=== PATIENT | female | born 1960 | race Caucasian/White ===

== ENCOUNTER 2016-07-30 11:42 | Inpatient (IN) | payer OTHER ==
[~2016-07-30] VITALS: Ht 157.5 cm; Wt 79.9 kg
[~2016-07-30 11:42] MED LIST: AMLO5TAB2 PO; ASPI-482 PO; ASPI325T8 PO; ATEN50TA PO; CLON0.1T PO; CLON1TAB3 PO; ESTR1PAT27 TD; ESTR1TAB15 PO; FLUO20CA8 PO; FLUO20TA11 PO; GABA600T2 PO; HYDR-2758 PO; HYDR25TA9 PO; INSU100C4 SQ; INSU100V13 SQ; INSU100V8 SQ; LEVE500T56 PO; PRENAVITE PO
[2016-07-30] MEDS ORDERED: KETOROLAC TROMETHAMINE 30 MG/ML INJ. IV ONE (12:15)
[2016-07-30] MEDS ORDERED: IV NORMAL SALINE 1000ML BAG 1,000 ML IV ONE (12:15)
--- NOTE | 2016-07-30 12:24 | ED.ADGEN ---
Past Medical History Past Medical History: A-Fib, Hypertension, ME, Seizure, TIA Past Surgical History: Appendectomy, Hysterectomy, Other Additional Past Surgical Histo: ABD SURG,LAPAROSCOPY Alcohol Use: None Drug Use: None Adult General Chief Complaint Chief Complaint: INSECT BITE HPI HPI Patient is a 55 year old insulin-dependent diabetic presents with pain and swelling tenderness and redness around right suprapubic region. Symptoms began 4 days ago while visiting at a stay. Patient believes she was bit by an insect, but it not witness her feel the alleged insect bite one occurred. The area of redness swelling and bruising is gradually increased over the past 3 days. Patient reports right leg pain with movement, arthralgia and increased swelling of right leg. Patient denies fever chills, nausea vomiting and sweats. Patient has not been checking her sugars on a regular basis while on occasion and has had questionable medication compliance. Note, patient reports feeling palpitations and being anxious. Patient has not palpitations today. History of A. fib Review of Systems Review of Systems ROS as per HPI. Current Medications Current Medications Current Medications Medications (Trade) Dose Ordered Sig/Monica Start Time Stop Time Status Last Admin Dose Admin Fentanyl Citrate (Fentanyl 2ml Vial) 75 mcg 1X ONCE 07/30/16 12:30 07/30/16 12:31 DC 07/30/16 12:43 75 MCG Insulin Human Regular (NovoLIN R VIAL) 10 unit 1X ONCE 07/30/16 13:15 07/30/16 13:16 DC 07/30/16 14:11 10 UNIT Ketorolac Tromethamine (Toradol) 30 mg 1X ONCE 07/30/16 12:15 07/30/16 12:16 DC 07/30/16 12:29 30 MG Morphine Sulfate 4 mg 1X ONCE 07/30/16 14:45 07/30/16 14:46 Ondansetron HCl (Zofran) 4 mg 1X ONCE 07/30/16 12:30 07/30/16 12:31 DC 07/30/16 12:42 4 MG Piperacillin Sod/ Tazobactam Sod 3.375 gm/Sodium Chloride 50 ml @ 100 mls/hr 1X ONCE 07/30/16 14:45 07/30/16 15:14 Sodium Chloride 1,000 ml @ 1,000 mls/hr 1X ONCE 07/30/16 12:15 07/30/16 13:14 DC 07/30/16 12:29 1,000 MLS/HR Allergies Allergies Allergies Coded Allergies Type Severity Reaction Last Updated Verified levofloxacin Allergy Severe SEIZURES 12/17/14 Yes lidocaine Allergy Severe Swelling 12/17/14 Yes Physical Exam Physical Exam Constitutional: Well developed, well nourished, moderate discomfort secondary to pain. HENT: Normocephalic, atraumatic, bilateral external ears normal, oropharynx moist, no oral exudates, nose normal. Eyes: PERRLA, EOMI, conjunctiva normal, no discharge. Neck: Normal range of motion, no tenderness, supple, no stridor. Cardiovascular:Heart rate regular rhythm, no murmur. Lungs & Thorax: Bilateral breath sounds clear to auscultation. Abdomen: Bowel sounds normal, abdomen soft nontender, . Right suprapubic region , 6 x 8 cm, area of tenderness light bruising, swelling, erythema with induration, and one area of pointing, no fluctuance or drainage appreciated. No genitourinary involvement Skin: Warm, dry, no erythema, no rash. Back: No tenderness. Extremities: No tenderness. Neurologic: Alert and oriented X 3, normal motor function, normal sensory function, no focal deficits noted. Psychologic: Affect normal, judgement normal, mood normal. Current Patient Data Vital Signs Vital Signs Date Time Temp Pulse Resp B/P (MAP) Pulse Ox O2 Delivery O2 Flow Rate FiO2 07/30/16 11:50 99.3 78 18 151/70 (97) 97 Room Air 99.3 Lab Values Laboratory Tests Test 07/30/16 12:15 White Blood Count 10.8 x10^3/uL (4.0-11.0) Red Blood Count 4.82 x10^6/uL (3.50-5.40) Hemoglobin 13.6 g/dL (12.0-15.5) Hematocrit 40.9 % (36.0-47.0) Mean Corpuscular Volume 85 fL (79-100) Mean Corpuscular Hemoglobin 28 pg (25-35) Mean Corpuscular Hemoglobin Concent 33 g/dL (31-37) Red Cell Distribution Width 12.6 % (11.5-14.5) Platelet Count 211 x10^3/uL (140-400) Neutrophils (%) (Auto) 81 % (31-73) H Lymphocytes (%) (Auto) 12 % (24-48) L Monocytes (%) (Auto) 6 % (0-9) Eosinophils (%) (Auto) 0 % (0-3) Basophils (%) (Auto) 1 % (0-3) Neutrophils # (Auto) 8.7 x10^3uL (1.8-7.7) H Lymphocytes # (Auto) 1.3 x10^3/uL (1.0-4.8) Monocytes # (Auto) 0.6 x10^3/uL (0.0-1.1) Eosinophils # (Auto) 0.0 x10^3/uL (0.0-0.7) Basophils # (Auto) 0.1 x10^3/uL (0.0-0.2) Prothrombin Time 12.6 SEC (11.7-14.0) Prothrombin Time INR 1.0 (0.8-1.1) Sodium Level 130 mmol/L (136-145) L Potassium Level 4.1 mmol/L (3.5-5.1) Chloride Level 92 mmol/L (98-107) L Carbon Dioxide Level 26 mmol/L (21-32) Anion Gap 12 (6-14) Blood Urea Nitrogen 22 mg/dL (7-20) H Creatinine 1.2 mg/dL (0.6-1.0) H Estimated GFR (Cockcroft-Gault) 46.3 BUN/Creatinine Ratio 18 (6-20) Glucose Level 532 mg/dL (70-99) *H Calcium Level 9.6 mg/dL (8.5-10.1) Total Bilirubin 0.9 mg/dL (0.2-1.0) Aspartate Amino Transferase (AST) 22 U/L (15-37) Alanine Aminotransferase (ALT) 24 U/L (14-59) Alkaline Phosphatase 64 U/L (46-116) C-Reactive Protein, Quantitative 94.9 mg/L (0-3.3) H Total Protein 7.7 g/dL (6.4-8.2) Albumin 3.4 g/dL (3.4-5.0) Albumin/Globulin Ratio 0.8 (1.0-1.7) L Laboratory Tests 07/30/16 12:15 Laboratory Tests 07/30/16 12:15 EKG EKG [] Radiology/Procedures Radiology/Procedures [] Course & Med Decision Making Course & Med Decision Making Pertinent Labs and Imaging studies reviewed. (See chart for details) [Patient with soft tissue infection of suprapubic region without clear abscess formation. A stab incision was made and no purulent drainage was aspirated. IV fluids and insulin and antibiotics will be given for presumed MRSA coverage. Dr. Gar to admit. Moises Disclaimer Moises Disclaimer This electronic medical record was generated, in whole or in part, using a voice recognition dictation system. JACQUELIN WHITNEY DO Jul 30, 2016 12:24
[2016-07-30 12:26] LABS: BASO # 0.1 x10^3/uL (0.0-0.2); BASO % 1 % (0-3); EOS % 0 % (0-3); HEMATOCRIT 40.9 % (36.0-47.0); HEMOGLOBIN 13.6 g/dL (12.0-15.5); LYMPH # 1.3 x10^3/uL (1.0-4.8); LYMPH % 12 % (24-48); MEAN CORPUSCULAR HEMOGLOBIN 28 pg (25-35); MEAN CORPUSCULAR HGB CONC 33 g/dL (31-37); MEAN CORPUSCULAR VOLUME 85 fL (79-100); MONO % 6 % (0-9); NEUT % 81 % (31-73); PLATELET COUNT 211 x10^3/uL (140-400); RED BLOOD COUNT 4.82 x10^6/uL (3.50-5.40); RED CELL DISTRIBUTION WIDTH 12.6 % (11.5-14.5); WHITE BLOOD COUNT 10.8 x10^3/uL (4.0-11.0)
[2016-07-30] MEDS ORDERED: ONDANSETRON PF 4 MG/2 ML VIAL. IV ONE (12:30)
[2016-07-30] MEDS ORDERED: fentaNYL PF VIAL 100 MCG/2 ML VIAL IV ONE (12:30)
[2016-07-30 12:37] LABS: PROTHROMBIN TIME PATIENT 12.6 SEC (11.7-14.0)
[2016-07-30 12:49] LABS: ALBUMIN 3.4 g/dL (3.4-5.0); ALBUMIN/GLOBULIN RATIO 0.8 (1.0-1.7); CALCIUM 9.6 mg/dL (8.5-10.1); CREATININE 1.2 mg/dL (0.6-1.0); GFR 46.3; POTASSIUM 4.1 mmol/L (3.5-5.1); TOTAL BILIRUBIN 0.9 mg/dL (0.2-1.0); TOTAL PROTEIN 7.7 g/dL (6.4-8.2)
[2016-07-30] MEDS ORDERED: INSULIN REGULAR 100 UNIT/ML 10ML VIAL. IM ONE (13:15)
[2016-07-30] MEDS ORDERED: ONDANSETRON PF 4 MG/2 ML VIAL. IV PRN (14:45)
[2016-07-30] MEDS ORDERED: MORPHINE SULFATE 2 MG/ML DISP.SYRIN. IV PRN (14:45)
[2016-07-30] MEDS ORDERED: PIPERACILLIN/TAZOBACTAM 3.375 GM in IV NORMAL SALINE 50ML 50 ML IV ONE (14:45)
[2016-07-30] MEDS ORDERED: MORPHINE SULFATE 4 MG/ML DISP.SYRIN. IV ONE (14:45)
--- NOTE | 2016-07-30 16:27 | ACF ---
Admission Forms Criteria SYSTEMIC OR INFECTIOUS CONDITION Clinical Indications for Admission to Inpatient Care (Place 'X' for any and all applicable criteria): Hospital admission is needed for appropriate care of the patient because of ANY ONE of the following: []I. Hemodynamic instability indicated by ANY ONE of the following(1)(2)(3)(4 )(5): []a. Vital sign abnormality not readily corrected by appropriate treatment within 12 to 24 hours indicated by ANY ONE of the following: []i) Tachycardia that persists despite appropriate treatment []ii) Hypotension that persists despite appropriate treatment []iii) Orthostatic vital sign changes that persist despite appropriate treatment []b. Vital sign abnormality that is severe indicated by ANY ONE of the following: []i. Inadequate perfusion indicated by ANY ONE of the following: []1) Lactic acidosis (greater than 2 mmol/L) []2) New abnormal capillary refill (greater than 3 seconds) []3) Reduced urine output []4) New altered mental status []5) Myocardial Ischemia []ii. Mean arterial pressure [A] less than 60 mm Hg []iii. Mean arterial pressure[A] less than 70 mm Hg after 30 minutes of appropriate treatment (eg, fluid resuscitation) []iv. Sustained heart rate greater than 120 beats per minute in adult []v. IV inotropic or vasopressor medication required to maintain adequate blood pressure or perfusion []II. Systemic or infectious condition causing severe symptoms or findings not responsive to emergency or observation care treatment (as appropriate) indicated by ANY ONE of the following: []a. Cardiac arrhythmias of immediate concern(1)(2)(3) []b. Severe endocrine disorder (eg, thyrotoxicosis, adrenal insufficiency)(4)(5) []c. Seizures (eg, new or recurrent)(6) []d. New-onset end organ failure or dysfunction as indicated by ANY ONE of the following: []i. Acute unexplained hypoxemia (eg, not from lung infection or chronic disease)(7)(8)(9) []ii. Acute renal failure as indicated by new onset of ANY ONE of the following(10)(11)(12)(13)(14): []1) 3-fold rise in serum creatinine from baseline []2) Serum creatinine greater than 4 mg/dL (354 micromoles/L) with acute rise greater than 0.5 mg/dL (44.2 micromoles/L) []3) Reduction of more than 75% in estimated glomerular filtration rate from baseline. []4) Estimated glomerular filtration rate less than 35 mL/min/1.73m2 ( 0.59 mL/sec/1.73m2) in child younger than 18 years. []5) Cessation of urine output indicated by ALL of the following: []A. Adequate volume status []B. Inadequate urine output as indicated by ANY ONE of the following: []a. Urine output less than 0.3 mL/kg/hr for 24 hours []b. Anuria (urine output less than 0.1 mL/kg/hr) for 12 hours []iii. Acute mental status changes(15) []iv. Acute hepatic failure (eg, plasma bilirubin greater than 4 mg/ dL (68 micromoles/L), new INR greater than 2.0)(16)(17) []e. Unmanageable nausea and vomiting(18) []f. New-onset or uncontrolled central diabetes insipidus(19)(20) []g. Clinically significant dehydration(18)(21) []h. Hypoglycemia(22) []i. Acidosis (pH less than 7.35) or alkalosis (pH greater than 7.45)( 22)(23) []j. Toxic drug level that indicates need for specific monitoring or treatment(24)(25) []k. Severe electrolyte abnormalities indicated by ALL of the following( 1)(2)(3): []i. Electrolytes and associated findings are not as expected for patient baseline or acceptable treatment effects. []ii. Severe abnormalities indicated by ANY ONE of the following: []1) Sodium less than 130 mEq/L (mmol/L) (new) []2) Sodium less than 135 mEq/L (mmol/L) with ANY ONE of the following: []A. Uncorrectable (to near normal or chronic baseline) after trial of outpatient and emergency treatment []B. Altered mental status []C. Seizures []D. Severe medical etiology requiring inpatient management (eg , heart failure, hypovolemia) []3) Sodium greater than 155 mEq/L (mmol/L) []4) Sodium greater than 150 mEq/L (mmol/L) with ANY ONE of the following: []A. Uncorrectable (to near normal or chronic baseline) with outpatient and emergency treatment []B. Altered mental status []C. Seizures []D. Severe medical etiology (eg, hypovolemia, diabetes insipidus) []5) Potassium less than 2.5 mEq/L (mmol/L) despite outpatient and emergency treatment []6) Potassium less than 3 mEq/L (mmol/L) with ANY ONE of the following : []A. Weakness []B. Cardiac abnormality (eg, arrhythmia, conduction disturbance ) []C. Cardiac ischemia []D. Ileus []E. Ongoing medical cause requiring inpatient management (eg, acute renal wasting or SIADH) []F. Other severe symptoms []7) Potassium greater than 6.5 mEq/L (mmol/L) []8) Potassium greater than 5 mEq/L (mmol/L) with ANY ONE of the following: []A. Uncorrectable (to near normal or chronic baseline) with outpatient and emergency treatment []B. Severe ECG findings[A] []C. Acute worsening of renal failure (creatinine greater than 2.5 mg/dL (221 micromoles/L) or significant elevation for age and size) []D. Severe weakness []E. Severe medical etiology (eg, hemolysis, infection, drug overdose) []9) Calcium less than 7 mg/dL (1.75 mmol/L) despite outpatient and emergency treatment(5) []10) Calcium less than 8 mg/dL (2 mmol/L) with significant symptoms or findings (eg, altered mental status, muscle spasms, seizures, breathing difficulty, cardiac abnormality (eg, arrhythmia or conduction disturbance))(5) []11) Calcium greater than 14 mg/dL (3.5 mmol/L)(5) []12) Calcium greater than 12 mg/dL (3 mmol/L) with ANY ONE of the following(5): []A. Uncorrectable (to near normal or chronic baseline) with outpatient and emergency treatment []B. Significant dehydration or hypovolemia as indicated by ALL of the following(3)(6)(7): []a. Not resolved with initial treatments []b. Clinically significant dehydration as indicated by ANY ONE of the following: [](1) Vomiting refractory to outpatient treatment (ie, precluding oral rehydration) [](2) Inability to drink [](3) Hypernatremia or other electrolyte abnormality unable to be corrected with outpatient and emergency treatment [](4) Failure to remain hydrated with outpatient therapy [](5) Reduced urine output [](6) Hypotension [](7) Serious cause for dehydration requiring acute hospitalization ( eg, bowel obstruction, increased intracranial pressure, infectious cause) [](8) Child with ANY ONE of the following(8): [](i) Severe abdominal tenderness [](ii) Adequate care not available at home [](iii) Severe dehydration (greater than 9% loss of body weight) []C. Significant symptoms or findings (eg, altered mental status , cardiac abnormality (eg, arrhythmia, conduction disturbance), malignant etiology requiring inpatient treatment) []13) Phosphorus less than 1 mg/dL (0.32 mmol/L) []14) Phosphorus less than 1.5 mg/dL (0.48 mmol/L) with ANY ONE of the following: []A. Patient unresponsive to outpatient and emergency treatment []B. Significant symptoms or findings (eg, weakness, altered mental status, breathing difficulty, seizures, rhabdomyolysis) []15) Phosphorus greater than 10 mg/dL (3.2 mmol/L) []16) Phosphorus greater than 4.5 mg/dL (1.45 mmol/L) (new) with ANY ONE of the following: []A. Severe medical etiology (eg, crush injury, acute renal failure) []B. Associated hypocalcemia with significant findings (eg, neurologic symptoms, altered mental status, muscle spasms, seizures, breathing difficulty, cardiac abnormality (eg, arrhythmia, conduction disturbance)) []16) Magnesium less than 1 mg/dL (0.41 mmol/L) []17) Magnesium less than 1.5 mg/dL (0.62 mmol/L) with ANY ONE of the following: []A. Patient unresponsive to outpatient and emergency treatment []B. Associated hypocalcemia with significant findings (eg, altered mental status, muscle spasms, seizures, breathing difficulty, cardiac abnormality (eg, arrhythmia, conduction disturbance)) []C. Associated hypokalemia (potassium less than 3 mEq/L (mmol/L )) with risk of arrhythmia []18) Magnesium greater than 4 mEq/L (2 mmol/L) []19) Magnesium greater than 2.5 mEq/L (1.25 mmol/L) with significant symptoms or findings (eg, weakness, altered mental status, cardiac abnormality (eg, arrhythmia, conduction disturbance), breathing difficulty, severe medical etiology (eg, renal failure, hypovolemia)) []20) Uric acid greater than 20 mg/dL (1190 micromoles/L)(9) []21) Uric acid greater than 8 mg/dL (476 micromoles/L) with significant symptoms or findings of tumor lysis syndrome (eg, creatinine greater than 1.5 times upper limit of normal, cardiac abnormality (eg , arrhythmia, conduction disturbance), seizure)(9) []III. High fever or other high-risk infection situation as indicated by ANY ONE of the following(26)(27)(28): []a. Outpatient and observation care antimicrobial treatment unavailable, not effective, or not appropriate []b. Documented bacteremia []c. Temperature greater than 104.9 degrees F (40.5 degrees C) (oral) []d. Temperature greater than 103.1 degrees F (39.5 degrees C) (oral) or less than 96.8 degrees F (36 degrees C) (rectal) that does not respond to emergency treatment and observation care []IV. High-risk febrile neutropenia[A] as indicated by ANY ONE of the following(29)(30)(31)(32): []a. Profound neutropenia[B] anticipated to extend for more than 7 days []b. Hemodynamic instability []c. Hypoxemia []d. Tachypnea []e. Altered mental status []f. New-onset abdominal pain []g. New-onset vomiting or diarrhea []h. Oral or gastrointestinal mucositis that interferes with swallowing or causes severe diarrhea []i. Focal infection (eg, cellulitis, pneumonia, central line or catheter infection, perirectal abscess) []j. Renal insufficiency (eg, GFR of less than 30 mL/min/1.73m2 (0.5 mL/sec /1.73m2)). []k. Severe liver dysfunction (transaminase levels greater than 5 times normal) []l. Platelet count less than 50,000/mm3 (50 x109/L)(33) []m. Leukemia or lymphoma induction therapy []n. Leukemia not in complete remission or with evidence of disease progression []o. Bone marrow transplant patient []p. Alemtuzumab being used for therapy []q. [employer] Association for Supportive Care in Cancer (MASCC) Risk Index score of less than 21[C](33)(35). []V. Isolation required (eg, tuberculosis that requires isolation, Ebola infection)[D](36)(37)(38)(39)(40) []. Gangrene that requires treatment beyond emergency or observation level care(41)(42) []VII. Antitoxin administration and ongoing observation required (eg, tetanus, botulism)(43)(44) [X]. Suspected infection with rapid progression or severe symptoms as indicated by ANY ONE of the following(45): []a. Streptococcal or staphylococcal toxic shock(46) []b. Diphtheria(47) []c. Hantavirus(48) []d. Severe acute respiratory syndrome(8)(49) []e. Anthrax(50) []f. Ebola[D](36)(37)(38) []g. Necrotizing soft tissue infection(41)(42) []h. Plague(50) [X]i. Other suspected infection that requires care beyond emergency or observation level care []VII. Severe adverse drug or systemic toxin reaction as indicated by ANY ONE of the following(24): []a. Serotonin syndrome(51)(52) []b. Neuroleptic malignant syndrome(51)(52) []c. Cholinergic syndrome with severe symptoms (eg, bronchorrhea, weakness , mental status changes, seizures)(53) []d. Anticholinergic syndrome []e. Sympathetic syndrome with severe symptoms (eg, seizures, mental status changes, cardiac dysrhythmias) []f. Other severe adverse drug or systemic toxin reaction that remains after emergency or observation level care (as appropriate) []VIII. Allergic reaction with severe symptoms (not responsive to emergency or observation care treatment as appropriate), including ANY ONE of the following(54): []a. Airway edema (pharyngeal, epiglottic, or laryngeal edema) []b. Stridor []c. Respiratory failure []d. Bronchospasm []e. Hypotension []IX. Environmental emergency (not responsive to emergency or observation care treatment as appropriate) as indicated by ANY ONE of the following(55)(56): []a. Hyperthermia []b. Heat stroke []c. Heat exhaustion []d. Hypothermia (temperature less than 95 degrees F (35 degrees C) rectal) (57) []e. Electrocution(58) []X. Complications of transplanted organ (ie, not covered elsewhere)[E] indicated by ANY ONE of the following(59): []a. Acute graft rejection (or graft vs. host disease)[F] requiring inpatient management (eg, intravenous immunosuppression)(60)(61)(62)( 63) []b. Acute failure of transplanted organ necessitating inpatient care (eg, cannot be managed in other setting) []c. Infection requiring inpatient management (eg, Hemodynamic instability, need for intravenous antimicrobial treatment)(64)(65) []d. Other complication of transplanted organ requiring inpatient management []XI. Systemic or Infectious Condition condition, symptom, or finding for which emergency and observation care have failed or are not considered appropriate. See General Criteria: Observation Care, General Admission Criteria or Pediatric General Admission Criteria guideline as appropriate. The original [facility] content created by [facility] has been revised. The portions of the content which have been revised are identified through the use of italic text or in bold and [facility] has neither reviewed nor approved the modified material. All other unmodified content is copyright [facility]. Please see references footnoted in the original [facility] edition 2016 Admission Criteria Met?: Yes RUFINO CANALES Jul 30, 2016 16:27
[2016-07-30 18:09] VITALS: BP 110/55
[2016-07-30] MEDS ORDERED: INSULIN ASPART 300 UNITS/3 ML INSULN.PEN SQ ONE (18:15)
[2016-07-30] MEDS ORDERED: DEXTROSE 50% 25 GM / 50ML DISP.SYRIN. IV PRN (18:15)
[2016-07-30] MEDS: HYDROcodone/APAP 5/325MG 1 TAB TABLET PO PRN (18:27)
[2016-07-30 19:30] VITALS: BP 94/48
[2016-07-30] MEDS: cloNIDine HCL 0.1 MG TABLET PO SCH (21:00)
[2016-07-30] MEDS: ATENOLOL 50 MG TABLET. PO SCH (21:00)
[2016-07-30] MEDS: INSULIN DETEMIR 300 UNITS/3 ML INSULN.PEN. SQ SCH (21:00)
[2016-07-30] MEDS: levETIRAcetam 500 MG TABLET PO SCH (21:26)
[2016-07-30] MEDS: clonazePAM 1 MG TABLET PO SCH (21:26)
[2016-07-30] MEDS: GABAPENTIN 300 MG CAPSULE. PO SCH (21:26)
--- NOTE | 2016-07-30 22:06 | HP ---
ADMIT DATE: 07/30/2016 CHIEF COMPLAINT: Suprapubic abdominal pain with rash. HISTORY OF PRESENT ILLNESS: A 55-year-old female patient with prior history of seizures, coronary artery disease, and type 2 diabetes mellitus, presented to the ER with complaints of pain and swelling and tenderness around the right suprapubic region. The patient went to [place] one month ago and she was staying at daughter's place and she was not clear whether she had an insect bite or tick bite; however, she used to spend some time with her dogs. She did have suspected bite from the insect from the dog. Her symptoms started 4 days ago and started with black eschar surrounded by redness and she said she noted 2 spots and they were slowly progressively worsening with worsening redness, but today her symptoms got worse and she has arthralgia and increased weakness and stiffness and intractable pain. She denies any fever, chills, nausea or vomiting. PAST MEDICAL HISTORY: Paroxysmal atrial fibrillation, seizure-like activity, hypertension, TIA, [place]. PAST SURGICAL HISTORY: Appendectomy, hysterectomy, abdominal surgical laparoscopy. PERSONAL HISTORY: No smoking, no alcohol, no drug abuse. FAMILY HISTORY: Unknown to patient. ALLERGIES: LIDOCAINE. REVIEW OF SYSTEMS: and HP pl see my electronic HP. LABORATORY FINDINGS: CBC: WBC 10.8, hemoglobin is 13.6, MCV is 85 and platelets 211. Chemistry: Sodium is 130, potassium is 4.1, chloride is 92, carbon dioxide 26, BUN is 22, creatinine 1.2, glucose 532 and CRP is 108. Coagulation panel, PT/INR normal range. ASSESSMENT AND PLAN: 1. Abdominal wall cellulitis suspected due to insect bite, unclear etiology. 2. Low grade temperature. 3. Type 2 diabetes mellitus with hyperglycemia. 4. Hypernatremia. 5. History of seizure-like activity. 6. History paroxysmal atrial fibrillation. PLAN: 1. The patient has been started on broad-spectrum antibiotics, Zosyn for now and we will consult Infectious Disease. 2. Sliding scale insulin with home dose of Levemir. 3. Pain control with hydrocodone and morphine 2 mg q. 2 hours. 4. Continue Keppra. 5. For blood pressure, the patient has been on clonidine and atenolol. We will continue that now. 6. Physical therapy and occupational therapy. 7. Symptomatic treatment for muscle pain. LORI BURCIAGA MD DR: Usman JOB#: [id number] / [id number] EMILY
[2016-07-30 23:50] VITALS: BP 98/47
[2016-07-30] MEDS: PIPERACILLIN/TAZOBACTAM 3.375 GM in IV NORMAL SALINE 50ML 50 ML IV SCH (23:54)
[2016-07-31 03:20] VITALS: BP 115/59
[2016-07-31 05:40] LABS: BASO % 0 % (0-3); EOS % 1 % (0-3); HEMATOCRIT 36.5 % (36.0-47.0); HEMOGLOBIN 12.6 g/dL (12.0-15.5); LYMPH # 2.2 x10^3/uL (1.0-4.8); LYMPH % 19 % (24-48); MEAN CORPUSCULAR HEMOGLOBIN 29 pg (25-35); MEAN CORPUSCULAR HGB CONC 35 g/dL (31-37); MEAN CORPUSCULAR VOLUME 83 fL (79-100); MONO % 8 % (0-9); NEUT % 73 % (31-73); PLATELET COUNT 198 x10^3/uL (140-400); RED BLOOD COUNT 4.41 x10^6/uL (3.50-5.40); RED CELL DISTRIBUTION WIDTH 12.8 % (11.5-14.5); WHITE BLOOD COUNT 11.9 x10^3/uL (4.0-11.0)
[2016-07-31 06:05] LABS: CALCIUM 8.7 mg/dL (8.5-10.1); CREATININE 1.2 mg/dL (0.6-1.0); GFR 46.3; POTASSIUM 3.7 mmol/L (3.5-5.1)
[2016-07-31] MEDS: PIPERACILLIN/TAZOBACTAM 3.375 GM in IV NORMAL SALINE 50ML 50 ML IV SCH ×3 (06:17→18:10)
[2016-07-31 07:00] VITALS: BP 104/46
[2016-07-31] MEDS: ESTRADIOL 1 MG TABLET. PO SCH (08:53)
[2016-07-31] MEDS: ASPIRIN 325 MG TABLET PO SCH (08:53)
[2016-07-31] MEDS: cloNIDine HCL 0.1 MG TABLET PO SCH ×2 (08:53→21:00)
[2016-07-31] MEDS: GABAPENTIN 300 MG CAPSULE. PO SCH ×3 (08:54→21:05)
[2016-07-31] MEDS: levETIRAcetam 500 MG TABLET PO SCH ×2 (08:54→21:05)
[2016-07-31] MEDS: ATENOLOL 50 MG TABLET. PO SCH ×3 (08:54→21:00)
[2016-07-31] MEDS: INSULIN DETEMIR 300 UNITS/3 ML INSULN.PEN. SQ SCH ×2 (09:11→21:00)
[2016-07-31] MEDS: INSULIN ASPART 300 UNITS/3 ML INSULN.PEN SQ SCH ×4 (09:12→17:32)
[2016-07-31] MEDS: FLUoxetine HCL 20 MG CAPSULE PO SCH (09:18)
[2016-07-31] MEDS: HYDROcodone/APAP 5/325MG 1 TAB TABLET PO PRN ×3 (09:19→18:14)
[2016-07-31 11:00] VITALS: BP 84/43
--- NOTE | 2016-07-31 14:38 | RAD ---
EXAM: Abdominal ultrasound, limited. HISTORY: Swelling of the abdominal pannus. Assess for abscess. COMPARISON: None. FINDINGS: Sonographic evaluation of the region of concern along the pannus was performed. Only subcutaneous fat is visualized. There is no clear fluid collection or phlegmon. IMPRESSION: 1. No fluid collection is identified.
--- NOTE | 2016-07-31 14:40 | PDOC ---
PROGRESS NOTES Chief Complaint Chief Complaint 1. Abdominal wall cellulitis suspected due to insect bite, w/ abcess 2. Low grade temperature. 3. Type 2 diabetes mellitus with hyperglycemia. and CKD 3, long-term insulin use 4. Hypernatremia. 5. Seizure d/o 6. History paroxysmal atrial fibrillation. History of Present Illness History of Present Illness ID consult zosyn, start vanc consult Surg, I+D done in ER, still swollen and may still have abcess, very tender with drainage Sliding scale insulin with home dose of Levemir. increase morphine dose, pain severe Vitals Vitals Vital Signs Date Time Temp Pulse Resp B/P (MAP) Pulse Ox O2 Delivery O2 Flow Rate FiO2 07/31/16 13:44 20 91 Room Air 07/31/16 11:00 98.2 76 84/43 (57) 98.2 Physical Exam General: Alert, Cooperative, moderate distress (pain) Heart: Regular rate, Normal S1, Normal S2 Lungs: Clear Abdomen: Normal bowel sounds, Other (swollen and tender suprapubic, she is holding cold pack on it, and is in distress) Skin: Other Labs LABS Laboratory Tests Test 07/30/16 15:50 07/30/16 18:04 07/30/16 21:34 07/31/16 04:30 Glucose (Fingerstick) 446 mg/dL (70-99) 385 mg/dL (70-99) 239 mg/dL (70-99) White Blood Count 11.9 x10^3/uL (4.0-11.0) Red Blood Count 4.41 x10^6/uL (3.50-5.40) Hemoglobin 12.6 g/dL (12.0-15.5) Hematocrit 36.5 % (36.0-47.0) Mean Corpuscular Volume 83 fL (79-100) Mean Corpuscular Hemoglobin 29 pg (25-35) Mean Corpuscular Hemoglobin Concent 35 g/dL (31-37) Red Cell Distribution Width 12.8 % (11.5-14.5) Platelet Count 198 x10^3/uL (140-400) Neutrophils (%) (Auto) 73 % (31-73) Lymphocytes (%) (Auto) 19 % (24-48) Monocytes (%) (Auto) 8 % (0-9) Eosinophils (%) (Auto) 1 % (0-3) Basophils (%) (Auto) 0 % (0-3) Neutrophils # (Auto) 8.6 x10^3uL (1.8-7.7) Lymphocytes # (Auto) 2.2 x10^3/uL (1.0-4.8) Monocytes # (Auto) 0.9 x10^3/uL (0.0-1.1) Eosinophils # (Auto) 0.1 x10^3/uL (0.0-0.7) Basophils # (Auto) 0.0 x10^3/uL (0.0-0.2) Sodium Level 133 mmol/L (136-145) Potassium Level 3.7 mmol/L (3.5-5.1) Chloride Level 97 mmol/L (98-107) Carbon Dioxide Level 28 mmol/L (21-32) Anion Gap 8 (6-14) Blood Urea Nitrogen 28 mg/dL (7-20) Creatinine 1.2 mg/dL (0.6-1.0) Estimated GFR (Cockcroft-Gault) 46.3 Glucose Level 310 mg/dL (70-99) Calcium Level 8.7 mg/dL (8.5-10.1) Test 07/31/16 07:26 07/31/16 10:58 Glucose (Fingerstick) 326 mg/dL (70-99) 291 mg/dL (70-99) Review of Systems Review of Systems pain and nausea pain 09/23 insomnia due to pain Assessment and Plan Assessmemt and Plan Problems Medical Problems: (1) Cellulitis Status: Acute Problems: Comment Review of Relevant I have reviewed the following items cheko (where applicable) has been applied. Labs Laboratory Tests Test 07/30/16 12:15 07/30/16 15:50 07/30/16 18:04 07/30/16 21:34 White Blood Count 10.8 x10^3/uL (4.0-11.0) Red Blood Count 4.82 x10^6/uL (3.50-5.40) Hemoglobin 13.6 g/dL (12.0-15.5) Hematocrit 40.9 % (36.0-47.0) Mean Corpuscular Volume 85 fL (79-100) Mean Corpuscular Hemoglobin 28 pg (25-35) Mean Corpuscular Hemoglobin Concent 33 g/dL (31-37) Red Cell Distribution Width 12.6 % (11.5-14.5) Platelet Count 211 x10^3/uL (140-400) Neutrophils (%) (Auto) 81 % (31-73) Lymphocytes (%) (Auto) 12 % (24-48) Monocytes (%) (Auto) 6 % (0-9) Eosinophils (%) (Auto) 0 % (0-3) Basophils (%) (Auto) 1 % (0-3) Neutrophils # (Auto) 8.7 x10^3uL (1.8-7.7) Lymphocytes # (Auto) 1.3 x10^3/uL (1.0-4.8) Monocytes # (Auto) 0.6 x10^3/uL (0.0-1.1) Eosinophils # (Auto) 0.0 x10^3/uL (0.0-0.7) Basophils # (Auto) 0.1 x10^3/uL (0.0-0.2) Prothrombin Time 12.6 SEC (11.7-14.0) Prothromb Time International Ratio 1.0 (0.8-1.1) Sodium Level 130 mmol/L (136-145) Potassium Level 4.1 mmol/L (3.5-5.1) Chloride Level 92 mmol/L (98-107) Carbon Dioxide Level 26 mmol/L (21-32) Anion Gap 12 (6-14) Blood Urea Nitrogen 22 mg/dL (7-20) Creatinine 1.2 mg/dL (0.6-1.0) Estimated GFR (Cockcroft-Gault) 46.3 BUN/Creatinine Ratio 18 (6-20) Glucose Level 532 mg/dL (70-99) Calcium Level 9.6 mg/dL (8.5-10.1) Total Bilirubin 0.9 mg/dL (0.2-1.0) Aspartate Amino Transf (AST/SGOT) 22 U/L (15-37) Alanine Aminotransferase (ALT/SGPT) 24 U/L (14-59) Alkaline Phosphatase 64 U/L (46-116) C-Reactive Protein, Quantitative 94.9 mg/L (0-3.3) C-Reactive Protein High Sensitivity 108.60 mg/L (0.00-3.00) Total Protein 7.7 g/dL (6.4-8.2) Albumin 3.4 g/dL (3.4-5.0) Albumin/Globulin Ratio 0.8 (1.0-1.7) Glucose (Fingerstick) 446 mg/dL (70-99) 385 mg/dL (70-99) 239 mg/dL (70-99) Test 07/31/16 04:30 07/31/16 07:26 07/31/16 10:58 White Blood Count 11.9 x10^3/uL (4.0-11.0) Red Blood Count 4.41 x10^6/uL (3.50-5.40) Hemoglobin 12.6 g/dL (12.0-15.5) Hematocrit 36.5 % (36.0-47.0) Mean Corpuscular Volume 83 fL (79-100) Mean Corpuscular Hemoglobin 29 pg (25-35) Mean Corpuscular Hemoglobin Concent 35 g/dL (31-37) Red Cell Distribution Width 12.8 % (11.5-14.5) Platelet Count 198 x10^3/uL (140-400) Neutrophils (%) (Auto) 73 % (31-73) Lymphocytes (%) (Auto) 19 % (24-48) Monocytes (%) (Auto) 8 % (0-9) Eosinophils (%) (Auto) 1 % (0-3) Basophils (%) (Auto) 0 % (0-3) Neutrophils # (Auto) 8.6 x10^3uL (1.8-7.7) Lymphocytes # (Auto) 2.2 x10^3/uL (1.0-4.8) Monocytes # (Auto) 0.9 x10^3/uL (0.0-1.1) Eosinophils # (Auto) 0.1 x10^3/uL (0.0-0.7) Basophils # (Auto) 0.0 x10^3/uL (0.0-0.2) Sodium Level 133 mmol/L (136-145) Potassium Level 3.7 mmol/L (3.5-5.1) Chloride Level 97 mmol/L (98-107) Carbon Dioxide Level 28 mmol/L (21-32) Anion Gap 8 (6-14) Blood Urea Nitrogen 28 mg/dL (7-20) Creatinine 1.2 mg/dL (0.6-1.0) Estimated GFR (Cockcroft-Gault) 46.3 Glucose Level 310 mg/dL (70-99) Calcium Level 8.7 mg/dL (8.5-10.1) Glucose (Fingerstick) 326 mg/dL (70-99) 291 mg/dL (70-99) Laboratory Tests Test 07/30/16 15:50 07/30/16 18:04 07/30/16 21:34 07/31/16 04:30 Glucose (Fingerstick) 446 mg/dL (70-99) 385 mg/dL (70-99) 239 mg/dL (70-99) White Blood Count 11.9 x10^3/uL (4.0-11.0) Red Blood Count 4.41 x10^6/uL (3.50-5.40) Hemoglobin 12.6 g/dL (12.0-15.5) Hematocrit 36.5 % (36.0-47.0) Mean Corpuscular Volume 83 fL (79-100) Mean Corpuscular Hemoglobin 29 pg (25-35) Mean Corpuscular Hemoglobin Concent 35 g/dL (31-37) Red Cell Distribution Width 12.8 % (11.5-14.5) Platelet Count 198 x10^3/uL (140-400) Neutrophils (%) (Auto) 73 % (31-73) Lymphocytes (%) (Auto) 19 % (24-48) Monocytes (%) (Auto) 8 % (0-9) Eosinophils (%) (Auto) 1 % (0-3) Basophils (%) (Auto) 0 % (0-3) Neutrophils # (Auto) 8.6 x10^3uL (1.8-7.7) Lymphocytes # (Auto) 2.2 x10^3/uL (1.0-4.8) Monocytes # (Auto) 0.9 x10^3/uL (0.0-1.1) Eosinophils # (Auto) 0.1 x10^3/uL (0.0-0.7) Basophils # (Auto) 0.0 x10^3/uL (0.0-0.2) Sodium Level 133 mmol/L (136-145) Potassium Level 3.7 mmol/L (3.5-5.1) Chloride Level 97 mmol/L (98-107) Carbon Dioxide Level 28 mmol/L (21-32) Anion Gap 8 (6-14) Blood Urea Nitrogen 28 mg/dL (7-20) Creatinine 1.2 mg/dL (0.6-1.0) Estimated GFR (Cockcroft-Gault) 46.3 Glucose Level 310 mg/dL (70-99) Calcium Level 8.7 mg/dL (8.5-10.1) Test 07/31/16 07:26 07/31/16 10:58 Glucose (Fingerstick) 326 mg/dL (70-99) 291 mg/dL (70-99) Microbiology 07/30/16 Blood Culture - Preliminary, Resulted NO GROWTH AFTER 1 DAY Medications Current Medications Sodium Chloride 1,000 ml @ 1,000 mls/hr 1X ONCE IV Last administered on 12:29; Start 07/30/16 at 12:15; Stop 07/30/16 at 13:14; Status DC Ketorolac Tromethamine (Toradol) 30 mg 1X ONCE IV Last administered on 12:29; Start 07/30/16 at 12:15; Stop 07/30/16 at 12:16; Status DC Fentanyl Citrate (Fentanyl 2ml Vial) 75 mcg 1X ONCE IV Last administered on 12:43; Start 07/30/16 at 12:30; Stop 07/30/16 at 12:31; Status DC Ondansetron HCl (Zofran) 4 mg 1X ONCE IV Last administered on 07/30/16 12:42 ; Start 07/30/16 at 12:30; Stop 07/30/16 at 12:31; Status DC Insulin Human Regular (NovoLIN R VIAL) 10 unit 1X ONCE IM Last administered on 07/30/16 14:11; Start 07/30/16 at 13:15; Stop 07/30/16 at 13:16; Status DC Morphine Sulfate 4 mg 1X ONCE IV Last administered on 07/30/16 15:11; Start 07/30/16 at 14:45; Stop 07/30/16 at 14:46; Status DC Piperacillin Sod/ Tazobactam Sod 3.375 gm/Sodium Chloride 50 ml @ 100 mls/hr 1X ONCE IV Last administered on 07/30/16 15:12; Start 07/30/16 at 14:45; Stop 07/30/16 at 15:14; Status DC Ondansetron HCl (Zofran) 4 mg PRN Q8HRS PRN IV NAUSEA/VOMITING; Start 07/30/16 at 14:45; Stop 07/31/16 at 14:44 Morphine Sulfate 2 mg PRN Q2HR PRN IV PAIN; Start 07/30/16 at 14:45; Stop 07/31 at 14:44 Piperacillin Sod/ Tazobactam Sod 3.375 gm/Sodium Chloride 50 ml @ 100 mls/hr Q6HRS IV Last administered on 07/31/16 12:16; Start 07/31/16 at 00:00 Acetaminophen/ Hydrocodone Bitart (Lortab 5/325) 1 tab PRN Q4HRS PRN PO PAIN Last administered on 07/31/16 13:44; Start 07/30/16 at 18:15 Insulin Aspart (NovoLOG) 10 units 1X ONCE SQ Last administered on 07/30/16 18 :31; Start 07/30/16 at 18:15; Stop 07/30/16 at 18:17; Status DC Insulin Aspart (NovoLOG) 0-9 UNITS TIDWMEALS SQ Last administered on 07/31/16 12:26; Start 07/31/16 at 08:00 Dextrose (Dextrose 50%-Water Syringe) 12.5 gm PRN Q15MIN PRN IV SEE COMMENTS; Start 07/30/16 at 18:15 Aspirin (Mingo Aspirin) 325 mg DAILY08 PO Last administered on 07/31/16 08:53 ; Start 07/31/16 at 08:00 Atenolol (Tenormin) 50 mg BID PO Last administered on 07/31/16 09:19; Start at 21:00 Clonazepam (KlonoPIN) 1 mg QHS PO Last administered on 07/30/16 21:26; Start 07/30/16 at 21:00 Clonidine HCl (Catapres) 0.1 mg BID PO ; Start 07/30/16 at 21:00 Estradiol (Estrace) 1 mg DAILY PO Last administered on 07/31/16 08:53; Start 07/31/16 at 09:00 Fluoxetine HCl (PROzac) 20 mg DAILY PO Last administered on 07/31/16 09:18; Start 07/31/16 at 09:00 Levetiracetam (Keppra) 1,500 mg BID PO Last administered on 07/31/16 08:54; Start 07/30/16 at 21:00 Gabapentin (Neurontin) 600 mg TID PO Last administered on 07/31/16 13:43; Start 07/30/16 at 21:00 Insulin Detemir (Levemir) 60 units BID SQ Last administered on 07/31/16 09:11 ; Start 07/30/16 at 21:00 Insulin Aspart (NovoLOG) 20 units TIDAC SQ ; Start 07/31/16 at 16:30 Active Scripts Active Keppra (Levetiracetam) 500 Mg Tablet 1,500 Mg PO BID Reported Hydrochlorothiazide Tablet (Hydrochlorothiazide) 25 Mg Tablet 1 Tab PO PRN PRN Aspirin 325 Mg Tablet 325 Tab PO PRN Q6HRS PRN Estradiol 1 Mg Tablet 1 Tab PO DAILY Clonazepam 1 Mg Tablet 1 Tab PO QHS Levemir (Insulin Detemir) 100 Unit/1 Ml Vial 60 Unit SQ BID Novolog (Insulin Aspart) 100 Unit/1 Ml Cartridge 100 Unit SQ SLIDING SCALE Fluoxetine Hcl 20 Mg Capsule 1 Cap PO DAILY Clonidine Hcl 0.1 Mg Tablet 0.1 Mg PO BID Gabapentin 600 Mg Tablet 1 Tab PO TID Atenolol 50 Mg Tablet 50 Mg PO BID Vitals/I & O Vital Sign - Last 24 Hours 07/30/16 07/30/16 07/30/16 07/30/16 15:00 18:06 18:06 18:09 Temp 98.1 98.1 Pulse 81 74 Resp 16 18 B/P (MAP) 156/68 (97) 110/55 (73) Pulse Ox 98 93 O2 Delivery Room Air Room Air Room Air Room Air 07/30/16 07/30/16 07/30/16 07/30/16 18:27 18:38 19:30 20:00 Temp 99.5 99.5 Pulse 77 Resp 20 B/P (MAP) 94/48 (63) Pulse Ox 95 O2 Delivery Room Air Room Air Room Air Room Air 607/31/16 07/31/16 07/31/16 23:50 03:20 07:00 08:00 Temp 100.2 100.7 99.5 100.2 100.7 99.5 Pulse 80 85 80 Resp 18 20 16 B/P (MAP) 98/47 (64) 115/59 (77) 104/46 (65) Pulse Ox 92 94 90 O2 Delivery Room Air Room Air Room Air Room Air 07/31/16 07/31/16 07/31/16 07/31/16 08:53 09:19 09:19 10:19 Pulse 80 80 Resp 20 20 B/P (MAP) 104/46 104/46 Pulse Ox 90 91 O2 Delivery Room Air Room Air 07/31/16 07/31/16 11:00 13:44 Temp 98.2 98.2 Pulse 76 Resp 16 20 B/P (MAP) 84/43 (57) Pulse Ox 91 91 O2 Delivery Room Air Room Air Intake and Output 07/30/16 07/30/16 07/31/16 15:00 23:00 07:00 Intake Total 1000 ml 800 ml 0 ml Balance 1000 ml 800 ml 0 ml LUCY VELAZQUEZ MD Jul 31, 2016 14:40
[2016-07-31] MEDS ORDERED: MORPHINE SULFATE 2 MG/ML DISP.SYRIN. IV PRN (14:45)
[2016-07-31 15:00] VITALS: BP 99/49
[2016-07-31] MEDS ORDERED: VANCOMYCIN 1.75 GM in IV NORMAL SALINE 500ML BAG 500 ML IV ONE (15:00)
--- NOTE | 2016-07-31 15:37 | PDOC ---
Infectious Disease Note Vital Sign Vital Signs Vital Signs Date Time Temp Pulse Resp B/P (MAP) Pulse Ox O2 Delivery O2 Flow Rate FiO2 07/31/16 13:44 20 91 Room Air 07/31/16 11:00 98.2 76 84/43 (57) 98.2 Labs Lab Laboratory Tests Test 07/30/16 15:50 07/30/16 18:04 07/30/16 21:34 07/31/16 04:30 Glucose (Fingerstick) 446 mg/dL (70-99) 385 mg/dL (70-99) 239 mg/dL (70-99) White Blood Count 11.9 x10^3/uL (4.0-11.0) Red Blood Count 4.41 x10^6/uL (3.50-5.40) Hemoglobin 12.6 g/dL (12.0-15.5) Hematocrit 36.5 % (36.0-47.0) Mean Corpuscular Volume 83 fL (79-100) Mean Corpuscular Hemoglobin 29 pg (25-35) Mean Corpuscular Hemoglobin Concent 35 g/dL (31-37) Red Cell Distribution Width 12.8 % (11.5-14.5) Platelet Count 198 x10^3/uL (140-400) Neutrophils (%) (Auto) 73 % (31-73) Lymphocytes (%) (Auto) 19 % (24-48) Monocytes (%) (Auto) 8 % (0-9) Eosinophils (%) (Auto) 1 % (0-3) Basophils (%) (Auto) 0 % (0-3) Neutrophils # (Auto) 8.6 x10^3uL (1.8-7.7) Lymphocytes # (Auto) 2.2 x10^3/uL (1.0-4.8) Monocytes # (Auto) 0.9 x10^3/uL (0.0-1.1) Eosinophils # (Auto) 0.1 x10^3/uL (0.0-0.7) Basophils # (Auto) 0.0 x10^3/uL (0.0-0.2) Sodium Level 133 mmol/L (136-145) Potassium Level 3.7 mmol/L (3.5-5.1) Chloride Level 97 mmol/L (98-107) Carbon Dioxide Level 28 mmol/L (21-32) Anion Gap 8 (6-14) Blood Urea Nitrogen 28 mg/dL (7-20) Creatinine 1.2 mg/dL (0.6-1.0) Estimated GFR (Cockcroft-Gault) 46.3 Glucose Level 310 mg/dL (70-99) Calcium Level 8.7 mg/dL (8.5-10.1) Test 07/31/16 07:26 07/31/16 10:58 Glucose (Fingerstick) 326 mg/dL (70-99) 291 mg/dL (70-99) Micro BLOOD CULTURE Preliminary NO GROWTH AFTER 1 DAY Objective Assessment Cellulitis with possible early abscess formation of suprapubic area. s/p stab incision with no drainage Fever Leukocytosis Allergy Levaquin-Seizures. Has tolerated cipro w/o problem DM Plan Plan of Care Vanc and Zosyn Await surgery evaluation Monitor WBC count, cr and temp f/u cultures Thank you [id number] Attending Co-Sign The patient was seen and interviewed as well as examined at the bedside. The chart was reviewed. The case was discussed. Agree with the plan of care. RADHA CAMPOS APRN Jul 31, 2016 15:37 JUSTUS AUSTIN MD Jul 31, 2016 15:51
[2016-07-31] MEDS: VANCOMYCIN PER PHARMACY MC PRN (15:55)
--- NOTE | 2016-07-31 17:45 | PDOC2 ---
CONSULT Date of Consult Date of Consult DATE: 07/31/16 TIME: 17:43 Past Medical History CENTRAL NERVOUS SYSTEM: Seizure Past Surgical History Past Surgical History: Appendectomy, Hysterectomy Family History Family History: No Significant Social History ALCOHOL: none Drugs: None Current Problem List Problem List Problems Medical Problems: (1) Cellulitis Status: Acute Current Medications Current Medications Current Medications Sodium Chloride 1,000 ml @ 1,000 mls/hr 1X ONCE IV Last administered on 12:29; Start 07/30/16 at 12:15; Stop 07/30/16 at 13:14; Status DC Ketorolac Tromethamine (Toradol) 30 mg 1X ONCE IV Last administered on 12:29; Start 07/30/16 at 12:15; Stop 07/30/16 at 12:16; Status DC Fentanyl Citrate (Fentanyl 2ml Vial) 75 mcg 1X ONCE IV Last administered on 12:43; Start 07/30/16 at 12:30; Stop 07/30/16 at 12:31; Status DC Ondansetron HCl (Zofran) 4 mg 1X ONCE IV Last administered on 07/30/16 12:42 ; Start 07/30/16 at 12:30; Stop 07/30/16 at 12:31; Status DC Insulin Human Regular (NovoLIN R VIAL) 10 unit 1X ONCE IM Last administered on 07/30/16 14:11; Start 07/30/16 at 13:15; Stop 07/30/16 at 13:16; Status DC Morphine Sulfate 4 mg 1X ONCE IV Last administered on 07/30/16 15:11; Start 07/30/16 at 14:45; Stop 07/30/16 at 14:46; Status DC Piperacillin Sod/ Tazobactam Sod 3.375 gm/Sodium Chloride 50 ml @ 100 mls/hr 1X ONCE IV Last administered on 07/30/16 15:12; Start 07/30/16 at 14:45; Stop 07/30/16 at 15:14; Status DC Ondansetron HCl (Zofran) 4 mg PRN Q8HRS PRN IV NAUSEA/VOMITING; Start 07/30/16 at 14:45; Stop 07/31/16 at 14:44; Status DC Morphine Sulfate 2 mg PRN Q2HR PRN IV PAIN; Start 07/30/16 at 14:45; Stop 07/31 at 14:37; Status DC Piperacillin Sod/ Tazobactam Sod 3.375 gm/Sodium Chloride 50 ml @ 100 mls/hr Q6HRS IV Last administered on 07/31/16 12:16; Start 07/31/16 at 00:00 Acetaminophen/ Hydrocodone Bitart (Lortab 5/325) 1 tab PRN Q4HRS PRN PO PAIN Last administered on 07/31/16 13:44; Start 07/30/16 at 18:15 Insulin Aspart (NovoLOG) 10 units 1X ONCE SQ Last administered on 07/30/16 18 :31; Start 07/30/16 at 18:15; Stop 07/30/16 at 18:17; Status DC Insulin Aspart (NovoLOG) 0-9 UNITS TIDWMEALS SQ Last administered on 07/31/16 17:31; Start 07/31/16 at 08:00 Dextrose (Dextrose 50%-Water Syringe) 12.5 gm PRN Q15MIN PRN IV SEE COMMENTS; Start 07/30/16 at 18:15 Aspirin (Mingo Aspirin) 325 mg DAILY08 PO Last administered on 07/31/16 08:53 ; Start 07/31/16 at 08:00 Atenolol (Tenormin) 50 mg BID PO Last administered on 07/31/16 09:19; Start at 21:00 Clonazepam (KlonoPIN) 1 mg QHS PO Last administered on 07/30/16 21:26; Start 07/30/16 at 21:00 Clonidine HCl (Catapres) 0.1 mg BID PO ; Start 07/30/16 at 21:00 Estradiol (Estrace) 1 mg DAILY PO Last administered on 07/31/16 08:53; Start 07/31/16 at 09:00 Fluoxetine HCl (PROzac) 20 mg DAILY PO Last administered on 07/31/16 09:18; Start 07/31/16 at 09:00 Levetiracetam (Keppra) 1,500 mg BID PO Last administered on 07/31/16 08:54; Start 07/30/16 at 21:00 Gabapentin (Neurontin) 600 mg TID PO Last administered on 07/31/16 13:43; Start 07/30/16 at 21:00 Insulin Detemir (Levemir) 60 units BID SQ Last administered on 07/31/16 09:11 ; Start 07/30/16 at 21:00 Insulin Aspart (NovoLOG) 20 units TIDAC SQ Last administered on 07/31/16 17:32 ; Start 07/31/16 at 16:30 Morphine Sulfate 4 mg PRN Q2HR PRN IV PAIN; Start 07/31/16 at 14:45 Vancomycin HCl (Vanco Per Pharmacy) 1 each PRN DAILY PRN MC SEE COMMENTS Last administered on 07/31/16 15:55; Start 07/31/16 at 14:45 Vancomycin HCl 1.75 gm/Sodium Chloride 500 ml @ 250 mls/hr 1X ONCE IV Last administered on 07/31/16 15:44; Start 07/31/16 at 15:00; Stop 07/31/16 at 16:59 ; Status DC Vancomycin HCl 1.25 gm/Sodium Chloride 250 ml @ 167 mls/hr Q24H IV ; Start at 16:00 Vancomycin HCl 1 each 1X ONCE MC ; Start 08/02/16 at 15:30; Stop 08/02/16 at 15 :31 Active Scripts Active Keppra (Levetiracetam) 500 Mg Tablet 1,500 Mg PO BID Reported Hydrochlorothiazide Tablet (Hydrochlorothiazide) 25 Mg Tablet 1 Tab PO PRN PRN Aspirin 325 Mg Tablet 325 Tab PO PRN Q6HRS PRN Estradiol 1 Mg Tablet 1 Tab PO DAILY Clonazepam 1 Mg Tablet 1 Tab PO QHS Levemir (Insulin Detemir) 100 Unit/1 Ml Vial 60 Unit SQ BID Novolog (Insulin Aspart) 100 Unit/1 Ml Cartridge 100 Unit SQ SLIDING SCALE Fluoxetine Hcl 20 Mg Capsule 1 Cap PO DAILY Clonidine Hcl 0.1 Mg Tablet 0.1 Mg PO BID Gabapentin 600 Mg Tablet 1 Tab PO TID Atenolol 50 Mg Tablet 50 Mg PO BID Allergies Allergies: Coded Allergies: levofloxacin (Verified Allergy, Severe, SEIZURES, 12/17/14) lidocaine (Verified Allergy, Severe, Swelling, 12/17/14) Vitals VITALS Vital Signs Date Time Temp Pulse Resp B/P (MAP) Pulse Ox O2 Delivery O2 Flow Rate FiO2 07/31/16 15:00 97.7 67 16 99/49 (66) 95 Room Air 97.7 Labs Labs Laboratory Tests Test 07/30/16 12:15 07/30/16 15:50 07/30/16 18:04 07/30/16 21:34 White Blood Count 10.8 x10^3/uL (4.0-11.0) Red Blood Count 4.82 x10^6/uL (3.50-5.40) Hemoglobin 13.6 g/dL (12.0-15.5) Hematocrit 40.9 % (36.0-47.0) Mean Corpuscular Volume 85 fL (79-100) Mean Corpuscular Hemoglobin 28 pg (25-35) Mean Corpuscular Hemoglobin Concent 33 g/dL (31-37) Red Cell Distribution Width 12.6 % (11.5-14.5) Platelet Count 211 x10^3/uL (140-400) Neutrophils (%) (Auto) 81 % (31-73) Lymphocytes (%) (Auto) 12 % (24-48) Monocytes (%) (Auto) 6 % (0-9) Eosinophils (%) (Auto) 0 % (0-3) Basophils (%) (Auto) 1 % (0-3) Neutrophils # (Auto) 8.7 x10^3uL (1.8-7.7) Lymphocytes # (Auto) 1.3 x10^3/uL (1.0-4.8) Monocytes # (Auto) 0.6 x10^3/uL (0.0-1.1) Eosinophils # (Auto) 0.0 x10^3/uL (0.0-0.7) Basophils # (Auto) 0.1 x10^3/uL (0.0-0.2) Prothrombin Time 12.6 SEC (11.7-14.0) Prothromb Time International Ratio 1.0 (0.8-1.1) Sodium Level 130 mmol/L (136-145) Potassium Level 4.1 mmol/L (3.5-5.1) Chloride Level 92 mmol/L (98-107) Carbon Dioxide Level 26 mmol/L (21-32) Anion Gap 12 (6-14) Blood Urea Nitrogen 22 mg/dL (7-20) Creatinine 1.2 mg/dL (0.6-1.0) Estimated GFR (Cockcroft-Gault) 46.3 BUN/Creatinine Ratio 18 (6-20) Glucose Level 532 mg/dL (70-99) Calcium Level 9.6 mg/dL (8.5-10.1) Total Bilirubin 0.9 mg/dL (0.2-1.0) Aspartate Amino Transf (AST/SGOT) 22 U/L (15-37) Alanine Aminotransferase (ALT/SGPT) 24 U/L (14-59) Alkaline Phosphatase 64 U/L (46-116) C-Reactive Protein, Quantitative 94.9 mg/L (0-3.3) C-Reactive Protein High Sensitivity 108.60 mg/L (0.00-3.00) Total Protein 7.7 g/dL (6.4-8.2) Albumin 3.4 g/dL (3.4-5.0) Albumin/Globulin Ratio 0.8 (1.0-1.7) Glucose (Fingerstick) 446 mg/dL (70-99) 385 mg/dL (70-99) 239 mg/dL (70-99) Test 07/31/16 04:30 07/31/16 07:26 07/31/16 10:58 07/31/16 16:18 White Blood Count 11.9 x10^3/uL (4.0-11.0) Red Blood Count 4.41 x10^6/uL (3.50-5.40) Hemoglobin 12.6 g/dL (12.0-15.5) Hematocrit 36.5 % (36.0-47.0) Mean Corpuscular Volume 83 fL (79-100) Mean Corpuscular Hemoglobin 29 pg (25-35) Mean Corpuscular Hemoglobin Concent 35 g/dL (31-37) Red Cell Distribution Width 12.8 % (11.5-14.5) Platelet Count 198 x10^3/uL (140-400) Neutrophils (%) (Auto) 73 % (31-73) Lymphocytes (%) (Auto) 19 % (24-48) Monocytes (%) (Auto) 8 % (0-9) Eosinophils (%) (Auto) 1 % (0-3) Basophils (%) (Auto) 0 % (0-3) Neutrophils # (Auto) 8.6 x10^3uL (1.8-7.7) Lymphocytes # (Auto) 2.2 x10^3/uL (1.0-4.8) Monocytes # (Auto) 0.9 x10^3/uL (0.0-1.1) Eosinophils # (Auto) 0.1 x10^3/uL (0.0-0.7) Basophils # (Auto) 0.0 x10^3/uL (0.0-0.2) Sodium Level 133 mmol/L (136-145) Potassium Level 3.7 mmol/L (3.5-5.1) Chloride Level 97 mmol/L (98-107) Carbon Dioxide Level 28 mmol/L (21-32) Anion Gap 8 (6-14) Blood Urea Nitrogen 28 mg/dL (7-20) Creatinine 1.2 mg/dL (0.6-1.0) Estimated GFR (Cockcroft-Gault) 46.3 Glucose Level 310 mg/dL (70-99) Calcium Level 8.7 mg/dL (8.5-10.1) Glucose (Fingerstick) 326 mg/dL (70-99) 291 mg/dL (70-99) 305 mg/dL (70-99) Laboratory Tests Test 07/30/16 18:04 07/30/16 21:34 07/31/16 04:30 07/31/16 07:26 Glucose (Fingerstick) 385 mg/dL (70-99) 239 mg/dL (70-99) 326 mg/dL (70-99) White Blood Count 11.9 x10^3/uL (4.0-11.0) Red Blood Count 4.41 x10^6/uL (3.50-5.40) Hemoglobin 12.6 g/dL (12.0-15.5) Hematocrit 36.5 % (36.0-47.0) Mean Corpuscular Volume 83 fL (79-100) Mean Corpuscular Hemoglobin 29 pg (25-35) Mean Corpuscular Hemoglobin Concent 35 g/dL (31-37) Red Cell Distribution Width 12.8 % (11.5-14.5) Platelet Count 198 x10^3/uL (140-400) Neutrophils (%) (Auto) 73 % (31-73) Lymphocytes (%) (Auto) 19 % (24-48) Monocytes (%) (Auto) 8 % (0-9) Eosinophils (%) (Auto) 1 % (0-3) Basophils (%) (Auto) 0 % (0-3) Neutrophils # (Auto) 8.6 x10^3uL (1.8-7.7) Lymphocytes # (Auto) 2.2 x10^3/uL (1.0-4.8) Monocytes # (Auto) 0.9 x10^3/uL (0.0-1.1) Eosinophils # (Auto) 0.1 x10^3/uL (0.0-0.7) Basophils # (Auto) 0.0 x10^3/uL (0.0-0.2) Sodium Level 133 mmol/L (136-145) Potassium Level 3.7 mmol/L (3.5-5.1) Chloride Level 97 mmol/L (98-107) Carbon Dioxide Level 28 mmol/L (21-32) Anion Gap 8 (6-14) Blood Urea Nitrogen 28 mg/dL (7-20) Creatinine 1.2 mg/dL (0.6-1.0) Estimated GFR (Cockcroft-Gault) 46.3 Glucose Level 310 mg/dL (70-99) Calcium Level 8.7 mg/dL (8.5-10.1) Test 07/31/16 10:58 07/31/16 16:18 Glucose (Fingerstick) 291 mg/dL (70-99) 305 mg/dL (70-99) Assessment/Plan Assessment/Plan FNTBD 55 yo female with pain,warmth and redness over the mons. Had attempted I&D in the ED without results. Soft tissue US negative for drainable collection. Continue IV antibiotics. No acute surgical recommendations. CATHERINE MANCILLA MD Jul 31, 2016 17:45
[2016-07-31 19:00] VITALS: BP 113/47
[2016-07-31] MEDS: clonazePAM 1 MG TABLET PO SCH (21:04)
[2016-07-31] MEDS: ONDANSETRON PF 4 MG/2 ML VIAL. IV PRN ×2 (22:02→22:27)
[2016-07-31 23:00] VITALS: BP 122/59
[2016-08-01] MEDS: PIPERACILLIN/TAZOBACTAM 3.375 GM in IV NORMAL SALINE 50ML 50 ML IV SCH ×5 (00:12→23:53)
[2016-08-01 03:00] VITALS: BP 123/61
--- NOTE | 2016-08-01 05:58 | CONS ---
DATE OF CONSULTATION: 07/30/2016 This is Wil Graves, nurse practitioner, dictating for Dr. Pardeep Mckeon, Infectious Disease. REQUESTING PHYSICIAN: Dr. Gar. REASON FOR CONSULTATION: Cellulitis of pubis, possible bug bite. HISTORY OF PRESENT ILLNESS: This patient is a pleasant 55-year-old female with a history of insulin-dependent diabetes who recently spent a month in [place] with her family. The day before she left, she noticed a red bump located on the lower abdomen/pubis area, nonpruritic or painful. The following day, she arrived in [place] and noticed an increased number of red lesions with an area of bruising. She is not sure whether or not she was bitten by any insect or spider. Nevertheless, the area progressively became swollen, red and painful. In addition, she experienced multiple joint pain, subjective fevers and chills along with right leg swelling. She denies contacts with persons with similar symptoms. Her daughter did have a dog, who slept in the bed with the patient. On arrival to the ER, she had a low-grade temperature of 100.2 with a white blood cell count of 10,800, CRP 108.6, and glucose of 532. An ultrasound of the area showed no fluid collection or phlegmon. An attempt to aspirate the area, revealed no drainage. She was started on vancomycin and piperacillin/tazobactam. ID has been asked to consult for further evaluation and antibiotic management. The patient is feeling a little bit better. She is experiencing less pain with medication. The swelling in her right leg has since resolved. PAST MEDICAL HISTORY: Insulin-dependent diabetes, paroxysmal atrial fibrillation, history of seizure-like activity, hypertension, TIA and myocardial infarction. Hysterectomy and oophorectomy, section, arthritis, depression, Modi's palsy, shingles, glaucoma, cataract and retinopathy. PAST SURGICAL HISTORY: Appendectomy, hysterectomy, abdominal surgical laparoscopy. SOCIAL HISTORY: The patient lives at home and has a supportive family. Nonsmoker. No history of alcohol or illicit drug use. FAMILY HISTORY: Noncontributory. ALLERGIES: LEVOFLOXACIN, WHICH CAUSED SEIZURES. She says she has taken ciprofloxacin without problem. ALSO LISTED LIDOCAINE. REVIEW OF SYSTEMS: She denies headaches, nasal/sinus congestion or sore throat. Denies nausea, vomiting or diarrhea. Denies dysuria, frequency or urgency. Denies rash. Denies cough, shortness of air or wheezing. Denies chest pain or palpitations. PHYSICAL EXAMINATION: GENERAL: female lying down in no apparent distress. VITAL SIGNS: Temperature is 98.2, T max 100.7, blood pressure 84/43, heart rate 76, respiratory rate 20, pulse oximetry 91% on room air. Weight is 163 pounds. HEENT: Pupils equally round. Normal conjunctivae. Oral mucosa is pink and moist. NECK: Supple, no adenopathy present. LUNGS: Clear to auscultation. HEART: Normal S1, S2. ABDOMEN: Not distended. Bowel sounds are present, soft, nontender. Mild erythema under the pannus along with redness, induration and small bloody drainage in the suprapubic area. EXTREMITIES: No gross edema or cyanosis. SKIN: Without rash. Warm to touch. NEUROLOGIC: Alert and oriented x 3. LABORATORY DATA: On Today's WBC 11.9, hemoglobin 12.6, platelet count 198,000. Sodium 133, potassium 3.7, creatinine 1.2, BUN 28, glucose 310, total bilirubin 0.9, AST 22, ALT 24. CRP 94.9, albumin 3.4. Cultures pending. Ultrasound per HPI. IMPRESSION: 1. Cellulitis with possible early abscess formation in the suprapubic area. 2. Fever. 3. Leukocytosis. 4. Allergies to Levofloxacin having caused seizures. She has tolerated ciprofloxacin without problem. 5. Diabetes mellitus. PLAN: Continue the vancomycin and Zosyn. Await surgery evaluation. Monitor WBC count, creatinine and temperature. We will follow up on cultures. Thank you, Dr. Gar, for asking us to participate in this patient's care, Should you have further questions or concerns, please call. PARDEEP MCKEON MD DR: LU/bandar JOB#: [id number] / [id number] EMILY
[2016-08-01 07:00] VITALS: BP 146/73
[2016-08-01] MEDS: HYDROcodone/APAP 5/325MG 1 TAB TABLET PO PRN ×2 (07:41→12:00)
[2016-08-01] MEDS: INSULIN ASPART 300 UNITS/3 ML INSULN.PEN SQ SCH ×6 (08:00→17:00)
[2016-08-01] MEDS: cloNIDine HCL 0.1 MG TABLET PO SCH ×2 (08:55→22:54)
[2016-08-01] MEDS: ESTRADIOL 1 MG TABLET. PO SCH (08:55)
[2016-08-01] MEDS: levETIRAcetam 500 MG TABLET PO SCH ×2 (08:55→22:54)
[2016-08-01] MEDS: GABAPENTIN 300 MG CAPSULE. PO SCH ×3 (08:55→22:54)
[2016-08-01] MEDS: ASPIRIN 325 MG TABLET PO SCH (08:55)
[2016-08-01] MEDS: ATENOLOL 50 MG TABLET. PO SCH ×2 (08:56→22:53)
[2016-08-01] MEDS: FLUoxetine HCL 20 MG CAPSULE PO SCH (08:56)
[2016-08-01] MEDS: INSULIN DETEMIR 300 UNITS/3 ML INSULN.PEN. SQ SCH ×2 (09:01→21:00)
--- NOTE | 2016-08-01 10:08 | PDOC ---
SURGICAL PROGRESS NOTE Subjective still having lots of pain Vital Signs Vital Signs Date Time Temp Pulse Resp B/P (MAP) Pulse Ox O2 Delivery O2 Flow Rate FiO2 08/01/16 08:56 73 146/73 08/01/16 07:41 20 95 Room Air 08/01/16 07:00 97.5 97.5 I&O Intake and Output 08/01/16 07:00 Intake Total 2040 ml Output Total 225 ml Balance 1815 ml Intake Oral 2040 ml Output Urine Total 225 ml # Voids 4 PATIENT HAS A CROWLEY: No General: Alert, mild distress, moderate distress Skin: Other (minimal erythema over mons, no fluctuance, lots of TTP) Labs Laboratory Tests Test 07/30/16 12:15 07/30/16 15:50 07/30/16 18:04 07/30/16 21:34 White Blood Count 10.8 x10^3/uL (4.0-11.0) Red Blood Count 4.82 x10^6/uL (3.50-5.40) Hemoglobin 13.6 g/dL (12.0-15.5) Hematocrit 40.9 % (36.0-47.0) Mean Corpuscular Volume 85 fL (79-100) Mean Corpuscular Hemoglobin 28 pg (25-35) Mean Corpuscular Hemoglobin Concent 33 g/dL (31-37) Red Cell Distribution Width 12.6 % (11.5-14.5) Platelet Count 211 x10^3/uL (140-400) Neutrophils (%) (Auto) 81 % (31-73) Lymphocytes (%) (Auto) 12 % (24-48) Monocytes (%) (Auto) 6 % (0-9) Eosinophils (%) (Auto) 0 % (0-3) Basophils (%) (Auto) 1 % (0-3) Neutrophils # (Auto) 8.7 x10^3uL (1.8-7.7) Lymphocytes # (Auto) 1.3 x10^3/uL (1.0-4.8) Monocytes # (Auto) 0.6 x10^3/uL (0.0-1.1) Eosinophils # (Auto) 0.0 x10^3/uL (0.0-0.7) Basophils # (Auto) 0.1 x10^3/uL (0.0-0.2) Prothrombin Time 12.6 SEC (11.7-14.0) Prothromb Time International Ratio 1.0 (0.8-1.1) Sodium Level 130 mmol/L (136-145) Potassium Level 4.1 mmol/L (3.5-5.1) Chloride Level 92 mmol/L (98-107) Carbon Dioxide Level 26 mmol/L (21-32) Anion Gap 12 (6-14) Blood Urea Nitrogen 22 mg/dL (7-20) Creatinine 1.2 mg/dL (0.6-1.0) Estimated GFR (Cockcroft-Gault) 46.3 BUN/Creatinine Ratio 18 (6-20) Glucose Level 532 mg/dL (70-99) Calcium Level 9.6 mg/dL (8.5-10.1) Total Bilirubin 0.9 mg/dL (0.2-1.0) Aspartate Amino Transf (AST/SGOT) 22 U/L (15-37) Alanine Aminotransferase (ALT/SGPT) 24 U/L (14-59) Alkaline Phosphatase 64 U/L (46-116) C-Reactive Protein, Quantitative 94.9 mg/L (0-3.3) C-Reactive Protein High Sensitivity 108.60 mg/L (0.00-3.00) Total Protein 7.7 g/dL (6.4-8.2) Albumin 3.4 g/dL (3.4-5.0) Albumin/Globulin Ratio 0.8 (1.0-1.7) Glucose (Fingerstick) 446 mg/dL (70-99) 385 mg/dL (70-99) 239 mg/dL (70-99) Test 07/31/16 04:30 07/31/16 07:26 07/31/16 10:58 07/31/16 16:18 White Blood Count 11.9 x10^3/uL (4.0-11.0) Red Blood Count 4.41 x10^6/uL (3.50-5.40) Hemoglobin 12.6 g/dL (12.0-15.5) Hematocrit 36.5 % (36.0-47.0) Mean Corpuscular Volume 83 fL (79-100) Mean Corpuscular Hemoglobin 29 pg (25-35) Mean Corpuscular Hemoglobin Concent 35 g/dL (31-37) Red Cell Distribution Width 12.8 % (11.5-14.5) Platelet Count 198 x10^3/uL (140-400) Neutrophils (%) (Auto) 73 % (31-73) Lymphocytes (%) (Auto) 19 % (24-48) Monocytes (%) (Auto) 8 % (0-9) Eosinophils (%) (Auto) 1 % (0-3) Basophils (%) (Auto) 0 % (0-3) Neutrophils # (Auto) 8.6 x10^3uL (1.8-7.7) Lymphocytes # (Auto) 2.2 x10^3/uL (1.0-4.8) Monocytes # (Auto) 0.9 x10^3/uL (0.0-1.1) Eosinophils # (Auto) 0.1 x10^3/uL (0.0-0.7) Basophils # (Auto) 0.0 x10^3/uL (0.0-0.2) Sodium Level 133 mmol/L (136-145) Potassium Level 3.7 mmol/L (3.5-5.1) Chloride Level 97 mmol/L (98-107) Carbon Dioxide Level 28 mmol/L (21-32) Anion Gap 8 (6-14) Blood Urea Nitrogen 28 mg/dL (7-20) Creatinine 1.2 mg/dL (0.6-1.0) Estimated GFR (Cockcroft-Gault) 46.3 Glucose Level 310 mg/dL (70-99) Calcium Level 8.7 mg/dL (8.5-10.1) Glucose (Fingerstick) 326 mg/dL (70-99) 291 mg/dL (70-99) 305 mg/dL (70-99) Test 07/31/16 20:57 08/01/16 07:35 Glucose (Fingerstick) 127 mg/dL (70-99) 274 mg/dL (70-99) Laboratory Tests Test 07/31/16 10:58 07/31/16 16:18 07/31/16 20:57 08/01/16 07:35 Glucose (Fingerstick) 291 mg/dL (70-99) 305 mg/dL (70-99) 127 mg/dL (70-99) 274 mg/dL (70-99) Problem List Problems Medical Problems: (1) Cellulitis Status: Acute Assessment/Plan pain out of proportion to exam will check labs, CT pelvis Problems: CATHERINE MANCILLA MD Aug 01, 2016 10:08
--- NOTE | 2016-08-01 10:25 | PDOC ---
PROGRESS NOTES Chief Complaint Chief Complaint 1. Abdominal wall cellulitis suspected due to insect bite, w/ abcess 2. Low grade temperature. 3. Type 2 diabetes mellitus with hyperglycemia. and CKD 3, long-term insulin use 4. Hypernatremia. 5. Seizure d/o 6. History paroxysmal atrial fibrillation. History of Present Illness History of Present Illness still having a large amount of pain seen by Dr. Gan this AM, CT pelvis ordered, cont pain management and IV abc zosyn, start vanc consult Surg, I+D done in ER, still swollen and may still have abcess, very tender with drainage Sliding scale insulin with home dose of Levemir. pain severe Vitals Vitals Vital Signs Date Time Temp Pulse Resp B/P (MAP) Pulse Ox O2 Delivery O2 Flow Rate FiO2 08/01/16 08:56 73 146/73 08/01/16 07:41 20 95 Room Air 08/01/16 07:00 97.5 97.5 Physical Exam General: Alert, mild distress, moderate distress Heart: Regular rate, Normal S1, Normal S2 Lungs: Clear Abdomen: Normal bowel sounds, Other (swollen and tender suprapubic, she is holding cold pack on it, and is in distress) Extremities: No clubbing Skin: No rashes, Other (minimal erythema over mons, no fluctuance, lots of TTP) Labs LABS Laboratory Tests Test 07/31/16 10:58 07/31/16 16:18 07/31/16 20:57 08/01/16 07:35 Glucose (Fingerstick) 291 mg/dL (70-99) 305 mg/dL (70-99) 127 mg/dL (70-99) 274 mg/dL (70-99) Review of Systems Review of Systems pain much better on second visit this afternoon, almost no pain cont current IV abx may taper if continued to improve CT abd done Assessment and Plan Assessmemt and Plan Problems Medical Problems: (1) Cellulitis Status: Acute Problems: Comment Review of Relevant I have reviewed the following items cheko (where applicable) has been applied. Labs Laboratory Tests Test 07/30/16 12:15 07/30/16 15:50 07/30/16 18:04 07/30/16 21:34 White Blood Count 10.8 x10^3/uL (4.0-11.0) Red Blood Count 4.82 x10^6/uL (3.50-5.40) Hemoglobin 13.6 g/dL (12.0-15.5) Hematocrit 40.9 % (36.0-47.0) Mean Corpuscular Volume 85 fL (79-100) Mean Corpuscular Hemoglobin 28 pg (25-35) Mean Corpuscular Hemoglobin Concent 33 g/dL (31-37) Red Cell Distribution Width 12.6 % (11.5-14.5) Platelet Count 211 x10^3/uL (140-400) Neutrophils (%) (Auto) 81 % (31-73) Lymphocytes (%) (Auto) 12 % (24-48) Monocytes (%) (Auto) 6 % (0-9) Eosinophils (%) (Auto) 0 % (0-3) Basophils (%) (Auto) 1 % (0-3) Neutrophils # (Auto) 8.7 x10^3uL (1.8-7.7) Lymphocytes # (Auto) 1.3 x10^3/uL (1.0-4.8) Monocytes # (Auto) 0.6 x10^3/uL (0.0-1.1) Eosinophils # (Auto) 0.0 x10^3/uL (0.0-0.7) Basophils # (Auto) 0.1 x10^3/uL (0.0-0.2) Prothrombin Time 12.6 SEC (11.7-14.0) Prothromb Time International Ratio 1.0 (0.8-1.1) Sodium Level 130 mmol/L (136-145) Potassium Level 4.1 mmol/L (3.5-5.1) Chloride Level 92 mmol/L (98-107) Carbon Dioxide Level 26 mmol/L (21-32) Anion Gap 12 (6-14) Blood Urea Nitrogen 22 mg/dL (7-20) Creatinine 1.2 mg/dL (0.6-1.0) Estimated GFR (Cockcroft-Gault) 46.3 BUN/Creatinine Ratio 18 (6-20) Glucose Level 532 mg/dL (70-99) Calcium Level 9.6 mg/dL (8.5-10.1) Total Bilirubin 0.9 mg/dL (0.2-1.0) Aspartate Amino Transf (AST/SGOT) 22 U/L (15-37) Alanine Aminotransferase (ALT/SGPT) 24 U/L (14-59) Alkaline Phosphatase 64 U/L (46-116) C-Reactive Protein, Quantitative 94.9 mg/L (0-3.3) C-Reactive Protein High Sensitivity 108.60 mg/L (0.00-3.00) Total Protein 7.7 g/dL (6.4-8.2) Albumin 3.4 g/dL (3.4-5.0) Albumin/Globulin Ratio 0.8 (1.0-1.7) Glucose (Fingerstick) 446 mg/dL (70-99) 385 mg/dL (70-99) 239 mg/dL (70-99) Test 07/31/16 04:30 07/31/16 07:26 07/31/16 10:58 07/31/16 16:18 White Blood Count 11.9 x10^3/uL (4.0-11.0) Red Blood Count 4.41 x10^6/uL (3.50-5.40) Hemoglobin 12.6 g/dL (12.0-15.5) Hematocrit 36.5 % (36.0-47.0) Mean Corpuscular Volume 83 fL (79-100) Mean Corpuscular Hemoglobin 29 pg (25-35) Mean Corpuscular Hemoglobin Concent 35 g/dL (31-37) Red Cell Distribution Width 12.8 % (11.5-14.5) Platelet Count 198 x10^3/uL (140-400) Neutrophils (%) (Auto) 73 % (31-73) Lymphocytes (%) (Auto) 19 % (24-48) Monocytes (%) (Auto) 8 % (0-9) Eosinophils (%) (Auto) 1 % (0-3) Basophils (%) (Auto) 0 % (0-3) Neutrophils # (Auto) 8.6 x10^3uL (1.8-7.7) Lymphocytes # (Auto) 2.2 x10^3/uL (1.0-4.8) Monocytes # (Auto) 0.9 x10^3/uL (0.0-1.1) Eosinophils # (Auto) 0.1 x10^3/uL (0.0-0.7) Basophils # (Auto) 0.0 x10^3/uL (0.0-0.2) Sodium Level 133 mmol/L (136-145) Potassium Level 3.7 mmol/L (3.5-5.1) Chloride Level 97 mmol/L (98-107) Carbon Dioxide Level 28 mmol/L (21-32) Anion Gap 8 (6-14) Blood Urea Nitrogen 28 mg/dL (7-20) Creatinine 1.2 mg/dL (0.6-1.0) Estimated GFR (Cockcroft-Gault) 46.3 Glucose Level 310 mg/dL (70-99) Calcium Level 8.7 mg/dL (8.5-10.1) Glucose (Fingerstick) 326 mg/dL (70-99) 291 mg/dL (70-99) 305 mg/dL (70-99) Test 07/31/16 20:57 08/01/16 07:35 Glucose (Fingerstick) 127 mg/dL (70-99) 274 mg/dL (70-99) Laboratory Tests Test 07/31/16 10:58 07/31/16 16:18 07/31/16 20:57 08/01/16 07:35 Glucose (Fingerstick) 291 mg/dL (70-99) 305 mg/dL (70-99) 127 mg/dL (70-99) 274 mg/dL (70-99) Microbiology 07/30/16 Blood Culture - Preliminary, Resulted NO GROWTH AFTER 1 DAY Medications Current Medications Sodium Chloride 1,000 ml @ 1,000 mls/hr 1X ONCE IV Last administered on 12:29; Start 07/30/16 at 12:15; Stop 07/30/16 at 13:14; Status DC Ketorolac Tromethamine (Toradol) 30 mg 1X ONCE IV Last administered on 12:29; Start 07/30/16 at 12:15; Stop 07/30/16 at 12:16; Status DC Fentanyl Citrate (Fentanyl 2ml Vial) 75 mcg 1X ONCE IV Last administered on 12:43; Start 07/30/16 at 12:30; Stop 07/30/16 at 12:31; Status DC Ondansetron HCl (Zofran) 4 mg 1X ONCE IV Last administered on 07/30/16 12:42 ; Start 07/30/16 at 12:30; Stop 07/30/16 at 12:31; Status DC Insulin Human Regular (NovoLIN R VIAL) 10 unit 1X ONCE IM Last administered on 07/30/16 14:11; Start 07/30/16 at 13:15; Stop 07/30/16 at 13:16; Status DC Morphine Sulfate 4 mg 1X ONCE IV Last administered on 07/30/16 15:11; Start 07/30/16 at 14:45; Stop 07/30/16 at 14:46; Status DC Piperacillin Sod/ Tazobactam Sod 3.375 gm/Sodium Chloride 50 ml @ 100 mls/hr 1X ONCE IV Last administered on 07/30/16 15:12; Start 07/30/16 at 14:45; Stop 07/30/16 at 15:14; Status DC Ondansetron HCl (Zofran) 4 mg PRN Q8HRS PRN IV NAUSEA/VOMITING; Start 07/30/16 at 14:45; Stop 07/31/16 at 14:44; Status DC Morphine Sulfate 2 mg PRN Q2HR PRN IV PAIN; Start 07/30/16 at 14:45; Stop 07/31 at 14:37; Status DC Piperacillin Sod/ Tazobactam Sod 3.375 gm/Sodium Chloride 50 ml @ 100 mls/hr Q6HRS IV Last administered on 08/01/16 06:11; Start 07/31/16 at 00:00 Acetaminophen/ Hydrocodone Bitart (Lortab 5/325) 1 tab PRN Q4HRS PRN PO PAIN Last administered on 08/01/16 07:41; Start 07/30/16 at 18:15 Insulin Aspart (NovoLOG) 10 units 1X ONCE SQ Last administered on 07/30/16 18 :31; Start 07/30/16 at 18:15; Stop 07/30/16 at 18:17; Status DC Insulin Aspart (NovoLOG) 0-9 UNITS TIDWMEALS SQ Last administered on 07/31/16 17:31; Start 07/31/16 at 08:00 Dextrose (Dextrose 50%-Water Syringe) 12.5 gm PRN Q15MIN PRN IV SEE COMMENTS; Start 07/30/16 at 18:15 Aspirin ([place]ingo Aspirin) 325 mg DAILY08 PO Last administered on 08/01/16 08:55 ; Start 07/31/16 at 08:00 Atenolol (Tenormin) 50 mg BID PO Last administered on 08/01/16 08:56; Start at 21:00 Clonazepam (KlonoPIN) 1 mg QHS PO Last administered on 07/31/16 21:04; Start 07/30/16 at 21:00 Clonidine HCl (Catapres) 0.1 mg BID PO Last administered on 08/01/16 08:55; Start 07/30/16 at 21:00 Estradiol (Estrace) 1 mg DAILY PO Last administered on 08/01/16 08:55; Start 07/31/16 at 09:00 Fluoxetine HCl (PROzac) 20 mg DAILY PO Last administered on 08/01/16 08:56; Start 07/31/16 at 09:00 Levetiracetam (Keppra) 1,500 mg BID PO Last administered on 08/01/16 08:55; Start 07/30/16 at 21:00 Gabapentin (Neurontin) 600 mg TID PO Last administered on 08/01/16 08:55; Start 07/30/16 at 21:00 Insulin Detemir (Levemir) 60 units BID SQ Last administered on 08/01/16 09:01 ; Start 07/30/16 at 21:00 Insulin Aspart (NovoLOG) 20 units TIDAC SQ Last administered on 08/01/16 09:01 ; Start 07/31/16 at 16:30 Morphine Sulfate 4 mg PRN Q2HR PRN IV PAIN; Start 07/31/16 at 14:45 Vancomycin HCl (Vanco Per Pharmacy) 1 each PRN DAILY PRN MC SEE COMMENTS Last administered on 07/31/16 15:55; Start 07/31/16 at 14:45 Vancomycin HCl 1.75 gm/Sodium Chloride 500 ml @ 250 mls/hr 1X ONCE IV Last administered on 07/31/16 15:44; Start 07/31/16 at 15:00; Stop 07/31/16 at 16:59 ; Status DC Vancomycin HCl 1.25 gm/Sodium Chloride 250 ml @ 167 mls/hr Q24H IV ; Start at 16:00 Vancomycin HCl 1 each 1X ONCE MC ; Start 08/02/16 at 15:30; Stop 08/02/16 at 15 :31 Ondansetron HCl (Zofran) 4 mg PRN Q8HRS PRN IV NAUSEA/VOMITING Last administered on 07/31/16t 22:27; Start 07/31/16 at 21:45 Active Scripts Active Keppra (Levetiracetam) 500 Mg Tablet 1,500 Mg PO BID Reported Hydrochlorothiazide Tablet (Hydrochlorothiazide) 25 Mg Tablet 1 Tab PO PRN PRN Aspirin 325 Mg Tablet 325 Tab PO PRN Q6HRS PRN Estradiol 1 Mg Tablet 1 Tab PO DAILY Clonazepam 1 Mg Tablet 1 Tab PO QHS Levemir (Insulin Detemir) 100 Unit/1 Ml Vial 60 Unit SQ BID Novolog (Insulin Aspart) 100 Unit/1 Ml Cartridge 100 Unit SQ SLIDING SCALE Fluoxetine Hcl 20 Mg Capsule 1 Cap PO DAILY Clonidine Hcl 0.1 Mg Tablet 0.1 Mg PO BID Gabapentin 600 Mg Tablet 1 Tab PO TID Atenolol 50 Mg Tablet 50 Mg PO BID Vitals/I & O Vital Sign - Last 24 Hours 07/31/16 07/31/16 07/31/16 07/31/16 11:00 13:44 15:00 18:14 Temp 98.2 97.7 98.2 97.7 Pulse 76 67 Resp 16 20 16 20 B/P (MAP) 84/43 (57) 99/49 (66) Pulse Ox 91 91 95 95 O2 Delivery Room Air Room Air Room Air Room Air 07/31/16 07/31/16 07/31/16 07/31/16 19:00 19:14 20:00 23:00 Temp 97.7 98.1 97.7 98.1 Pulse 67 72 Resp 18 20 18 B/P (MAP) 113/47 (69) 122/59 (80) Pulse Ox 97 97 94 O2 Delivery Room Air Room Air Nasal Cannula Room Air 08/01/16 08/01/16 08/01/16 08/01/16 03:00 07:00 07:41 08:55 Temp 98.6 97.5 98.6 97.5 Pulse 77 73 73 Resp 18 20 20 B/P (MAP) 123/61 (81) 146/73 (97) 146/73 Pulse Ox 95 92 95 O2 Delivery Room Air Room Air Room Air 08/01/16 08:56 Pulse 73 B/P (MAP) 146/73 Intake and Output 07/31/16 07/31/16 08/01/16 15:00 23:00 07:00 Intake Total 500 ml 1300 ml 240 ml Output Total 225 ml Balance 500 ml 1300 ml 15 ml LUCY VELAZQUEZ MD Aug 01, 2016 10:25
--- NOTE | 2016-08-01 10:53 | PDOC ---
Infectious Disease Note Subjective Subjective Not feeling well c/o pain, Little nauseous earlier, no vomiting No fever last 24 hours ROS ROS GEN: Denies chills, sweats CV: Denies chest pain RESP: Denies shortness of air, cough GI: Denies diarrhea Vital Sign Vital Signs Vital Signs Date Time Temp Pulse Resp B/P (MAP) Pulse Ox O2 Delivery O2 Flow Rate FiO2 08/01/16 08:56 73 146/73 08/01/16 08:41 18 Nasal Cannula 2.0 08/01/16 07:41 95 08/01/16 07:00 97.5 97.5 Physical Exam PHYSICAL EXAM GENERAL: grimacing HEENT: Oral cavity clear NECK: Supple, no adenopathy present. LUNGS: Clear to auscultation. HEART: Normal S1, S2. ABDOMEN: Not distended. Bowel sounds are present, soft, nontender. Suprapubic area less red and indurated, but appears more swollen and is still very tender EXTREMITIES: No gross edema or cyanosis. SKIN: Without rash. Warm to touch. NEUROLOGIC: Alert and oriented x 3. Labs Lab Laboratory Tests Test 07/31/16 10:58 07/31/16 16:18 07/31/16 20:57 08/01/16 07:35 Glucose (Fingerstick) 291 mg/dL (70-99) 305 mg/dL (70-99) 127 mg/dL (70-99) 274 mg/dL (70-99) Micro BLOOD CULTURE Preliminary NO GROWTH AFTER 1 DAY Objective Assessment Cellulitis with possible early abscess formation of suprapubic area. s/p stab incision with no drainage Fever, better Leukocytosis Allergy Levaquin-Seizures. Has tolerated cipro w/o problem DM Plan Plan of Care Vanc and Zosyn f/u am labs and cultures Await Ct pelvis Attending Co-Sign The patient was seen and interviewed as well as examined at the bedside. The chart was reviewed. The case was discussed. Agree with the plan of care. RADHA CAMPOS APRN Aug 01, 2016 10:53 JUSTUS AUSTIN MD Aug 01, 2016 14:04
[2016-08-01 11:00] VITALS: BP 103/56
[2016-08-01 11:36] LABS: BASO % 1 % (0-3); CALCIUM 8.3 mg/dL (8.5-10.1); CREATININE 1.3 mg/dL (0.6-1.0); EOS % 2 % (0-3); GFR 42.2; HEMOGLOBIN 11.4 g/dL (12.0-15.5); LYMPH # 2.3 x10^3/uL (1.0-4.8); LYMPH % 23 % (24-48); MEAN CORPUSCULAR HEMOGLOBIN 29 pg (25-35); MEAN CORPUSCULAR HGB CONC 34 g/dL (31-37); MEAN CORPUSCULAR VOLUME 85 fL (79-100); MONO % 6 % (0-9); NEUT % 69 % (31-73); PLATELET COUNT 191 x10^3/uL (140-400); POTASSIUM 3.1 mmol/L (3.5-5.1); RED CELL DISTRIBUTION WIDTH 12.9 % (11.5-14.5)
[2016-08-01] MEDS ORDERED: IV NORMAL SALINE 1000ML BAG 1,000 ML IV ONE (14:15)
[2016-08-01] MEDS ORDERED: POTASSIUM CL 20MEQ D5-0.45NACL 1,000 ML IV SCH (14:15)
[2016-08-01] MEDS ORDERED: POTASSIUM CHLORIDE 20 MEQ TABLET.ER. PO ONE ×2 (14:15→19:00)
[2016-08-01] MEDS: VANCOMYCIN PER PHARMACY MC PRN (14:16)
--- NOTE | 2016-08-01 14:42 | RAD ---
EXAM: CT pelvis without contrast. HISTORY: Severe pubic pain. TECHNIQUE: CT of the pelvis was performed without intravenous contrast. COMPARISON: None. FINDINGS: There is subcutaneous stranding along the lower abdominal pannus and mons pubis on the right greater than left. There is no drainable collection. The bladder is distended. No intra-abdominal/pelvic inflammation is seen. The uterus is surgically absent. The appendix has also been resected. There are no pathologically enlarged lymph nodes. There are moderate degenerative changes at the pubic symphysis. No fractures are identified. The joint spaces and alignment of both hips are maintained for patient age. IMPRESSION: 1. Correlate for cellulitis along the right lower quadrant and mons pubis. No drainable collection. One or more of the following individualized dose reduction techniques were utilized for this examination: 1. Automated exposure control. 2. Adjustment of the mA and/or kV according to patient size. 3. Use of iterative reconstruction technique.
[2016-08-01 15:00] VITALS: BP 104/57
[2016-08-01] MEDS ORDERED: VANCOMYCIN 1.25 GM in IV NORMAL SALINE 250ML 250 ML IV SCH (16:00)
[2016-08-01 19:00] VITALS: BP 109/56
[2016-08-01] MEDS: ONDANSETRON PF 4 MG/2 ML VIAL. IV PRN (22:49)
[2016-08-01] MEDS: clonazePAM 1 MG TABLET PO SCH (22:55)
[2016-08-01 23:00] VITALS: BP 147/70
[2016-08-02 03:00] VITALS: BP 148/41
[2016-08-02] MEDS: HYDROcodone/APAP 5/325MG 1 TAB TABLET PO PRN ×2 (03:29→17:32)
[2016-08-02] MEDS: PIPERACILLIN/TAZOBACTAM 3.375 GM in IV NORMAL SALINE 50ML 50 ML IV SCH (05:47)
[2016-08-02 06:35] LABS: BASO # 0.1 x10^3/uL (0.0-0.2); BASO % 1 % (0-3); EOS % 3 % (0-3); HEMATOCRIT 33.7 % (36.0-47.0); HEMOGLOBIN 11.7 g/dL (12.0-15.5); LYMPH # 2.2 x10^3/uL (1.0-4.8); LYMPH % 27 % (24-48); MEAN CORPUSCULAR HEMOGLOBIN 29 pg (25-35); MEAN CORPUSCULAR HGB CONC 35 g/dL (31-37); MEAN CORPUSCULAR VOLUME 84 fL (79-100); MONO % 7 % (0-9); NEUT % 63 % (31-73); PLATELET COUNT 201 x10^3/uL (140-400); RED BLOOD COUNT 4.02 x10^6/uL (3.50-5.40); RED CELL DISTRIBUTION WIDTH 12.9 % (11.5-14.5); WHITE BLOOD COUNT 8.1 x10^3/uL (4.0-11.0)
[2016-08-02 07:13] LABS: ALBUMIN 2.3 g/dL (3.4-5.0); ALBUMIN/GLOBULIN RATIO 0.7 (1.0-1.7); CREATININE 1.2 mg/dL (0.6-1.0); GFR 46.3; MAGNESIUM 2.3 mg/dL (1.8-2.4); POTASSIUM 4.3 mmol/L (3.5-5.1); TOTAL BILIRUBIN 0.3 mg/dL (0.2-1.0); TOTAL PROTEIN 5.6 g/dL (6.4-8.2)
[2016-08-02 07:51] VITALS: BP 146/68
[2016-08-02] MEDS: INSULIN ASPART 300 UNITS/3 ML INSULN.PEN SQ SCH ×5 (08:00→17:39)
[2016-08-02] MEDS: GABAPENTIN 300 MG CAPSULE. PO SCH ×3 (08:09→20:59)
[2016-08-02] MEDS: ASPIRIN 325 MG TABLET PO SCH (08:10)
[2016-08-02] MEDS: levETIRAcetam 500 MG TABLET PO SCH ×2 (08:10→21:00)
[2016-08-02] MEDS: ESTRADIOL 1 MG TABLET. PO SCH (08:10)
[2016-08-02] MEDS: FLUoxetine HCL 20 MG CAPSULE PO SCH (08:11)
[2016-08-02] MEDS: POTASSIUM CHLORIDE 20 MEQ TABLET.ER. PO SCH (08:11)
[2016-08-02] MEDS: ATENOLOL 50 MG TABLET. PO SCH ×2 (08:12→21:00)
--- NOTE | 2016-08-02 08:54 | PDOC ---
[facility] SUPPORT CONSULTANT 08/02/16 0854: SURGICAL PROGRESS NOTE Subjective continued significant pain to pubic area, about the same + nausea Vital Signs Vital Signs Date Time Temp Pulse Resp B/P (MAP) Pulse Ox O2 Delivery O2 Flow Rate FiO2 08/02/16 08:12 71 146/68 08/02/16 04:29 18 95 Nasal Cannula 2.0 08/02/16 03:00 97.9 97.9 I&O Intake and Output 08/02/16 07:00 Intake Total 1190 ml Output Total 800 ml Balance 390 ml Intake Oral 840 ml IV Total 350 ml Output Urine Total 800 ml # Voids 2 General: Alert, Oriented X3, Cooperative, No acute distress Skin: Other (swelling to mons, greater on right, small open wound, no drainage , erythema and induration present. significant tenderness on exam with very light palpation ) Labs Laboratory Tests Test 07/31/16 10:58 07/31/16 16:18 07/31/16 20:57 08/01/16 07:35 Glucose (Fingerstick) 291 mg/dL (70-99) 305 mg/dL (70-99) 127 mg/dL (70-99) 274 mg/dL (70-99) Test 08/01/16 10:56 08/01/16 11:20 08/01/16 16:44 08/01/16 20:47 Glucose (Fingerstick) 244 mg/dL (70-99) 111 mg/dL (70-99) 169 mg/dL (70-99) White Blood Count 10.0 x10^3/uL (4.0-11.0) Red Blood Count 4.00 x10^6/uL (3.50-5.40) Hemoglobin 11.4 g/dL (12.0-15.5) Hematocrit 34.0 % (36.0-47.0) Mean Corpuscular Volume 85 fL (79-100) Mean Corpuscular Hemoglobin 29 pg (25-35) Mean Corpuscular Hemoglobin Concent 34 g/dL (31-37) Red Cell Distribution Width 12.9 % (11.5-14.5) Platelet Count 191 x10^3/uL (140-400) Neutrophils (%) (Auto) 69 % (31-73) Lymphocytes (%) (Auto) 23 % (24-48) Monocytes (%) (Auto) 6 % (0-9) Eosinophils (%) (Auto) 2 % (0-3) Basophils (%) (Auto) 1 % (0-3) Neutrophils # (Auto) 6.9 x10^3uL (1.8-7.7) Lymphocytes # (Auto) 2.3 x10^3/uL (1.0-4.8) Monocytes # (Auto) 0.6 x10^3/uL (0.0-1.1) Eosinophils # (Auto) 0.2 x10^3/uL (0.0-0.7) Basophils # (Auto) 0.0 x10^3/uL (0.0-0.2) Sodium Level 137 mmol/L (136-145) Potassium Level 3.1 mmol/L (3.5-5.1) Chloride Level 101 mmol/L (98-107) Carbon Dioxide Level 31 mmol/L (21-32) Anion Gap 5 (6-14) Blood Urea Nitrogen 23 mg/dL (7-20) Creatinine 1.3 mg/dL (0.6-1.0) Estimated GFR (Cockcroft-Gault) 42.2 Glucose Level 246 mg/dL (70-99) Calcium Level 8.3 mg/dL (8.5-10.1) Test 08/02/16 06:20 08/02/16 07:52 White Blood Count 8.1 x10^3/uL (4.0-11.0) Red Blood Count 4.02 x10^6/uL (3.50-5.40) Hemoglobin 11.7 g/dL (12.0-15.5) Hematocrit 33.7 % (36.0-47.0) Mean Corpuscular Volume 84 fL (79-100) Mean Corpuscular Hemoglobin 29 pg (25-35) Mean Corpuscular Hemoglobin Concent 35 g/dL (31-37) Red Cell Distribution Width 12.9 % (11.5-14.5) Platelet Count 201 x10^3/uL (140-400) Neutrophils (%) (Auto) 63 % (31-73) Lymphocytes (%) (Auto) 27 % (24-48) Monocytes (%) (Auto) 7 % (0-9) Eosinophils (%) (Auto) 3 % (0-3) Basophils (%) (Auto) 1 % (0-3) Neutrophils # (Auto) 5.1 x10^3uL (1.8-7.7) Lymphocytes # (Auto) 2.2 x10^3/uL (1.0-4.8) Monocytes # (Auto) 0.5 x10^3/uL (0.0-1.1) Eosinophils # (Auto) 0.2 x10^3/uL (0.0-0.7) Basophils # (Auto) 0.1 x10^3/uL (0.0-0.2) Sodium Level 140 mmol/L (136-145) Potassium Level 4.3 mmol/L (3.5-5.1) Chloride Level 107 mmol/L (98-107) Carbon Dioxide Level 28 mmol/L (21-32) Anion Gap 5 (6-14) Blood Urea Nitrogen 20 mg/dL (7-20) Creatinine 1.2 mg/dL (0.6-1.0) Estimated GFR (Cockcroft-Gault) 46.3 BUN/Creatinine Ratio 17 (6-20) Glucose Level 157 mg/dL (70-99) Calcium Level 8.0 mg/dL (8.5-10.1) Magnesium Level 2.3 mg/dL (1.8-2.4) Total Bilirubin 0.3 mg/dL (0.2-1.0) Aspartate Amino Transf (AST/SGOT) 25 U/L (15-37) Alanine Aminotransferase (ALT/SGPT) 20 U/L (14-59) Alkaline Phosphatase 89 U/L (46-116) Total Protein 5.6 g/dL (6.4-8.2) Albumin 2.3 g/dL (3.4-5.0) Albumin/Globulin Ratio 0.7 (1.0-1.7) Glucose (Fingerstick) 148 mg/dL (70-99) Laboratory Tests Test 08/01/16 10:56 08/01/16 11:20 08/01/16 16:44 08/01/16 20:47 Glucose (Fingerstick) 244 mg/dL (70-99) 111 mg/dL (70-99) 169 mg/dL (70-99) White Blood Count 10.0 x10^3/uL (4.0-11.0) Red Blood Count 4.00 x10^6/uL (3.50-5.40) Hemoglobin 11.4 g/dL (12.0-15.5) Hematocrit 34.0 % (36.0-47.0) Mean Corpuscular Volume 85 fL (79-100) Mean Corpuscular Hemoglobin 29 pg (25-35) Mean Corpuscular Hemoglobin Concent 34 g/dL (31-37) Red Cell Distribution Width 12.9 % (11.5-14.5) Platelet Count 191 x10^3/uL (140-400) Neutrophils (%) (Auto) 69 % (31-73) Lymphocytes (%) (Auto) 23 % (24-48) Monocytes (%) (Auto) 6 % (0-9) Eosinophils (%) (Auto) 2 % (0-3) Basophils (%) (Auto) 1 % (0-3) Neutrophils # (Auto) 6.9 x10^3uL (1.8-7.7) Lymphocytes # (Auto) 2.3 x10^3/uL (1.0-4.8) Monocytes # (Auto) 0.6 x10^3/uL (0.0-1.1) Eosinophils # (Auto) 0.2 x10^3/uL (0.0-0.7) Basophils # (Auto) 0.0 x10^3/uL (0.0-0.2) Sodium Level 137 mmol/L (136-145) Potassium Level 3.1 mmol/L (3.5-5.1) Chloride Level 101 mmol/L (98-107) Carbon Dioxide Level 31 mmol/L (21-32) Anion Gap 5 (6-14) Blood Urea Nitrogen 23 mg/dL (7-20) Creatinine 1.3 mg/dL (0.6-1.0) Estimated GFR (Cockcroft-Gault) 42.2 Glucose Level 246 mg/dL (70-99) Calcium Level 8.3 mg/dL (8.5-10.1) Test 08/02/16 06:20 08/02/16 07:52 White Blood Count 8.1 x10^3/uL (4.0-11.0) Red Blood Count 4.02 x10^6/uL (3.50-5.40) Hemoglobin 11.7 g/dL (12.0-15.5) Hematocrit 33.7 % (36.0-47.0) Mean Corpuscular Volume 84 fL (79-100) Mean Corpuscular Hemoglobin 29 pg (25-35) Mean Corpuscular Hemoglobin Concent 35 g/dL (31-37) Red Cell Distribution Width 12.9 % (11.5-14.5) Platelet Count 201 x10^3/uL (140-400) Neutrophils (%) (Auto) 63 % (31-73) Lymphocytes (%) (Auto) 27 % (24-48) Monocytes (%) (Auto) 7 % (0-9) Eosinophils (%) (Auto) 3 % (0-3) Basophils (%) (Auto) 1 % (0-3) Neutrophils # (Auto) 5.1 x10^3uL (1.8-7.7) Lymphocytes # (Auto) 2.2 x10^3/uL (1.0-4.8) Monocytes # (Auto) 0.5 x10^3/uL (0.0-1.1) Eosinophils # (Auto) 0.2 x10^3/uL (0.0-0.7) Basophils # (Auto) 0.1 x10^3/uL (0.0-0.2) Sodium Level 140 mmol/L (136-145) Potassium Level 4.3 mmol/L (3.5-5.1) Chloride Level 107 mmol/L (98-107) Carbon Dioxide Level 28 mmol/L (21-32) Anion Gap 5 (6-14) Blood Urea Nitrogen 20 mg/dL (7-20) Creatinine 1.2 mg/dL (0.6-1.0) Estimated GFR (Cockcroft-Gault) 46.3 BUN/Creatinine Ratio 17 (6-20) Glucose Level 157 mg/dL (70-99) Calcium Level 8.0 mg/dL (8.5-10.1) Magnesium Level 2.3 mg/dL (1.8-2.4) Total Bilirubin 0.3 mg/dL (0.2-1.0) Aspartate Amino Transf (AST/SGOT) 25 U/L (15-37) Alanine Aminotransferase (ALT/SGPT) 20 U/L (14-59) Alkaline Phosphatase 89 U/L (46-116) Total Protein 5.6 g/dL (6.4-8.2) Albumin 2.3 g/dL (3.4-5.0) Albumin/Globulin Ratio 0.7 (1.0-1.7) Glucose (Fingerstick) 148 mg/dL (70-99) Problem List Problems Medical Problems: (1) Cellulitis Status: Acute Assessment/Plan continue abx afebrile, normal wbc, no drainable abscess will review with Dr Mancilla, however no surgical plans Problems: CATHERINE MANCILLA MD 08/02/16 1257: SURGICAL PROGRESS NOTE Assessment/Plan pt seen and examined agree wiht above no surgical indication will sign off please call again if we can be of help Thank you. Problems: HENOK CHAVEZ APRN Aug 02, 2016 08:54 CATHERINE MANCILLA MD Aug 02, 2016 12:57
[2016-08-02] MEDS: cloNIDine HCL 0.1 MG TABLET PO SCH ×2 (09:00→21:08)
[2016-08-02] MEDS: INSULIN DETEMIR 300 UNITS/3 ML INSULN.PEN. SQ SCH ×2 (09:00→21:20)
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
[2016-08-02 10:30] VITALS: BP 106/64
[2016-08-02] MEDS ORDERED: IV NORMAL SALINE 1000ML BAG 1,000 ML IV ONE (11:15)
[2016-08-02] MEDS: DOXYCYCLINE HYCLATE 100 MG TABLET PO SCH ×2 (11:44→21:00)
[2016-08-02] MEDS: CIPROFLOXACIN HCL 250 MG TABLET. PO SCH ×2 (11:44→21:00)
--- NOTE | 2016-08-02 14:23 | PDOC ---
PROGRESS NOTES Chief Complaint Chief Complaint 1. Abdominal wall cellulitis suspected due to insect bite, no abscess 2. Low grade temperature. 3. Type 2 diabetes mellitus with hyperglycemia. and CKD 3, long-term insulin use 4. Hypernatremia. 5. Seizure d/o 6. History paroxysmal atrial fibrillation. plan: no sx intervention wound drainage sent for cx fu with ID, iv abx dced, on cipro and doxy now pain control pt still has severe pain, low po intake, will give ivf, decrease insulin a lot to levemir 15u qhs only, aspart 5u tid, SSI hope dc tmr History of Present Illness History of Present Illness still having a large amount of pain seen by Dr. Gan this AM, CT pelvis ordered, no abscess cont pain management consult Surg, I+D done in ER, but no sample was gotten, still swollen , very tender with drainage low po intake Vitals Vitals Vital Signs Date Time Temp Pulse Resp B/P (MAP) Pulse Ox O2 Delivery O2 Flow Rate FiO2 08/02/16 10:30 97.7 63 18 106/64 (78) 94 Room Air 97.7 08/02/16 08:00 2.0 Physical Exam General: Alert, Oriented X3, Cooperative, No acute distress Heart: Regular rate, Normal S1, Normal S2 Lungs: Clear Abdomen: Normal bowel sounds, Other (swollen and tender suprapubic, she is holding cold pack on it, and is in distress) Extremities: No clubbing Skin: Other (swelling to mons, greater on right, small open wound, no drainage , erythema and induration present. significant tenderness on exam with very light palpation ) Labs LABS Laboratory Tests Test 08/01/16 16:44 08/01/16 20:47 08/02/16 06:20 08/02/16 07:52 Glucose (Fingerstick) 111 mg/dL (70-99) 169 mg/dL (70-99) 148 mg/dL (70-99) White Blood Count 8.1 x10^3/uL (4.0-11.0) Red Blood Count 4.02 x10^6/uL (3.50-5.40) Hemoglobin 11.7 g/dL (12.0-15.5) Hematocrit 33.7 % (36.0-47.0) Mean Corpuscular Volume 84 fL (79-100) Mean Corpuscular Hemoglobin 29 pg (25-35) Mean Corpuscular Hemoglobin Concent 35 g/dL (31-37) Red Cell Distribution Width 12.9 % (11.5-14.5) Platelet Count 201 x10^3/uL (140-400) Neutrophils (%) (Auto) 63 % (31-73) Lymphocytes (%) (Auto) 27 % (24-48) Monocytes (%) (Auto) 7 % (0-9) Eosinophils (%) (Auto) 3 % (0-3) Basophils (%) (Auto) 1 % (0-3) Neutrophils # (Auto) 5.1 x10^3uL (1.8-7.7) Lymphocytes # (Auto) 2.2 x10^3/uL (1.0-4.8) Monocytes # (Auto) 0.5 x10^3/uL (0.0-1.1) Eosinophils # (Auto) 0.2 x10^3/uL (0.0-0.7) Basophils # (Auto) 0.1 x10^3/uL (0.0-0.2) Sodium Level 140 mmol/L (136-145) Potassium Level 4.3 mmol/L (3.5-5.1) Chloride Level 107 mmol/L (98-107) Carbon Dioxide Level 28 mmol/L (21-32) Anion Gap 5 (6-14) Blood Urea Nitrogen 20 mg/dL (7-20) Creatinine 1.2 mg/dL (0.6-1.0) Estimated GFR (Cockcroft-Gault) 46.3 BUN/Creatinine Ratio 17 (6-20) Glucose Level 157 mg/dL (70-99) Calcium Level 8.0 mg/dL (8.5-10.1) Magnesium Level 2.3 mg/dL (1.8-2.4) Total Bilirubin 0.3 mg/dL (0.2-1.0) Aspartate Amino Transf (AST/SGOT) 25 U/L (15-37) Alanine Aminotransferase (ALT/SGPT) 20 U/L (14-59) Alkaline Phosphatase 89 U/L (46-116) Total Protein 5.6 g/dL (6.4-8.2) Albumin 2.3 g/dL (3.4-5.0) Albumin/Globulin Ratio 0.7 (1.0-1.7) Test 08/02/16 11:36 Glucose (Fingerstick) 195 mg/dL (70-99) Review of Systems Review of Systems no fever, chills, sob or chest pain Assessment and Plan Assessmemt and Plan Problems Medical Problems: (1) Cellulitis Status: Acute Problems: Comment Review of Relevant I have reviewed the following items cheko (where applicable) has been applied. Labs Laboratory Tests Test 07/31/16 16:18 07/31/16 20:57 08/01/16 07:35 08/01/16 10:56 Glucose (Fingerstick) 305 mg/dL (70-99) 127 mg/dL (70-99) 274 mg/dL (70-99) 244 mg/dL (70-99) Test 08/01/16 11:20 08/01/16 16:44 08/01/16 20:47 08/02/16 06:20 White Blood Count 10.0 x10^3/uL (4.0-11.0) 8.1 x10^3/uL (4.0-11.0) Red Blood Count 4.00 x10^6/uL (3.50-5.40) 4.02 x10^6/uL (3.50-5.40) Hemoglobin 11.4 g/dL (12.0-15.5) 11.7 g/dL (12.0-15.5) Hematocrit 34.0 % (36.0-47.0) 33.7 % (36.0-47.0) Mean Corpuscular Volume 85 fL (79-100) 84 fL (79-100) Mean Corpuscular Hemoglobin 29 pg (25-35) 29 pg (25-35) Mean Corpuscular Hemoglobin Concent 34 g/dL (31-37) 35 g/dL (31-37) Red Cell Distribution Width 12.9 % (11.5-14.5) 12.9 % (11.5-14.5) Platelet Count 191 x10^3/uL (140-400) 201 x10^3/uL (140-400) Neutrophils (%) (Auto) 69 % (31-73) 63 % (31-73) Lymphocytes (%) (Auto) 23 % (24-48) 27 % (24-48) Monocytes (%) (Auto) 6 % (0-9) 7 % (0-9) Eosinophils (%) (Auto) 2 % (0-3) 3 % (0-3) Basophils (%) (Auto) 1 % (0-3) 1 % (0-3) Neutrophils # (Auto) 6.9 x10^3uL (1.8-7.7) 5.1 x10^3uL (1.8-7.7) Lymphocytes # (Auto) 2.3 x10^3/uL (1.0-4.8) 2.2 x10^3/uL (1.0-4.8) Monocytes # (Auto) 0.6 x10^3/uL (0.0-1.1) 0.5 x10^3/uL (0.0-1.1) Eosinophils # (Auto) 0.2 x10^3/uL (0.0-0.7) 0.2 x10^3/uL (0.0-0.7) Basophils # (Auto) 0.0 x10^3/uL (0.0-0.2) 0.1 x10^3/uL (0.0-0.2) Sodium Level 137 mmol/L (136-145) 140 mmol/L (136-145) Potassium Level 3.1 mmol/L (3.5-5.1) 4.3 mmol/L (3.5-5.1) Chloride Level 101 mmol/L (98-107) 107 mmol/L (98-107) Carbon Dioxide Level 31 mmol/L (21-32) 28 mmol/L (21-32) Anion Gap 5 (6-14) 5 (6-14) Blood Urea Nitrogen 23 mg/dL (7-20) 20 mg/dL (7-20) Creatinine 1.3 mg/dL (0.6-1.0) 1.2 mg/dL (0.6-1.0) Estimated GFR (Cockcroft-Gault) 42.2 46.3 Glucose Level 246 mg/dL (70-99) 157 mg/dL (70-99) Calcium Level 8.3 mg/dL (8.5-10.1) 8.0 mg/dL (8.5-10.1) Glucose (Fingerstick) 111 mg/dL (70-99) 169 mg/dL (70-99) BUN/Creatinine Ratio 17 (6-20) Magnesium Level 2.3 mg/dL (1.8-2.4) Total Bilirubin 0.3 mg/dL (0.2-1.0) Aspartate Amino Transf (AST/SGOT) 25 U/L (15-37) Alanine Aminotransferase (ALT/SGPT) 20 U/L (14-59) Alkaline Phosphatase 89 U/L (46-116) Total Protein 5.6 g/dL (6.4-8.2) Albumin 2.3 g/dL (3.4-5.0) Albumin/Globulin Ratio 0.7 (1.0-1.7) Test 08/02/16 07:52 08/02/16 11:36 Glucose (Fingerstick) 148 mg/dL (70-99) 195 mg/dL (70-99) Laboratory Tests Test 08/01/16 16:44 08/01/16 20:47 08/02/16 06:20 08/02/16 07:52 Glucose (Fingerstick) 111 mg/dL (70-99) 169 mg/dL (70-99) 148 mg/dL (70-99) White Blood Count 8.1 x10^3/uL (4.0-11.0) Red Blood Count 4.02 x10^6/uL (3.50-5.40) Hemoglobin 11.7 g/dL (12.0-15.5) Hematocrit 33.7 % (36.0-47.0) Mean Corpuscular Volume 84 fL (79-100) Mean Corpuscular Hemoglobin 29 pg (25-35) Mean Corpuscular Hemoglobin Concent 35 g/dL (31-37) Red Cell Distribution Width 12.9 % (11.5-14.5) Platelet Count 201 x10^3/uL (140-400) Neutrophils (%) (Auto) 63 % (31-73) Lymphocytes (%) (Auto) 27 % (24-48) Monocytes (%) (Auto) 7 % (0-9) Eosinophils (%) (Auto) 3 % (0-3) Basophils (%) (Auto) 1 % (0-3) Neutrophils # (Auto) 5.1 x10^3uL (1.8-7.7) Lymphocytes # (Auto) 2.2 x10^3/uL (1.0-4.8) Monocytes # (Auto) 0.5 x10^3/uL (0.0-1.1) Eosinophils # (Auto) 0.2 x10^3/uL (0.0-0.7) Basophils # (Auto) 0.1 x10^3/uL (0.0-0.2) Sodium Level 140 mmol/L (136-145) Potassium Level 4.3 mmol/L (3.5-5.1) Chloride Level 107 mmol/L (98-107) Carbon Dioxide Level 28 mmol/L (21-32) Anion Gap 5 (6-14) Blood Urea Nitrogen 20 mg/dL (7-20) Creatinine 1.2 mg/dL (0.6-1.0) Estimated GFR (Cockcroft-Gault) 46.3 BUN/Creatinine Ratio 17 (6-20) Glucose Level 157 mg/dL (70-99) Calcium Level 8.0 mg/dL (8.5-10.1) Magnesium Level 2.3 mg/dL (1.8-2.4) Total Bilirubin 0.3 mg/dL (0.2-1.0) Aspartate Amino Transf (AST/SGOT) 25 U/L (15-37) Alanine Aminotransferase (ALT/SGPT) 20 U/L (14-59) Alkaline Phosphatase 89 U/L (46-116) Total Protein 5.6 g/dL (6.4-8.2) Albumin 2.3 g/dL (3.4-5.0) Albumin/Globulin Ratio 0.7 (1.0-1.7) Test 08/02/16 11:36 Glucose (Fingerstick) 195 mg/dL (70-99) Microbiology 07/30/16 Blood Culture - Preliminary, Resulted NO GROWTH AFTER 3 DAYS 08/02/16 Gram Stain - Final, Complete Medications Current Medications Sodium Chloride 1,000 ml @ 1,000 mls/hr 1X ONCE IV Last administered on 12:29; Start 07/30/16 at 12:15; Stop 07/30/16 at 13:14; Status DC Ketorolac Tromethamine (Toradol) 30 mg 1X ONCE IV Last administered on 12:29; Start 07/30/16 at 12:15; Stop 07/30/16 at 12:16; Status DC Fentanyl Citrate (Fentanyl 2ml Vial) 75 mcg 1X ONCE IV Last administered on 12:43; Start 07/30/16 at 12:30; Stop 07/30/16 at 12:31; Status DC Ondansetron HCl (Zofran) 4 mg 1X ONCE IV Last administered on 07/30/16 12:42 ; Start 07/30/16 at 12:30; Stop 07/30/16 at 12:31; Status DC Insulin Human Regular (NovoLIN R VIAL) 10 unit 1X ONCE IM Last administered on 07/30/16 14:11; Start 07/30/16 at 13:15; Stop 07/30/16 at 13:16; Status DC Morphine Sulfate 4 mg 1X ONCE IV Last administered on 07/30/16 15:11; Start 07/30/16 at 14:45; Stop 07/30/16 at 14:46; Status DC Piperacillin Sod/ Tazobactam Sod 3.375 gm/Sodium Chloride 50 ml @ 100 mls/hr 1X ONCE IV Last administered on 07/30/16 15:12; Start 07/30/16 at 14:45; Stop 07/30/16 at 15:14; Status DC Ondansetron HCl (Zofran) 4 mg PRN Q8HRS PRN IV NAUSEA/VOMITING; Start 07/30/16 at 14:45; Stop 07/31/16 at 14:44; Status DC Morphine Sulfate 2 mg PRN Q2HR PRN IV PAIN; Start 07/30/16 at 14:45; Stop 07/31 at 14:37; Status DC Piperacillin Sod/ Tazobactam Sod 3.375 gm/Sodium Chloride 50 ml @ 100 mls/hr Q6HRS IV Last administered on 08/02/16 05:47; Start 07/31/16 at 00:00; Stop at 10:25; Status DC Acetaminophen/ Hydrocodone Bitart (Lortab 5/325) 1 tab PRN Q4HRS PRN PO PAIN Last administered on 08/02/16 03:29; Start 07/30/16 at 18:15 Insulin Aspart (NovoLOG) 10 units 1X ONCE SQ Last administered on 07/30/16 18 :31; Start 07/30/16 at 18:15; Stop 07/30/16 at 18:17; Status DC Insulin Aspart (NovoLOG) 0-9 UNITS TIDWMEALS SQ Last administered on 08/02/16 12:35; Start 07/31/16 at 08:00 Dextrose (Dextrose 50%-Water Syringe) 12.5 gm PRN Q15MIN PRN IV SEE COMMENTS; Start 07/30/16 at 18:15 Aspirin ([place] Aspirin) 325 mg DAILY08 PO Last administered on 08/02/16 08:10 ; Start 07/31/16 at 08:00 Atenolol (Tenormin) 50 mg BID PO Last administered on 08/02/16 08:12; Start at 21:00 Clonazepam (KlonoPIN) 1 mg QHS PO Last administered on 08/01/16 22:55; Start 07/30/16 at 21:00 Clonidine HCl (Catapres) 0.1 mg BID PO Last administered on 08/01/16 22:54; Start 07/30/16 at 21:00 Estradiol (Estrace) 1 mg DAILY PO Last administered on 08/02/16 08:10; Start 07/31/16 at 09:00 Fluoxetine HCl (PROzac) 20 mg DAILY PO Last administered on 08/02/16 08:11; Start 07/31/16 at 09:00 Levetiracetam (Keppra) 1,500 mg BID PO Last administered on 08/02/16 08:10; Start 07/30/16 at 21:00 Gabapentin (Neurontin) 600 mg TID PO Last administered on 08/02/16 08:09; Start 07/30/16 at 21:00 Insulin Detemir (Levemir) 60 units BID SQ Last administered on 08/01/16 09:01 ; Start 07/30/16 at 21:00; Stop 08/02/16 at 11:03; Status DC Insulin Aspart (NovoLOG) 20 units TIDAC SQ Last administered on 08/01/16 12:30 ; Start 07/31/16 at 16:30; Stop 08/01/16 at 14:07; Status DC Morphine Sulfate 4 mg PRN Q2HR PRN IV PAIN; Start 07/31/16 at 14:45 Vancomycin HCl (Vanco Per Pharmacy) 1 each PRN DAILY PRN MC SEE COMMENTS Last administered on 08/01/16 14:16; Start 07/31/16 at 14:45; Stop 08/02/16 at 10:26 ; Status DC Vancomycin HCl 1.75 gm/Sodium Chloride 500 ml @ 250 mls/hr 1X ONCE IV Last administered on 07/31/16 15:44; Start 07/31/16 at 15:00; Stop 07/31/16 at 16:59 ; Status DC Vancomycin HCl 1.25 gm/Sodium Chloride 250 ml @ 167 mls/hr Q24H IV Last administered on 08/01/16 15:47; Start 08/01/16 at 16:00; Stop 08/02/16 at 10:25 ; Status DC Vancomycin HCl 1 each 1X ONCE MC ; Start 08/02/16 at 15:30; Stop 08/02/16 at 15 :30; Status DC Ondansetron HCl (Zofran) 4 mg PRN Q8HRS PRN IV NAUSEA/VOMITING Last administered on 08/01/16 22:49; Start 07/31/16 at 21:45 Potassium Chloride (Klor-Con) 40 meq 1X ONCE PO Last administered on 14:32; Start 08/01/16 at 14:15; Stop 08/01/16 at 14:16; Status DC Potassium Chloride (Klor-Con) 20 meq [id number] PO Last administered on 08:11; Start 08/02/16 at 08:00 Potassium Chloride/Dextrose/ Sod Cl 1,000 ml @ 80 mls/hr [id number] IV ; Start at 14:15; Status UNV Sodium Chloride 1,000 ml @ 125 mls/hr 1X ONCE IV Last administered on 14:32; Start 08/01/16 at 14:15; Stop 08/01/16 at 22:14; Status DC Insulin Aspart (NovoLOG) 24 units TIDAC SQ Last administered on 08/02/16 08:17 ; Start 08/01/16 at 16:30; Stop 08/02/16 at 11:03; Status DC Potassium Chloride (Klor-Con) 20 meq 1X ONCE PO Last administered on 18:04; Start 08/01/16 at 19:00; Stop 08/01/16 at 19:01; Status DC Doxycycline Hyclate (Vibra-Tab) 100 mg BID PO Last administered on 08/02/16 11 :44; Start 08/02/16 at 11:00 Ciprofloxacin (Cipro) 500 mg BID PO Last administered on 08/02/16 11:44; Start 08/02/16 at 11:00 Sodium Chloride 1,000 ml @ 100 mls/hr 1X ONCE IV Last administered on 11:27; Start 08/02/16 at 11:15; Stop 08/02/16 at 21:14 Active Scripts Active Keppra (Levetiracetam) 500 Mg Tablet 1,500 Mg PO BID Reported Hydrochlorothiazide Tablet (Hydrochlorothiazide) 25 Mg Tablet 1 Tab PO PRN PRN Aspirin 325 Mg Tablet 325 Tab PO PRN Q6HRS PRN Estradiol 1 Mg Tablet 1 Tab PO DAILY Clonazepam 1 Mg Tablet 1 Tab PO QHS Levemir (Insulin Detemir) 100 Unit/1 Ml Vial 60 Unit SQ BID Novolog (Insulin Aspart) 100 Unit/1 Ml Cartridge 100 Unit SQ SLIDING SCALE Fluoxetine Hcl 20 Mg Capsule 1 Cap PO DAILY Clonidine Hcl 0.1 Mg Tablet 0.1 Mg PO BID Gabapentin 600 Mg Tablet 1 Tab PO TID Atenolol 50 Mg Tablet 50 Mg PO BID Vitals/I & O Vital Sign - Last 24 Hours 08/01/16 08/01/16 08/01/16 08/01/16 15:00 19:00 20:00 22:53 Temp 98.0 97.5 98.0 97.5 Pulse 64 68 71 Resp 18 18 B/P (MAP) 104/57 (73) 109/56 (73) 147/70 Pulse Ox 95 91 O2 Delivery Room Air Room Air Nasal Cannula O2 Flow Rate 2.0 08/01/16 08/01/16 08/02/16 08/02/16 22:54 23:00 03:00 03:29 Temp 97.7 97.9 97.7 97.9 Pulse 71 71 71 Resp 18 18 18 B/P (MAP) 147/70 147/70 (95) 148/41 (76) Pulse Ox 95 100 95 O2 Delivery Room Air Room Air Room Air O2 Flow Rate 2.0 08/02/16 08/02/16 08/02/16 08/02/16 04:29 07:51 08:00 08:12 Temp 97.5 97.5 Pulse 71 71 Resp 18 18 B/P (MAP) 146/68 (94) 146/68 Pulse Ox 95 94 O2 Delivery Nasal Cannula Room Air Nasal Cannula O2 Flow Rate 2.0 2.0 08/02/16 10:30 Temp 97.7 97.7 Pulse 63 Resp 18 B/P (MAP) 106/64 (78) Pulse Ox 94 O2 Delivery Room Air Intake and Output 08/01/16 08/01/16 08/02/16 15:00 23:00 07:00 Intake Total 410 ml 780 ml Output Total 200 ml 200 ml 400 ml Balance 210 ml 580 ml -400 ml ANNIKA WEEMS MD Aug 02, 2016 14:23
[2016-08-02 14:30] VITALS: BP 146/70
[2016-08-02] MEDS: ONDANSETRON PF 4 MG/2 ML VIAL. IV PRN (18:49)
[2016-08-02 19:00] VITALS: BP 148/75
[2016-08-02] MEDS ORDERED: MORPHINE SULFATE 2 MG/ML DISP.SYRIN. IV PRN (20:15)
[2016-08-02] MEDS: clonazePAM 1 MG TABLET PO SCH (21:00)
[2016-08-03] MEDS: HYDROcodone/APAP 5/325MG 1 TAB TABLET PO PRN ×4 (01:08→21:54)
[2016-08-03 03:00] VITALS: BP 159/77
[2016-08-03 07:00] VITALS: BP 150/78
[2016-08-03 07:06] LABS: BASO % 1 % (0-3); EOS % 3 % (0-3); HEMATOCRIT 33.7 % (36.0-47.0); HEMOGLOBIN 11.3 g/dL (12.0-15.5); LYMPH # 1.9 x10^3/uL (1.0-4.8); LYMPH % 34 % (24-48); MEAN CORPUSCULAR HEMOGLOBIN 29 pg (25-35); MEAN CORPUSCULAR HGB CONC 33 g/dL (31-37); MEAN CORPUSCULAR VOLUME 86 fL (79-100); MONO % 8 % (0-9); NEUT % 55 % (31-73); PLATELET COUNT 198 x10^3/uL (140-400); RED BLOOD COUNT 3.91 x10^6/uL (3.50-5.40); RED CELL DISTRIBUTION WIDTH 12.7 % (11.5-14.5); WHITE BLOOD COUNT 5.8 x10^3/uL (4.0-11.0)
[2016-08-03 07:15] LABS: CALCIUM 8.1 mg/dL (8.5-10.1); CREATININE 0.7 mg/dL (0.6-1.0); GFR 86.2; POTASSIUM 4.6 mmol/L (3.5-5.1)
[2016-08-03] MEDS: ESTRADIOL 1 MG TABLET. PO SCH (08:18)
[2016-08-03] MEDS: GABAPENTIN 300 MG CAPSULE. PO SCH ×3 (08:18→20:45)
[2016-08-03] MEDS: DOXYCYCLINE HYCLATE 100 MG TABLET PO SCH (08:18)
[2016-08-03] MEDS: POTASSIUM CHLORIDE 20 MEQ TABLET.ER. PO SCH (08:19)
[2016-08-03] MEDS: ASPIRIN 325 MG TABLET PO SCH (08:19)
[2016-08-03] MEDS: levETIRAcetam 500 MG TABLET PO SCH ×2 (08:19→20:45)
[2016-08-03] MEDS: CIPROFLOXACIN HCL 250 MG TABLET. PO SCH (08:19)
[2016-08-03] MEDS: INSULIN ASPART 300 UNITS/3 ML INSULN.PEN SQ SCH ×6 (08:25→17:20)
[2016-08-03] MEDS: ATENOLOL 50 MG TABLET. PO SCH ×2 (08:31→20:46)
[2016-08-03] MEDS: cloNIDine HCL 0.1 MG TABLET PO SCH ×2 (08:32→20:45)
[2016-08-03] MEDS: FLUoxetine HCL 20 MG CAPSULE PO SCH (09:00)
[2016-08-03 11:00] VITALS: BP 141/80
--- NOTE | 2016-08-03 11:18 | PDOC ---
Infectious Disease Note Subjective Subjective Not feeling well c/o pain, ROS ROS GEN: Denies fevers, chills, sweats HEENT: Denies blurred vision, sore throat CV: Denies chest pain RESP: Denies shortness of air, cough GI: Denies n/v/d NEURO: Denies confusion, dizziness MSK: Denies weakness, joint pain/swelling Vital Sign Vital Signs Vital Signs Date Time Temp Pulse Resp B/P (MAP) Pulse Ox O2 Delivery O2 Flow Rate FiO2 08/03/16 08:32 68 150/78 08/03/16 08:00 Nasal Cannula 3.0 08/03/16 07:00 97.7 18 98 97.7 Physical Exam PHYSICAL EXAM GENERAL: NAD, Alert HEENT: PERRL, OC/OP NECK: Supple, no JVD, no LN LUNGS: Clear HEART: S1S2, no gallop, no murmur ABD: Soft, NT, no organomegaly, no rebound,, rt inguinal area still indurated EXT: No edema, no cyanosis HAND FORMER: Alert, oriented x 3, no focal neurologic deficit SKIN: No rash IV: ok Labs Lab Laboratory Tests Test 08/02/16 11:36 08/02/16 16:29 08/02/16 21:14 08/03/16 05:05 Glucose (Fingerstick) 195 mg/dL (70-99) 195 mg/dL (70-99) 223 mg/dL (70-99) White Blood Count 5.8 x10^3/uL (4.0-11.0) Red Blood Count 3.91 x10^6/uL (3.50-5.40) Hemoglobin 11.3 g/dL (12.0-15.5) Hematocrit 33.7 % (36.0-47.0) Mean Corpuscular Volume 86 fL (79-100) Mean Corpuscular Hemoglobin 29 pg (25-35) Mean Corpuscular Hemoglobin Concent 33 g/dL (31-37) Red Cell Distribution Width 12.7 % (11.5-14.5) Platelet Count 198 x10^3/uL (140-400) Neutrophils (%) (Auto) 55 % (31-73) Lymphocytes (%) (Auto) 34 % (24-48) Monocytes (%) (Auto) 8 % (0-9) Eosinophils (%) (Auto) 3 % (0-3) Basophils (%) (Auto) 1 % (0-3) Neutrophils # (Auto) 3.2 x10^3uL (1.8-7.7) Lymphocytes # (Auto) 1.9 x10^3/uL (1.0-4.8) Monocytes # (Auto) 0.5 x10^3/uL (0.0-1.1) Eosinophils # (Auto) 0.2 x10^3/uL (0.0-0.7) Basophils # (Auto) 0.0 x10^3/uL (0.0-0.2) Sodium Level 142 mmol/L (136-145) Potassium Level 4.6 mmol/L (3.5-5.1) Chloride Level 107 mmol/L (98-107) Carbon Dioxide Level 27 mmol/L (21-32) Anion Gap 8 (6-14) Blood Urea Nitrogen 12 mg/dL (7-20) Creatinine 0.7 mg/dL (0.6-1.0) Estimated GFR (Cockcroft-Gault) 86.2 Glucose Level 245 mg/dL (70-99) Calcium Level 8.1 mg/dL (8.5-10.1) Test 08/03/16 07:56 Glucose (Fingerstick) 239 mg/dL (70-99) Micro AEROBIC CULTURE Preliminary Preliminary report AEROBIC RES 1 Preliminary Staphylococcus aureus Heavy growth Performed at: [address] [id number] Manufacturing Engineering Technologist: Paradise Stone MD, Phone: [phone] Objective Assessment Cellulitis with possible early abscess formation of suprapubic area. s/p stab incision with no drainage Fever, better Leukocytosis Allergy Levaquin-Seizures. Has tolerated cipro w/o problem DM Plan Plan of Care change to zyvox for now, since staph finally growing JUSTUS AUSTIN MD Aug 03, 2016 11:18
[2016-08-03] MEDS: LINEZOLID 600 MG TABLET PO SCH ×2 (12:05→20:44)
[2016-08-03 15:00] VITALS: BP 146/78
[2016-08-03] MEDS: ONDANSETRON PF 4 MG/2 ML VIAL. IV PRN (17:50)
--- NOTE | 2016-08-03 17:58 | PDOC ---
PROGRESS NOTES Chief Complaint Chief Complaint Cellulitis ASSESSMENT AND PLAN: 1. Abdominal wall cellulitis: suspected due to insect bite, no abscess. prelim culture pos for Staph aureus. Abx changed to zyvox as per Dr Mckeon 2. Pain control: adequate on [place]. increase activity 2. DM2: not optimally controlled on home regimen, but prob 2/2 infection. ISS added 3. TORI: mild, prob 2/2 meds, dehydration. resolved today. monitor 4. Hypernatremia: resolved 5. Seizure d/o: no acute issues. on keppra 6. History paroxysmal atrial fibrillation. pt still has severe pain, low po intake, will give ivf, decrease insulin a lot to levemir 15u qhs only, aspart 5u tid, SSI hope dc tmr History of Present Illness History of Present Illness c/o pain, but no pain meds this early AM. PO intake adequate Vitals Vitals Vital Signs Date Time Temp Pulse Resp B/P (MAP) Pulse Ox O2 Delivery O2 Flow Rate FiO2 08/03/16 15:00 97.1 69 17 146/78 (100) 100 Nasal Cannula 3.0 97.1 Physical Exam General: Alert, Oriented X3, Cooperative, No acute distress Heart: Regular rate, Normal S1, Normal S2 Lungs: Clear Abdomen: Normal bowel sounds, Other (swollen and tender suprapubic, she is holding cold pack on it, and is in distress) Extremities: No clubbing Skin: Other (swelling to mons, greater on right, small open wound, no drainage , erythema and induration present. significant tenderness on exam with very light palpation ) Labs LABS Laboratory Tests Test 08/02/16 21:14 08/03/16 05:05 08/03/16 07:56 08/03/16 11:28 Glucose (Fingerstick) 223 mg/dL (70-99) 239 mg/dL (70-99) 196 mg/dL (70-99) White Blood Count 5.8 x10^3/uL (4.0-11.0) Red Blood Count 3.91 x10^6/uL (3.50-5.40) Hemoglobin 11.3 g/dL (12.0-15.5) Hematocrit 33.7 % (36.0-47.0) Mean Corpuscular Volume 86 fL (79-100) Mean Corpuscular Hemoglobin 29 pg (25-35) Mean Corpuscular Hemoglobin Concent 33 g/dL (31-37) Red Cell Distribution Width 12.7 % (11.5-14.5) Platelet Count 198 x10^3/uL (140-400) Neutrophils (%) (Auto) 55 % (31-73) Lymphocytes (%) (Auto) 34 % (24-48) Monocytes (%) (Auto) 8 % (0-9) Eosinophils (%) (Auto) 3 % (0-3) Basophils (%) (Auto) 1 % (0-3) Neutrophils # (Auto) 3.2 x10^3uL (1.8-7.7) Lymphocytes # (Auto) 1.9 x10^3/uL (1.0-4.8) Monocytes # (Auto) 0.5 x10^3/uL (0.0-1.1) Eosinophils # (Auto) 0.2 x10^3/uL (0.0-0.7) Basophils # (Auto) 0.0 x10^3/uL (0.0-0.2) Sodium Level 142 mmol/L (136-145) Potassium Level 4.6 mmol/L (3.5-5.1) Chloride Level 107 mmol/L (98-107) Carbon Dioxide Level 27 mmol/L (21-32) Anion Gap 8 (6-14) Blood Urea Nitrogen 12 mg/dL (7-20) Creatinine 0.7 mg/dL (0.6-1.0) Estimated GFR (Cockcroft-Gault) 86.2 Glucose Level 245 mg/dL (70-99) Calcium Level 8.1 mg/dL (8.5-10.1) Test 08/03/16 16:55 Glucose (Fingerstick) 203 mg/dL (70-99) Comment Labs KAYLA MONROY MD Aug 03, 2016 17:58
[2016-08-03 19:00] VITALS: BP 146/56
[2016-08-03] MEDS: clonazePAM 1 MG TABLET PO SCH (20:45)
[2016-08-03] MEDS: INSULIN DETEMIR 300 UNITS/3 ML INSULN.PEN. SQ SCH (20:51)
[2016-08-03] MEDS ORDERED: INSULIN ASPART 300 UNITS/3 ML INSULN.PEN SQ ONE (21:30)
[2016-08-03 23:00] VITALS: BP 176/80
[2016-08-04 03:00] VITALS: BP 133/69
[2016-08-04] MEDS: ONDANSETRON PF 4 MG/2 ML VIAL. IV PRN (04:27)
[2016-08-04] MEDS: HYDROcodone/APAP 5/325MG 1 TAB TABLET PO PRN ×4 (04:28→18:36)
[2016-08-04 04:52] LABS: BASO % 1 % (0-3); EOS % 3 % (0-3); HEMATOCRIT 35.7 % (36.0-47.0); HEMOGLOBIN 11.9 g/dL (12.0-15.5); LYMPH # 2.1 x10^3/uL (1.0-4.8); LYMPH % 36 % (24-48); MEAN CORPUSCULAR HEMOGLOBIN 29 pg (25-35); MEAN CORPUSCULAR HGB CONC 33 g/dL (31-37); MEAN CORPUSCULAR VOLUME 86 fL (79-100); MONO % 8 % (0-9); NEUT % 52 % (31-73); PLATELET COUNT 216 x10^3/uL (140-400); RED BLOOD COUNT 4.14 x10^6/uL (3.50-5.40); RED CELL DISTRIBUTION WIDTH 12.9 % (11.5-14.5); WHITE BLOOD COUNT 5.9 x10^3/uL (4.0-11.0)
[2016-08-04 05:30] LABS: CALCIUM 8.4 mg/dL (8.5-10.1); CREATININE 0.8 mg/dL (0.6-1.0); GFR 73.9
[2016-08-04 07:00] VITALS: BP_SYST 139; BP_SYST 169; BP_DIAS 50; BP_DIAS 99
[2016-08-04] MEDS: INSULIN ASPART 300 UNITS/3 ML INSULN.PEN SQ SCH ×8 (08:02→18:33)
[2016-08-04] MEDS: GABAPENTIN 300 MG CAPSULE. PO SCH ×2 (08:31→13:47)
[2016-08-04] MEDS: ASPIRIN 325 MG TABLET PO SCH (08:31)
[2016-08-04] MEDS: FLUoxetine HCL 20 MG CAPSULE PO SCH (08:32)
[2016-08-04] MEDS: levETIRAcetam 500 MG TABLET PO SCH (08:32)
[2016-08-04] MEDS: ESTRADIOL 1 MG TABLET. PO SCH (08:32)
[2016-08-04] MEDS: LINEZOLID 600 MG TABLET PO SCH (08:32)
[2016-08-04] MEDS: POTASSIUM CHLORIDE 20 MEQ TABLET.ER. PO SCH (08:33)
[2016-08-04] MEDS: cloNIDine HCL 0.1 MG TABLET PO SCH (08:44)
[2016-08-04] MEDS: ATENOLOL 50 MG TABLET. PO SCH (08:59)
--- NOTE | 2016-08-04 10:42 | PDOC ---
Infectious Disease Note Subjective Subjective Not feeling well c/o pain, ROS ROS GEN: Denies fevers, chills, sweats HEENT: Denies blurred vision, sore throat CV: Denies chest pain RESP: Denies shortness of air, cough GI: Denies n/v/d NEURO: Denies confusion, dizziness MSK: Denies weakness, joint pain/swelling Vital Sign Vital Signs Vital Signs Date Time Temp Pulse Resp B/P (MAP) Pulse Ox O2 Delivery O2 Flow Rate FiO2 08/04/16 09:44 18 99 Nasal Cannula 3.0 08/04/16 08:59 77 154/67 08/04/16 07:00 97.6 97.6 Physical Exam PHYSICAL EXAM GENERAL: NAD, Alert HEENT: PERRL, OC/OP NECK: Supple, no JVD, no LN LUNGS: Clear HEART: S1S2, no gallop, no murmur ABD: Soft, NT, no organomegaly, no rebound EXT: No edema, no cyanosis HADOOP ADMINISTRATOR: Alert, oriented x 3, no focal neurologic deficit SKIN: No rash IV: ok Labs Lab Laboratory Tests Test 08/03/16 11:28 08/03/16 16:55 08/03/16 20:49 08/04/16 04:05 Glucose (Fingerstick) 196 mg/dL (70-99) 203 mg/dL (70-99) 276 mg/dL (70-99) White Blood Count 5.9 x10^3/uL (4.0-11.0) Red Blood Count 4.14 x10^6/uL (3.50-5.40) Hemoglobin 11.9 g/dL (12.0-15.5) Hematocrit 35.7 % (36.0-47.0) Mean Corpuscular Volume 86 fL (79-100) Mean Corpuscular Hemoglobin 29 pg (25-35) Mean Corpuscular Hemoglobin Concent 33 g/dL (31-37) Red Cell Distribution Width 12.9 % (11.5-14.5) Platelet Count 216 x10^3/uL (140-400) Neutrophils (%) (Auto) 52 % (31-73) Lymphocytes (%) (Auto) 36 % (24-48) Monocytes (%) (Auto) 8 % (0-9) Eosinophils (%) (Auto) 3 % (0-3) Basophils (%) (Auto) 1 % (0-3) Neutrophils # (Auto) 3.1 x10^3uL (1.8-7.7) Lymphocytes # (Auto) 2.1 x10^3/uL (1.0-4.8) Monocytes # (Auto) 0.5 x10^3/uL (0.0-1.1) Eosinophils # (Auto) 0.2 x10^3/uL (0.0-0.7) Basophils # (Auto) 0.0 x10^3/uL (0.0-0.2) Sodium Level 139 mmol/L (136-145) Potassium Level 4.0 mmol/L (3.5-5.1) Chloride Level 105 mmol/L (98-107) Carbon Dioxide Level 29 mmol/L (21-32) Anion Gap 5 (6-14) Blood Urea Nitrogen 10 mg/dL (7-20) Creatinine 0.8 mg/dL (0.6-1.0) Estimated GFR (Cockcroft-Gault) 73.9 Glucose Level 204 mg/dL (70-99) Calcium Level 8.4 mg/dL (8.5-10.1) Test 08/04/16 07:43 Glucose (Fingerstick) 173 mg/dL (70-99) Micro AEROBIC CULTURE Preliminary Preliminary report AEROBIC RES 1 Preliminary Staphylococcus aureus Heavy growth Performed at: [address] [id number] [employer]: Paradise Stone MD, Phone: [phone] Objective Assessment Cellulitis with possible early abscess formation of suprapubic area. s/p stab incision with no drainage Fever, better Leukocytosis Allergy Levaquin-Seizures. Has tolerated cipro w/o problem DM Plan Plan of Care change to zyvox for now, since staph finally growing JUSTUS AUSTIN MD Aug 04, 2016 10:42
[2016-08-04 11:00] VITALS: BP 132/68
--- NOTE | 2016-08-04 13:09 | PDOC ---
PROGRESS NOTES Chief Complaint Chief Complaint Cellulitis ASSESSMENT AND PLAN: 1. Abdominal wall cellulitis: suspected due to insect bite, no abscess. prelim culture pos for Staph aureus. Abx changed to zyvox as per Dr Mckeon 2. Pain control: adequate on [place]. increase activity 2. DM2: not optimally controlled on home regimen, but prob 2/2 infection. ISS added 3. TORI: mild, prob 2/2 meds, dehydration. resolved today. monitor 4. Hypernatremia: resolved 5. Seizure d/o: no acute issues. on keppra 6. History paroxysmal atrial fibrillation. History of Present Illness History of Present Illness improving, pain not resolved yet. able to ambulate w/o difficulties Vitals Vitals Vital Signs Date Time Temp Pulse Resp B/P (MAP) Pulse Ox O2 Delivery O2 Flow Rate FiO2 08/04/16 11:00 97.6 78 19 132/68 (89) 99 Nasal Cannula 3.0 97.6 Physical Exam General: Alert, Oriented X3, Cooperative, No acute distress Heart: Regular rate, Normal S1, Normal S2 Lungs: Clear Abdomen: Normal bowel sounds, Other (swollen and tender suprapubic, she is holding cold pack on it, and is in distress) Extremities: No clubbing Skin: Other (swelling to mons, greater on right, small open wound, no drainage , erythema and induration present. significant tenderness on exam with very light palpation ) Labs LABS Laboratory Tests Test 08/03/16 16:55 08/03/16 20:49 08/04/16 04:05 08/04/16 07:43 Glucose (Fingerstick) 203 mg/dL (70-99) 276 mg/dL (70-99) 173 mg/dL (70-99) White Blood Count 5.9 x10^3/uL (4.0-11.0) Red Blood Count 4.14 x10^6/uL (3.50-5.40) Hemoglobin 11.9 g/dL (12.0-15.5) Hematocrit 35.7 % (36.0-47.0) Mean Corpuscular Volume 86 fL (79-100) Mean Corpuscular Hemoglobin 29 pg (25-35) Mean Corpuscular Hemoglobin Concent 33 g/dL (31-37) Red Cell Distribution Width 12.9 % (11.5-14.5) Platelet Count 216 x10^3/uL (140-400) Neutrophils (%) (Auto) 52 % (31-73) Lymphocytes (%) (Auto) 36 % (24-48) Monocytes (%) (Auto) 8 % (0-9) Eosinophils (%) (Auto) 3 % (0-3) Basophils (%) (Auto) 1 % (0-3) Neutrophils # (Auto) 3.1 x10^3uL (1.8-7.7) Lymphocytes # (Auto) 2.1 x10^3/uL (1.0-4.8) Monocytes # (Auto) 0.5 x10^3/uL (0.0-1.1) Eosinophils # (Auto) 0.2 x10^3/uL (0.0-0.7) Basophils # (Auto) 0.0 x10^3/uL (0.0-0.2) Sodium Level 139 mmol/L (136-145) Potassium Level 4.0 mmol/L (3.5-5.1) Chloride Level 105 mmol/L (98-107) Carbon Dioxide Level 29 mmol/L (21-32) Anion Gap 5 (6-14) Blood Urea Nitrogen 10 mg/dL (7-20) Creatinine 0.8 mg/dL (0.6-1.0) Estimated GFR (Cockcroft-Gault) 73.9 Glucose Level 204 mg/dL (70-99) Calcium Level 8.4 mg/dL (8.5-10.1) KAYLA MONROY MD Aug 04, 2016 13:09
[2016-08-04 15:00] VITALS: BP 138/58
[2016-08-04] MEDS ORDERED: LINE600T PO (16:00)
[2016-08-04] MEDS ORDERED: HYDR-2758 PO (16:02)
--- NOTE | 2016-08-04 23:08 | DS ---
DATE OF DISCHARGE: 08/04/2016 CHIEF COMPLAINT: Cellulitis. HOSPITAL COURSE: The patient is a 55-year-old woman who presented with severe pain in her mons pubis area with erythema and redness. She had developed a drainage site draining pus. CT did not reveal any abscess and no incision and drainage was felt necessary. She was started on antibiotics with ID services following. As cultures became positive for MRSA, she was switched to Zyvox and discharged on same medication. For pain control, [place] worked well. All other medical issues remained stable. A mild case of acute kidney injury was attributed to dehydration and resolved completely prior to discharge. PHYSICAL EXAMINATION: Please refer to note from same day. DISCHARGE DATE: 08/04/2016 DISCHARGE DIAGNOSIS: Cellulitis on mons pubis. DISCHARGE DISPOSITION: To home. DISCHARGE CONDITION: Improved. DISCHARGE MEDICATIONS: Please refer to MAR. DISCHARGE INSTRUCTIONS: The patient will follow up with her PCP in 1-2 weeks. KAYLA MONROY MD DR: CHAYITO/nts JOB#: [id number] / [id number] DAVID Wooten MD MTDD
== END 2016-08-04 19:06 | disposition home or self-care (01) | DRG 603 ==
LOC: ER 11:42 → 5 NORTH 14:40
PROVIDERS: ADMIT Internal Medicine; ATTEND Internal Medicine
DX: L03.311 Cellulitis of abdominal wall (principal); E87.0 Hyperosmolality and hypernatremia; N17.9 Acute kidney failure, unspecified; E11.65 Type 2 diabetes mellitus with hyperglycemia; E11.319 Type 2 diabetes mellitus with unspecified diabetic retinopathy without macular edema; E86.0 Dehydration; G40.909 Epilepsy, unspecified, not intractable, without status epilepticus; H40.9 Unspecified glaucoma; I48.0 Paroxysmal atrial fibrillation; N18.3 Chronic kidney disease, stage 3 (moderate); E11.22 Type 2 diabetes mellitus with diabetic chronic kidney disease; I12.9 Hypertensive chronic kidney disease with stage 1 through stage 4 chronic kidney disease, or unspecified chronic kidney disease; F32.9 Major depressive disorder, single episode, unspecified; G51.0 Bell's palsy; M19.90 Unspecified osteoarthritis, unspecified site; I25.10 Atherosclerotic heart disease of native coronary artery without angina pectoris; I25.2 Old myocardial infarction; Z79.4 Long term (current) use of insulin; Z86.73 Personal history of transient ischemic attack (TIA), and cerebral infarction without residual deficits; Z90.49 Acquired absence of other specified parts of digestive tract; Z90.710 Acquired absence of both cervix and uterus; Z88.1 Allergy status to other antibiotic agents; Z91.041 Radiographic dye allergy status
CPT/HCPCS: 36415; 72192; 76705; 80048; 80053; 82962; 83735; 85027; 85610; 86140; 86141; 87040; 87070; 87186; 87205; 96361; 96365; 96372; 96375; J1815; J1885; J2270; J2405; J2543; J3010; J3370; J7030; J7040; J7050; 99285-25

== ENCOUNTER 2017-02-03 10:54 | Emergency (ER) | payer OTHER ==
[~2017-02-03] VITALS: Ht 157.5 cm; Wt 70.3 kg
[~2017-02-03 10:54] MED LIST changes: +LINE600T PO
[2017-02-03 11:30] VITALS: BP 138/58
--- NOTE | 2017-02-03 12:29 | PHYS DOC ---
Past Medical History Past Medical History: A-Fib, Hypertension, MT, Seizure, TIA Past Surgical History: Appendectomy, Hysterectomy, Other Additional Past Surgical Histo: ABD SURG,LAPAROSCOPY Alcohol Use: Rarely Drug Use: None Adult General Chief Complaint Chief Complaint: LOWER EXTREMITY SWELLING HPI HPI This is a pleasant 56-year-old female who presents the emergency department after having 3 falls that occurred 2 days ago having pain in her leg reporting that her leg keeps giving out on her. When asked her what she means by "it keeps giving out on me", the patient states that she has pain since her fall in the foot and has been not able to full weight on it. She describes mild swelling in the ankle. She describes pain in the foot ankle. She denies history of blood clots. She denies recent travel or immobilization. Review of systems is negative for chest pain shortness of breath fevers chills or rash or any other recent injury or fall. She denies hitting her head or losing consciousness. She denies neck pain back pain abdominal pain. All other review of systems is negative unless otherwise noted in history of present illness. ED course: 48-year-old female presenting with right lower extremity pain and swelling of the foot and ankle. Upon arrival the patient is afebrile and is able to walk into her bed. Otherwise, mild hypertension present. Pulse within normal limits. Patient appears comfortable. Normal neurologic exam. Good strength in the leg with neurovascularly intact extremities bilaterally. Patient has mild ecchymosis along the mid foot without any abrasions lacerations. Nontender ankle with mild pain with passive range of motion. Nontender calf muscle. Good range of motion of the knee with mild pain with passive range of motion. Stable knee joint. The remainder the exam is unremarkable. X-rays obtained which were unremarkable. Ultrasound negative for DVT. No evidence of cellulitis. The leg is normal temperature to touch when compared to contralateral leg. The patient was able ambulate in the emergency department without difficulty. The patient was then discharged home in stable condition to follow up with their primary care physician over the next 2-3 days. They were to return if their symptoms worsened or if they were concerned for any reason. [id number] discharge instructions and return precautions were given. Patient's questions were answered to their satisfaction. Patient is comfortable plan. Review of Systems Review of Systems SEE ABOVE. Current Medications Current Medications Current Medications Medications (Trade) Dose Ordered Sig/Monica Start Time Stop Time Status Last Admin Dose Admin Ibuprofen (Motrin) 400 mg 1X ONCE 02/03/17 13:00 02/03/17 13:01 DC 02/03/17 13:15 400 MG Allergies Allergies Allergies Coded Allergies Type Severity Reaction Last Updated Verified levofloxacin Allergy Severe SEIZURES 02/03/17 Yes lidocaine Allergy Severe Swelling 02/03/17 Yes I S O L A T I O N *CONTACT* Allergy Unknown 02/03/17 Yes Physical Exam Physical Exam SEE ABOVE Constitutional: Well developed, well nourished, no acute distress, non-toxic appearance. HENT: Normocephalic, atraumatic, bilateral external ears normal, oropharynx moist, no oral exudates, nose normal. [] Eyes: PERRLA, EOMI, conjunctiva normal, no discharge. [] Neck: Normal range of motion, no tenderness, supple, no stridor. Cardiovascular:Heart rate regular rhythm, no murmur [] Lungs & Thorax: Bilateral breath sounds clear to auscultation [] Abdomen: Bowel sounds normal, soft, no tenderness, no masses, no pulsatile masses. Skin: Warm, dry, no erythema, no rash. [] Back: No tenderness, no CVA tenderness. [] Extremities: No tenderness, no cyanosis, no clubbing, ROM intact, no edema. Neurologic: Alert and oriented X 3, normal motor function, normal sensory function, no focal deficits noted. [] Psychologic: Affect normal, judgement normal, mood normal. Current Patient Data Vital Signs Vital Signs Date Time Temp Pulse Resp B/P (MAP) Pulse Ox O2 Delivery O2 Flow Rate FiO2 02/03/17 11:30 98.2 76 18 138/58 (84) 98 Room Air 98.2 EKG EKG [] Radiology/Procedures Radiology/Procedures [] Course & Med Decision Making Course & Med Decision Making Pertinent Labs and Imaging studies reviewed. (See chart for details) [] Dragon Disclaimer Dragon Disclaimer This electronic medical record was generated, in whole or in part, using a voice recognition dictation system. Departure Departure Impression: Primary Impression: Right leg pain Disposition: HOME, SELF-CARE Condition: STABLE Referrals: DAVID CHRISTINE Jr, MD (PCP) Additional Instructions: Thank you for allowing us to participate in your care today. Followup with your primary care physician in 3 days if your symptoms do not improve. Call your Primary Doctor tomorrow and inform them of your visit today. If you do not have a primary care provider you can ask for a list of our primary care providers. Return to the emergency department you have any new or concerning findings. This should be evaluated by the primary care physician and any necessary consulting services for continued management within a few days after discharge. Return to emergency room if you have any new or concerning symptoms including but not limited to fever, chills, nausea, vomiting, intractable pain, any new rashes, chest pain, shortness of air, uncontrolled bleeding, difficulty breathing, and/or vision loss. Scripts Ibuprofen (IBUPROFEN) 400 Mg Tablet 400 MG PO PRN Q6HRS Y for PAIN for 7 Days, #20 TAB Prov: WESLEY CHIANG MD 02/03/17 WESLEY CHIANG MD Feb 03, 2017 12:29
--- NOTE | 2017-02-03 12:40 | RAD ---
Indication: Fall and right knee pain. Time of exam 12:31 PM 3 views of the right knee were obtained. The alignment is normal. The joint spaces are well-maintained. The articular surfaces are smooth. No fracture, dislocation or effusion is seen. Impression: No acute bony abnormality is detected.
--- NOTE | 2017-02-03 12:41 | RAD ---
Indication: Fall and right foot pain. Time of exam 12:27 PM The metatarsals are intact. The phalanges are intact. The midfoot and hindfoot are unremarkable apart from a small plantar calcaneal spur. No fractures are seen. Impression: No acute bony abnormality is detected.
--- NOTE | 2017-02-03 12:42 | RAD ---
Indication: Fall and right ankle pain. Time of exam 12:24 PM 3 views of the right ankle demonstrate normal alignment. Ankle mortise is well-maintained. The talar dome is smooth. No fracture is seen. Impression: No acute bony abnormality is detected.
--- NOTE | 2017-02-03 12:56 | RAD ---
Right lower extremity venous duplex study Clinical History: Right leg pain. Technique: Using a combination of real time ultrasound imaging and color-flow and pulse Doppler imaging techniques along with graded compression and augmentation, duplex evaluation of the deep venous system of the right lower extremity was performed. Multiple images were obtained. Findings: There is no sonographic evidence of deep venous thrombosis involving the visualized deep venous structures of right lower extremity. Impression: Negative study.
[2017-02-03] MEDS ORDERED: IBUPROFEN 400 MG TABLET. PO ONE (13:00)
[2017-02-03] MEDS ORDERED: IBUP-1027 PO (13:23)
== END 2017-02-03 13:38 | disposition home or self-care (01) ==
LOC: ER 10:54
DX: M79.604 Pain in right leg (principal); I10 Essential (primary) hypertension; I48.91 Unspecified atrial fibrillation; I25.2 Old myocardial infarction; Z86.73 Personal history of transient ischemic attack (TIA), and cerebral infarction without residual deficits; Z90.49 Acquired absence of other specified parts of digestive tract; Z90.710 Acquired absence of both cervix and uterus; Z88.1 Allergy status to other antibiotic agents; Z88.4 Allergy status to anesthetic agent; Z91.041 Radiographic dye allergy status
CPT/HCPCS: 73562; 73610; 73630; 93971; 99284-25

== ENCOUNTER 2017-08-18 17:42 | Inpatient (IN) | payer OTHER ==
[2017-08-18 19:18] LABS: ADD MAN DIFF? NO
[2017-08-18 19:20] LABS: BASO # 0.1 x10^3/uL (0.0-0.2); BASO % 1 % (0-3); EOS # 0.3 x10^3/uL (0.0-0.7); EOS % 4 % (0-3); HEMATOCRIT 37.9 % (36.0-47.0); HEMOGLOBIN 13.1 g/dL (12.0-15.5); LYMPH # 2.9 x10^3/uL (1.0-4.8); LYMPH % 49 % (24-48); MEAN CORPUSCULAR HEMOGLOBIN 29 pg (25-35); MEAN CORPUSCULAR HGB CONC 35 g/dL (31-37); MEAN CORPUSCULAR VOLUME 83 fL (79-100); MONO # 0.4 x10^3/uL (0.0-1.1); MONO % 7 % (0-9); NEUT # 2.3 x10^3uL (1.8-7.7); NEUT % 39 % (31-73); PLATELET COUNT 230 x10^3/uL (140-400); RED BLOOD COUNT 4.56 x10^6/uL (3.50-5.40); RED CELL DISTRIBUTION WIDTH 13.1 % (11.5-14.5); WHITE BLOOD COUNT 5.8 x10^3/uL (4.0-11.0)
[2017-08-18 19:32] LABS: ANION GAP 7 (6-14); BLOOD UREA NITROGEN 25 mg/dL (7-20); BUN/CREATININE RATIO 18 (6-20); CALCIUM 8.4 mg/dL (8.5-10.1); CARBON DIOXIDE 30 mmol/L (21-32); CHLORIDE 97 mmol/L (98-107); CREATININE 1.4 mg/dL (0.6-1.0); GFR 38.6; GLUCOSE 448 mg/dL (70-99); POTASSIUM 4.4 mmol/L (3.5-5.1); SODIUM 134 mmol/L (136-145)
[2017-08-18 19:37] LABS: ALBUMIN 3.2 g/dL (3.4-5.0); ALBUMIN/GLOBULIN RATIO 0.8 (1.0-1.7); ALK PHOS 64 U/L (46-116); ALT (SGPT) 18 U/L (14-59); AST (SGOT) 24 U/L (15-37); C-REACTIVE PROTEIN 29.1 mg/L (0-3.3); LIPASE 211 U/L (73-393); MAGNESIUM 1.8 mg/dL (1.8-2.4); TOTAL BILIRUBIN 0.3 mg/dL (0.2-1.0)
[2017-08-18 19:39] LABS: SALIC 7.3 mg/dL (2.8-20.0)
[2017-08-18 19:41] LABS: FREE T4 1.04 ng/dL (0.76-1.46)
[2017-08-18 19:42] LABS: TROPONINI < 0.017 ng/mL (0.000-0.055)
[2017-08-18 19:45] LABS: THYROID STIM HORMONE (TSH) 3.665 uIU/mL (0.358-3.74)
[2017-08-18 19:46] LABS: NT-PRO BNP 459 pg/mL (0-124)
[2017-08-18 19:46] LABS: CKMB MASS < 0.5 ng/mL (0.0-3.6); CREATINE KINASE 74 U/L (26-192)
[2017-08-18 19:52] LABS: LACTIC ACID 1.5 mmol/L (0.4-2.0)
[2017-08-18 20:11] LABS: BILIRUBIN,URINE NEGATIVE (NEG); CLARITY,URINE CLEAR; COLOR,URINE YELLOW; GLUCOSE,URINE >=1000 mg/dL (NEG); NITRITE,URINE NEGATIVE (NEG); PH,URINE 6.5; PROTEIN,URINE NEGATIVE (NEG-TRACE); UROBILINOGEN,URINE 0.2 mg/dL (0.2 mg/dL)
[2017-08-18 20:16] LABS: BACTERIA,URINE 0 /HPF (0-FEW); RBC,URINE 0 /HPF (0-2); SQUAMOUS EPITHELIAL CELL,UR FEW /LPF; WBC,URINE OCC /HPF (0-4)
[2017-08-18 20:18] LABS: AMPHETAMINE/METHAMPHETAMINE NEG (NEG); BARBITURATES NEG (NEG); BENZODIAZEPINES NEG (NEG); CANNABINOIDS NEG (NEG); COCAINE NEG (NEG); ETHANOL, URINE NEG (NEG); METHADONE NEG (NEG); OPIATES POS (NEG); PHENCYCLIDINE NEG (NEG)
[2017-08-18 20:24] LABS: SEDIMENTATION RATE 41 (0-25)
[2017-08-18] MEDS: IV NORMAL SALINE 1000ML BAG 1,000 ML IV (20:24)
[2017-08-18] MEDS: INSULIN REGULAR 100 UNIT/ML 3ML VIAL. IV (20:25)
[2017-08-18 21:23] LABS: POC GLUCOSE 206 mg/dL (70-99)
[2017-08-18] MEDS ORDERED: hydroCHLOROthiazide 25 MG TABLET PO (22:30)
[2017-08-18] MEDS ORDERED: NON FORMULARY ITEM (Insulin Aspart (Novolog) 100 UNIT) SQ (22:30)
[2017-08-18] MEDS: clonazePAM 1 MG TABLET PO (23:01)
[2017-08-18] MEDS: GABAPENTIN 300 MG CAPSULE. PO (23:01)
[2017-08-18] MEDS: HYDROcodone/APAP 5/325MG 1 TAB TABLET PO (23:01)
[2017-08-18] MEDS: cloNIDine HCL 0.1 MG TABLET PO (23:01)
[2017-08-18] MEDS: METOPROLOL TART IMMED RELEASE 25 MG TABLET. PO (23:02)
[2017-08-18] MEDS: cefTRIAXone IV Push 1 GM VIAL. IVP (23:02)
[2017-08-18] MEDS: INSULIN GLARGINE 300 UNITS/3 ML INSULN.PEN. SQ (23:05)
[2017-08-19 04:16] LABS: ADD MAN DIFF? NO
[2017-08-19 04:29] LABS: BASO % 1 % (0-3); EOS # 0.3 x10^3/uL (0.0-0.7); EOS % 5 % (0-3); HEMATOCRIT 38.4 % (36.0-47.0); HEMOGLOBIN 13.1 g/dL (12.0-15.5); LYMPH # 3.2 x10^3/uL (1.0-4.8); LYMPH % 56 % (24-48); MEAN CORPUSCULAR HEMOGLOBIN 29 pg (25-35); MEAN CORPUSCULAR HGB CONC 34 g/dL (31-37); MEAN CORPUSCULAR VOLUME 84 fL (79-100); MONO # 0.4 x10^3/uL (0.0-1.1); MONO % 7 % (0-9); NEUT # 1.8 x10^3uL (1.8-7.7); NEUT % 32 % (31-73); PLATELET COUNT 212 x10^3/uL (140-400); RED BLOOD COUNT 4.59 x10^6/uL (3.50-5.40); RED CELL DISTRIBUTION WIDTH 13.2 % (11.5-14.5); WHITE BLOOD COUNT 5.8 x10^3/uL (4.0-11.0)
[2017-08-19 05:00] LABS: ANION GAP 5 (6-14); BLOOD UREA NITROGEN 22 mg/dL (7-20); CALCIUM 8.3 mg/dL (8.5-10.1); CARBON DIOXIDE 31 mmol/L (21-32); CHLORIDE 104 mmol/L (98-107); CREATININE 1.1 mg/dL (0.6-1.0); GLUCOSE 204 mg/dL (70-99); POTASSIUM 3.6 mmol/L (3.5-5.1); SODIUM 140 mmol/L (136-145)
[2017-08-19 07:53] LABS: POC GLUCOSE 131 mg/dL (70-99)
[2017-08-19] MEDS: FLUoxetine HCL 20 MG CAPSULE PO (08:12)
[2017-08-19] MEDS: GABAPENTIN 300 MG CAPSULE. PO ×2 (08:12→22:56)
[2017-08-19] MEDS: INSULIN LISPRO 300 UNITS/3 ML INSULN.PEN. SQ ×3 (08:13→17:06)
[2017-08-19] MEDS: HYDROcodone/APAP 5/325MG 1 TAB TABLET PO ×2 (08:13→22:56)
[2017-08-19] MEDS: ESTRADIOL 1 MG TABLET. PO (08:13)
[2017-08-19] MEDS: METOPROLOL TART IMMED RELEASE 25 MG TABLET. PO ×2 (08:16→22:57)
[2017-08-19] MEDS: INSULIN GLARGINE 300 UNITS/3 ML INSULN.PEN. SQ ×2 (08:29→21:00)
[2017-08-19] MEDS: cloNIDine HCL 0.1 MG TABLET PO ×2 (08:30→22:58)
[2017-08-19 11:24] LABS: POC GLUCOSE 159 mg/dL (70-99)
[2017-08-19] MEDS: GADOBUTROL 7.5 MMOL/7.5 ML VIAL IV (12:45)
[2017-08-19] MEDS: DEXTROSE 50% 25 GM / 50ML DISP.SYRIN. IV ×3 (15:03→23:06)
[2017-08-19 15:13] LABS: POC GLUCOSE 92 mg/dL (70-99)
[2017-08-19 16:35] LABS: POC GLUCOSE 104 mg/dL (70-99)
[2017-08-19 17:32] LABS: POC GLUCOSE 87 mg/dL (70-99)
[2017-08-19 19:27] LABS: POC GLUCOSE 90 mg/dL (70-99)
[2017-08-19 20:53] LABS: ANION GAP 6 (6-14); BLOOD UREA NITROGEN 18 mg/dL (7-20); BUN/CREATININE RATIO 20 (6-20); CALCIUM 8.3 mg/dL (8.5-10.1); CARBON DIOXIDE 32 mmol/L (21-32); CHLORIDE 105 mmol/L (98-107); CREATININE 0.9 mg/dL (0.6-1.0); GFR 64.3; GLUCOSE 94 mg/dL (70-99); POTASSIUM 3.1 mmol/L (3.5-5.1); SODIUM 143 mmol/L (136-145)
[2017-08-19 20:58] LABS: ALBUMIN/GLOBULIN RATIO 0.8 (1.0-1.7); ALK PHOS 50 U/L (46-116); ALT (SGPT) 19 U/L (14-59); AST (SGOT) 22 U/L (15-37); MAGNESIUM 2.2 mg/dL (1.8-2.4); TOTAL BILIRUBIN 0.2 mg/dL (0.2-1.0); TOTAL PROTEIN 6.8 g/dL (6.4-8.2)
[2017-08-19 21:10] LABS: MRSA BY PCR Negative (Negative)
[2017-08-19] MEDS: clonazePAM 1 MG TABLET PO (22:56)
[2017-08-19 23:27] LABS: POC GLUCOSE 145 mg/dL (70-99)
[2017-08-19 23:27] LABS: POC GLUCOSE 61 mg/dL (70-99)
[2017-08-20] MEDS: cloNIDine HCL 0.1 MG TABLET PO ×2 (08:00→21:27)
[2017-08-20] MEDS: ESTRADIOL 1 MG TABLET. PO (08:00)
[2017-08-20] MEDS: INSULIN LISPRO 300 UNITS/3 ML INSULN.PEN. SQ ×3 (08:00→17:40)
[2017-08-20] MEDS: METOPROLOL TART IMMED RELEASE 25 MG TABLET. PO ×2 (08:17→21:28)
[2017-08-20] MEDS: INSULIN GLARGINE 300 UNITS/3 ML INSULN.PEN. SQ ×2 (08:18→21:32)
[2017-08-20] MEDS: GABAPENTIN 300 MG CAPSULE. PO ×2 (08:18→21:27)
[2017-08-20] MEDS: FLUoxetine HCL 20 MG CAPSULE PO (08:18)
[2017-08-20] MEDS ORDERED: ONDANSETRON PF 4 MG/2 ML VIAL. IV (09:15)
[2017-08-20] MEDS ORDERED: ACETAMINOPHEN 325 MG TABLET. PO (09:15)
[2017-08-20] MEDS ORDERED: traMADol 50 MG TABLET PO (09:15)
[2017-08-20] MEDS ORDERED: hydrALAZINE 20 MG/ML VIAL. IVP (09:15)
[2017-08-20] MEDS ORDERED: DOCUSATE SODIUM 100 MG CAPSULE. PO (09:15)
[2017-08-20] MEDS: VANCOMYCIN 1.75 GM in IV DEXTROSE 5% 500 ML IV (10:23)
[2017-08-20] MEDS: MORPHINE SULFATE 2 MG/ML DISP.SYRIN. IV ×3 (11:02→17:40)
[2017-08-20 12:39] LABS: ADD MAN DIFF? NO
[2017-08-20 12:41] LABS: BASO % 1 % (0-3); EOS # 0.2 x10^3/uL (0.0-0.7); EOS % 4 % (0-3); HEMOGLOBIN 13.6 g/dL (12.0-15.5); LYMPH # 1.8 x10^3/uL (1.0-4.8); LYMPH % 31 % (24-48); MEAN CORPUSCULAR HEMOGLOBIN 29 pg (25-35); MEAN CORPUSCULAR HGB CONC 35 g/dL (31-37); MEAN CORPUSCULAR VOLUME 83 fL (79-100); MONO # 0.3 x10^3/uL (0.0-1.1); MONO % 6 % (0-9); NEUT # 3.4 x10^3uL (1.8-7.7); NEUT % 60 % (31-73); PLATELET COUNT 238 x10^3/uL (140-400); RED BLOOD COUNT 4.68 x10^6/uL (3.50-5.40); RED CELL DISTRIBUTION WIDTH 13.2 % (11.5-14.5); WHITE BLOOD COUNT 5.7 x10^3/uL (4.0-11.0)
[2017-08-20 12:59] LABS: ANION GAP 7 (6-14); BLOOD UREA NITROGEN 15 mg/dL (7-20); CARBON DIOXIDE 29 mmol/L (21-32); CHLORIDE 107 mmol/L (98-107); CREATININE 0.8 mg/dL (0.6-1.0); GFR 73.7; GLUCOSE 75 mg/dL (70-99); MAGNESIUM 2.2 mg/dL (1.8-2.4); POTASSIUM 3.4 mmol/L (3.5-5.1); SODIUM 143 mmol/L (136-145)
[2017-08-20 13:17] LABS: CKMB MASS < 0.5 ng/mL (0.0-3.6); CREATINE KINASE 44 U/L (26-192)
[2017-08-20] MEDS: CEFEPIME HCL 1 GM in IV DEXTROSE 5% 50 ML IV ×2 (14:18→21:33)
[2017-08-20] MEDS: VANCOMYCIN PER PHARMACY MC (15:06)
[2017-08-20] MEDS: HYDROcodone/APAP 5/325MG 1 TAB TABLET PO (15:50)
[2017-08-20 17:11] LABS: HEMOGLOBIN A1C 13.1 % (4.8-5.6)
[2017-08-20 17:37] LABS: POC GLUCOSE 76 mg/dL (70-99)
[2017-08-20 17:37] LABS: POC GLUCOSE 252 mg/dL (70-99)
[2017-08-20 17:37] LABS: POC GLUCOSE 70 mg/dL (70-99)
[2017-08-20] MEDS: clonazePAM 1 MG TABLET PO (21:28)
[2017-08-20 21:37] LABS: POC GLUCOSE 243 mg/dL (70-99)
[2017-08-21] MEDS: VANCOMYCIN 1 GM in IV NORMAL SALINE 250ML 250 ML IV ×2 (03:52→23:01)
[2017-08-21 04:49] LABS: ADD MAN DIFF? NO
[2017-08-21 05:01] LABS: BASO % 1 % (0-3); EOS # 0.3 x10^3/uL (0.0-0.7); EOS % 6 % (0-3); HEMATOCRIT 38.2 % (36.0-47.0); HEMOGLOBIN 13.1 g/dL (12.0-15.5); LYMPH # 1.9 x10^3/uL (1.0-4.8); LYMPH % 46 % (24-48); MEAN CORPUSCULAR HEMOGLOBIN 29 pg (25-35); MEAN CORPUSCULAR HGB CONC 34 g/dL (31-37); MEAN CORPUSCULAR VOLUME 84 fL (79-100); MONO # 0.2 x10^3/uL (0.0-1.1); MONO % 6 % (0-9); NEUT # 1.8 x10^3uL (1.8-7.7); NEUT % 42 % (31-73); PLATELET COUNT 212 x10^3/uL (140-400); RED BLOOD COUNT 4.55 x10^6/uL (3.50-5.40); RED CELL DISTRIBUTION WIDTH 13.2 % (11.5-14.5); WHITE BLOOD COUNT 4.2 x10^3/uL (4.0-11.0)
[2017-08-21 05:26] LABS: ANION GAP 4 (6-14); BLOOD UREA NITROGEN 11 mg/dL (7-20); CALCIUM 7.9 mg/dL (8.5-10.1); CARBON DIOXIDE 28 mmol/L (21-32); CHLORIDE 108 mmol/L (98-107); CREATININE 0.9 mg/dL (0.6-1.0); GFR 64.3; GLUCOSE 160 mg/dL (70-99); POTASSIUM 3.5 mmol/L (3.5-5.1); SODIUM 140 mmol/L (136-145)
[2017-08-21] MEDS: CEFEPIME HCL 1 GM in IV DEXTROSE 5% 50 ML IV (05:51)
[2017-08-21] MEDS: VANCOMYCIN PER PHARMACY MC ×2 (07:42→23:42)
[2017-08-21] MEDS: FLUoxetine HCL 20 MG CAPSULE PO (07:51)
[2017-08-21] MEDS: ESTRADIOL 1 MG TABLET. PO (07:51)
[2017-08-21] MEDS: METOPROLOL TART IMMED RELEASE 25 MG TABLET. PO ×2 (07:51→20:56)
[2017-08-21] MEDS: GABAPENTIN 300 MG CAPSULE. PO ×2 (07:51→20:55)
[2017-08-21] MEDS: cloNIDine HCL 0.1 MG TABLET PO ×2 (07:51→20:56)
[2017-08-21] MEDS: INSULIN GLARGINE 300 UNITS/3 ML INSULN.PEN. SQ ×2 (07:53→21:01)
[2017-08-21] MEDS: INSULIN LISPRO 300 UNITS/3 ML INSULN.PEN. SQ ×3 (08:00→17:00)
[2017-08-21] MEDS: MORPHINE SULFATE 2 MG/ML DISP.SYRIN. IV ×2 (08:09→14:49)
[2017-08-21 08:13] LABS: POC GLUCOSE 129 mg/dL (70-99)
[2017-08-21 12:48] LABS: POC GLUCOSE 155 mg/dL (70-99)
[2017-08-21] MEDS: CEFEPIME HCL IV Push 1 GM VIAL. IVP ×2 (14:53→23:01)
[2017-08-21 16:53] LABS: POC GLUCOSE 177 mg/dL (70-99)
[2017-08-21 20:47] LABS: POC GLUCOSE 210 mg/dL (70-99)
[2017-08-21] MEDS: clonazePAM 1 MG TABLET PO (20:55)
[2017-08-21] MEDS: levETIRAcetam 500 MG TABLET PO (20:55)
[2017-08-21] MEDS: HYDROcodone/APAP 5/325MG 1 TAB TABLET PO (20:55)
[2017-08-21] MEDS: ASPIRIN 325 MG TABLET PO (20:55)
[2017-08-21] MEDS: LACTOBACILLUS RHAMNOSUS GG 1 CAPSULE. PO (20:55)
[2017-08-21 22:48] LABS: VANC TR 11.6 mcg/mL (10.0-20.0)
[2017-08-22] MEDS: CEFEPIME HCL IV Push 1 GM VIAL. IVP (06:06)
[2017-08-22] MEDS: HYDROcodone/APAP 5/325MG 1 TAB TABLET PO ×2 (07:25→20:29)
[2017-08-22 07:48] LABS: POC GLUCOSE 68 mg/dL (70-99)
[2017-08-22] MEDS: INSULIN LISPRO 300 UNITS/3 ML INSULN.PEN. SQ ×3 (08:00→17:00)
[2017-08-22 08:08] LABS: POC GLUCOSE 104 mg/dL (70-99)
[2017-08-22] MEDS: ESTRADIOL 1 MG TABLET. PO (08:32)
[2017-08-22] MEDS: levETIRAcetam 500 MG TABLET PO ×2 (08:32→20:21)
[2017-08-22] MEDS: cloNIDine HCL 0.1 MG TABLET PO ×2 (08:32→20:20)
[2017-08-22] MEDS: FLUoxetine HCL 20 MG CAPSULE PO (08:32)
[2017-08-22] MEDS: GABAPENTIN 300 MG CAPSULE. PO ×2 (08:33→20:20)
[2017-08-22] MEDS: LACTOBACILLUS RHAMNOSUS GG 1 CAPSULE. PO ×2 (08:33→20:20)
[2017-08-22] MEDS: METOPROLOL TART IMMED RELEASE 25 MG TABLET. PO ×2 (08:33→20:20)
[2017-08-22] MEDS: INSULIN GLARGINE 300 UNITS/3 ML INSULN.PEN. SQ ×2 (08:41→20:38)
[2017-08-22] MEDS: MORPHINE SULFATE 2 MG/ML DISP.SYRIN. IV ×2 (11:54→23:12)
[2017-08-22 12:18] LABS: POC GLUCOSE 198 mg/dL (70-99)
[2017-08-22 17:03] LABS: POC GLUCOSE 121 mg/dL (70-99)
[2017-08-22] MEDS: clonazePAM 1 MG TABLET PO (20:20)
[2017-08-22 20:39] LABS: POC GLUCOSE 198 mg/dL (70-99)
[2017-08-23 07:56] LABS: POC GLUCOSE 90 mg/dL (70-99)
[2017-08-23] MEDS: INSULIN LISPRO 300 UNITS/3 ML INSULN.PEN. SQ ×3 (08:00→18:00)
[2017-08-23] MEDS: ESTRADIOL 1 MG TABLET. PO (08:12)
[2017-08-23] MEDS: LACTOBACILLUS RHAMNOSUS GG 1 CAPSULE. PO ×2 (08:12→20:08)
[2017-08-23] MEDS: FLUoxetine HCL 20 MG CAPSULE PO (08:13)
[2017-08-23] MEDS: GABAPENTIN 300 MG CAPSULE. PO ×2 (08:13→20:08)
[2017-08-23] MEDS: METOPROLOL TART IMMED RELEASE 25 MG TABLET. PO ×2 (08:13→20:08)
[2017-08-23] MEDS: cloNIDine HCL 0.1 MG TABLET PO ×2 (08:13→20:07)
[2017-08-23] MEDS: levETIRAcetam 500 MG TABLET PO ×2 (08:14→20:08)
[2017-08-23] MEDS: ASPIRIN 325 MG TABLET PO (08:19)
[2017-08-23] MEDS: INSULIN GLARGINE 300 UNITS/3 ML INSULN.PEN. SQ ×2 (09:00→21:53)
[2017-08-23 12:13] LABS: POC GLUCOSE 260 mg/dL (70-99)
[2017-08-23 17:44] LABS: POC GLUCOSE 203 mg/dL (70-99)
[2017-08-23] MEDS: clonazePAM 1 MG TABLET PO (20:08)
[2017-08-23] MEDS: HYDROcodone/APAP 5/325MG 1 TAB TABLET PO ×2 (20:09→22:32)
[2017-08-23 20:31] LABS: POC GLUCOSE 234 mg/dL (70-99)
[2017-08-24] MEDS: INSULIN LISPRO 300 UNITS/3 ML INSULN.PEN. SQ ×3 (08:00→17:41)
[2017-08-24] MEDS ORDERED: DEXTROSE 50% 25 GM / 50ML DISP.SYRIN. IV (09:00)
[2017-08-24] MEDS: LACTOBACILLUS RHAMNOSUS GG 1 CAPSULE. PO ×2 (09:17→20:42)
[2017-08-24] MEDS: FLUoxetine HCL 20 MG CAPSULE PO (09:17)
[2017-08-24] MEDS: cloNIDine HCL 0.1 MG TABLET PO ×2 (09:17→20:44)
[2017-08-24] MEDS: levETIRAcetam 500 MG TABLET PO ×2 (09:17→20:44)
[2017-08-24] MEDS: GABAPENTIN 300 MG CAPSULE. PO ×2 (09:17→20:42)
[2017-08-24] MEDS: ESTRADIOL 1 MG TABLET. PO (09:17)
[2017-08-24] MEDS: METOPROLOL TART IMMED RELEASE 25 MG TABLET. PO ×2 (09:18→20:43)
[2017-08-24] MEDS: HYDROcodone/APAP 5/325MG 1 TAB TABLET PO ×2 (10:55→17:32)
[2017-08-24 11:13] LABS: POC GLUCOSE 220 mg/dL (70-99)
[2017-08-24 17:37] LABS: POC GLUCOSE 299 mg/dL (70-99)
[2017-08-24] MEDS: clonazePAM 1 MG TABLET PO (20:43)
[2017-08-24] MEDS: INSULIN GLARGINE 300 UNITS/3 ML INSULN.PEN. SQ (20:49)
[2017-08-25] MEDS: MORPHINE SULFATE 2 MG/ML DISP.SYRIN. IV ×2 (00:07→10:21)
[2017-08-25 07:35] LABS: POC GLUCOSE 167 mg/dL (70-99)
[2017-08-25] MEDS: levETIRAcetam 500 MG TABLET PO ×2 (08:30→21:00)
[2017-08-25] MEDS: ESTRADIOL 1 MG TABLET. PO (08:30)
[2017-08-25] MEDS: LACTOBACILLUS RHAMNOSUS GG 1 CAPSULE. PO ×2 (08:30→20:59)
[2017-08-25] MEDS: FLUoxetine HCL 20 MG CAPSULE PO (08:30)
[2017-08-25] MEDS: GABAPENTIN 300 MG CAPSULE. PO ×2 (08:30→21:00)
[2017-08-25] MEDS: cloNIDine HCL 0.1 MG TABLET PO ×2 (08:31→21:00)
[2017-08-25] MEDS: METOPROLOL TART IMMED RELEASE 25 MG TABLET. PO ×2 (08:31→20:59)
[2017-08-25] MEDS: HYDROcodone/APAP 5/325MG 1 TAB TABLET PO ×2 (08:31→21:41)
[2017-08-25] MEDS: INSULIN LISPRO 300 UNITS/3 ML INSULN.PEN. SQ ×3 (08:40→17:55)
[2017-08-25 12:09] LABS: POC GLUCOSE 266 mg/dL (70-99)
[2017-08-25 17:23] LABS: POC GLUCOSE 260 mg/dL (70-99)
[2017-08-25 20:41] LABS: POC GLUCOSE 292 mg/dL (70-99)
[2017-08-25] MEDS: clonazePAM 1 MG TABLET PO (20:59)
[2017-08-25] MEDS: INSULIN GLARGINE 300 UNITS/3 ML INSULN.PEN. SQ (21:08)
[2017-08-26 08:29] LABS: POC GLUCOSE 162 mg/dL (70-99)
[2017-08-26] MEDS: ESTRADIOL 1 MG TABLET. PO (09:10)
[2017-08-26] MEDS: FLUoxetine HCL 20 MG CAPSULE PO (09:11)
[2017-08-26] MEDS: METOPROLOL TART IMMED RELEASE 25 MG TABLET. PO ×2 (09:11→20:49)
[2017-08-26] MEDS: levETIRAcetam 500 MG TABLET PO ×2 (09:11→20:50)
[2017-08-26] MEDS: LACTOBACILLUS RHAMNOSUS GG 1 CAPSULE. PO ×2 (09:11→20:50)
[2017-08-26] MEDS: GABAPENTIN 300 MG CAPSULE. PO ×2 (09:11→20:49)
[2017-08-26] MEDS: cloNIDine HCL 0.1 MG TABLET PO ×2 (09:12→20:49)
[2017-08-26] MEDS: INSULIN LISPRO 300 UNITS/3 ML INSULN.PEN. SQ ×3 (09:27→17:30)
[2017-08-26] MEDS: INSULIN GLARGINE 300 UNITS/3 ML INSULN.PEN. SQ ×2 (09:28→20:52)
[2017-08-26 12:15] LABS: POC GLUCOSE 227 mg/dL (70-99)
[2017-08-26] MEDS: HYDROcodone/APAP 5/325MG 1 TAB TABLET PO ×2 (12:43→20:54)
[2017-08-26 17:16] LABS: POC GLUCOSE 203 mg/dL (70-99)
[2017-08-26 20:45] LABS: POC GLUCOSE 260 mg/dL (70-99)
[2017-08-26] MEDS: clonazePAM 1 MG TABLET PO (20:50)
[2017-08-27] MEDS: INSULIN LISPRO 300 UNITS/3 ML INSULN.PEN. SQ ×3 (08:00→17:44)
[2017-08-27 08:25] LABS: POC GLUCOSE 169 mg/dL (70-99)
[2017-08-27] MEDS: METOPROLOL TART IMMED RELEASE 25 MG TABLET. PO ×2 (08:35→20:37)
[2017-08-27] MEDS: ESTRADIOL 1 MG TABLET. PO (08:35)
[2017-08-27] MEDS: cloNIDine HCL 0.1 MG TABLET PO ×2 (08:35→20:36)
[2017-08-27] MEDS: FLUoxetine HCL 20 MG CAPSULE PO (08:35)
[2017-08-27] MEDS: levETIRAcetam 500 MG TABLET PO (08:35)
[2017-08-27] MEDS: LACTOBACILLUS RHAMNOSUS GG 1 CAPSULE. PO ×2 (08:36→20:35)
[2017-08-27] MEDS: GABAPENTIN 300 MG CAPSULE. PO ×2 (08:36→20:36)
[2017-08-27] MEDS: INSULIN GLARGINE 300 UNITS/3 ML INSULN.PEN. SQ ×2 (08:42→20:45)
[2017-08-27] MEDS: HYDROcodone/APAP 5/325MG 1 TAB TABLET PO (08:47)
[2017-08-27 12:01] LABS: POC GLUCOSE 228 mg/dL (70-99)
[2017-08-27 13:52] LABS: POC GLUCOSE 240 mg/dL (70-99)
[2017-08-27 15:58] LABS: POC GLUCOSE 231 mg/dL (70-99)
[2017-08-27 17:30] LABS: POC GLUCOSE 221 mg/dL (70-99)
[2017-08-27] MEDS: levETIRAcetam 250 MG TABLET PO (20:35)
[2017-08-27] MEDS: clonazePAM 1 MG TABLET PO (20:37)
[2017-08-28 07:31] LABS: POC GLUCOSE 182 mg/dL (70-99)
[2017-08-28] MEDS: levETIRAcetam 250 MG TABLET PO (08:47)
[2017-08-28] MEDS: GABAPENTIN 300 MG CAPSULE. PO ×2 (08:47→21:02)
[2017-08-28] MEDS: FLUoxetine HCL 20 MG CAPSULE PO (08:48)
[2017-08-28] MEDS: METOPROLOL TART IMMED RELEASE 25 MG TABLET. PO ×2 (08:48→21:02)
[2017-08-28] MEDS: LACTOBACILLUS RHAMNOSUS GG 1 CAPSULE. PO ×2 (08:48→21:02)
[2017-08-28] MEDS: ESTRADIOL 1 MG TABLET. PO (08:48)
[2017-08-28] MEDS: cloNIDine HCL 0.1 MG TABLET PO ×2 (08:49→21:03)
[2017-08-28] MEDS: INSULIN LISPRO 300 UNITS/3 ML INSULN.PEN. SQ ×3 (09:04→17:56)
[2017-08-28] MEDS: INSULIN GLARGINE 300 UNITS/3 ML INSULN.PEN. SQ ×2 (09:05→21:10)
[2017-08-28 11:57] LABS: POC GLUCOSE 234 mg/dL (70-99)
[2017-08-28 16:56] LABS: POC GLUCOSE 418 mg/dL (70-99)
[2017-08-28] MEDS: clonazePAM 1 MG TABLET PO (21:03)
[2017-08-28] MEDS: levETIRAcetam 500 MG TABLET PO (21:03)
[2017-08-28] MEDS: HYDROcodone/APAP 5/325MG 1 TAB TABLET PO (21:03)
[2017-08-29] MEDS: HYDROcodone/APAP 5/325MG 1 TAB TABLET PO ×2 (01:08→22:14)
[2017-08-29 02:31] LABS: POC GLUCOSE 272 mg/dL (70-99)
[2017-08-29] MEDS: MORPHINE SULFATE 2 MG/ML DISP.SYRIN. IV ×2 (06:27→15:39)
[2017-08-29 07:41] LABS: POC GLUCOSE 173 mg/dL (70-99)
[2017-08-29] MEDS: INSULIN LISPRO 300 UNITS/3 ML INSULN.PEN. SQ ×3 (08:23→18:27)
[2017-08-29] MEDS: LACTOBACILLUS RHAMNOSUS GG 1 CAPSULE. PO ×2 (09:06→22:15)
[2017-08-29] MEDS: GABAPENTIN 300 MG CAPSULE. PO ×2 (09:06→22:15)
[2017-08-29] MEDS: cloNIDine HCL 0.1 MG TABLET PO ×2 (09:06→22:14)
[2017-08-29] MEDS: METOPROLOL TART IMMED RELEASE 25 MG TABLET. PO ×2 (09:07→22:15)
[2017-08-29] MEDS: ESTRADIOL 1 MG TABLET. PO (09:07)
[2017-08-29] MEDS: FLUoxetine HCL 20 MG CAPSULE PO (09:07)
[2017-08-29] MEDS: INSULIN GLARGINE 300 UNITS/3 ML INSULN.PEN. SQ ×2 (09:13→22:17)
[2017-08-29 11:48] LABS: POC GLUCOSE 262 mg/dL (70-99)
[2017-08-29 15:11] LABS: POC GLUCOSE 209 mg/dL (70-99)
[2017-08-29] MEDS: levETIRAcetam 500 MG TABLET PO ×2 (15:39→22:15)
[2017-08-29 16:47] LABS: POC GLUCOSE 242 mg/dL (70-99)
[2017-08-29] MEDS: clonazePAM 1 MG TABLET PO (22:15)
[2017-08-30 06:58] LABS: ADD MAN DIFF? NO
[2017-08-30 07:08] LABS: BASO # 0.1 x10^3/uL (0.0-0.2); BASO % 1 % (0-3); EOS # 0.2 x10^3/uL (0.0-0.7); EOS % 4 % (0-3); HEMATOCRIT 39.4 % (36.0-47.0); HEMOGLOBIN 13.5 g/dL (12.0-15.5); LYMPH # 3.4 x10^3/uL (1.0-4.8); LYMPH % 58 % (24-48); MEAN CORPUSCULAR HEMOGLOBIN 29 pg (25-35); MEAN CORPUSCULAR HGB CONC 34 g/dL (31-37); MEAN CORPUSCULAR VOLUME 83 fL (79-100); MONO # 0.3 x10^3/uL (0.0-1.1); MONO % 6 % (0-9); NEUT # 1.7 x10^3uL (1.8-7.7); NEUT % 30 % (31-73); PLATELET COUNT 228 x10^3/uL (140-400); RED BLOOD COUNT 4.72 x10^6/uL (3.50-5.40); RED CELL DISTRIBUTION WIDTH 13.3 % (11.5-14.5); WHITE BLOOD COUNT 5.7 x10^3/uL (4.0-11.0)
[2017-08-30 07:24] LABS: ANION GAP 9 (6-14); BLOOD UREA NITROGEN 24 mg/dL (7-20); CALCIUM 8.8 mg/dL (8.5-10.1); CARBON DIOXIDE 30 mmol/L (21-32); CHLORIDE 101 mmol/L (98-107); CREATININE 0.9 mg/dL (0.6-1.0); GFR 64.1; GLUCOSE 201 mg/dL (70-99); POTASSIUM 3.6 mmol/L (3.5-5.1); SODIUM 140 mmol/L (136-145)
[2017-08-30 07:48] LABS: POC GLUCOSE 178 mg/dL (70-99)
[2017-08-30] MEDS: INSULIN LISPRO 300 UNITS/3 ML INSULN.PEN. SQ ×3 (09:30→17:25)
[2017-08-30] MEDS: levETIRAcetam 500 MG TABLET PO ×2 (10:53→21:50)
[2017-08-30] MEDS: LACTOBACILLUS RHAMNOSUS GG 1 CAPSULE. PO ×2 (10:53→21:50)
[2017-08-30] MEDS: HYDROcodone/APAP 5/325MG 1 TAB TABLET PO ×2 (10:53→17:28)
[2017-08-30] MEDS: cloNIDine HCL 0.1 MG TABLET PO ×2 (10:54→21:50)
[2017-08-30] MEDS: METOPROLOL TART IMMED RELEASE 25 MG TABLET. PO ×2 (10:54→21:51)
[2017-08-30] MEDS: ESTRADIOL 1 MG TABLET. PO (10:55)
[2017-08-30] MEDS: FLUoxetine HCL 20 MG CAPSULE PO (10:55)
[2017-08-30] MEDS: GABAPENTIN 300 MG CAPSULE. PO ×2 (10:55→21:51)
[2017-08-30] MEDS: INSULIN GLARGINE 300 UNITS/3 ML INSULN.PEN. SQ ×2 (11:01→21:57)
[2017-08-30 12:01] LABS: POC GLUCOSE 263 mg/dL (70-99)
[2017-08-30 13:34] LABS: POC GLUCOSE 302 mg/dL (70-99)
[2017-08-30 17:05] LABS: POC GLUCOSE 242 mg/dL (70-99)
[2017-08-30 21:09] LABS: POC GLUCOSE 162 mg/dL (70-99)
[2017-08-30] MEDS: clonazePAM 1 MG TABLET PO (21:50)
[2017-08-31 07:56] LABS: POC GLUCOSE 136 mg/dL (70-99)
[2017-08-31] MEDS: INSULIN LISPRO 300 UNITS/3 ML INSULN.PEN. SQ ×2 (08:00→12:00)
[2017-08-31] MEDS ORDERED: INSULIN GLARGINE 300 UNITS/3 ML INSULN.PEN. SQ (09:00)
[2017-08-31] MEDS: ESTRADIOL 1 MG TABLET. PO (10:12)
[2017-08-31] MEDS: GABAPENTIN 300 MG CAPSULE. PO (10:12)
[2017-08-31] MEDS: LACTOBACILLUS RHAMNOSUS GG 1 CAPSULE. PO (10:13)
[2017-08-31] MEDS: METOPROLOL TART IMMED RELEASE 25 MG TABLET. PO (10:13)
[2017-08-31] MEDS: cloNIDine HCL 0.1 MG TABLET PO (10:13)
[2017-08-31] MEDS: levETIRAcetam 500 MG TABLET PO (10:14)
[2017-08-31] MEDS: FLUoxetine HCL 20 MG CAPSULE PO (10:14)
[2017-08-31] MEDS: INSULIN GLARGINE 300 UNITS/3 ML INSULN.PEN. SQ (10:23)
[2017-08-31 11:39] LABS: POC GLUCOSE 192 mg/dL (70-99)
[2017-09-02 10:45] LABS: POC GLUCOSE 237 mg/dL (70-99)
[2017-09-02 10:45] LABS: POC GLUCOSE 204 mg/dL (70-99)
[2017-09-02 10:45] LABS: POC GLUCOSE 191 mg/dL (70-99)
[2017-09-02 10:45] LABS: POC GLUCOSE 276 mg/dL (70-99)
== END 2017-08-31 16:30 | DRG 871 ==
LOC: 6 SOUTH 08-21 15:08 → ER 17:42 → 1 WEST ICU 08-19 20:34 → 6 SOUTH 08-29 17:08 → 4 NORTH 20:20
DX: A41.9 Sepsis, unspecified organism (principal); N17.0 Acute kidney failure with tubular necrosis; E44.0 Moderate protein-calorie malnutrition; B38.0 Acute pulmonary coccidioidomycosis; F11.20 Opioid dependence, uncomplicated; G40.209 Localization-related (focal) (partial) symptomatic epilepsy and epileptic syndromes with complex partial seizures, not intractable, without status epilepticus; Z68.28 Body mass index [BMI] 28.0-28.9, adult; Z88.8 Allergy status to other drugs, medicaments and biological substances; E11.319 Type 2 diabetes mellitus with unspecified diabetic retinopathy without macular edema; E11.42 Type 2 diabetes mellitus with diabetic polyneuropathy; E11.621 Type 2 diabetes mellitus with foot ulcer; E11.649 Type 2 diabetes mellitus with hypoglycemia without coma; E11.65 Type 2 diabetes mellitus with hyperglycemia; E78.5 Hyperlipidemia, unspecified; G89.29 Other chronic pain; I10 Essential (primary) hypertension; I25.10 Atherosclerotic heart disease of native coronary artery without angina pectoris; I48.91 Unspecified atrial fibrillation; K57.90 Diverticulosis of intestine, part unspecified, without perforation or abscess without bleeding; J45.909 Unspecified asthma, uncomplicated; F32.9 Major depressive disorder, single episode, unspecified; G51.0 Bell's palsy; L97.509 Non-pressure chronic ulcer of other part of unspecified foot with unspecified severity; Z79.4 Long term (current) use of insulin; Z79.82 Long term (current) use of aspirin; Z79.899 Other long term (current) drug therapy; Z82.3 Family history of stroke; Z86.010 Personal history of colon polyps; Z86.73 Personal history of transient ischemic attack (TIA), and cerebral infarction without residual deficits; Z90.49 Acquired absence of other specified parts of digestive tract; Z90.710 Acquired absence of both cervix and uterus
CPT/HCPCS: 36415; 70450; 71045; 73630; 73723; 80048; 80053; 80177; 80202; 80307; 80329; 81001; 82553; 82962; 83036; 83605; 83690; 83735; 83880; 84439; 84443; 84484; 85025; 85651; 86140; 87071; 87075; 87641; 93005; 95816; 96361; 96374; 97110-GO; 97110-GP; 97116-GP; 97161-GP; 97166-GO; 97530-GO; 97530-GP; 97535-GO; 99285; 99285-25; A9585; G6039; J0692; J0696; J1815; J1953; J2060; J2270; J3370; J7030; J7042; J7050

== ENCOUNTER 2017-09-05 13:49 | Emergency (ER) | payer OTHER ==
[2017-09-05 14:32] LABS: ADD MAN DIFF? NO
[2017-09-05 14:34] LABS: BASO % 1 % (0-3); EOS # 0.2 x10^3/uL (0.0-0.7); EOS % 3 % (0-3); HEMATOCRIT 41.2 % (36.0-47.0); LYMPH # 3.1 x10^3/uL (1.0-4.8); LYMPH % 57 % (24-48); MEAN CORPUSCULAR HEMOGLOBIN 29 pg (25-35); MEAN CORPUSCULAR HGB CONC 34 g/dL (31-37); MEAN CORPUSCULAR VOLUME 84 fL (79-100); MONO # 0.4 x10^3/uL (0.0-1.1); MONO % 7 % (0-9); NEUT # 1.8 x10^3uL (1.8-7.7); NEUT % 33 % (31-73); PLATELET COUNT 232 x10^3/uL (140-400); RED BLOOD COUNT 4.91 x10^6/uL (3.50-5.40); RED CELL DISTRIBUTION WIDTH 13.2 % (11.5-14.5); WHITE BLOOD COUNT 5.4 x10^3/uL (4.0-11.0)
[2017-09-05 15:19] LABS: ANION GAP 6 (6-14); BLOOD UREA NITROGEN 17 mg/dL (7-20); BUN/CREATININE RATIO 17 (6-20); CARBON DIOXIDE 31 mmol/L (21-32); CHLORIDE 99 mmol/L (98-107); GFR 56.7; GLUCOSE 192 mg/dL (70-99); POTASSIUM 3.8 mmol/L (3.5-5.1); SODIUM 136 mmol/L (136-145)
[2017-09-05] MEDS: ACETAMINOPHEN 325 MG TABLET. PO (15:20)
[2017-09-05 15:25] LABS: ALBUMIN 3.1 g/dL (3.4-5.0); ALBUMIN/GLOBULIN RATIO 0.8 (1.0-1.7); ALK PHOS 46 U/L (46-116); ALT (SGPT) 16 U/L (14-59); AST (SGOT) 18 U/L (15-37); TOTAL BILIRUBIN 0.3 mg/dL (0.2-1.0); TOTAL PROTEIN 6.9 g/dL (6.4-8.2)
== END 2017-09-05 18:25 | disposition home or self-care (01) ==
LOC: ER 13:49
DX: S00.93XA Contusion of unspecified part of head, initial encounter (principal); R56.9 Unspecified convulsions; I10 Essential (primary) hypertension; I48.91 Unspecified atrial fibrillation; I25.2 Old myocardial infarction; Z86.73 Personal history of transient ischemic attack (TIA), and cerebral infarction without residual deficits; Z88.1 Allergy status to other antibiotic agents; Z88.4 Allergy status to anesthetic agent; Z91.041 Radiographic dye allergy status; W05.0XXA Fall from non-moving wheelchair, initial encounter; Y93.89 Activity, other specified; Y99.8 Other external cause status; Y92.89 Other specified places as the place of occurrence of the external cause
CPT/HCPCS: 36415; 70450; 80053; 85025; 99285-25

== ENCOUNTER 2017-09-23 00:36 | Emergency (ER) | payer OTHER ==
[~2017-09-23] VITALS: Ht 157.5 cm; Wt 73.5 kg
[~2017-09-23 00:36] MED LIST changes: -CLON1TAB3 PO; +CLON1TAB4 PO; +IBUP-1027 PO; +INSU100I13 SQ; +METO25TA4 PO
--- NOTE | 2017-09-23 01:13 | PHYS DOC ---
Past Medical History Past Medical History: A-Fib, Depression, Hypertension, [place], Seizure, TIA, Other Additional Past Medical Histor: BODY SPASMS,IRREG HEARTBEAT,NEUROPATHY, Measles Past Surgical History: Appendectomy, Cholecystectomy, , Hysterectomy, Other Additional Past Surgical Histo: ABD SURG,LAPAROSCOPY,BOWEL SURG Alcohol Use: None Drug Use: None Adult General Chief Complaint Chief Complaint: MECHANICAL FALL HPI HPI Patient is a 57 year old female who sustained a mechanical fall apparently her dog pulled her she fell down 3 steps she hit her left shoulder feels pain in the left upper back around her scapula as well as her left shoulder or left elbow her left wrist in addition she landed on both knees her left knee hurts more than right knee the good news is her head does not hurt she did not hit her head she did not lose consciousness and is moderate to severe no neck pain. Review of Systems Review of Systems Constitutional: Denies fever or chills [] Eyes: Denies change in visual acuity, redness, or eye pain [] HENT: Denies nasal congestion or sore throat [] Respiratory: Denies cough or shortness of breath [] Cardiovascular: No additional information not addressed in HPI [] GI: Denies abdominal pain, nausea, vomiting, bloody stools or diarrhea [] : Denies dysuria or hematuria [] Integument: Denies rash or skin lesions [] All other systems were reviewed and found to be within normal limits, except as documented in this note. Current Medications Current Medications Current Medications Medications (Trade) Dose Ordered Sig/Monica Start Time Stop Time Status Last Admin Dose Admin Amlodipine Besylate (Norvasc) 10 mg 1X ONCE 09/23/17 03:30 09/23/17 03:31 09/23/17 03:25 10 MG Ibuprofen (Motrin) 600 mg 1X ONCE 09/23/17 03:30 09/23/17 03:31 09/23/17 03:25 600 MG Ondansetron HCl (Zofran Odt) 4 mg 1X ONCE 09/23/17 01:15 09/23/17 01:16 DC 09/23/17 01:26 4 MG Oxycodone/ Acetaminophen (Percocet 10/325) 1 tab 1X ONCE 09/23/17 01:15 09/23/17 01:16 DC 09/23/17 01:26 1 TAB Allergies Allergies Allergies Coded Allergies Type Severity Reaction Last Updated Verified levofloxacin Allergy Severe SEIZURES 02/03/17 Yes lidocaine Allergy Severe Swelling 02/03/17 Yes I S O L A T I O N *CONTACT* Allergy Unknown 02/03/17 Yes Physical Exam Physical Exam Constitutional: Well developed, well nourished, no acute distress, non-toxic appearance. [] HENT: Normocephalic, atraumatic, bilateral external ears normal, oropharynx moist, no oral exudates, nose normal. [] Eyes: PERRLA, EOMI, conjunctiva normal, no discharge. Neck: Normal range of motion, there is mild lateral trapezius tenderness there is good range of motion. Cardiovascular:Heart rate regular rhythm, no murmur Lungs & Thorax: Bilateral breath sounds clear to auscultation Abdomen: Bowel sounds normal, soft, no tenderness, no masses, no pulsatile masses. Skin: Warm, dry, no erythema, no rash. Back: Midline tenderness noted at T3-T4. Extremities: Patient has significant tenderness with limited palpation of both the left wrist ankle and shoulder sensation is grossly intact pulses are intact range of motion of these areas is limited by pain. Abrasions present over bilateral knees no obvious deformity seen at any joint. Neurologic: Alert and oriented X 3, normal motor function, normal sensory function, no focal deficits noted. Psychologic: Affect normal, judgement normal, mood normal. Current Patient Data Vital Signs Vital Signs Date Time Temp Pulse Resp B/P (MAP) Pulse Ox O2 Delivery O2 Flow Rate FiO2 09/23/17 03:25 77 208/93 09/23/17 01:51 21 94 09/23/17 01:26 Room Air 09/23/17 00:50 98.4 98.4 EKG EKG [] Radiology/Procedures Radiology/Procedures [] Course & Med Decision Making Course & Med Decision Making Pertinent Labs and Imaging studies reviewed. (See chart for details) X-rays interpreted by me thoracic spine shoulder elbow wrist and knees I do not see any acute fracture final reads are pending. 57-year-old female mechanical fall presenting with left extremity pain as well as mid thoracic back pain. X-rays for the above Percocet for pain. Patient did have some discomfort while in the emergency room Motrin was also given recommended ice rest gradual return to activity and discharged with family. Patient was given amlodipine for blood pressure as well. [place] Disclaimer Dragon Disclaimer This electronic medical record was generated, in whole or in part, using a voice recognition dictation system. Departure Departure Impression: Primary Impression: Contusion Disposition: HOME, SELF-CARE Condition: STABLE Referrals: DAVID CHRISTINE Jr, MD (PCP) YAW MATSON MD Sep 23, 2017 01:13
[2017-09-23] MEDS ORDERED: ONDANSETRON ODT 4 MG TAB.RAPDIS. PO ONE (01:15)
[2017-09-23] MEDS ORDERED: oxyCODONE/APAP 10/325 1 TAB TABLET PO ONE (01:15)
[2017-09-23 03:25] VITALS: BP 208/93
[2017-09-23] MEDS ORDERED: IBUPROFEN 600 MG TABLET. PO ONE (03:30)
[2017-09-23] MEDS ORDERED: amLODIPine BESYLATE 5 MG TABLET PO ONE (03:30)
--- NOTE | 2017-09-23 05:06 | RAD ---
EXAM: THORACIC SPINE 3V. HISTORY: Fall with upper back pain. COMPARISON: None. FINDINGS: No fractures are identified. Alignment is maintained. Degenerative disc disease is mild in the upper thoracic spine and moderate in the mid/lower thoracic spine. IMPRESSION: 1. Mild to moderate degenerative disc disease. No fracture. Electronically signed by: Beto Powell MD (09/23/2017 5:02 AM) [facility]
--- NOTE | 2017-09-23 05:08 | RAD ---
EXAM: 1. Left shoulder 3 views. 2. Left elbow 2 views. 3. Left wrist 3 views. HISTORY: Fall. Left shoulder, elbow and wrist pain. COMPARISON: None. FINDINGS: There are projectional limitations at the left shoulder. No fractures are identified. Calcific density projecting along the greater tuberosity may reflect calcific tendinitis of the rotator cuff insertion. Glenohumeral and acromioclavicular joint spaces and alignment appear maintained for patient age. No fractures are appreciated at the left elbow. Joint spaces and alignment appear maintained. There is no joint effusion. There is soft tissue swelling dorsally at the wrist. No fractures are identified. Joint spaces and alignment are maintained. IMPRESSION: 1. No fractures are identified throughout. 2. Correlate for calcific tendinitis at the rotator cuff insertion. 3. Dorsal soft tissue swelling at the wrist. Electronically signed by: Beto Powell MD (09/23/2017 5:04 AM) [facility]
--- NOTE | 2017-09-23 05:11 | RAD ---
EXAM: KNEE BILAT 3V. HISTORY: Fall. Bilateral knee pain. COMPARISON: None. FINDINGS: No fractures are identified bilaterally. Joint spaces and alignment are maintained bilaterally. There is no joint effusion. IMPRESSION: 1. No fracture or joint effusion bilaterally. Electronically signed by: Beto Powell MD (09/23/2017 5:07 AM) [facility]
== END 2017-09-23 03:50 | disposition home or self-care (01) ==
LOC: ER 00:36
DX: S80.02XA Contusion of left knee, initial encounter (principal); S80.01XA Contusion of right knee, initial encounter; M25.532 Pain in left wrist; M25.512 Pain in left shoulder; M25.572 Pain in left ankle and joints of left foot; M54.6 Pain in thoracic spine; I48.91 Unspecified atrial fibrillation; I10 Essential (primary) hypertension; I25.2 Old myocardial infarction; Z86.73 Personal history of transient ischemic attack (TIA), and cerebral infarction without residual deficits; Z88.1 Allergy status to other antibiotic agents; Z88.4 Allergy status to anesthetic agent; Z91.041 Radiographic dye allergy status; W10.8XXA Fall (on) (from) other stairs and steps, initial encounter; W22.8XXA Striking against or struck by other objects, initial encounter; Y93.89 Activity, other specified; Y99.8 Other external cause status; Y92.89 Other specified places as the place of occurrence of the external cause
CPT/HCPCS: 72072; 73030; 73070; 73110; 73562; 99284; Q0162

== ENCOUNTER → 2018-03-01 | Outpatient (CLI) | payer OTHER ==
[2017-12-31 11:00] VITALS: BP 106/56
[~2018-03-01] MED LIST changes: -AMLO5TAB2 PO; +AMLO5TAB7 PO; +CLON1TAB11 PO; -CLON1TAB4 PO; +HYDR-2145 PO; -HYDR-2758 PO; +HYDR-2761 PO; -HYDR25TA9 PO; +INSU100I17 SQ; +LISI10TA2 PO; +SENN-22 PO
--- NOTE | 2018-03-01 13:30 | RAD ---
Gastric Emptying Study Indication: nausea, abdomen pain, bloating for 3 months, had food in stomach when patient had EGD. Diabetic. Egg, toast and water. 1.8mCi Tc99m Sulfur Colloid Procedure: Anterior and posterior projection static images are obtained over the stomach following oral administration of 2 mCi of 99 M technetium sulfur colloid in a solid meal (egg and toast). Time points include an immediate baseline, and 1, 2, 3, and 4 hours post ingestion. Findings: There is progressive emptying of the stomach on sequential images. Percentage retention at... One hour is 77% (normal 34.8-91%). Two hours 35% (normal 2.7-60%). Three hours 34 % (normal 0.5-28%). Four hours 22% (normal 0-10%). Impression: Moderately delayed gastric emptying Consensus Recommendations for Gastric Emptying Scintigraphy: A Joint Report of the [place] [employer]astro[employer] Society and the Society of Nuclear Medicine: J. Nucl. Med. Technol. April 2007 vol. 36 no. 1 44-54 Grading for severity of delayed GE based on the 4-h value: grade 1 (mild): 11?20% retention at 4 h grade 2 (moderate): 21?35% retention at 4 h grade 3 (severe): 36?50% retention at 4 h grade 4 (very severe): >50% retention at 4 h. Electronically signed by: Binh Ram MD (03/01/2018 1:26 PM) [facility]
== END | disposition home or self-care (01) ==
LOC: NM 08:14
PROVIDERS: ATTEND Internal Medicine Gastroenterology
DX: E11.43 Type 2 diabetes mellitus with diabetic autonomic (poly)neuropathy (principal); K31.84 Gastroparesis; K30 Functional dyspepsia
CPT/HCPCS: 78264; A9541

== ENCOUNTER 2018-05-03 19:48 | Inpatient (IN) | payer OTHER ==
[~2018-05-03] VITALS: Ht 160 cm; Wt 76.0 kg
[~2018-05-03 19:48] MED LIST changes: +AMLO5TAB10 PO; -AMLO5TAB7 PO; -GABA600T2 PO; +GABA600T7 PO
[2018-05-03] MEDS ORDERED: IV NORMAL SALINE 1000ML BAG 1,000 ML IV SCH (20:33)
[2018-05-03 20:41] LABS: BASO # 0.1 x10^3/uL (0.0-0.2); BASO % 1 % (0-3); EOS # 0.1 x10^3/uL (0.0-0.7); EOS % 1 % (0-3); HEMATOCRIT 40.8 % (36.0-47.0); HEMOGLOBIN 13.8 g/dL (12.0-15.5); LYMPH # 2.6 x10^3/uL (1.0-4.8); LYMPH % 23 % (24-48); MEAN CORPUSCULAR HEMOGLOBIN 28 pg (25-35); MEAN CORPUSCULAR HGB CONC 34 g/dL (31-37); MEAN CORPUSCULAR VOLUME 84 fL (79-100); MONO # 0.9 x10^3/uL (0.0-1.1); MONO % 8 % (0-9); NEUT # 7.4 x10^3uL (1.8-7.7); NEUT % 67 % (31-73); PLATELET COUNT 276 x10^3/uL (140-400); RED BLOOD COUNT 4.89 x10^6/uL (3.50-5.40); WHITE BLOOD COUNT 11.1 x10^3/uL (4.0-11.0)
--- NOTE | 2018-05-03 20:44 | PHYS DOC ---
Past Medical History Past Medical History: A-Fib, Depression, Diabetes-Type II, Hypertension, NE, Seizure, TIA, Other Additional Past Medical Histor: BODY SPASMS,IRREG HEARTBEAT,NEUROPATHY, Measles Past Surgical History: Appendectomy, Cholecystectomy, , Hysterectomy, Other Additional Past Surgical Histo: ABD SURG,LAPAROSCOPY,BOWEL SURG Alcohol Use: None Drug Use: None Adult General Chief Complaint Chief Complaint: CHEST PAIN [facility] HPI Patient is a 57-year-old female who presents with complaint of one-week history of left-sided chest pain that radiates into her left shoulder. She also states that the pain radiates into her back. She rates the pain had a 9 out of 10. At time she describes the pain as sharp and stabbing and at times is just a dull ache. She also complains of epigastric abdominal pain. Patient states that she has been taking 3 aspirin twice a day since the pain started and thinks that the abdominal pain is probably due to taking too much aspirin. She denies any vomiting but does admit to some nausea. She denies any diarrhea or melena. Patient states that nothing improves her symptoms. She states that it's chest pain is worsened with deep breathing and with exertion. Review of Systems Review of Systems Constitutional: Denies fever or chills [] Respiratory: Denies cough or shortness of breath [] Cardiovascular: No additional information not addressed in HPI [] GI: Complains of epigastric abdominal pain with nausea. Denies vomiting or diarrhea [] Musculoskeletal: Complains of back pain [] Integument: Denies rash or skin lesions [] Neurologic: Denies headache, focal weakness or sensory changes [] All other systems were reviewed and found to be within normal limits, except as documented in this note. Current Medications Current Medications Current Medications Medications (Trade) Dose Ordered Sig/Monica Start Time Stop Time Status Last Admin Dose Admin Morphine Sulfate (Morphine Sulfate) 2 mg PRN Q2HR PRN 05/04/18 00:30 05/05/18 00:29 UNV Nitroglycerin (Nitrostat) 0.4 mg PRN Q5MIN PRN 05/04/18 00:30 05/05/18 00:29 UNV Ondansetron HCl (Zofran) 4 mg PRN Q8HRS PRN 05/04/18 00:30 05/05/18 00:29 UNV Sodium Chloride 1,000 ml @ 125 mls/hr Q8H 05/04/18 00:25 05/05/18 00:24 UNV Allergies Allergies Allergies Coded Allergies Type Severity Reaction Last Updated Verified levofloxacin Allergy Severe SEIZURES 12/30/17 Yes lidocaine Allergy Severe Swelling 12/30/17 Yes Physical Exam Physical Exam Constitutional: Well developed, well nourished, no acute distress, non-toxic appearance. [] HENT: Normocephalic, atraumatic, bilateral external ears normal, oropharynx moist, no oral exudates, nose normal. [] Eyes: PERRLA, EOMI, conjunctiva normal, no discharge. [] Neck: Normal range of motion, no tenderness, supple, no stridor. [] Cardiovascular: Regular rate and rhythm[] Lungs & Thorax: Bilateral breath sounds clear to auscultation [] Abdomen: Bowel sounds normal, soft, with epigastric tenderness. [] Skin: Warm, dry, no erythema, no rash. [] Extremities: No tenderness, no cyanosis, no clubbing, ROM intact, no edema. [] Neurologic: Alert and oriented X 3, normal motor function, normal sensory function, no focal deficits noted. [] Current Patient Data Vital Signs Vital Signs Date Time Temp Pulse Resp B/P (MAP) Pulse Ox O2 Delivery O2 Flow Rate FiO2 05/03/18 23:00 88 11 141/66 (91) 92 Room Air 05/03/18 19:50 98.9 98.9 Lab Values Laboratory Tests Test 05/03/18 20:20 05/03/18 23:45 White Blood Count 11.1 x10^3/uL (4.0-11.0) H Red Blood Count 4.89 x10^6/uL (3.50-5.40) Hemoglobin 13.8 g/dL (12.0-15.5) Hematocrit 40.8 % (36.0-47.0) Mean Corpuscular Volume 84 fL (79-100) Mean Corpuscular Hemoglobin 28 pg (25-35) Mean Corpuscular Hemoglobin Concent 34 g/dL (31-37) Red Cell Distribution Width 13.0 % (11.5-14.5) Platelet Count 276 x10^3/uL (140-400) Neutrophils (%) (Auto) 67 % (31-73) Lymphocytes (%) (Auto) 23 % (24-48) L Monocytes (%) (Auto) 8 % (0-9) Eosinophils (%) (Auto) 1 % (0-3) Basophils (%) (Auto) 1 % (0-3) Neutrophils # (Auto) 7.4 x10^3uL (1.8-7.7) Lymphocytes # (Auto) 2.6 x10^3/uL (1.0-4.8) Monocytes # (Auto) 0.9 x10^3/uL (0.0-1.1) Eosinophils # (Auto) 0.1 x10^3/uL (0.0-0.7) Basophils # (Auto) 0.1 x10^3/uL (0.0-0.2) Sodium Level 133 mmol/L (136-145) L Potassium Level 3.9 mmol/L (3.5-5.1) Chloride Level 94 mmol/L (98-107) L Carbon Dioxide Level 24 mmol/L (21-32) Anion Gap 15 (6-14) H Blood Urea Nitrogen 16 mg/dL (7-20) Creatinine 1.0 mg/dL (0.6-1.0) Estimated GFR (Cockcroft-Gault) 56.7 BUN/Creatinine Ratio 16 (6-20) Glucose Level 381 mg/dL (70-99) H Calcium Level 10.2 mg/dL (8.5-10.1) H Magnesium Level 2.0 mg/dL (1.8-2.4) Total Bilirubin 0.7 mg/dL (0.2-1.0) Aspartate Amino Transferase (AST) 15 U/L (15-37) Alanine Aminotransferase (ALT) 16 U/L (14-59) Alkaline Phosphatase 80 U/L (46-116) Troponin I Quantitative < 0.017 ng/mL (0.000-0.055) CN-Aqr-C-Type Natriuretic Peptide 286 pg/mL (0-124) H Total Protein 8.5 g/dL (6.4-8.2) H Albumin 3.2 g/dL (3.4-5.0) L Albumin/Globulin Ratio 0.6 (1.0-1.7) L Lipase 132 U/L (73-393) Urine Collection Type Unknown Urine Color Yellow Urine Clarity Cloudy Urine pH 5.0 Urine Specific [place] 1.020 Urine Protein Negative mg/dL (NEG-TRACE) Urine Glucose (UA) >=1000 mg/dL (NEG) Urine Ketones (Stick) >=80 mg/dL (NEG) Urine Blood Trace (NEG) Urine Nitrite Negative (NEG) Urine Bilirubin Negative (NEG) Urine Urobilinogen Dipstick 0.2 mg/dL (0.2 mg/dL) Urine Leukocyte Esterase Negative (NEG) Urine RBC 1-2 /HPF (0-2) Urine WBC 1-4 /HPF (0-4) Urine Squamous Epithelial Cells Few /LPF Urine Bacteria Few /HPF (0-FEW) Urine Hyaline Casts Few /HPF Urine Mucus Slight /LPF Urine Yeast Present /HPF Laboratory Tests 05/03/18 20:20 Laboratory Tests 05/03/18 20:20 EKG EKG [] Interpretation Time: EKG demonstrates normal sinus rhythm with rate of 93. Radiology/Procedures Radiology/Procedures [] Impressions: Chest x-ray demonstrates no acute process. Course & Med Decision Making Course & Med Decision Making Pertinent Labs and Imaging studies reviewed. (See chart for details) [] Dragon Disclaimer Dragon Disclaimer This electronic medical record was generated, in whole or in part, using a voice recognition dictation system. Departure Departure Impression: Primary Impression: Chest pain Additional Impression: Uncontrolled type II diabetes mellitus Disposition: ADMITTED INPATIENT Admitting Physician: Rico Cárdenas Condition: IMPROVED Referrals: NO PCP (PCP) Problem Qualifiers Primary Impression: Chest pain Chest pain type: unspecified Qualified Codes: R07.9 - Chest pain, unspecified Additional Impression: Uncontrolled type II diabetes mellitus Glycemic state: with hyperglycemia Qualified Codes: E11.65 - Type 2 diabetes mellitus with hyperglycemia LUZ BADILLO Jr. DO May 03, 2018 20:43
[2018-05-03] MEDS ORDERED: ONDANSETRON PF 4 MG/2 ML VIAL. IV ONE (20:45)
[2018-05-03 20:51] LABS: CALCIUM 10.2 mg/dL (8.5-10.1); GFR 56.7; POTASSIUM 3.9 mmol/L (3.5-5.1)
[2018-05-03 20:56] LABS: ALBUMIN 3.2 g/dL (3.4-5.0); ALBUMIN/GLOBULIN RATIO 0.6 (1.0-1.7); TOTAL BILIRUBIN 0.7 mg/dL (0.2-1.0); TOTAL PROTEIN 8.5 g/dL (6.4-8.2)
[2018-05-03] MEDS: MORPHINE SULFATE 2 MG/ML VIAL. IV/SQ PRN (21:09)
[2018-05-03 23:51] LABS: BILIRUBIN,URINE NEGATIVE (NEG); CLARITY,URINE CLOUDY; COLOR,URINE YELLOW; NITRITE,URINE NEGATIVE (NEG); PROTEIN,URINE NEGATIVE (NEG-TRACE); UROBILINOGEN,URINE 0.2 mg/dL (0.2 mg/dL)
[2018-05-03 23:59] LABS: BACTERIA,URINE FEW /HPF (0-FEW); HYALINE CASTS, URINE FEW /HPF; SQUAMOUS EPITHELIAL CELL,UR FEW /LPF; YEAST,URINE PRESENT /HPF
[2018-05-04] VITALS (7 sets, daily range): BP systolic 114–180; BP diastolic 37–83
[2018-05-04] MEDS ORDERED: DEXTROSE 50% 25 GM / 50ML DISP.SYRIN. IV PRN (00:30)
[2018-05-04] MEDS ORDERED: IV NORMAL SALINE 1000ML BAG 1,000 ML IV SCH (00:30)
[2018-05-04] MEDS ORDERED: NITROGLYCERIN SUBLINGUAL 0.4 MG BOTTLE OF 25. SL PRN (00:30)
[2018-05-04] MEDS ORDERED: ONDANSETRON PF 4 MG/2 ML VIAL. IV PRN (00:30)
[2018-05-04] MEDS: MORPHINE SULFATE 2 MG/ML VIAL. IV/SQ PRN (01:16)
[2018-05-04] MEDS ORDERED: INSU100I11 SQ (03:11)
[2018-05-04] MEDS ORDERED: INSU100V13 SQ (03:11)
[2018-05-04] MEDS: MORPHINE SULFATE 4 MG/ML VIAL. IV PRN ×4 (04:08→21:07)
--- NOTE | 2018-05-04 04:45 | NUR ---
Patient arrived to unit at 0154 per cart accompanied by daughter. Patient assisted to bed with stand by assist. Assessment completed, vital signs obtained and stable- BP elevated, will monitor. POC explained to patient and daughter. Patient oriented to surroundings and call light. Patient reminded to call for assistance prior to getting OOB. Call light placed in reach and bed alarm set. Will continue to monitor patient.
--- NOTE | 2018-05-04 06:58 | EKG ---
[facility] [address] [place] [address] Test Date: 2018-05-03 Test Time: 19:59:03 Pat Name: ROSA MARIA INIGUEZ Department: Room: 263 1 Gender: F Angle Shearer: : 1960 Requested By: LUZ BADILLO Order Number: [id number] Reading MD: Daljit Griffin MD Measurements Intervals [place] Rate: 92 P: 52 IA: 170 QRS: -15 QRSD: 86 T: 30 QT: 328 QTc: 410 Interpretive Statements SINUS RHYTHM NON-SPECIFIC ST/T CHANGES BASELINE ARTIFACT Electronically Signed On 05-05-2018 16:37:08 CDT by Daljit Griffin MD
--- NOTE | 2018-05-04 08:12 | RAD ---
Single view of the chest. 05/03/2018 8:33 PM Indication: chest pain Comparison: None chest radiograph December 27, 2017 Findings: There is left basilar infiltrate concerning for pneumonia. No pneumothorax or definitive effusion is seen. Heart size is normal. Bony thorax is intact. IMPRESSION: Left basilar infiltrate concerning for pneumonia. Radiographic follow-up to resolution recommended Electronically signed by: Binh Ram MD (05/04/2018 8:08 AM) [id number]
[2018-05-04] MEDS: INSULIN LISPRO 300 UNITS/3 ML INSULN.PEN. SQ SCH ×3 (08:38→17:40)
--- NOTE | 2018-05-04 09:19 | PDOC2 ---
KARTIK CARDENAS LOCK EXPERT 05/04/18 0919: CARDIAC CONSULT DATE OF CONSULT Date of Consult DATE: 05/04/18 TIME: 09:18 REASON FOR CONSULT Reason for Consult: chest pain REFERRING PHYSICIAN Referring Physician: Dr. Linares SOURCE Source: Chart review, Patient HISTORY OF PRESENT ILLNESS HISTORY OF PRESENT ILLNESS This is a 57 yo female who presented secondary to chest pain. Patient reports one-week history of stabbing pain in her left chest, right side, abdomen, and left shoulder. Has progressively worsened. Is presently tearful due to pain. Feels as someone is stabbing her with an ice pick. Is associated with chills, nausea, and mild shortness of air. No specific worsening or relieving factors. Has had some pink-tinged sputum over the last couple of days. Patient was seen by out service last December for atypical chest pain. Was recommended for outpatient stress test and follow. Unfortunately, patient was unable to make follow up. Has followed with GI and had outpatient gastric emptying study. Is to also have colonoscopy. PAST MEDICAL HISTORY Past Medical History Cardiovascular: CHF, HTN, Hyperlipidemia, hypertriglyceridemia Pulmonary: Asthma CENTRAL NERVOUS SYSTEM: CVA, Peripheral neuropathy, Seizure (Epilepsy), TIA, Other ([place] Palsy) GI: Diverticulosis Heme/Onc: No pertinent hx Hepatobiliary: No pertinent hx Psych: Anxiety, Depression Musculoskeletal: Osteoarthritis Rheumatologic: No pertinent hx Infectious disease: No pertinent hx ENT: No pertinent hx Renal/: Chronic renal insuff Endocrine: Diabetes Dermatology: No pertinent h PAST SURGICAL HISTORY Past Surgical History Appendectomy, , Hysterectomy FAMILY HISTORY Family History: Heart Disease SOCIAL HISTORY Social History Smoke: No ALCOHOL: none Drugs: None Lives: with Family CURRENT MEDICATIONS CURRENT MEDICATIONS Current Medications Medications (Trade) Dose Ordered Sig/Monica Route PRN Reason Start Time Stop Time Status Last Admin Dose Admin Morphine Sulfate (Morphine Sulfate) 2 mg PRN Q15MIN PRN IV/SQ PAIN GREATER THAN 04/2305/03/18 20:45 05/04/18 07:30 DC 05/04/18 01:16 Sodium Chloride 1,000 ml @ 1,000 mls/hr Q1H IV 05/03/18 20:33 05/03/18 21:32 DC 05/03/18 21:09 Ondansetron HCl (Zofran) 4 mg 1X ONCE IV 05/03/18 20:45 05/03/18 20:46 DC 05/03/18 21:09 Morphine Sulfate (Morphine Sulfate) 2 mg PRN Q2HR PRN IV PAIN 05/04/18 00:30 05/05/18 00:29 05/04/18 06:43 Insulin Human Lispro (HumaLOG) 0-5 UNITS TIDWMEALS SQ 05/04/18 08:00 05/04/18 08:38 ALLERGIES ALLERGIES: Coded Allergies: levofloxacin (Verified Allergy, Severe, SEIZURES, 12/30/17) lidocaine (Verified Allergy, Severe, Swelling, 12/30/17) ROS Review of System 14 point ROS conducted with pertinent positives noted above in HPI. PHYSICAL EXAM PHYSICAL EXAM General: Alert, Oriented X3, Cooperative HEENT: Atraumatic, Mucous membr. moist/pink Lungs: Clear to auscultation, Normal air movement, central and left chest tenderness upon palpation Heart: Regular rate, Normal S1, Normal S2 Abdomen: Soft, diffuse tenderness upon palpation Extremities: No edema, Normal pulses Skin: No breakdown, No significant lesion Neuro: Normal speech, Sensation intact Psych/Mental Status: Mental status NL, Mood NL MUSCULOSKELETAL: Osteoarthritic changes both hands VITALS VITALS Vital Signs Date Time Temp Pulse Resp B/P (MAP) Pulse Ox O2 Delivery O2 Flow Rate FiO2 05/04/18 07:28 98.6 97 18 124/37 (66) 93 Room Air 98.6 LABS Lab: Laboratory Tests Test 05/03/18 20:20 05/03/18 23:45 05/04/18 03:00 05/04/18 06:40 White Blood Count 11.1 x10^3/uL (4.0-11.0) Red Blood Count 4.89 x10^6/uL (3.50-5.40) Hemoglobin 13.8 g/dL (12.0-15.5) Hematocrit 40.8 % (36.0-47.0) Mean Corpuscular Volume 84 fL (79-100) Mean Corpuscular Hemoglobin 28 pg (25-35) Mean Corpuscular Hemoglobin Concent 34 g/dL (31-37) Red Cell Distribution Width 13.0 % (11.5-14.5) Platelet Count 276 x10^3/uL (140-400) Neutrophils (%) (Auto) 67 % (31-73) Lymphocytes (%) (Auto) 23 % (24-48) Monocytes (%) (Auto) 8 % (0-9) Eosinophils (%) (Auto) 1 % (0-3) Basophils (%) (Auto) 1 % (0-3) Neutrophils # (Auto) 7.4 x10^3uL (1.8-7.7) Lymphocytes # (Auto) 2.6 x10^3/uL (1.0-4.8) Monocytes # (Auto) 0.9 x10^3/uL (0.0-1.1) Eosinophils # (Auto) 0.1 x10^3/uL (0.0-0.7) Basophils # (Auto) 0.1 x10^3/uL (0.0-0.2) Sodium Level 133 mmol/L (136-145) Potassium Level 3.9 mmol/L (3.5-5.1) Chloride Level 94 mmol/L (98-107) Carbon Dioxide Level 24 mmol/L (21-32) Anion Gap 15 (6-14) Blood Urea Nitrogen 16 mg/dL (7-20) Creatinine 1.0 mg/dL (0.6-1.0) Estimated GFR (Cockcroft-Gault) 56.7 BUN/Creatinine Ratio 16 (6-20) Glucose Level 381 mg/dL (70-99) Calcium Level 10.2 mg/dL (8.5-10.1) Magnesium Level 2.0 mg/dL (1.8-2.4) Total Bilirubin 0.7 mg/dL (0.2-1.0) Aspartate Amino Transf (AST/SGOT) 15 U/L (15-37) Alanine Aminotransferase (ALT/SGPT) 16 U/L (14-59) Alkaline Phosphatase 80 U/L (46-116) Troponin I Quantitative < 0.017 ng/mL (0.000-0.055) < 0.017 ng/mL (0.000-0.055) < 0.017 ng/mL (0.000-0.055) EA-Kgl-H-Type Natriuretic Peptide 286 pg/mL (0-124) Total Protein 8.5 g/dL (6.4-8.2) Albumin 3.2 g/dL (3.4-5.0) Albumin/Globulin Ratio 0.6 (1.0-1.7) Lipase 132 U/L (73-393) Urine Collection Type Unknown Urine Color Yellow Urine Clarity Cloudy Urine pH 5.0 Urine Specific [place] 1.020 Urine Protein Negative mg/dL (NEG-TRACE) Urine Glucose (UA) >=1000 mg/dL (NEG) Urine Ketones (Stick) >=80 mg/dL (NEG) Urine Blood Trace (NEG) Urine Nitrite Negative (NEG) Urine Bilirubin Negative (NEG) Urine Urobilinogen Dipstick 0.2 mg/dL (0.2 mg/dL) Urine Leukocyte Esterase Negative (NEG) Urine RBC 1-2 /HPF (0-2) Urine WBC 1-4 /HPF (0-4) Urine Squamous Epithelial Cells Few /LPF Urine Bacteria Few /HPF (0-FEW) Urine Hyaline Casts Few /HPF Urine Mucus Slight /LPF Urine Yeast Present /HPF Test 05/04/18 06:54 Glucose (Fingerstick) 279 mg/dL (70-99) ECHOCARDIOGRAM ECHOCARDIOGRAM <Conclusion> The left ventricle is hyperdynamic. The Ejection Fraction is >70%. There is normal LV segmental wall motion. Transmitral Doppler flow pattern is Grade I-abnormal relaxation pattern. Doppler and Color-flow revealed trace mitral regurgitation. There is a trace pericardial effusion. DATE: 12/28/17 1207 ASSESSMENT/PLAN ASSESSMENT/PLAN 1. Chest pain, atypical. AMI ruled out. 2. Hypertension; controlled 3. Dyslipidemia 4. Diabetes, II; uncontrolled. 5. Seizures 7. H/o CVA 8. Abdominal pain; followed by GI on an outpatient basis 9. Neuropathy Recommendations Resume ASA, BB Add statin Given risk factors and recurrent chest pain, will proceed with MPI to r/o ischemia Supportive care Further workup of abdominal pain as per PCP VICTOR HUGO WHITE MD 05/04/18 1651: CARDIAC CONSULT ASSESSMENT/PLAN ASSESSMENT/PLAN Pt. seen and examined. Agree with above Field Marketing Specialist note. patient has many complaints. No specific cardiac issues besides chest pain Discussed options including continued medical mgt, stress or cath since this is her 2nd admission with chest pain She will think about it and decide. Thanks KARTIK CARDENAS APRN May 04, 2018 09:19 VICTOR HUGO WHITE MD May 04, 2018 16:51
[2018-05-04 11:53] LABS: CHOLESTEROL/HDL RATIO 4.5
--- NOTE | 2018-05-04 12:03 | PDOC1 ---
History and Physical Date of Admission Date of Admission DATE: 05/04/18 TIME: 12:02 Identification/Chief Complaint Chief Complaint SEEN [facility] presented with complaint of one-week history of left-sided chest pain that radiates into her left shoulder. ALSO pain radiates into her back. She rates the pain had a 9 out of 10. describes the pain as sharp and stabbing and at times is just a dull ache. She also complains of epigastric abdominal pain. Patient states that she has been taking 3 aspirin twice a day since the pain started and thinks that the abdominal pain is probably due to taking too much aspirin. She denies any vomiting but does admit to some nausea. She denies any diarrhea or melena. Patient states that nothing improves her symptoms. She states that chest pain is worsened with exertion. Past Medical History Past Medical History Past Medical History Past Medical History: A-Fib, Depression, Diabetes-Type II, Hypertension, [place], Seizure, TIA, Other Additional Past Medical Histor: BODY SPASMS,IRREG HEARTBEAT,NEUROPATHY, Measles Past Surgical History: Appendectomy, Cholecystectomy, , Hysterectomy, Other Additional Past Surgical Histo: ABD SURG,LAPAROSCOPY,BOWEL SURG Alcohol Use: None Drug Use: None Cardiovascular: CAD, CHF, HTN Pulmonary: Asthma, Pneumonia CENTRAL NERVOUS SYSTEM: CVA, Periperal neuropathy, Seizure, Other GI: Constipation, Diverticulosis, Other Heme/Onc: No pertinent hx Hepatobiliary: No pertinent hx Psych: Anxiety, Depression Musculoskeletal: low back pain, Osteoarthritis Rheumatologic: No pertinent hx Infectious disease: No pertinent hx Renal/: Chronic renal insuff Endocrine: Diabetes Past Surgical History Past Surgical History: Appendectomy, Cataract Removal, , Hysterectomy , Other Family History Family History: Coronary Artery Disease, Heart Disease Social History Smoke: No ALCOHOL: none Drugs: None Current Problem List Problem List Problems Medical Problems: (1) Chest pain Status: Acute (2) Uncontrolled type II diabetes mellitus Status: Acute Current Medications Current Medications Current Medications Morphine Sulfate (Morphine Sulfate) 2 mg PRN Q15MIN PRN IV/SQ PAIN GREATER THAN 3/10 Last administered on 05/04/18at 01:16; Start 05/03/18 at 20:45; Stop at 07:30; Status DC Sodium Chloride 1,000 ml @ 1,000 mls/hr Q1H IV Last administered on 05/03/18at 21:09; Start 05/03/18 at 20:33; Stop 05/03/18 at 21:32; Status DC Ondansetron HCl (Zofran) 4 mg 1X ONCE IV Last administered on 05/03/18at 21:09 ; Start 05/03/18 at 20:45; Stop 05/03/18 at 20:46; Status DC Ondansetron HCl (Zofran) 4 mg PRN Q8HRS PRN IV NAUSEA/VOMITING; Start 05/04/18 at 00:30; Stop 05/05/18 at 00:29 Morphine Sulfate (Morphine Sulfate) 2 mg PRN Q2HR PRN IV PAIN Last administered on 05/04/18at 06:43; Start 05/04/18 at 00:30; Stop 05/05/18 at 00:29 Sodium Chloride 1,000 ml @ 125 mls/hr Q8H IV ; Start 05/04/18 at 00:30; Stop at 00:29 Nitroglycerin (Nitrostat) 0.4 mg PRN Q5MIN PRN SL CHEST PAIN; Start 05/04/18 at 00:30; Stop 05/05/18 at 00:29 Insulin Human Lispro (HumaLOG) 0-5 UNITS TIDWMEALS SQ Last administered on 05/04at 08:38; Start 05/04/18 at 08:00 Dextrose (Dextrose 50%-Water Syringe) 12.5 gm PRN Q15MIN PRN IV SEE COMMENTS; Start 05/04/18 at 00:30 Active Scripts Active Reported Humalog (Insulin Lispro) 100 Unit/1 Ml Insuln.pen Unknown Dose SQ TIDAC Levemir (Insulin Detemir) 100 Unit/1 Ml Vial Unknown Dose SQ BID Metoprolol Tartrate 25 Mg Tablet 25 Mg PO BID Hydrochlorothiazide Tablet (Hydrochlorothiazide) 25 Mg Tablet 1 Tab PO DAILY Aspirin 325 Mg Tablet 325 Tab PO PRN Q6HRS PRN Gabapentin 600 Mg Tablet 1 Tab PO TID Allergies Allergies: Coded Allergies: levofloxacin (Verified Allergy, Severe, SEIZURES, 12/30/17) lidocaine (Verified Allergy, Severe, Swelling, 12/30/17) ROS Review of System Review of Systems Review of Systems Constitutional: Denies fever or chills [] Respiratory: Denies cough or shortness of breath [] Cardiovascular: No additional information not addressed in HPI [] GI: Complains of epigastric abdominal pain with nausea. Denies vomiting or diarrhea [] Musculoskeletal: Complains of back pain [] Integument: Denies rash or skin lesions [] Neurologic: Denies headache, focal weakness or sensory changes [] 14 systems were reviewed and found to be within normal limits, except as documented General: YES: Fatigue PSYCHOLOGICAL ROS: No: Anxiety, Behavioral Disorder, Concentration difficultie , Decreased libido, Depression, Disorientation, Hallucinations, Hostility, Irritablity, Memory difficulties, Mood Swings, Obsessive thoughts, Physical abuse, Sexual abuse, Sleep disturbances, Suicidal ideation, Other Eyes: No Blurry vision, No Decreased vision, No Double vision, No Dry eyes, No Excessive tearing, No Eye Pain, No Itchy Eyes, No Loss of vision, No Photophobia , No Scotomata, No Uses contacts, No Uses glasses, No Other Hematological and Lymphatic: No: Bleeding Problems, Blood Clots, Blood Transfusions, Brusing, Night Sweats, Pallor, Swollen Lymph Nodes, Other ENDOCRINE: No: Breast Changes, Galactorrhea, Hair Pattern Changes, Hot Flashes , Malaise/lethargy, Mood Swings, Palpitations, Polydipsia/polyuria, Skin Changes , Temperature Intolerance, Unexpected Weight Changes, Other Respiratory: YES: Pleuritic Pain Cardiovascular: yes Chest Pain Neurological: No Behavorial Changes, No Bowel/Bladder ControlChng, No Confusion , No Dizziness, No Gait Disturbance, No Headaches, No Impaired Coord/balance, No Memory Loss, No Numbness/Tingling, No Seizures, No Speech Problems, No Tremors, No Visual Changes, No Weakness, No Other Physical Exam Physical Exam Physical Exam Physical Exam Constitutional: Well developed, well nourished, no acute distress, non-toxic appearance. [] HENT: Normocephalic, atraumatic, bilateral external ears normal, oropharynx moist, no oral exudates, nose normal. [] Eyes: PERRLA, EOMI, conjunctiva normal, no discharge. [] Neck: Normal range of motion, no tenderness, supple, no stridor. [] Cardiovascular: Regular rate and rhythm[] Lungs & Thorax: Bilateral breath sounds clear to auscultation [] Abdomen: Bowel sounds normal, soft, with epigastric tenderness. [] Skin: Warm, dry, no erythema, no rash. [] Extremities: No tenderness, no cyanosis, no clubbing, ROM intact, no edema. [] Neurologic: Alert and oriented X 3, normal motor function, normal sensory function, no focal deficits noted. [] General: Oriented X3, Cooperative HEENT: Atraumatic, PERRLA Heart: RRR Breasts: Not examined Rectal Exam: not examined Extremities: No cyanosis Skin: No significant lesion Neuro: Normal speech, Cranial nerves 3-12 NL Psych/Mental Status: Mental status NL, Mood NL Vitals Vitals Vital Signs Date Time Temp Pulse Resp B/P (MAP) Pulse Ox O2 Delivery O2 Flow Rate FiO2 05/04/18 11:12 98.2 91 18 114/57 (76) 94 Room Air 98.2 Labs Labs Laboratory Tests Test 05/03/18 20:20 05/03/18 23:45 05/04/18 03:00 05/04/18 06:40 White Blood Count 11.1 x10^3/uL (4.0-11.0) Red Blood Count 4.89 x10^6/uL (3.50-5.40) Hemoglobin 13.8 g/dL (12.0-15.5) Hematocrit 40.8 % (36.0-47.0) Mean Corpuscular Volume 84 fL (79-100) Mean Corpuscular Hemoglobin 28 pg (25-35) Mean Corpuscular Hemoglobin Concent 34 g/dL (31-37) Red Cell Distribution Width 13.0 % (11.5-14.5) Platelet Count 276 x10^3/uL (140-400) Neutrophils (%) (Auto) 67 % (31-73) Lymphocytes (%) (Auto) 23 % (24-48) Monocytes (%) (Auto) 8 % (0-9) Eosinophils (%) (Auto) 1 % (0-3) Basophils (%) (Auto) 1 % (0-3) Neutrophils # (Auto) 7.4 x10^3uL (1.8-7.7) Lymphocytes # (Auto) 2.6 x10^3/uL (1.0-4.8) Monocytes # (Auto) 0.9 x10^3/uL (0.0-1.1) Eosinophils # (Auto) 0.1 x10^3/uL (0.0-0.7) Basophils # (Auto) 0.1 x10^3/uL (0.0-0.2) Sodium Level 133 mmol/L (136-145) Potassium Level 3.9 mmol/L (3.5-5.1) Chloride Level 94 mmol/L (98-107) Carbon Dioxide Level 24 mmol/L (21-32) Anion Gap 15 (6-14) Blood Urea Nitrogen 16 mg/dL (7-20) Creatinine 1.0 mg/dL (0.6-1.0) Estimated GFR (Cockcroft-Gault) 56.7 BUN/Creatinine Ratio 16 (6-20) Glucose Level 381 mg/dL (70-99) Calcium Level 10.2 mg/dL (8.5-10.1) Magnesium Level 2.0 mg/dL (1.8-2.4) Total Bilirubin 0.7 mg/dL (0.2-1.0) Aspartate Amino Transf (AST/SGOT) 15 U/L (15-37) Alanine Aminotransferase (ALT/SGPT) 16 U/L (14-59) Alkaline Phosphatase 80 U/L (46-116) Troponin I Quantitative < 0.017 ng/mL (0.000-0.055) < 0.017 ng/mL (0.000-0.055) < 0.017 ng/mL (0.000-0.055) NM-Nxb-C-Type Natriuretic Peptide 286 pg/mL (0-124) Total Protein 8.5 g/dL (6.4-8.2) Albumin 3.2 g/dL (3.4-5.0) Albumin/Globulin Ratio 0.6 (1.0-1.7) Lipase 132 U/L (73-393) Urine Collection Type Unknown Urine Color Yellow Urine Clarity Cloudy Urine pH 5.0 Urine Specific [place] 1.020 Urine Protein Negative mg/dL (NEG-TRACE) Urine Glucose (UA) >=1000 mg/dL (NEG) Urine Ketones (Stick) >=80 mg/dL (NEG) Urine Blood Trace (NEG) Urine Nitrite Negative (NEG) Urine Bilirubin Negative (NEG) Urine Urobilinogen Dipstick 0.2 mg/dL (0.2 mg/dL) Urine Leukocyte Esterase Negative (NEG) Urine RBC 1-2 /HPF (0-2) Urine WBC 1-4 /HPF (0-4) Urine Squamous Epithelial Cells Few /LPF Urine Bacteria Few /HPF (0-FEW) Urine Hyaline Casts Few /HPF Urine Mucus Slight /LPF Urine Yeast Present /HPF Triglycerides Level 174 mg/dL (0-150) Cholesterol Level 148 mg/dL (0-200) LDL Cholesterol, Calculated 80 mg/dL (0-100) VLDL Cholesterol, Calculated 35 mg/dL (0-40) Non-HDL Cholesterol Calculated 115 mg/dL (0-129) HDL Cholesterol 33 mg/dL (40-60) Cholesterol/HDL Ratio 4.5 Test 05/04/18 06:54 05/04/18 10:50 Glucose (Fingerstick) 279 mg/dL (70-99) 274 mg/dL (70-99) Laboratory Tests Test 05/03/18 20:20 05/03/18 23:45 05/04/18 03:00 05/04/18 06:40 White Blood Count 11.1 x10^3/uL (4.0-11.0) Red Blood Count 4.89 x10^6/uL (3.50-5.40) Hemoglobin 13.8 g/dL (12.0-15.5) Hematocrit 40.8 % (36.0-47.0) Mean Corpuscular Volume 84 fL (79-100) Mean Corpuscular Hemoglobin 28 pg (25-35) Mean Corpuscular Hemoglobin Concent 34 g/dL (31-37) Red Cell Distribution Width 13.0 % (11.5-14.5) Platelet Count 276 x10^3/uL (140-400) Neutrophils (%) (Auto) 67 % (31-73) Lymphocytes (%) (Auto) 23 % (24-48) Monocytes (%) (Auto) 8 % (0-9) Eosinophils (%) (Auto) 1 % (0-3) Basophils (%) (Auto) 1 % (0-3) Neutrophils # (Auto) 7.4 x10^3uL (1.8-7.7) Lymphocytes # (Auto) 2.6 x10^3/uL (1.0-4.8) Monocytes # (Auto) 0.9 x10^3/uL (0.0-1.1) Eosinophils # (Auto) 0.1 x10^3/uL (0.0-0.7) Basophils # (Auto) 0.1 x10^3/uL (0.0-0.2) Sodium Level 133 mmol/L (136-145) Potassium Level 3.9 mmol/L (3.5-5.1) Chloride Level 94 mmol/L (98-107) Carbon Dioxide Level 24 mmol/L (21-32) Anion Gap 15 (6-14) Blood Urea Nitrogen 16 mg/dL (7-20) Creatinine 1.0 mg/dL (0.6-1.0) Estimated GFR (Cockcroft-Gault) 56.7 BUN/Creatinine Ratio 16 (6-20) Glucose Level 381 mg/dL (70-99) Calcium Level 10.2 mg/dL (8.5-10.1) Magnesium Level 2.0 mg/dL (1.8-2.4) Total Bilirubin 0.7 mg/dL (0.2-1.0) Aspartate Amino Transf (AST/SGOT) 15 U/L (15-37) Alanine Aminotransferase (ALT/SGPT) 16 U/L (14-59) Alkaline Phosphatase 80 U/L (46-116) Troponin I Quantitative < 0.017 ng/mL (0.000-0.055) < 0.017 ng/mL (0.000-0.055) < 0.017 ng/mL (0.000-0.055) IT-Qtt-Q-Type Natriuretic Peptide 286 pg/mL (0-124) Total Protein 8.5 g/dL (6.4-8.2) Albumin 3.2 g/dL (3.4-5.0) Albumin/Globulin Ratio 0.6 (1.0-1.7) Lipase 132 U/L (73-393) Urine Collection Type Unknown Urine Color Yellow Urine Clarity Cloudy Urine pH 5.0 Urine Specific [place] 1.020 Urine Protein Negative mg/dL (NEG-TRACE) Urine Glucose (UA) >=1000 mg/dL (NEG) Urine Ketones (Stick) >=80 mg/dL (NEG) Urine Blood Trace (NEG) Urine Nitrite Negative (NEG) Urine Bilirubin Negative (NEG) Urine Urobilinogen Dipstick 0.2 mg/dL (0.2 mg/dL) Urine Leukocyte Esterase Negative (NEG) Urine RBC 1-2 /HPF (0-2) Urine WBC 1-4 /HPF (0-4) Urine Squamous Epithelial Cells Few /LPF Urine Bacteria Few /HPF (0-FEW) Urine Hyaline Casts Few /HPF Urine Mucus Slight /LPF Urine Yeast Present /HPF Triglycerides Level 174 mg/dL (0-150) Cholesterol Level 148 mg/dL (0-200) LDL Cholesterol, Calculated 80 mg/dL (0-100) VLDL Cholesterol, Calculated 35 mg/dL (0-40) Non-HDL Cholesterol Calculated 115 mg/dL (0-129) HDL Cholesterol 33 mg/dL (40-60) Cholesterol/HDL Ratio 4.5 Test 05/04/18 06:54 05/04/18 10:50 Glucose (Fingerstick) 279 mg/dL (70-99) 274 mg/dL (70-99) Images Images Gastric Emptying Study Indication: nausea, abdomen pain, bloating for 3 months, had food in stomach when patient had EGD. Diabetic. Egg, toast and water. 1.8mCi Tc99m Sulfur Colloid Procedure: Anterior and posterior projection static images are obtained over the stomach following oral administration of 2 mCi of 99 M technetium sulfur colloid in a solid meal (egg and toast). Time points include an immediate baseline, and 1, 2, 3, and 4 hours post ingestion. Findings: There is progressive emptying of the stomach on sequential images. Percentage retention at... One hour is 77% (normal 34.8-91%). Two hours 35% (normal 2.7-60%). Three hours 34 % (normal 0.5-28%). Four hours 22% (normal 0-10%). Impression: Moderately delayed gastric emptying Consensus Recommendations for Gastric Emptying Scintigraphy: A Joint Report of the [place] [employer] and the Society of Nuclear Medicine: J. Nucl. Med. Technol. April 2007 vol. 36 no. 1 44-54 Grading for severity of delayed GE based on the 4-h value: grade 1 (mild): 11?20% retention at 4 h grade 2 (moderate): 21?35% retention at 4 h grade 3 (severe): 36?50% retention at 4 h grade 4 (very severe): >50% retention at 4 h. LEFT VENTRICLE The left ventricle cavity is small. Proximal septal thickening is noted. The left ventricle is hyperdynamic. The Ejection Fraction is >70%. There is normal LV segmental wall motion. Transmitral Doppler flow pattern is Grade I-abnormal relaxation pattern. RIGHT VENTRICLE The right ventricle is normal size. There is normal right ventricular wall thickness. The right ventricular systolic function is normal. ATRIA The left atrium is borderline dilated. The right atrium size is normal. The interatrial septum is intact with no evidence for an atrial septal defect or patent foramen ovale as noted on 2-D or Doppler imaging. AORTIC VALVE The aortic valve is trileaflet. The aortic valve is normal in structure and function. Doppler and Color Flow revealed no significant aortic regurgitation. There is no significant aortic valvular stenosis. MITRAL VALVE The mitral valve is normal in structure and function. There is no evidence of mitral valve prolapse. There is no mitral valve stenosis. Doppler and Color- flow revealed trace mitral regurgitation. TRICUSPID VALVE The tricuspid valve is normal in structure and function. Doppler and Color Flow revealed no tricuspid valve regurgitation noted. There is no tricuspid valve prolapse or vegetation. There is no tricuspid valve stenosis. PULMONIC VALVE The pulmonary valve is normal in structure and function. Doppler and Color Flow revealed trace pulmonic valvular regurgitation. There is no pulmonic valvular stenosis. GREAT VESSELS The aortic root is normal in size. The ascending aorta is normal in size. PERICARDIAL EFFUSION There is a trace pericardial effusion. Critical Notification Critical Value: No <Conclusion> The left ventricle is hyperdynamic. The Ejection Fraction is >70%. There is normal LV segmental wall motion. Transmitral Doppler flow pattern is Grade I-abnormal relaxation pattern. Doppler and Color-flow revealed trace mitral regurgitation. There is a trace pericardial effusion. Signed by : Rudi Diamond, Electronically Approved : 12/28/2017 12:07:14 DICTATED and SIGNED BY: RUDI DIAMOND MD DATE: 12/28/17 1207 VTE Prophylaxis Ordered VTE Prophylaxis Devices: Yes VTE Pharmacological Prophylaxi: Yes Assessment/Plan Assessment/Plan impression 1. Chest pain, atypical. with risk factors including age 2. Hypertension; 3. hyperlipidemia 4. Diabetes, II; uncontrolled. 5. Seizure hx 7. H/o CVA 8. Abdominal pain; followed by GI on an outpatient basis 9. Neuropathy 10 Moderately delayed gastric emptying plan Resume ASA, BB start statin MPI to r/o ischemia HOME MEDS DVT PROPHYLAXIS FULBRIGHT,STEPH W MD May 04, 2018 12:03
--- NOTE | 2018-05-04 12:59 | NUR ---
SS following up with discharge planning. SS reviewed pt chart. Pt is from home and is currently on room air. No discharge needs noted at this time. SS will continue to follow for pending discharge needs.
[2018-05-04] MEDS ORDERED: ASPIRIN 325 MG TABLET PO PRN (16:30)
[2018-05-04] MEDS: METOPROLOL TART IMMED RELEASE 25 MG TABLET. PO SCH (20:22)
[2018-05-04] MEDS: ATORVASTATIN CALCIUM 20 MG TABLET PO SCH (20:22)
[2018-05-04] MEDS: ENOXAPARIN 40 MG/0.4 ML SYRINGE. SQ SCH (20:23)
[2018-05-04] MEDS ORDERED: ESTR0.5T PO (20:34)
--- NOTE | 2018-05-04 21:33 | NUR ---
Called placed to Dr. Goetz regarding medication orders.
--- NOTE | 2018-05-04 22:11 | NUR ---
Called consult to Dr. Goetz, regarding medication orders.
--- NOTE | 2018-05-04 22:30 | NUR ---
Dr. Linares returned call orders received.
[2018-05-04] MEDS ORDERED: INSULIN LISPRO 300 UNITS/3 ML INSULN.PEN. SQ ONE (22:45)
[2018-05-04] MEDS ORDERED: INSULIN GLARGINE 300 UNITS/3 ML INSULN.PEN. SQ SCH (23:30)
[2018-05-04] MEDS: GABAPENTIN 300 MG CAPSULE. PO SCH (23:40)
--- NOTE | 2018-05-05 02:32 | NUR ---
Call placed to Dr. Linares regarding pain medication.
[2018-05-05 03:26] VITALS: BP 143/65
[2018-05-05] MEDS: MORPHINE SULFATE 4 MG/ML VIAL. IV PRN ×3 (03:30→14:55)
[2018-05-05] MEDS: ONDANSETRON PF 4 MG/2 ML VIAL. IV PRN ×3 (03:51→20:32)
[2018-05-05 07:00] VITALS: BP 116/61
[2018-05-05] MEDS ORDERED: REGADENOSON 0.4 MG/5 ML DISP.SYRIN. IV ONE (07:45)
[2018-05-05] MEDS: hydroCHLOROthiazide 25 MG TABLET PO SCH (09:00)
[2018-05-05] MEDS: ESTRADIOL 1 MG TABLET. PO SCH (09:46)
[2018-05-05] MEDS: METOPROLOL TART IMMED RELEASE 25 MG TABLET. PO SCH ×2 (09:46→20:22)
[2018-05-05] MEDS: GABAPENTIN 300 MG CAPSULE. PO SCH ×3 (09:47→20:21)
[2018-05-05] MEDS: INSULIN LISPRO 300 UNITS/3 ML INSULN.PEN. SQ SCH ×4 (09:59→20:30)
--- NOTE | 2018-05-05 10:35 | PDOC ---
CARDIO Progress Notes Date and Time Date of Service 05/05/18 Time of Evaluation 1015 Subjective Subjective: No Chest Pain, No shortness of breath, No Palpitations Vitals Vitals Vital Signs Date Time Temp Pulse Resp B/P (MAP) Pulse Ox O2 Delivery O2 Flow Rate FiO2 05/05/18 09:47 2 98 Room Air 05/05/18 09:46 82 116/61 05/05/18 07:00 98.6 98.6 Weight Weight [ ] Input and Output Intake and Output Intake and Output 05/05/18 07:00 Intake Total 200 ml Output Total 1350 ml Balance -1150 ml Intake Oral 200 ml Output Urine Total 1350 ml Laboratory Labs Laboratory Tests Test 05/04/18 10:50 05/04/18 16:28 05/04/18 20:12 05/05/18 08:05 Glucose (Fingerstick) 274 mg/dL (70-99) 327 mg/dL (70-99) 290 mg/dL (70-99) 283 mg/dL (70-99) Physical Exam HEENT: Neck Supple W Full Motion Chest: Symmetric LUNGS: Clear to Auscultation Heart: RRR Abdomen: Soft N/T Extremities: No Edema Neurology: alert, follow commands Assessment Assessment 1. Chest pain, atypical. MPI today to r/o ischemia 2. Hypertension; controlled 3. Dyslipidemia 4. Diabetes, II; uncontrolled. 5. Neuropathy Recommendations Continue ASA, statin, BB MPI to r/o ischemia today. If no evidence of reversible ischemia, may discharge from a CV standpoint. Supportive care KARTIK CARDENAS APRN May 05, 2018 10:35
--- NOTE | 2018-05-05 10:48 | PDOC ---
PROGRESS NOTES History of Present Illness History of Present Illness Assessment/Plan Assessment/Plan impression 1. Chest pain, atypical. with risk factors including age 2. Hypertension; 3. hyperlipidemia 4. Diabetes, II; uncontrolled. 5. Seizure hx 7. H/o CVA 8. Abdominal pain; followed by GI on an outpatient basis 9. Neuropathy 10 Moderately delayed gastric emptying 11. Small calcification projecting over the insertion of the supraspinatus on the humerus. Mild or early calcific tendinitis not excluded plan Resume ASA, BB start statin MPI to r/o ischemia HOME MEDS DVT PROPHYLAXIS x-ray left shoulder, ct chest consult dr HIGGINBOTHAM Vitals Vitals Vital Signs Date Time Temp Pulse Resp B/P (MAP) Pulse Ox O2 Delivery O2 Flow Rate FiO2 05/05/18 10:17 18 98 Room Air 05/05/18 09:46 82 116/61 05/05/18 07:00 98.6 98.6 Physical Exam General: Alert, Oriented X3, Cooperative, mild distress Heart: Regular rate, Normal S1 Lungs: Clear Abdomen: Normal bowel sounds, Soft Extremities: No clubbing, No cyanosis, Other (tender left upper chest/ shoulder ) Skin: No significant lesion Labs LABS 3 views left shoulder 05/05/2018 12:25 PM Indication: LT SHOULDER PAIN, NO KNOWN INJURY Comparison: None Findings: There is no acute fracture or dislocation. Articular surfaces are uninterrupted. Small calcification projects over the insertion of the supraspinatus on the humerus. Mild calcific tendinitis is not excluded. No other focal soft tissue abnormalities are identified. IMPRESSION: 1. No evidence of acute osseous abnormality 2. Small calcification projecting over the insertion of the supraspinatus on the humerus. Mild or early calcific tendinitis not excluded Electronically signed by: Binh Klein MD (05/05/2018 3:07 PM) [facility] DICTATED and SIGNED BY: BINH KLEIN MD DATE: 05/05/18 1507 POST EXERCISE Reason for Termination: Infusion complete Target HR: No Max HR: 104 bpm Max Blood Pressure: 123/46mmHg Blood Pressure response to exercise: Normal blood pressure response during stress. Heart Rate response to exercise: WNL Chest Pain: Yes. see note above Arrhythmia: No. ST Change: No. . INTERPRETATION Stress EKG Conclusion: No evidence of stress induced EKG changes Imaging Protocol IMAGE PROTOCOL: Rest Tc-99m/stress Tc-99m 1 day Rest: Stress: Viability: Radiopharm. Tc99m Sestamibi Tc99m Sestamibi Dose 11.5mCi 33mCi Duration 16min. 13min. Img Date 05/05/2018 05/05/2018 Inj-Img Time 60min. 60min. Rest Admin Site: IV - Left Antecubital Women'S Garment Fitter: Luis Spangler, RT (R)( N) Stress Admin Site: IV - Left Antecubital Women'S Garment Fitter: KATE Carmona STRESS DATA End Diast. Vol. 57.0ml LVEDV index BSA 33.0ml End Syst. Vol. 6.0ml LVESV index BSA 4.0ml Myocardial Mass 101.0g Eject. Fraction 89.0% Stress Scores Regional WT 0.00 Summed WT 1.00 Regional WM 0.00 Summed WM 0.00 The rest and stress images show normal perfusion, normal contraction and thickening. LV Perf. Quant 17 Seg. SSS 0.00 17 Seg. SRS 2.00 17 Seg. SDS 0.00 Stress Defect Extent (% LAD) 0.00 Rest Defect Extent (% LAD) 0.00 Rev. Defect Extent (% LAD) 0.00 Stress Defect Extent (% LCX) 0.00 Rest Defect Extent (% LCX) 27.50 Rev. Defect Extent (% LCX) 0.00 Stress Defect Extent (% RCA) 0.00 Rest Defect Extent (% RCA) 0.00 Rev. Defect Extent (% RCA) 0.00 Stress Defect Extent (% JANY) 0.00 Rest Defect Extent (% JANY) 5.40 Rev. Defect Extent (% JANY) 0.00 Other Information Quality:Good Risk Assessment: Low Risk Conclusion 1. No evidence of EKG changes with stress testing. 2. Normal perfusion at stress/rest. 3. Low risk study. 4. EF > 60%. Signed by : Victor Hugo Griffin, Electronically Approved : 05/05/2018 12:41:12 DICTATED and SIGNED BY: VICTOR HUGO GRIFFIN MD DATE: 05/05/18 1241 Laboratory Tests Test 05/04/18 10:50 05/04/18 16:28 05/04/18 20:12 05/05/18 08:05 Glucose (Fingerstick) 274 mg/dL (70-99) 327 mg/dL (70-99) 290 mg/dL (70-99) 283 mg/dL (70-99) Assessment and Plan Assessmemt and Plan Problems Medical Problems: (1) Chest pain Status: Acute (2) Uncontrolled type II diabetes mellitus Status: Acute Comment Review of Relevant I have reviewed the following items cheko (where applicable) has been applied. Labs Laboratory Tests Test 05/03/18 20:20 05/03/18 23:45 05/04/18 03:00 05/04/18 06:40 White Blood Count 11.1 x10^3/uL (4.0-11.0) Red Blood Count 4.89 x10^6/uL (3.50-5.40) Hemoglobin 13.8 g/dL (12.0-15.5) Hematocrit 40.8 % (36.0-47.0) Mean Corpuscular Volume 84 fL (79-100) Mean Corpuscular Hemoglobin 28 pg (25-35) Mean Corpuscular Hemoglobin Concent 34 g/dL (31-37) Red Cell Distribution Width 13.0 % (11.5-14.5) Platelet Count 276 x10^3/uL (140-400) Neutrophils (%) (Auto) 67 % (31-73) Lymphocytes (%) (Auto) 23 % (24-48) Monocytes (%) (Auto) 8 % (0-9) Eosinophils (%) (Auto) 1 % (0-3) Basophils (%) (Auto) 1 % (0-3) Neutrophils # (Auto) 7.4 x10^3uL (1.8-7.7) Lymphocytes # (Auto) 2.6 x10^3/uL (1.0-4.8) Monocytes # (Auto) 0.9 x10^3/uL (0.0-1.1) Eosinophils # (Auto) 0.1 x10^3/uL (0.0-0.7) Basophils # (Auto) 0.1 x10^3/uL (0.0-0.2) Sodium Level 133 mmol/L (136-145) Potassium Level 3.9 mmol/L (3.5-5.1) Chloride Level 94 mmol/L (98-107) Carbon Dioxide Level 24 mmol/L (21-32) Anion Gap 15 (6-14) Blood Urea Nitrogen 16 mg/dL (7-20) Creatinine 1.0 mg/dL (0.6-1.0) Estimated GFR (Cockcroft-Gault) 56.7 BUN/Creatinine Ratio 16 (6-20) Glucose Level 381 mg/dL (70-99) Calcium Level 10.2 mg/dL (8.5-10.1) Magnesium Level 2.0 mg/dL (1.8-2.4) Total Bilirubin 0.7 mg/dL (0.2-1.0) Aspartate Amino Transf (AST/SGOT) 15 U/L (15-37) Alanine Aminotransferase (ALT/SGPT) 16 U/L (14-59) Alkaline Phosphatase 80 U/L (46-116) Troponin I Quantitative < 0.017 ng/mL (0.000-0.055) < 0.017 ng/mL (0.000-0.055) < 0.017 ng/mL (0.000-0.055) IU-Tsa-N-Type Natriuretic Peptide 286 pg/mL (0-124) Total Protein 8.5 g/dL (6.4-8.2) Albumin 3.2 g/dL (3.4-5.0) Albumin/Globulin Ratio 0.6 (1.0-1.7) Lipase 132 U/L (73-393) Urine Collection Type Unknown Urine Color Yellow Urine Clarity Cloudy Urine pH 5.0 Urine Specific [place] 1.020 Urine Protein Negative mg/dL (NEG-TRACE) Urine Glucose (UA) >=1000 mg/dL (NEG) Urine Ketones (Stick) >=80 mg/dL (NEG) Urine Blood Trace (NEG) Urine Nitrite Negative (NEG) Urine Bilirubin Negative (NEG) Urine Urobilinogen Dipstick 0.2 mg/dL (0.2 mg/dL) Urine Leukocyte Esterase Negative (NEG) Urine RBC 1-2 /HPF (0-2) Urine WBC 1-4 /HPF (0-4) Urine Squamous Epithelial Cells Few /LPF Urine Bacteria Few /HPF (0-FEW) Urine Hyaline Casts Few /HPF Urine Mucus Slight /LPF Urine Yeast Present /HPF Triglycerides Level 174 mg/dL (0-150) Cholesterol Level 148 mg/dL (0-200) LDL Cholesterol, Calculated 80 mg/dL (0-100) VLDL Cholesterol, Calculated 35 mg/dL (0-40) Non-HDL Cholesterol Calculated 115 mg/dL (0-129) HDL Cholesterol 33 mg/dL (40-60) Cholesterol/HDL Ratio 4.5 Test 05/04/18 06:54 05/04/18 10:50 05/04/18 16:28 05/04/18 20:12 Glucose (Fingerstick) 279 mg/dL (70-99) 274 mg/dL (70-99) 327 mg/dL (70-99) 290 mg/dL (70-99) Test 05/05/18 08:05 Glucose (Fingerstick) 283 mg/dL (70-99) Laboratory Tests Test 05/04/18 10:50 05/04/18 16:28 05/04/18 20:12 05/05/18 08:05 Glucose (Fingerstick) 274 mg/dL (70-99) 327 mg/dL (70-99) 290 mg/dL (70-99) 283 mg/dL (70-99) Medications Current Medications Morphine Sulfate (Morphine Sulfate) 2 mg PRN Q15MIN PRN IV/SQ PAIN GREATER THAN 3/10 Last administered on 05/04/18at 01:16; Start 05/03/18 at 20:45; Stop at 07:30; Status DC Sodium Chloride 1,000 ml @ 1,000 mls/hr Q1H IV Last administered on 05/03/18at 21:09; Start 05/03/18 at 20:33; Stop 05/03/18 at 21:32; Status DC Ondansetron HCl (Zofran) 4 mg 1X ONCE IV Last administered on 05/03/18at 21:09 ; Start 05/03/18 at 20:45; Stop 05/03/18 at 20:46; Status DC Ondansetron HCl (Zofran) 4 mg PRN Q8HRS PRN IV NAUSEA/VOMITING; Start 05/04/18 at 00:30; Stop 05/05/18 at 00:29; Status DC Morphine Sulfate (Morphine Sulfate) 2 mg PRN Q2HR PRN IV PAIN Last administered on 05/04/18at 21:07; Start 05/04/18 at 00:30; Stop 05/05/18 at 00:29 ; Status DC Sodium Chloride 1,000 ml @ 125 mls/hr Q8H IV ; Start 05/04/18 at 00:30; Stop at 00:29; Status DC Nitroglycerin (Nitrostat) 0.4 mg PRN Q5MIN PRN SL CHEST PAIN; Start 05/04/18 at 00:30; Stop 05/05/18 at 00:29; Status DC Insulin Human Lispro (HumaLOG) 0-5 UNITS TIDWMEALS SQ Last administered on 05/04at 17:40; Start 05/04/18 at 08:00; Stop 05/04/18 at 22:34; Status DC Dextrose (Dextrose 50%-Water Syringe) 12.5 gm PRN Q15MIN PRN IV SEE COMMENTS; Start 05/04/18 at 00:30 Atorvastatin Calcium (Lipitor) 20 mg QHS PO Last administered on 05/04/18at 20: 22; Start 05/04/18 at 21:00 Aspirin ([place] Aspirin) 325 mg PRN Q6HRS PRN PO PAIN; Start 05/04/18 at 16:30 Hydrochlorothiazide (Hydrodiuril) 25 mg DAILY PO ; Start 05/05/18 at 09:00 Metoprolol Tartrate (Lopressor) 25 mg BID PO Last administered on 05/05/18at 09: 46; Start 05/04/18 at 21:00 Enoxaparin Sodium (Lovenox 40mg Syringe) 40 mg Q24H SQ Last administered on at 20:23; Start 05/04/18 at 21:00 Insulin Human Lispro (HumaLOG) 0-5 UNITS TIDACHC SQ Last administered on at 09:59; Start 05/05/18 at 07:30 Insulin Human Lispro (HumaLOG) 2 units 1X ONCE SQ Last administered on at 23:47; Start 05/04/18 at 22:45; Stop 05/04/18 at 22:46; Status DC Estradiol (Estrace) 0.5 mg DAILY PO Last administered on 05/05/18at 09:46; Start 05/05/18 at 09:00 Gabapentin (Neurontin) 600 mg TID PO Last administered on 05/05/18at 09:47; Start 05/04/18 at 22:45 Insulin Glargine (Lantus) 10 units QHS SQ Last administered on 05/04/18at 23:48 ; Start 05/04/18 at 23:30 Morphine Sulfate (Morphine Sulfate) 2 mg PRN Q2HR PRN IV PAIN Last administered on 05/05/18at 09:47; Start 05/05/18 at 03:15 Ondansetron HCl (Zofran) 4 mg PRN Q6HRS PRN IV NAUSEA/VOMITING Last administered on 05/05/18at 09:49; Start 05/05/18 at 03:45 Regadenoson (Lexiscan) 0.4 mg 1X ONCE IV Last administered on 05/05/18at 07:45 ; Start 05/05/18 at 07:45; Stop 05/05/18 at 07:46; Status DC Active Scripts Active Reported Estradiol 0.5 Mg Tablet 1 Tab PO DAILY Humalog (Insulin Lispro) 100 Unit/1 Ml Insuln.pen Unknown Dose SQ TIDAC Levemir (Insulin Detemir) 100 Unit/1 Ml Vial 10 Units SQ HS Metoprolol Tartrate 25 Mg Tablet 25 Mg PO BID Hydrochlorothiazide Tablet (Hydrochlorothiazide) 25 Mg Tablet 1 Tab PO DAILY Aspirin 325 Mg Tablet 325 Tab PO PRN Q6HRS PRN Gabapentin 600 Mg Tablet 1 Tab PO TID Vitals/I & O Vital Sign - Last 24 Hours 05/04/18 05/04/18 05/04/18 05/04/18 11:12 15:19 16:12 16:42 Temp 98.2 98.2 98.2 98.2 Pulse 91 92 Resp 18 18 20 22 B/P (MAP) 114/57 (76) 119/57 (77) Pulse Ox 94 95 O2 Delivery Room Air Room Air Room Air 05/04/18 05/04/18 05/04/18 05/04/18 19:00 20:00 20:22 21:07 Temp 99.1 99.1 Pulse 103 97 Resp 18 16 B/P (MAP) 167/74 (105) 167/74 Pulse Ox 94 94 O2 Delivery Room Air Room Air Room Air 05/04/18 05/04/18 05/05/18 05/05/18 21:37 23:29 03:26 03:30 Temp 98.9 99.8 98.9 99.8 Pulse 84 84 Resp 16 18 16 B/P (MAP) 142/59 (86) 143/65 (91) Pulse Ox 94 96 93 O2 Delivery Room Air Room Air Room Air Room Air 05/05/18 05/05/18 05/05/18 05/05/18 07:00 08:09 09:46 09:47 Temp 98.6 98.6 Pulse 82 82 Resp 18 2 B/P (MAP) 116/61 (79) 116/61 Pulse Ox 92 98 O2 Delivery Room Air Room Air Room Air 05/05/18 10:17 Resp 18 Pulse Ox 98 O2 Delivery Room Air Intake and Output 05/04/18 05/04/18 05/05/18 15:00 23:00 07:00 Intake Total 0 ml 200 ml 0 ml Output Total 850 ml 500 ml Balance 0 ml -650 ml -500 ml STEPH STANTON MD May 05, 2018 10:48
[2018-05-05 11:00] VITALS: BP 102/57
--- NOTE | 2018-05-05 12:41 | RAD ---
MR#: [id number] Date of Study: 05/05/2018 Ordering Physician: KARTIK CARDENAS, Referring Physician: OLGA LINARES Tech: KATE Carmona APPROVED REPORT Test Type: Pharmacological Stress Nurse/Tech: Lupe Banegas RN Test Indications: Chest pain Cardiac History: Hypertension,asthma,[place], Diabetes Medications: See Electronic Medical Record Medical History: See Electronic Medical Record Resting ECG: SR with BBB Resting Heart Rate: 83 bpm Resting Blood Pressure: 132/51mmHg Pretest Chest Pain: Atypical angina Nurse/Tech Notes S1,S2 and lungs are diminished slightly in bases. Consent: The procedure was explained to the patient in lay terms. Informed consent was witnessed. Mark eout was entered into [employer]. History and Stress Test performed by RT Barby (R) (N) Pharm. Details Pharmacologic stress testing was performed using 0.4mg per 5ml of regadenoson given intravenously ove r 7-10 seconds. Stress Symptoms Dyspnea,Nausea, increased chest pain Chest pain typical of angina occurred (Severity 8 , 2 min duration). POST EXERCISE Reason for Termination: Infusion complete Target HR: No Max HR: 104 bpm Max Blood Pressure: 123/46mmHg Blood Pressure response to exercise: Normal blood pressure response during stress. Heart Rate response to exercise: WNL Chest Pain: Yes. see note above Arrhythmia: No. ST Change: No. . INTERPRETATION Stress EKG Conclusion: No evidence of stress induced EKG changes Imaging Protocol IMAGE PROTOCOL: Rest Tc-99m/stress Tc-99m 1 day Rest: Stress: Viability: Radiopharm.Tc99m [id number] Sestamibi Dose11.5mCi 33mCi Duration 16min. 13min. Img Date 05/05/2018 05/05/2018 Inj-Img [id number]. 60min. Rest Admin Site:IV - Left AntecubitalAdministrator:RT Barby (R)(N) Stress Admin Site: IV - Left AntecubitalAdministrator: KATE Carmona STRESS DATA End Diast. Vol.57.0mlLVEDV index BSA33.0ml End Syst. Vol.6.0mlLVESV index BSA4.0ml Myocardial Qalv535.0gEject. Wkyawzvq19.0% Stress Scores Regional WT0.00Summed WT1.00 Regional WM0.00Summed WM0.00 The rest and stress images show normal perfusion, normal contraction and thickening. LV Perf. Quant 17 Seg. SSS0.00 17 Seg. SRS2.00 17 Seg. SDS0.00 Stress Defect Extent (% LAD)0.00Rest Defect Extent (% LAD)0.00Rev. Defect Extent (% LAD)0.00 Stress Defect Extent (% LCX) 0.00Rest Defect Extent (% LCX)27.50Rev. Defect Extent (% LCX)0.00 Stress Defect Extent (% RCA)0.00Rest Defect Extent (% RCA)0.00Rev. Defect Extent (% RCA)0.00 Stress Defect Extent (% JANY)0.00Rest Defect Extent (% JANY)5.40Rev. Defect Extent (% JANY)0.00 Other Information Quality:Good Risk Assessment: Low Risk Conclusion 1. No evidence of EKG changes with stress testing. 2. Normal perfusion at stress/rest. 3. Low risk study. 4. EF > 60%. Signed by : Daljit Griffin, Electronically Approved : 05/05/2018 12:41:12
[2018-05-05] MEDS ORDERED: INSULIN LISPRO 300 UNITS/3 ML INSULN.PEN. SQ ONE ×2 (12:45→14:00)
[2018-05-05 15:00] VITALS: BP 132/59
--- NOTE | 2018-05-05 15:10 | RAD ---
3 views left shoulder 05/05/2018 12:25 PM Indication: LT SHOULDER PAIN, NO KNOWN INJURY Comparison: None Findings: There is no acute fracture or dislocation. Articular surfaces are uninterrupted. Small calcification projects over the insertion of the supraspinatus on the humerus. Mild calcific tendinitis is not excluded. No other focal soft tissue abnormalities are identified. IMPRESSION: 1. No evidence of acute osseous abnormality 2. Small calcification projecting over the insertion of the supraspinatus on the humerus. Mild or early calcific tendinitis not excluded Electronically signed by: Binh Ram MD (05/05/2018 3:07 PM) [facility]
--- NOTE | 2018-05-05 15:35 | NUR ---
SS following up with referral regarding "please see pt regarding financial assistance with medications." SS met with pt and pt reported that she did not need help with medications because her [employer] insurance covered her medications. Pt reported that she sees a lot of specialists and cannot afford the co-pays for doctors appointments. SS recommended contacting specialists and arranging payment plan for bills. Pt requesting to meet with someone from the hospital for help applying for Medicaid. SS contacted Caridad Robles with [facility] and left message requesting that she meet with pt.
--- NOTE | 2018-05-05 19:06 | RAD ---
CT CHEST WO CONTRAST Indication: Severe left upper chest pain Technique: Noncontrast CT imaging was performed of the chest, multiplanar reconstruction images submitted. One or more of the following individualized dose reduction techniques were utilized for this examination: 1. Automated exposure control 2. Adjustment of the mA and/or kV according to patient size 3. Use of iterative reconstruction technique. Comparison: Chest radiograph May 03, [address] December 27, 2017 Findings: Not present on previous December 2017 exam, there is large focus of masslike density of the left lower lobe about 6.1 cm AP by 5.6 cm transverse by about 5.5 cm CC. There is small internal air bronchogram. There is adjacent atelectasis more anteriorly. There is no pleural or pericardial effusion or pneumothorax. Thoracic aortic caliber is within normal limits. There is borderline subcarinal node about 1 cm short axis dimension previously about 0.7 cm. There are other small mediastinal nodes. Right superior paratracheal node measures about 0.8 cm short axis dimension, previously 0.5 cm. Major airways are patent. There is multilevel thoracic spondylosis. IMPRESSION: 1. There is now a large area of somewhat masslike density left lower lobe although this is possibly due to more confluent in infiltrate. Assuming there are clinical symptoms of infection, short-term follow-up after treatment such as in 2 months is advised. If there are not clinical symptoms of infection, biopsy or PET/CT is recommended. There are mediastinal nodes not considered significantly enlarged although larger than previous December 2017 exam. Electronically signed by: Adelso Green MD (05/05/2018 7:04 PM) [facility]
[2018-05-05 19:51] VITALS: BP 161/93
[2018-05-05] MEDS: ATORVASTATIN CALCIUM 20 MG TABLET PO SCH (20:22)
[2018-05-05] MEDS: ENOXAPARIN 40 MG/0.4 ML SYRINGE. SQ SCH (20:23)
[2018-05-05] MEDS: INSULIN GLARGINE 300 UNITS/3 ML INSULN.PEN. SQ SCH (20:31)
[2018-05-05] MEDS ORDERED: PIP/TAZO PER PHARMACY MC PRN (21:00)
[2018-05-05] MEDS: PIPERACILLIN/TAZOBACTAM 3.375 GM in IV NORMAL SALINE 50ML 50 ML IV SCH (21:37)
[2018-05-05] MEDS: ACETAMINOPHEN 325 MG TABLET. PO PRN (21:38)
[2018-05-05 23:19] VITALS: BP 120/56
[2018-05-06 00:09] LABS: HEMOGLOBIN A1C 14.4 % (4.8-5.6)
[2018-05-06 03:46] VITALS: BP 145/64
[2018-05-06] MEDS: PIPERACILLIN/TAZOBACTAM 3.375 GM in IV NORMAL SALINE 50ML 50 ML IV SCH ×4 (06:13→23:49)
[2018-05-06] MEDS: ACETAMINOPHEN 325 MG TABLET. PO PRN (06:14)
[2018-05-06 07:28] LABS: BASO # 0.1 x10^3/uL (0.0-0.2); BASO % 1 % (0-3); EOS # 0.1 x10^3/uL (0.0-0.7); EOS % 2 % (0-3); HEMATOCRIT 36.7 % (36.0-47.0); HEMOGLOBIN 12.1 g/dL (12.0-15.5); LYMPH # 1.6 x10^3/uL (1.0-4.8); LYMPH % 17 % (24-48); MEAN CORPUSCULAR HEMOGLOBIN 28 pg (25-35); MEAN CORPUSCULAR HGB CONC 33 g/dL (31-37); MEAN CORPUSCULAR VOLUME 84 fL (79-100); MONO # 0.8 x10^3/uL (0.0-1.1); MONO % 9 % (0-9); NEUT # 6.5 x10^3uL (1.8-7.7); NEUT % 72 % (31-73); PLATELET COUNT 252 x10^3/uL (140-400); RED BLOOD COUNT 4.39 x10^6/uL (3.50-5.40); RED CELL DISTRIBUTION WIDTH 12.5 % (11.5-14.5); WHITE BLOOD COUNT 9.1 x10^3/uL (4.0-11.0)
[2018-05-06] MEDS: ONDANSETRON PF 4 MG/2 ML VIAL. IV PRN ×2 (07:42→20:37)
[2018-05-06 07:43] VITALS: BP 114/56
[2018-05-06] MEDS: MORPHINE SULFATE 4 MG/ML VIAL. IV PRN ×2 (07:43→20:39)
[2018-05-06 07:45] LABS: CALCIUM 8.2 mg/dL (8.5-10.1); CREATININE 1.5 mg/dL (0.6-1.0); GFR 35.5; POTASSIUM 4.1 mmol/L (3.5-5.1)
[2018-05-06] MEDS: METOPROLOL TART IMMED RELEASE 25 MG TABLET. PO SCH ×2 (08:35→20:37)
[2018-05-06] MEDS: ESTRADIOL 1 MG TABLET. PO SCH (08:35)
[2018-05-06] MEDS: GABAPENTIN 300 MG CAPSULE. PO SCH ×3 (08:35→20:36)
[2018-05-06] MEDS: hydroCHLOROthiazide 25 MG TABLET PO SCH ×2 (08:35→08:42)
[2018-05-06] MEDS: INSULIN LISPRO 300 UNITS/3 ML INSULN.PEN. SQ SCH ×4 (08:36→16:30)
--- NOTE | 2018-05-06 10:02 | PDOC ---
PROGRESS NOTES Chief Complaint Chief Complaint Chest pain, atypical. with risk factors including age Abnormal CT: masslike density of the L lower lobe, CXR L basilar infiltrate likely pneumonia, less likely malignancy Septic - tachycardic and Tmax of 102.5 Hyponatremia Hypertension; hyperlipidemia Diabetes, II; uncontrolled. Seizure hx H/o CVA Abdominal pain; followed by GI on an outpatient basis Neuropathy Moderately delayed gastric emptying Small calcification projecting over the insertion of the supraspinatus on the humerus. Mild or early calcific tendinitis not excluded History of Present Illness History of Present Illness Ms. Dacosta is a 57 yo female presented with chest pain, epigastric abdominal pain. She was seen and examined at bedside. Discussed case with RN. Patient being followed by Cards. Patient continues to complain of nausea, denies vomiting. Also complaining of epigastric and chest wall pain. Patient says she is not feeling well. Patient had fever of 102.5 overnight with elevated pulse, meets SIRS. Started on zosyn. Vitals Vitals Vital Signs Date Time Temp Pulse Resp B/P (MAP) Pulse Ox O2 Delivery O2 Flow Rate FiO2 05/06/18 08:35 91 114/56 05/06/18 08:13 20 05/06/18 08:00 Room Air 05/06/18 07:43 98.0 94 98.0 Physical Exam General: Alert, Oriented X3, Cooperative, mild distress Heart: Regular rate, Normal S1, No murmurs Lungs: Clear Abdomen: Normal bowel sounds, Soft, No tenderness Extremities: No clubbing, No cyanosis, No edema, Other (tender left upper chest / shoulder) Skin: No rashes, No significant lesion Labs LABS Laboratory Tests Test 05/05/18 11:55 05/05/18 12:38 05/05/18 13:44 05/05/18 14:27 Glucose (Fingerstick) 473 mg/dL (70-99) 478 mg/dL (70-99) 523 mg/dL (70-99) 450 mg/dL (70-99) Test 05/05/18 16:39 05/05/18 20:24 05/06/18 07:20 05/06/18 07:52 Glucose (Fingerstick) 269 mg/dL (70-99) 265 mg/dL (70-99) 334 mg/dL (70-99) White Blood Count 9.1 x10^3/uL (4.0-11.0) Red Blood Count 4.39 x10^6/uL (3.50-5.40) Hemoglobin 12.1 g/dL (12.0-15.5) Hematocrit 36.7 % (36.0-47.0) Mean Corpuscular Volume 84 fL (79-100) Mean Corpuscular Hemoglobin 28 pg (25-35) Mean Corpuscular Hemoglobin Concent 33 g/dL (31-37) Red Cell Distribution Width 12.5 % (11.5-14.5) Platelet Count 252 x10^3/uL (140-400) Neutrophils (%) (Auto) 72 % (31-73) Lymphocytes (%) (Auto) 17 % (24-48) Monocytes (%) (Auto) 9 % (0-9) Eosinophils (%) (Auto) 2 % (0-3) Basophils (%) (Auto) 1 % (0-3) Neutrophils # (Auto) 6.5 x10^3uL (1.8-7.7) Lymphocytes # (Auto) 1.6 x10^3/uL (1.0-4.8) Monocytes # (Auto) 0.8 x10^3/uL (0.0-1.1) Eosinophils # (Auto) 0.1 x10^3/uL (0.0-0.7) Basophils # (Auto) 0.1 x10^3/uL (0.0-0.2) Sodium Level 130 mmol/L (136-145) Potassium Level 4.1 mmol/L (3.5-5.1) Chloride Level 96 mmol/L (98-107) Carbon Dioxide Level 24 mmol/L (21-32) Anion Gap 10 (6-14) Blood Urea Nitrogen 18 mg/dL (7-20) Creatinine 1.5 mg/dL (0.6-1.0) Estimated GFR (Cockcroft-Gault) 35.5 Glucose Level 338 mg/dL (70-99) Calcium Level 8.2 mg/dL (8.5-10.1) Review of Systems Review of Systems Reports nausea Reports epigastric and L chest wall pain Denies vomiting Denies fevers/chills Assessment and Plan Assessmemt and Plan Problems Medical Problems: (1) Chest pain Status: Acute (2) Uncontrolled type II diabetes mellitus Status: Acute Assessment: Chest pain, atypical. with risk factors including age Abnormal CT: masslike density of the L lower lobe, CXR L basilar infiltrate likely pneumonia, less likely malignancy Septic - tachycardic and Tmax of 102.5 Hyponatremia Hypertension; hyperlipidemia Diabetes, II; uncontrolled. Seizure hx H/o CVA Abdominal pain; followed by GI on an outpatient basis Neuropathy Moderately delayed gastric emptying Small calcification projecting over the insertion of the supraspinatus on the humerus. Mild or early calcific tendinitis not excluded Plan Consulted pulmonary for masslike density of left lower lobe likely pneumonia, r/ o malignancy Consulted GI - continued abdominal pain and nausea Continue Zosyn Monitor vitals Review CBC and CMP in the am Started NS at 75mls/hr for hyponatremia (Na of 130) Comment Review of Relevant I have reviewed the following items cheko (where applicable) has been applied. Labs Laboratory Tests Test 05/04/18 10:50 05/04/18 16:28 05/04/18 20:12 05/05/18 08:05 Glucose (Fingerstick) 274 mg/dL (70-99) 327 mg/dL (70-99) 290 mg/dL (70-99) 283 mg/dL (70-99) Test 05/05/18 11:55 05/05/18 12:38 05/05/18 13:44 05/05/18 14:27 Glucose (Fingerstick) 473 mg/dL (70-99) 478 mg/dL (70-99) 523 mg/dL (70-99) 450 mg/dL (70-99) Test 05/05/18 16:39 05/05/18 20:24 05/06/18 07:20 05/06/18 07:52 Glucose (Fingerstick) 269 mg/dL (70-99) 265 mg/dL (70-99) 334 mg/dL (70-99) White Blood Count 9.1 x10^3/uL (4.0-11.0) Red Blood Count 4.39 x10^6/uL (3.50-5.40) Hemoglobin 12.1 g/dL (12.0-15.5) Hematocrit 36.7 % (36.0-47.0) Mean Corpuscular Volume 84 fL (79-100) Mean Corpuscular Hemoglobin 28 pg (25-35) Mean Corpuscular Hemoglobin Concent 33 g/dL (31-37) Red Cell Distribution Width 12.5 % (11.5-14.5) Platelet Count 252 x10^3/uL (140-400) Neutrophils (%) (Auto) 72 % (31-73) Lymphocytes (%) (Auto) 17 % (24-48) Monocytes (%) (Auto) 9 % (0-9) Eosinophils (%) (Auto) 2 % (0-3) Basophils (%) (Auto) 1 % (0-3) Neutrophils # (Auto) 6.5 x10^3uL (1.8-7.7) Lymphocytes # (Auto) 1.6 x10^3/uL (1.0-4.8) Monocytes # (Auto) 0.8 x10^3/uL (0.0-1.1) Eosinophils # (Auto) 0.1 x10^3/uL (0.0-0.7) Basophils # (Auto) 0.1 x10^3/uL (0.0-0.2) Sodium Level 130 mmol/L (136-145) Potassium Level 4.1 mmol/L (3.5-5.1) Chloride Level 96 mmol/L (98-107) Carbon Dioxide Level 24 mmol/L (21-32) Anion Gap 10 (6-14) Blood Urea Nitrogen 18 mg/dL (7-20) Creatinine 1.5 mg/dL (0.6-1.0) Estimated GFR (Cockcroft-Gault) 35.5 Glucose Level 338 mg/dL (70-99) Calcium Level 8.2 mg/dL (8.5-10.1) Laboratory Tests Test 05/05/18 11:55 05/05/18 12:38 05/05/18 13:44 05/05/18 14:27 Glucose (Fingerstick) 473 mg/dL (70-99) 478 mg/dL (70-99) 523 mg/dL (70-99) 450 mg/dL (70-99) Test 05/05/18 16:39 05/05/18 20:24 05/06/18 07:20 05/06/18 07:52 Glucose (Fingerstick) 269 mg/dL (70-99) 265 mg/dL (70-99) 334 mg/dL (70-99) White Blood Count 9.1 x10^3/uL (4.0-11.0) Red Blood Count 4.39 x10^6/uL (3.50-5.40) Hemoglobin 12.1 g/dL (12.0-15.5) Hematocrit 36.7 % (36.0-47.0) Mean Corpuscular Volume 84 fL (79-100) Mean Corpuscular Hemoglobin 28 pg (25-35) Mean Corpuscular Hemoglobin Concent 33 g/dL (31-37) Red Cell Distribution Width 12.5 % (11.5-14.5) Platelet Count 252 x10^3/uL (140-400) Neutrophils (%) (Auto) 72 % (31-73) Lymphocytes (%) (Auto) 17 % (24-48) Monocytes (%) (Auto) 9 % (0-9) Eosinophils (%) (Auto) 2 % (0-3) Basophils (%) (Auto) 1 % (0-3) Neutrophils # (Auto) 6.5 x10^3uL (1.8-7.7) Lymphocytes # (Auto) 1.6 x10^3/uL (1.0-4.8) Monocytes # (Auto) 0.8 x10^3/uL (0.0-1.1) Eosinophils # (Auto) 0.1 x10^3/uL (0.0-0.7) Basophils # (Auto) 0.1 x10^3/uL (0.0-0.2) Sodium Level 130 mmol/L (136-145) Potassium Level 4.1 mmol/L (3.5-5.1) Chloride Level 96 mmol/L (98-107) Carbon Dioxide Level 24 mmol/L (21-32) Anion Gap 10 (6-14) Blood Urea Nitrogen 18 mg/dL (7-20) Creatinine 1.5 mg/dL (0.6-1.0) Estimated GFR (Cockcroft-Gault) 35.5 Glucose Level 338 mg/dL (70-99) Calcium Level 8.2 mg/dL (8.5-10.1) Medications Current Medications Morphine Sulfate (Morphine Sulfate) 2 mg PRN Q15MIN PRN IV/SQ PAIN GREATER THAN 3/10 Last administered on 05/04/18at 01:16; Start 05/03/18 at 20:45; Stop at 07:30; Status DC Sodium Chloride 1,000 ml @ 1,000 mls/hr Q1H IV Last administered on 05/03/18at 21:09; Start 05/03/18 at 20:33; Stop 05/03/18 at 21:32; Status DC Ondansetron HCl (Zofran) 4 mg 1X ONCE IV Last administered on 05/03/18at 21:09 ; Start 05/03/18 at 20:45; Stop 05/03/18 at 20:46; Status DC Ondansetron HCl (Zofran) 4 mg PRN Q8HRS PRN IV NAUSEA/VOMITING; Start 05/04/18 at 00:30; Stop 05/05/18 at 00:29; Status DC Morphine Sulfate (Morphine Sulfate) 2 mg PRN Q2HR PRN IV PAIN Last administered on 05/04/18at 21:07; Start 05/04/18 at 00:30; Stop 05/05/18 at 00:29 ; Status DC Sodium Chloride 1,000 ml @ 125 mls/hr Q8H IV ; Start 05/04/18 at 00:30; Stop at 00:29; Status DC Nitroglycerin (Nitrostat) 0.4 mg PRN Q5MIN PRN SL CHEST PAIN; Start 05/04/18 at 00:30; Stop 05/05/18 at 00:29; Status DC Insulin Human Lispro (HumaLOG) 0-5 UNITS TIDWMEALS SQ Last administered on 05/04at 17:40; Start 05/04/18 at 08:00; Stop 05/04/18 at 22:34; Status DC Dextrose (Dextrose 50%-Water Syringe) 12.5 gm PRN Q15MIN PRN IV SEE COMMENTS; Start 05/04/18 at 00:30 Atorvastatin Calcium (Lipitor) 20 mg QHS PO Last administered on 05/05/18at 20: 22; Start 05/04/18 at 21:00 Aspirin (Mingo Aspirin) 325 mg PRN Q6HRS PRN PO PAIN; Start 05/04/18 at 16:30 Hydrochlorothiazide (Hydrodiuril) 25 mg DAILY PO ; Start 05/05/18 at 09:00 Metoprolol Tartrate (Lopressor) 25 mg BID PO Last administered on 05/06/18 08: 35; Start 05/04/18 at 21:00 Enoxaparin Sodium (Lovenox 40mg Syringe) 40 mg Q24H SQ Last administered on 20:23; Start 05/04/18 at 21:00 Insulin Human Lispro (HumaLOG) 0-5 UNITS TIDACHC SQ Last administered on 08:40; Start 05/05/18 at 07:30 Insulin Human Lispro (HumaLOG) 2 units 1X ONCE SQ Last administered on 23:47; Start 05/04/18 at 22:45; Stop 05/04/18 at 22:46; Status DC Estradiol (Estrace) 0.5 mg DAILY PO Last administered on 05/06/18 08:35; Start 05/05/18 at 09:00 Gabapentin (Neurontin) 600 mg TID PO Last administered on 05/06/18 08:35; Start 05/04/18 at 22:45 Insulin Glargine (Lantus) 10 units QHS SQ Last administered on 05/04/18 23:48 ; Start 05/04/18 at 23:30; Stop 05/05/18 at 16:12; Status DC Morphine Sulfate (Morphine Sulfate) 2 mg PRN Q2HR PRN IV PAIN Last administered on 05/06/18 07:43; Start 05/05/18 at 03:15 Ondansetron HCl (Zofran) 4 mg PRN Q6HRS PRN IV NAUSEA/VOMITING Last administered on 05/06/18 07:42; Start 05/05/18 at 03:45 Regadenoson (Lexiscan) 0.4 mg 1X ONCE IV Last administered on 05/05/18 07:45 ; Start 05/05/18 at 07:45; Stop 05/05/18 at 07:46; Status DC Insulin Human Lispro (HumaLOG) 9 units 1X ONCE SQ Last administered on at 12:53; Start 05/05/18 at 12:45; Stop 05/05/18 at 12:48; Status DC Insulin Human Lispro (HumaLOG) 10 units 1X ONCE SQ Last administered on at 13:53; Start 05/05/18 at 14:00; Stop 05/05/18 at 14:01; Status DC Insulin Glargine (Lantus) 18 units QHS SQ Last administered on 05/05/18at 20:31 ; Start 05/05/18 at 21:00 Acetaminophen (Tylenol) 650 mg PRN Q6HRS PRN PO MILD PAIN / TEMP Last administered on 05/06/18at 06:14; Start 05/05/18 at 21:00 Piperacillin Sod/ Tazobactam Sod (Zosyn Per Pharmacy) 1 each PRN DAILY PRN MC SEE COMMENTS; Start 05/05/18 at 21:00 Piperacillin Sod/ Tazobactam Sod 3.375 gm/Sodium Chloride 50 ml @ 100 mls/hr Q6HRS IV Last administered on 05/06/18at 06:13; Start 05/05/18 at 21:30 Active Scripts Active Reported Estradiol 0.5 Mg Tablet 1 Tab PO DAILY Humalog (Insulin Lispro) 100 Unit/1 Ml Insuln.pen Unknown Dose SQ TIDAC Levemir (Insulin Detemir) 100 Unit/1 Ml Vial 10 Units SQ HS Metoprolol Tartrate 25 Mg Tablet 25 Mg PO BID Hydrochlorothiazide Tablet (Hydrochlorothiazide) 25 Mg Tablet 1 Tab PO DAILY Aspirin 325 Mg Tablet 325 Tab PO PRN Q6HRS PRN Gabapentin 600 Mg Tablet 1 Tab PO TID Vitals/I & O Vital Sign - Last 24 Hours 05/05/18 05/05/18 05/05/18 05/05/18 11:00 14:55 15:00 15:25 Temp 98.7 97.8 98.7 97.8 Pulse 89 82 Resp 18 20 18 B/P (MAP) 102/57 (72) 132/59 (83) Pulse Ox 97 95 98 O2 Delivery Room Air Room Air Room Air Room Air 05/05/18 05/05/18 05/05/18 05/05/18 19:51 20:22 20:54 23:19 Temp 102.5 99.5 102.5 99.5 Pulse 98 98 86 Resp 20 18 B/P (MAP) 161/93 (115) 161/93 120/56 (77) Pulse Ox 95 93 O2 Delivery Room Air Room Air Room Air 05/06/18 05/06/18 05/06/18 05/06/18 03:46 07:43 07:43 08:00 Temp 99.1 98.0 99.1 98.0 Pulse 86 91 Resp 18 20 20 B/P (MAP) 145/64 (91) 114/56 (75) Pulse Ox 92 94 O2 Delivery Room Air Room Air Room Air 05/06/18 05/06/18 08:13 08:35 Pulse 91 Resp 20 B/P (MAP) 114/56 Intake and Output 05/05/18 05/05/18 05/06/18 15:00 23:00 07:00 Intake Total 440 ml Output Total 375 ml 125 ml Balance -375 ml 315 ml SHARI RITCHIE III DO May 06, 2018 10:02
[2018-05-06] MEDS: IV NORMAL SALINE 1000ML BAG 1,000 ML IV SCH (10:06)
[2018-05-06 11:00] VITALS: BP 117/56
--- NOTE | 2018-05-06 12:12 | RAD ---
CT Abdomen and Pelvis without contrast History: Abdominal pain, weight loss Technique: Noncontrast CT imaging was performed of the abdomen and pelvis. Multiplanar images are reviewed. Exposure: One or more of the following individualized dose reduction techniques were utilized for this examination: 1. Automated exposure control 2. Adjustment of the mA and/or kV according to patient size 3. Use of iterative reconstruction technique. Comparison: CT pelvis August 01, 2016 Findings: There is abnormal prominent left lower lobe density as seen on recent chest CTA. Evaluation of abdominal visceral organs is limited without intravenous contrast, no obvious focal abnormality of the liver, spleen, pancreas. There is hepatic steatosis. Gallbladder is present without obvious intraluminal abnormality by CT. There is no adrenal nodularity. There is no renal or ureteral calculus or hydronephrosis. Evaluation of bowel is limited without oral contrast, no bowel dilatation, free air, free fluid. There apparently has been appendectomy. There is retained stool variably in the colon. No significantly enlarged nodes are identified. There is no significant inflammatory type change localized about the bowel. Impression: 1. There is no significant localized inflammatory change. There is retained stool variably in the colon. 2. As seen recent chest CT, there is large focus of abnormal density of the left lower lobe of the lung. 3. There is hepatic steatosis. Electronically signed by: Adelso Green MD (05/06/2018 12:09 PM) [facility]
--- NOTE | 2018-05-06 12:24 | CONS ---
DATE OF CONSULTATION: ATTENDING PHYSICIAN: Dr. Cárdenas. REASON FOR CONSULTATION: Abnormal CT chest. HISTORY OF PRESENT ILLNESS: The patient is a 57-year-old who presented to the hospital with complaint of epigastric pain, lower left quadrant pain and also left lower chest wall pain and back pain. These symptoms have been going on for about a week. She has a mild cough with pink sputum production. The patient has some nausea as well. Last night, she was noted to have a fever of 102.5. The patient underwent CAT scan of the chest, which was reviewed by me and I have also compared the previous one from 12/2017. The patient has a large mass-like consolidation in the left lower lobe. There is a mild reactive adenopathy in the right paratracheal area. Previous CAT scan in December did not show any such abnormality in the left lower lobe. Apparently, she has lost about 20 pounds in the last few months. PAST MEDICAL HISTORY: History of AFib, history of depression, type 2 diabetes, hypertension, TN, seizure, TIA, body spasms, irregular heartbeat, neuropathy, measles. PAST SURGICAL HISTORY: Appendectomy, cholecystectomy, , hysterectomy, and abdominal surgeries. ALLERGIES: LEVAQUIN AND LIDOCAINE. REVIEW OF SYSTEMS: Twelve-point system obtained. Pertinent positives discussed in my history of present illness, otherwise noncontributory. All systems that were negative were reviewed as well. MEDICATIONS: All reviewed as listed in the MRAD including antibiotic, Zosyn. SOCIAL HISTORY: Denies significant tobacco history. PHYSICAL EXAMINATION: VITAL SIGNS: On examination, T-max was 102.5, blood pressure on the high side, pulse ox 91% on room air. HEENT: Sclerae nonicteric. NECK: Supple. LUNGS: Diminished breath sounds. CARDIOVASCULAR: Regular rate and rhythm. ABDOMEN: Soft, mildly tender in the epigastric and left lower quadrant area and left lower chest area. EXTREMITIES: With no pitting edema. LABORATORY DATA: Reviewed. White cell count 9.1, hemoglobin 12.1 and platelets are 252. BUN and creatinine 18 and 1.5. IMPRESSION: 1. Abnormal CT chest with mass-like consolidation in the left lower lobe in a patient who has a fever of 102.5. This is likely infectious/inflammatory etiology rather than a true mass. The patient's December CT chest from 2017 did not show any abnormality in that area. 2. Gastrointestinal symptoms with epigastric and left lower quadrant abdominal pain along with 20-pound weight loss in the last 2 months. The patient states she had polyps removed by Dr. Hall previously and was due to have another colonoscopy. Her previous mammogram was negative per the patient's history. She needs to rule out for any gastrointestinal malignancy and a CT abdomen and pelvis would be recommended. 3. No significant history of tobacco use. RECOMMENDATIONS: 1. Follow blood cultures. 2. Continue Zosyn for now. 3. Abdominal and pelvis CAT scan. 4. Monitor chest x-rays closely to see an improvement in the left lower lobe consolidation. She may need a repeat CT chest in 4-6 weeks and if the abnormality persists, then we will consider ct guided biopsy or bronchoscopy. 5. GI consult and recommendation. 6. Discussed with RN. We will follow along with you. BHUMIKA IBARRA MD DR: REBECA/bandar JOB#: [id number] / [id number] EMILY
[2018-05-06] MEDS: LACTOBACILLUS RHAMNOSUS GG 1 CAPSULE. PO SCH ×2 (12:31→20:36)
--- NOTE | 2018-05-06 13:55 | PDOC2 ---
CONSULT Date of Consult Date of Consult DATE: 05/06/18 TIME: 13:53 Reason for Consult Reason for Consult: Epigastric abdominal pain Past Medical History Cardiovascular: CAD, CHF, HTN Pulmonary: Asthma, Pneumonia CENTRAL NERVOUS SYSTEM: CVA, Periperal neuropathy, Seizure, Other GI: Constipation, Diverticulosis, Other Heme/Onc: No pertinent hx Hepatobiliary: No pertinent hx Psych: Anxiety, Depression Musculoskeletal: low back pain, Osteoarthritis Rheumatologic: No pertinent hx Infectious disease: No pertinent hx Renal/: Chronic renal insuff Endocrine: Diabetes Past Surgical History Past Surgical History: Appendectomy, Cataract Removal, , Hysterectomy , Other Family History Family History: Coronary Artery Disease, Heart Disease Social History No ALCOHOL: none Drugs: None Lives: with Family Current Problem List Problem List Problems Medical Problems: (1) Chest pain Status: Acute (2) Uncontrolled type II diabetes mellitus Status: Acute Current Medications Current Medications Current Medications Morphine Sulfate (Morphine Sulfate) 2 mg PRN Q15MIN PRN IV/SQ PAIN GREATER THAN 3/10 Last administered on 05/04/18at 01:16; Start 05/03/18 at 20:45; Stop at 07:30; Status DC Sodium Chloride 1,000 ml @ 1,000 mls/hr Q1H IV Last administered on 05/03/18at 21:09; Start 05/03/18 at 20:33; Stop 05/03/18 at 21:32; Status DC Ondansetron HCl (Zofran) 4 mg 1X ONCE IV Last administered on 05/03/18at 21:09 ; Start 05/03/18 at 20:45; Stop 05/03/18 at 20:46; Status DC Ondansetron HCl (Zofran) 4 mg PRN Q8HRS PRN IV NAUSEA/VOMITING; Start 05/04/18 at 00:30; Stop 05/05/18 at 00:29; Status DC Morphine Sulfate (Morphine Sulfate) 2 mg PRN Q2HR PRN IV PAIN Last administered on 05/04/18at 21:07; Start 05/04/18 at 00:30; Stop 05/05/18 at 00:29 ; Status DC Sodium Chloride 1,000 ml @ 125 mls/hr Q8H IV ; Start 05/04/18 at 00:30; Stop at 00:29; Status DC Nitroglycerin (Nitrostat) 0.4 mg PRN Q5MIN PRN SL CHEST PAIN; Start 05/04/18 at 00:30; Stop 05/05/18 at 00:29; Status DC Insulin Human Lispro (HumaLOG) 0-5 UNITS TIDWMEALS SQ Last administered on 05/04at 17:40; Start 05/04/18 at 08:00; Stop 05/04/18 at 22:34; Status DC Dextrose (Dextrose 50%-Water Syringe) 12.5 gm PRN Q15MIN PRN IV SEE COMMENTS; Start 05/04/18 at 00:30 Atorvastatin Calcium (Lipitor) 20 mg QHS PO Last administered on 05/05/18 20: 22; Start 05/04/18 at 21:00 Aspirin (Mingo Aspirin) 325 mg PRN Q6HRS PRN PO PAIN; Start 05/04/18 at 16:30 Hydrochlorothiazide (Hydrodiuril) 25 mg DAILY PO ; Start 05/05/18 at 09:00 Metoprolol Tartrate (Lopressor) 25 mg BID PO Last administered on 05/06/18at 08: 35; Start 05/04/18 at 21:00 Enoxaparin Sodium (Lovenox 40mg Syringe) 40 mg Q24H SQ Last administered on at 20:23; Start 05/04/18 at 21:00 Insulin Human Lispro (HumaLOG) 0-5 UNITS TIDACHC SQ Last administered on at 12:22; Start 05/05/18 at 07:30 Insulin Human Lispro (HumaLOG) 2 units 1X ONCE SQ Last administered on at 23:47; Start 05/04/18 at 22:45; Stop 05/04/18 at 22:46; Status DC Estradiol (Estrace) 0.5 mg DAILY PO Last administered on 05/06/18 08:35; Start 05/05/18 at 09:00 Gabapentin (Neurontin) 600 mg TID PO Last administered on 05/06/18 08:35; Start 05/04/18 at 22:45 Insulin Glargine (Lantus) 10 units QHS SQ Last administered on 05/04/18at 23:48 ; Start 05/04/18 at 23:30; Stop 05/05/18 at 16:12; Status DC Morphine Sulfate (Morphine Sulfate) 2 mg PRN Q2HR PRN IV PAIN Last administered on 05/06/18 07:43; Start 05/05/18 at 03:15 Ondansetron HCl (Zofran) 4 mg PRN Q6HRS PRN IV NAUSEA/VOMITING Last administered on 05/06/18 07:42; Start 05/05/18 at 03:45 Regadenoson (Lexiscan) 0.4 mg 1X ONCE IV Last administered on 05/05/18at 07:45 ; Start 05/05/18 at 07:45; Stop 05/05/18 at 07:46; Status DC Insulin Human Lispro (HumaLOG) 9 units 1X ONCE SQ Last administered on at 12:53; Start 05/05/18 at 12:45; Stop 05/05/18 at 12:48; Status DC Insulin Human Lispro (HumaLOG) 10 units 1X ONCE SQ Last administered on at 13:53; Start 05/05/18 at 14:00; Stop 05/05/18 at 14:01; Status DC Insulin Glargine (Lantus) 18 units QHS SQ Last administered on 05/05/18 20:31 ; Start 05/05/18 at 21:00 Acetaminophen (Tylenol) 650 mg PRN Q6HRS PRN PO MILD PAIN / TEMP Last administered on 05/06/18 06:14; Start 05/05/18 at 21:00 Piperacillin Sod/ Tazobactam Sod (Zosyn Per Pharmacy) 1 each PRN DAILY PRN MC SEE COMMENTS; Start 05/05/18 at 21:00 Piperacillin Sod/ Tazobactam Sod 3.375 gm/Sodium Chloride 50 ml @ 100 mls/hr Q6HRS IV Last administered on 05/06/18at 12:21; Start 05/05/18 at 21:30 Sodium Chloride 1,000 ml @ 75 mls/hr [id number] IV Last administered on at 10:06; Start 05/06/18 at 10:00 Lactobacillus Rhamnosus (Culturelle) 1 cap BID PO Last administered on 12:31; Start 05/06/18 at 13:00 Active Scripts Active Reported Estradiol 0.5 Mg Tablet 1 Tab PO DAILY Humalog (Insulin Lispro) 100 Unit/1 Ml Insuln.pen Unknown Dose SQ TIDAC Levemir (Insulin Detemir) 100 Unit/1 Ml Vial 10 Units SQ HS Metoprolol Tartrate 25 Mg Tablet 25 Mg PO BID Hydrochlorothiazide Tablet (Hydrochlorothiazide) 25 Mg Tablet 1 Tab PO DAILY Aspirin 325 Mg Tablet 325 Tab PO PRN Q6HRS PRN Gabapentin 600 Mg Tablet 1 Tab PO TID Allergies Allergies: Coded Allergies: levofloxacin (Verified Allergy, Severe, SEIZURES, 12/30/17) lidocaine (Verified Allergy, Severe, Swelling, 12/30/17) Vitals VITALS Vital Signs Date Time Temp Pulse Resp B/P (MAP) Pulse Ox O2 Delivery O2 Flow Rate FiO2 05/06/18 11:00 97.6 74 18 117/56 (76) 93 Room Air 97.6 Labs Labs Laboratory Tests Test 05/04/18 16:28 05/04/18 20:12 05/05/18 08:05 05/05/18 11:55 Glucose (Fingerstick) 327 mg/dL (70-99) 290 mg/dL (70-99) 283 mg/dL (70-99) 473 mg/dL (70-99) Test 05/05/18 12:38 05/05/18 13:44 05/05/18 14:27 05/05/18 16:39 Glucose (Fingerstick) 478 mg/dL (70-99) 523 mg/dL (70-99) 450 mg/dL (70-99) 269 mg/dL (70-99) Test 05/05/18 20:24 05/06/18 07:20 05/06/18 07:52 05/06/18 11:37 Glucose (Fingerstick) 265 mg/dL (70-99) 334 mg/dL (70-99) 311 mg/dL (70-99) White Blood Count 9.1 x10^3/uL (4.0-11.0) Red Blood Count 4.39 x10^6/uL (3.50-5.40) Hemoglobin 12.1 g/dL (12.0-15.5) Hematocrit 36.7 % (36.0-47.0) Mean Corpuscular Volume 84 fL (79-100) Mean Corpuscular Hemoglobin 28 pg (25-35) Mean Corpuscular Hemoglobin Concent 33 g/dL (31-37) Red Cell Distribution Width 12.5 % (11.5-14.5) Platelet Count 252 x10^3/uL (140-400) Neutrophils (%) (Auto) 72 % (31-73) Lymphocytes (%) (Auto) 17 % (24-48) Monocytes (%) (Auto) 9 % (0-9) Eosinophils (%) (Auto) 2 % (0-3) Basophils (%) (Auto) 1 % (0-3) Neutrophils # (Auto) 6.5 x10^3uL (1.8-7.7) Lymphocytes # (Auto) 1.6 x10^3/uL (1.0-4.8) Monocytes # (Auto) 0.8 x10^3/uL (0.0-1.1) Eosinophils # (Auto) 0.1 x10^3/uL (0.0-0.7) Basophils # (Auto) 0.1 x10^3/uL (0.0-0.2) Sodium Level 130 mmol/L (136-145) Potassium Level 4.1 mmol/L (3.5-5.1) Chloride Level 96 mmol/L (98-107) Carbon Dioxide Level 24 mmol/L (21-32) Anion Gap 10 (6-14) Blood Urea Nitrogen 18 mg/dL (7-20) Creatinine 1.5 mg/dL (0.6-1.0) Estimated GFR (Cockcroft-Gault) 35.5 Glucose Level 338 mg/dL (70-99) Calcium Level 8.2 mg/dL (8.5-10.1) Laboratory Tests Test 05/05/18 14:27 05/05/18 16:39 05/05/18 20:24 05/06/18 07:20 Glucose (Fingerstick) 450 mg/dL (70-99) 269 mg/dL (70-99) 265 mg/dL (70-99) White Blood Count 9.1 x10^3/uL (4.0-11.0) Red Blood Count 4.39 x10^6/uL (3.50-5.40) Hemoglobin 12.1 g/dL (12.0-15.5) Hematocrit 36.7 % (36.0-47.0) Mean Corpuscular Volume 84 fL (79-100) Mean Corpuscular Hemoglobin 28 pg (25-35) Mean Corpuscular Hemoglobin Concent 33 g/dL (31-37) Red Cell Distribution Width 12.5 % (11.5-14.5) Platelet Count 252 x10^3/uL (140-400) Neutrophils (%) (Auto) 72 % (31-73) Lymphocytes (%) (Auto) 17 % (24-48) Monocytes (%) (Auto) 9 % (0-9) Eosinophils (%) (Auto) 2 % (0-3) Basophils (%) (Auto) 1 % (0-3) Neutrophils # (Auto) 6.5 x10^3uL (1.8-7.7) Lymphocytes # (Auto) 1.6 x10^3/uL (1.0-4.8) Monocytes # (Auto) 0.8 x10^3/uL (0.0-1.1) Eosinophils # (Auto) 0.1 x10^3/uL (0.0-0.7) Basophils # (Auto) 0.1 x10^3/uL (0.0-0.2) Sodium Level 130 mmol/L (136-145) Potassium Level 4.1 mmol/L (3.5-5.1) Chloride Level 96 mmol/L (98-107) Carbon Dioxide Level 24 mmol/L (21-32) Anion Gap 10 (6-14) Blood Urea Nitrogen 18 mg/dL (7-20) Creatinine 1.5 mg/dL (0.6-1.0) Estimated GFR (Cockcroft-Gault) 35.5 Glucose Level 338 mg/dL (70-99) Calcium Level 8.2 mg/dL (8.5-10.1) Test 05/06/18 07:52 05/06/18 11:37 Glucose (Fingerstick) 334 mg/dL (70-99) 311 mg/dL (70-99) Assessment/Plan Assessment/Plan Epigastric abdominal pain- with NSAID use, long standing DM, and N/V. Most likely multifactorial in etiology. Aspirin induced PUD, GB disease, pneumonia, and/or malignancy in differenital Plan Protonix 40 mg daily Hepatobiliary imaging to further assess EGD if above unhelpful to further assess Full note dictated RANI WEBBER MD May 06, 2018 13:55
[2018-05-06 15:00] VITALS: BP 124/58
[2018-05-06] MEDS: PANTOPRAZOLE 40 MG TABLET.DR. PO SCH (15:58)
[2018-05-06] MEDS ORDERED: INSULIN LISPRO 300 UNITS/3 ML INSULN.PEN. SQ ONE (17:15)
[2018-05-06] MEDS ORDERED: DEXTROSE 50% 25 GM / 50ML DISP.SYRIN. IV PRN (17:15)
--- NOTE | 2018-05-06 17:31 | NUR ---
Insulin orders received from Dr. Faust.
[2018-05-06 19:08] VITALS: BP 128/77
[2018-05-06] MEDS: ATORVASTATIN CALCIUM 20 MG TABLET PO SCH (20:36)
[2018-05-06] MEDS: ENOXAPARIN 40 MG/0.4 ML SYRINGE. SQ SCH (20:37)
[2018-05-06] MEDS: INSULIN GLARGINE 300 UNITS/3 ML INSULN.PEN. SQ SCH (20:44)
--- NOTE | 2018-05-06 20:56 | CONS ---
DATE OF CONSULTATION: 05/06/2018 ATTENDING PHYSICIAN: Dr. Cárdenas. The patient was seen at the request of Dr. Goetz for rehab evaluation. HISTORY OF PRESENT ILLNESS: This is a 57-year-old female known to me. The patient with known hypertension, diabetes mellitus, anxiety, psychogenic seizures, coronary artery disease, atrial fibrillation, frequent falls, diabetic neuropathy, prior cerebrovascular accident admitted on 05/04/2018 with chest discomfort. The patient is being treated as having atypical chest pain. The patient complains of left shoulder pain with radiation to left upper extremity. She denies any significant neck pain. PAST MEDICAL HISTORY: Significant for asthmatic bronchitis, pneumonia, chronic constipation, diverticulosis, depression, back pain, osteoarthritis, herpes zoster skin lesions, status post appendectomy, cataract surgery, and hysterectomy. ALLERGIES: KNOWN ALLERGIC TO LEVOFLOXACIN AND LIDOCAINE. The patient had left shoulder x-ray, which failed to reveal any acute abnormalities. The patient had left shoulder joint injected with Depo-Medrol by Radiology during her last hospitalization in December with some easing of the pain for about 2 months. The patient is hesitant to have the injection done without anesthesia, she had it done last time. At that time, she was having endoscopy. PHYSICAL EXAMINATION: Today revealed a middle-aged female. She is alert, oriented to time, place, person and circumstance and follows commands appropriately. She is protecting her left upper extremity. The patient had obvious muscle atrophy involving left upper extremity muscles. The patient had no significant pain on range of motion of her cervical spine. She had tenderness to palpation over left shoulder anterior aspect and also over left posterior shoulder girdle muscles. She had painful limited movements of left shoulder. The patient had relative weakness of left shoulder girdle muscles and also other left upper extremity muscles as she is protecting her left shoulder. She even had muscle atrophy involving left upper extremity muscle groups. She had equal perception of touch and pinprick sensation bilaterally. Deep tendon reflexes are decreased overall. She is independent with bed mobility, transfers and up walking without any loss of balance. ASSESSMENT: A middle-aged female, with diabetes mellitus with peripheral neuropathy, coronary artery disease, congestive heart failure, hypertension, asthmatic bronchitis, old cerebrovascular accident or transient ischemic attack without any residuals, presents with painful left shoulder from tendinitis with associated adhesive capsulitis of left shoulder and also left posterior shoulder girdle muscle strain to rule out associated left rotator cuff lesion. She apparently had right shoulder rotator cuff lesion in the past, which healed without any surgery. RECOMMENDATIONS: I have again reviewed with her a home program of physical modalities, trigger point massage and relax stretching exercise to her left shoulder girdle muscles and Codman's exercise to her left shoulder, to proceed with asking Radiology to inject her left shoulder again with Depo-Medrol as she is allergic to LIDOCAINE and somewhat hesitant about me doing the injection at bedside, to obtain MRI scan of her left shoulder while in the hospital or on an outpatient basis to rule out any rotator cuff lesion. She had gone through physical therapy and occupational therapy in the past. I do not see any need for any therapy working with her at present time. Dr. Goetz, I appreciate asking me to participate in the care of this interesting patient. I will be glad to follow her with you as needed for her rehabilitation. She can be discharged to home when medically stable to be followed on outpatient basis, even arthrocentesis of left shoulder can be done on an outpatient basis. VANNA HIGGINBOTHAM MD DR: ALESHA/bandar JOB#: [id number] / [id number]
--- NOTE | 2018-05-06 21:28 | NUR ---
While administering pt medication, this RN observed pt having jerky movements for approximately a few seconds. Then pt verbalized that her blood sugar was low, in which was 310. Dr Faust notified, order given to consult dr Ledesma and if pt has full blown seizure give ativan 2mg prn. Call light in place, will cont to monitor pt. pmrn
[2018-05-06 22:32] VITALS: BP 121/57
[2018-05-06] MEDS ORDERED: MORPHINE SULFATE 2 MG/ML VIAL. IV PRN (23:30)
--- NOTE | 2018-05-07 00:02 | CONS ---
DATE OF CONSULTATION: 05/06/2018 REFERRING PHYSICIAN: Dr. Cárdenas. REASON FOR CONSULTATION: Abdominal pain. HISTORY OF PRESENT ILLNESS: A 57-year-old female, whose past medical history is significant for longstanding diabetes mellitus, hypertension, organic heart disease, status post [place], AFib, history of TIA, history of , appendectomy and hysterectomy, is admitted to [facility] with upper abdominal pain in the epigastric region, which radiates to the left chest as well as to the right upper quadrant. The patient states that she has avoided fatty and greasy and spicy foods, and approximately 2 days previously, she has been taking multiple aspirin daily in order to control the pain. With continued issues, she has come to the hospital and has been admitted for further evaluation and care. No melena, hematochezia, dysphagia, odynophagia, significant heartburn are encountered, and she otherwise is presently feeling better, is tolerating p.o. PAST MEDICAL HISTORY: Diabetes, hypertension, organic heart disease, status post [place], status post CVA, AFib, status post appendectomy, and hysterectomy. MEDICATIONS: Presently include piperacillin, insulin, hydrochlorothiazide, morphine, gabapentin, metoprolol, atorvastatin, aspirin and Protonix. SOCIAL HISTORY: She is a nondrinker, nonsmoker at this time. FAMILY HISTORY: Noncontributory. REVIEW OF SYSTEMS: Per records. PHYSICAL EXAMINATION: GENERAL: Reveals a well-nourished, well-developed female. VITAL SIGNS: Temperature is 97.6, pulse 74, respiratory rate 18. HEENT: Normocephalic and atraumatic head. Pupils and extraocular muscles are not tested. Sclerae anicteric. NECK: Supple. LUNGS: Clear. CARDIOVASCULAR: Reveals S1, S2 without S3, S4 or appreciable murmur. ABDOMEN: Reveals soft abdomen, normal bowel sounds without appreciable hepatosplenomegaly. There is mild epigastric tenderness to deep palpation. EXTREMITIES: Reveals no cyanosis, clubbing or edema. LABORATORY STUDIES: Sodium 130, potassium 4.1, chloride 96, BUN 18, creatinine 1.5, glucose 338, calcium is 8.2. Total bilirubin is 0.7, alkaline phosphatase is 80, ALT is 16, AST is 15. CT scan of the chest reveals a left lower lobe infiltrate/mass. The patient has hepatic steatosis. No free air, previous appendectomy. IMPRESSION: Abdominal pain with aspirin use, longstanding diabetes. Differential includes peptic ulcer disease secondary to aspirin, gastroparesis, gallbladder disease and/or malignancy. We will therefore recommend Protonix therapy, hepatobiliary imaging. The patient still is an inpatient and colonoscopy will be pursued as an outpatient upper endoscopy if above are unhelpful. I would like to thank Dr. Cárdenas for allowing Dr. Santos and myself to participate in this patient's care. RANI WEBBER MD DR: DASIA/bandar JOB#: [id number] / [id number] SHARI Brunson DO
[2018-05-07 03:32] VITALS: BP 138/63
[2018-05-07] MEDS: IV NORMAL SALINE 1000ML BAG 1,000 ML IV SCH ×3 (03:50→22:31)
[2018-05-07] MEDS: ACETAMINOPHEN 325 MG TABLET. PO PRN ×2 (04:56→11:24)
[2018-05-07 05:16] LABS: BASO # 0.1 x10^3/uL (0.0-0.2); BASO % 1 % (0-3); EOS # 0.1 x10^3/uL (0.0-0.7); EOS % 2 % (0-3); HEMATOCRIT 32.9 % (36.0-47.0); HEMOGLOBIN 11.3 g/dL (12.0-15.5); LYMPH # 1.6 x10^3/uL (1.0-4.8); LYMPH % 25 % (24-48); MEAN CORPUSCULAR HEMOGLOBIN 29 pg (25-35); MEAN CORPUSCULAR HGB CONC 34 g/dL (31-37); MEAN CORPUSCULAR VOLUME 84 fL (79-100); MONO # 0.6 x10^3/uL (0.0-1.1); MONO % 8 % (0-9); NEUT # 4.3 x10^3uL (1.8-7.7); NEUT % 65 % (31-73); PLATELET COUNT 268 x10^3/uL (140-400); RED BLOOD COUNT 3.95 x10^6/uL (3.50-5.40); RED CELL DISTRIBUTION WIDTH 12.6 % (11.5-14.5); WHITE BLOOD COUNT 6.6 x10^3/uL (4.0-11.0)
[2018-05-07] MEDS: PIPERACILLIN/TAZOBACTAM 3.375 GM in IV NORMAL SALINE 50ML 50 ML IV SCH ×4 (05:32→23:47)
[2018-05-07 05:42] LABS: ALBUMIN/GLOBULIN RATIO 0.5 (1.0-1.7); CALCIUM 8.3 mg/dL (8.5-10.1); CREATININE 2.6 mg/dL (0.6-1.0); GFR 18.8; POTASSIUM 3.9 mmol/L (3.5-5.1); TOTAL BILIRUBIN 0.3 mg/dL (0.2-1.0); TOTAL PROTEIN 6.2 g/dL (6.4-8.2)
[2018-05-07 07:00] VITALS: BP 142/63
[2018-05-07] MEDS: hydroCHLOROthiazide 25 MG TABLET PO SCH (08:46)
[2018-05-07] MEDS: LACTOBACILLUS RHAMNOSUS GG 1 CAPSULE. PO SCH ×2 (08:47→22:20)
[2018-05-07] MEDS: METOPROLOL TART IMMED RELEASE 25 MG TABLET. PO SCH ×2 (08:47→22:22)
[2018-05-07] MEDS: ESTRADIOL 1 MG TABLET. PO SCH (08:47)
[2018-05-07] MEDS: GABAPENTIN 300 MG CAPSULE. PO SCH ×3 (08:47→22:20)
[2018-05-07] MEDS: PANTOPRAZOLE 40 MG TABLET.DR. PO SCH (08:47)
[2018-05-07] MEDS: INSULIN LISPRO 300 UNITS/3 ML INSULN.PEN. SQ SCH ×4 (08:49→17:17)
--- NOTE | 2018-05-07 10:30 | PDOC ---
PULMONARY PROGRESS NOTES Subjective has a mild cough Vitals Vital Signs Date Time Temp Pulse Resp B/P (MAP) Pulse Ox O2 Delivery O2 Flow Rate FiO2 05/07/18 08:47 71 142/63 05/07/18 08:00 Nasal Cannula 2.0 05/07/18 07:00 97.5 16 94 97.5 General: Alert, No acute distress Lungs: Other (decrease left base) Cardiovascular: S1, S2 Abdomen: Soft Neuro Exam: Alert Extremities: No Edema Skin: Warm Labs Laboratory Tests Test 05/05/18 11:55 05/05/18 12:38 05/05/18 13:44 05/05/18 14:27 Glucose (Fingerstick) 473 mg/dL (70-99) 478 mg/dL (70-99) 523 mg/dL (70-99) 450 mg/dL (70-99) Test 05/05/18 16:39 05/05/18 20:24 05/06/18 07:20 05/06/18 07:52 Glucose (Fingerstick) 269 mg/dL (70-99) 265 mg/dL (70-99) 334 mg/dL (70-99) White Blood Count 9.1 x10^3/uL (4.0-11.0) Red Blood Count 4.39 x10^6/uL (3.50-5.40) Hemoglobin 12.1 g/dL (12.0-15.5) Hematocrit 36.7 % (36.0-47.0) Mean Corpuscular Volume 84 fL (79-100) Mean Corpuscular Hemoglobin 28 pg (25-35) Mean Corpuscular Hemoglobin Concent 33 g/dL (31-37) Red Cell Distribution Width 12.5 % (11.5-14.5) Platelet Count 252 x10^3/uL (140-400) Neutrophils (%) (Auto) 72 % (31-73) Lymphocytes (%) (Auto) 17 % (24-48) Monocytes (%) (Auto) 9 % (0-9) Eosinophils (%) (Auto) 2 % (0-3) Basophils (%) (Auto) 1 % (0-3) Neutrophils # (Auto) 6.5 x10^3uL (1.8-7.7) Lymphocytes # (Auto) 1.6 x10^3/uL (1.0-4.8) Monocytes # (Auto) 0.8 x10^3/uL (0.0-1.1) Eosinophils # (Auto) 0.1 x10^3/uL (0.0-0.7) Basophils # (Auto) 0.1 x10^3/uL (0.0-0.2) Sodium Level 130 mmol/L (136-145) Potassium Level 4.1 mmol/L (3.5-5.1) Chloride Level 96 mmol/L (98-107) Carbon Dioxide Level 24 mmol/L (21-32) Anion Gap 10 (6-14) Blood Urea Nitrogen 18 mg/dL (7-20) Creatinine 1.5 mg/dL (0.6-1.0) Estimated GFR (Cockcroft-Gault) 35.5 Glucose Level 338 mg/dL (70-99) Calcium Level 8.2 mg/dL (8.5-10.1) Test 05/06/18 11:37 05/06/18 17:01 05/06/18 20:35 05/06/18 20:54 Glucose (Fingerstick) 311 mg/dL (70-99) 399 mg/dL (70-99) 310 mg/dL (70-99) 327 mg/dL (70-99) Test 05/07/18 04:37 05/07/18 07:57 White Blood Count 6.6 x10^3/uL (4.0-11.0) Red Blood Count 3.95 x10^6/uL (3.50-5.40) Hemoglobin 11.3 g/dL (12.0-15.5) Hematocrit 32.9 % (36.0-47.0) Mean Corpuscular Volume 84 fL (79-100) Mean Corpuscular Hemoglobin 29 pg (25-35) Mean Corpuscular Hemoglobin Concent 34 g/dL (31-37) Red Cell Distribution Width 12.6 % (11.5-14.5) Platelet Count 268 x10^3/uL (140-400) Neutrophils (%) (Auto) 65 % (31-73) Lymphocytes (%) (Auto) 25 % (24-48) Monocytes (%) (Auto) 8 % (0-9) Eosinophils (%) (Auto) 2 % (0-3) Basophils (%) (Auto) 1 % (0-3) Neutrophils # (Auto) 4.3 x10^3uL (1.8-7.7) Lymphocytes # (Auto) 1.6 x10^3/uL (1.0-4.8) Monocytes # (Auto) 0.6 x10^3/uL (0.0-1.1) Eosinophils # (Auto) 0.1 x10^3/uL (0.0-0.7) Basophils # (Auto) 0.1 x10^3/uL (0.0-0.2) Sodium Level 134 mmol/L (136-145) Potassium Level 3.9 mmol/L (3.5-5.1) Chloride Level 99 mmol/L (98-107) Carbon Dioxide Level 26 mmol/L (21-32) Anion Gap 9 (6-14) Blood Urea Nitrogen 24 mg/dL (7-20) Creatinine 2.6 mg/dL (0.6-1.0) Estimated GFR (Cockcroft-Gault) 18.8 BUN/Creatinine Ratio 9 (6-20) Glucose Level 271 mg/dL (70-99) Calcium Level 8.3 mg/dL (8.5-10.1) Total Bilirubin 0.3 mg/dL (0.2-1.0) Aspartate Amino Transf (AST/SGOT) 17 U/L (15-37) Alanine Aminotransferase (ALT/SGPT) 13 U/L (14-59) Alkaline Phosphatase 71 U/L (46-116) Total Protein 6.2 g/dL (6.4-8.2) Albumin 2.0 g/dL (3.4-5.0) Albumin/Globulin Ratio 0.5 (1.0-1.7) Glucose (Fingerstick) 238 mg/dL (70-99) Laboratory Tests Test 05/06/18 11:37 05/06/18 17:01 05/06/18 20:35 05/06/18 20:54 Glucose (Fingerstick) 311 mg/dL (70-99) 399 mg/dL (70-99) 310 mg/dL (70-99) 327 mg/dL (70-99) Test 05/07/18 04:37 05/07/18 07:57 White Blood Count 6.6 x10^3/uL (4.0-11.0) Red Blood Count 3.95 x10^6/uL (3.50-5.40) Hemoglobin 11.3 g/dL (12.0-15.5) Hematocrit 32.9 % (36.0-47.0) Mean Corpuscular Volume 84 fL (79-100) Mean Corpuscular Hemoglobin 29 pg (25-35) Mean Corpuscular Hemoglobin Concent 34 g/dL (31-37) Red Cell Distribution Width 12.6 % (11.5-14.5) Platelet Count 268 x10^3/uL (140-400) Neutrophils (%) (Auto) 65 % (31-73) Lymphocytes (%) (Auto) 25 % (24-48) Monocytes (%) (Auto) 8 % (0-9) Eosinophils (%) (Auto) 2 % (0-3) Basophils (%) (Auto) 1 % (0-3) Neutrophils # (Auto) 4.3 x10^3uL (1.8-7.7) Lymphocytes # (Auto) 1.6 x10^3/uL (1.0-4.8) Monocytes # (Auto) 0.6 x10^3/uL (0.0-1.1) Eosinophils # (Auto) 0.1 x10^3/uL (0.0-0.7) Basophils # (Auto) 0.1 x10^3/uL (0.0-0.2) Sodium Level 134 mmol/L (136-145) Potassium Level 3.9 mmol/L (3.5-5.1) Chloride Level 99 mmol/L (98-107) Carbon Dioxide Level 26 mmol/L (21-32) Anion Gap 9 (6-14) Blood Urea Nitrogen 24 mg/dL (7-20) Creatinine 2.6 mg/dL (0.6-1.0) Estimated GFR (Cockcroft-Gault) 18.8 BUN/Creatinine Ratio 9 (6-20) Glucose Level 271 mg/dL (70-99) Calcium Level 8.3 mg/dL (8.5-10.1) Total Bilirubin 0.3 mg/dL (0.2-1.0) Aspartate Amino Transf (AST/SGOT) 17 U/L (15-37) Alanine Aminotransferase (ALT/SGPT) 13 U/L (14-59) Alkaline Phosphatase 71 U/L (46-116) Total Protein 6.2 g/dL (6.4-8.2) Albumin 2.0 g/dL (3.4-5.0) Albumin/Globulin Ratio 0.5 (1.0-1.7) Glucose (Fingerstick) 238 mg/dL (70-99) Medications Active Scripts Medications Dose Route/Sig Max Daily Dose Days Date Category Estradiol 0.5 Mg Tablet 1 Tab PO DAILY 05/04/18 Reported Humalog (Insulin Lispro) 100 Unit/1 Ml Insuln.pen Unknown Dose SQ TIDAC 05/04/18 Reported Levemir (Insulin Detemir) 100 Unit/1 Ml Vial 10 Units SQ HS 05/04/18 Reported Metoprolol Tartrate 25 Mg Tablet 25 Mg PO BID 08/18/17 Reported Hydrochlorothiazide Tablet (Hydrochlorothiazide) 25 Mg Tablet 1 Tab PO DAILY 12/27/15 Reported Aspirin 325 Mg Tablet 325 Tab PO PRN Q6HRS PRN 12/27/15 Reported Gabapentin 600 Mg Tablet 1 Tab PO TID 11/27/14 Reported Impression . 1. Abnormal CT chest with mass-like consolidation in the left lower lobe in a patient who has a fever of 102.5. This is likely infectious/inflammatory etiology rather than a true mass. The patient's December CT chest from 2017 did not show any abnormality in that area. 2. Gastrointestinal symptoms with epigastric and left lower quadrant abdominal pain along with 20-pound weight loss in the last 2 months. The patient states she had polyps removed by Dr. Hall previously and was due to have another colonoscopy. Her previous mammogram was negative per the patient's history. No gastrointestinal malignancy on CT abdomen and pelvis 3. No significant history of tobacco use. Plan . 1. oxygen 2. Continue Zosyn for now. 3. Abdominal and pelvis CAT scan neg for any mass 4. Monitor chest x-rays closely to see an improvement in the left lower lobe consolidation. She may need a repeat CT chest in 4-6 weeks and if the abnormality persists, then we will consider ct guided biopsy or bronchoscopy. 5. GI consult and recommendation. 6. Discussed with RN. We will follow along with you. BHUMIKA IBARRA MD May 07, 2018 10:30
--- NOTE | 2018-05-07 10:49 | PDOC ---
PROGRESS NOTES Chief Complaint Chief Complaint Chest pain, atypical. with risk factors including age Abnormal CT: masslike density of the L lower lobe, CXR L basilar infiltrate likely pneumonia, less likely malignancy Hyperglycemia Elevated Creatinine, possible CKD Septic - tachycardic and Tmax of 102.5 Hyponatremia Hypertension; hyperlipidemia Diabetes, II; uncontrolled. Seizure hx H/o CVA Abdominal pain; followed by GI on an outpatient basis Neuropathy Moderately delayed gastric emptying Small calcification projecting over the insertion of the supraspinatus on the humerus. Mild or early calcific tendinitis not excluded History of Present Illness History of Present Illness Ms. Dacosta is a 57 yo female presented with chest pain, epigastric abdominal pain. She was seen and examined at bedside. Discussed case with RN. Nausea and vomiting has improved, patient resting comfortable in bed. White count trending down. Patient on zosyn. GI and Pulm following. Patient says she takes 60 Units lantus bid at home, blood sugars have been uncontrolled 200-300s. Vitals Vitals Vital Signs Date Time Temp Pulse Resp B/P (MAP) Pulse Ox O2 Delivery O2 Flow Rate FiO2 05/07/18 08:47 71 142/63 05/07/18 08:00 Nasal Cannula 2.0 05/07/18 07:00 97.5 16 94 97.5 Physical Exam General: Alert, Oriented X3, Cooperative, mild distress Heart: Regular rate, Normal S1, No murmurs Lungs: Clear Abdomen: Normal bowel sounds, Soft, No tenderness, No masses Extremities: No clubbing, No cyanosis, No edema Skin: No rashes, No significant lesion Labs LABS Laboratory Tests Test 05/06/18 11:37 05/06/18 17:01 05/06/18 20:35 05/06/18 20:54 Glucose (Fingerstick) 311 mg/dL (70-99) 399 mg/dL (70-99) 310 mg/dL (70-99) 327 mg/dL (70-99) Test 05/07/18 04:37 05/07/18 07:57 White Blood Count 6.6 x10^3/uL (4.0-11.0) Red Blood Count 3.95 x10^6/uL (3.50-5.40) Hemoglobin 11.3 g/dL (12.0-15.5) Hematocrit 32.9 % (36.0-47.0) Mean Corpuscular Volume 84 fL (79-100) Mean Corpuscular Hemoglobin 29 pg (25-35) Mean Corpuscular Hemoglobin Concent 34 g/dL (31-37) Red Cell Distribution Width 12.6 % (11.5-14.5) Platelet Count 268 x10^3/uL (140-400) Neutrophils (%) (Auto) 65 % (31-73) Lymphocytes (%) (Auto) 25 % (24-48) Monocytes (%) (Auto) 8 % (0-9) Eosinophils (%) (Auto) 2 % (0-3) Basophils (%) (Auto) 1 % (0-3) Neutrophils # (Auto) 4.3 x10^3uL (1.8-7.7) Lymphocytes # (Auto) 1.6 x10^3/uL (1.0-4.8) Monocytes # (Auto) 0.6 x10^3/uL (0.0-1.1) Eosinophils # (Auto) 0.1 x10^3/uL (0.0-0.7) Basophils # (Auto) 0.1 x10^3/uL (0.0-0.2) Sodium Level 134 mmol/L (136-145) Potassium Level 3.9 mmol/L (3.5-5.1) Chloride Level 99 mmol/L (98-107) Carbon Dioxide Level 26 mmol/L (21-32) Anion Gap 9 (6-14) Blood Urea Nitrogen 24 mg/dL (7-20) Creatinine 2.6 mg/dL (0.6-1.0) Estimated GFR (Cockcroft-Gault) 18.8 BUN/Creatinine Ratio 9 (6-20) Glucose Level 271 mg/dL (70-99) Calcium Level 8.3 mg/dL (8.5-10.1) Total Bilirubin 0.3 mg/dL (0.2-1.0) Aspartate Amino Transf (AST/SGOT) 17 U/L (15-37) Alanine Aminotransferase (ALT/SGPT) 13 U/L (14-59) Alkaline Phosphatase 71 U/L (46-116) Total Protein 6.2 g/dL (6.4-8.2) Albumin 2.0 g/dL (3.4-5.0) Albumin/Globulin Ratio 0.5 (1.0-1.7) Glucose (Fingerstick) 238 mg/dL (70-99) Review of Systems Review of Systems Denies pain Denies nausea Denies vomiting Assessment and Plan Assessmemt and Plan Problems Medical Problems: (1) Chest pain Status: Acute (2) Uncontrolled type II diabetes mellitus Status: Acute Assessment: Chest pain, atypical. with risk factors including age Abnormal CT: masslike density of the L lower lobe, CXR L basilar infiltrate likely pneumonia, less likely malignancy Hyperglycemia Elevated Creatinine, possible CKD Septic - tachycardic and Tmax of 102.5 Hyponatremia Hypertension; hyperlipidemia Diabetes, II; uncontrolled. Seizure hx H/o CVA Abdominal pain; followed by GI on an outpatient basis Neuropathy Moderately delayed gastric emptying Small calcification projecting over the insertion of the supraspinatus on the humerus. Mild or early calcific tendinitis not excluded Plan: Continue empiric zosyn Appreciate GI and Pulm input Abdominal CT reviewed, shows same Left lower lobe masslike density Hepatobiliary imaging pending per GI recommendations Ordered 60 Units Lantus BID Consulted nephrology, elevated creatinine Monitor glycemic control Comment Review of Relevant I have reviewed the following items cheko (where applicable) has been applied. Labs Laboratory Tests Test 05/05/18 11:55 05/05/18 12:38 05/05/18 13:44 05/05/18 14:27 Glucose (Fingerstick) 473 mg/dL (70-99) 478 mg/dL (70-99) 523 mg/dL (70-99) 450 mg/dL (70-99) Test 05/05/18 16:39 05/05/18 20:24 05/06/18 07:20 05/06/18 07:52 Glucose (Fingerstick) 269 mg/dL (70-99) 265 mg/dL (70-99) 334 mg/dL (70-99) White Blood Count 9.1 x10^3/uL (4.0-11.0) Red Blood Count 4.39 x10^6/uL (3.50-5.40) Hemoglobin 12.1 g/dL (12.0-15.5) Hematocrit 36.7 % (36.0-47.0) Mean Corpuscular Volume 84 fL (79-100) Mean Corpuscular Hemoglobin 28 pg (25-35) Mean Corpuscular Hemoglobin Concent 33 g/dL (31-37) Red Cell Distribution Width 12.5 % (11.5-14.5) Platelet Count 252 x10^3/uL (140-400) Neutrophils (%) (Auto) 72 % (31-73) Lymphocytes (%) (Auto) 17 % (24-48) Monocytes (%) (Auto) 9 % (0-9) Eosinophils (%) (Auto) 2 % (0-3) Basophils (%) (Auto) 1 % (0-3) Neutrophils # (Auto) 6.5 x10^3uL (1.8-7.7) Lymphocytes # (Auto) 1.6 x10^3/uL (1.0-4.8) Monocytes # (Auto) 0.8 x10^3/uL (0.0-1.1) Eosinophils # (Auto) 0.1 x10^3/uL (0.0-0.7) Basophils # (Auto) 0.1 x10^3/uL (0.0-0.2) Sodium Level 130 mmol/L (136-145) Potassium Level 4.1 mmol/L (3.5-5.1) Chloride Level 96 mmol/L (98-107) Carbon Dioxide Level 24 mmol/L (21-32) Anion Gap 10 (6-14) Blood Urea Nitrogen 18 mg/dL (7-20) Creatinine 1.5 mg/dL (0.6-1.0) Estimated GFR (Cockcroft-Gault) 35.5 Glucose Level 338 mg/dL (70-99) Calcium Level 8.2 mg/dL (8.5-10.1) Test 05/06/18 11:37 05/06/18 17:01 05/06/18 20:35 05/06/18 20:54 Glucose (Fingerstick) 311 mg/dL (70-99) 399 mg/dL (70-99) 310 mg/dL (70-99) 327 mg/dL (70-99) Test 05/07/18 04:37 05/07/18 07:57 White Blood Count 6.6 x10^3/uL (4.0-11.0) Red Blood Count 3.95 x10^6/uL (3.50-5.40) Hemoglobin 11.3 g/dL (12.0-15.5) Hematocrit 32.9 % (36.0-47.0) Mean Corpuscular Volume 84 fL (79-100) Mean Corpuscular Hemoglobin 29 pg (25-35) Mean Corpuscular Hemoglobin Concent 34 g/dL (31-37) Red Cell Distribution Width 12.6 % (11.5-14.5) Platelet Count 268 x10^3/uL (140-400) Neutrophils (%) (Auto) 65 % (31-73) Lymphocytes (%) (Auto) 25 % (24-48) Monocytes (%) (Auto) 8 % (0-9) Eosinophils (%) (Auto) 2 % (0-3) Basophils (%) (Auto) 1 % (0-3) Neutrophils # (Auto) 4.3 x10^3uL (1.8-7.7) Lymphocytes # (Auto) 1.6 x10^3/uL (1.0-4.8) Monocytes # (Auto) 0.6 x10^3/uL (0.0-1.1) Eosinophils # (Auto) 0.1 x10^3/uL (0.0-0.7) Basophils # (Auto) 0.1 x10^3/uL (0.0-0.2) Sodium Level 134 mmol/L (136-145) Potassium Level 3.9 mmol/L (3.5-5.1) Chloride Level 99 mmol/L (98-107) Carbon Dioxide Level 26 mmol/L (21-32) Anion Gap 9 (6-14) Blood Urea Nitrogen 24 mg/dL (7-20) Creatinine 2.6 mg/dL (0.6-1.0) Estimated GFR (Cockcroft-Gault) 18.8 BUN/Creatinine Ratio 9 (6-20) Glucose Level 271 mg/dL (70-99) Calcium Level 8.3 mg/dL (8.5-10.1) Total Bilirubin 0.3 mg/dL (0.2-1.0) Aspartate Amino Transf (AST/SGOT) 17 U/L (15-37) Alanine Aminotransferase (ALT/SGPT) 13 U/L (14-59) Alkaline Phosphatase 71 U/L (46-116) Total Protein 6.2 g/dL (6.4-8.2) Albumin 2.0 g/dL (3.4-5.0) Albumin/Globulin Ratio 0.5 (1.0-1.7) Glucose (Fingerstick) 238 mg/dL (70-99) Laboratory Tests Test 05/06/18 11:37 05/06/18 17:01 05/06/18 20:35 05/06/18 20:54 Glucose (Fingerstick) 311 mg/dL (70-99) 399 mg/dL (70-99) 310 mg/dL (70-99) 327 mg/dL (70-99) Test 05/07/18 04:37 05/07/18 07:57 White Blood Count 6.6 x10^3/uL (4.0-11.0) Red Blood Count 3.95 x10^6/uL (3.50-5.40) Hemoglobin 11.3 g/dL (12.0-15.5) Hematocrit 32.9 % (36.0-47.0) Mean Corpuscular Volume 84 fL (79-100) Mean Corpuscular Hemoglobin 29 pg (25-35) Mean Corpuscular Hemoglobin Concent 34 g/dL (31-37) Red Cell Distribution Width 12.6 % (11.5-14.5) Platelet Count 268 x10^3/uL (140-400) Neutrophils (%) (Auto) 65 % (31-73) Lymphocytes (%) (Auto) 25 % (24-48) Monocytes (%) (Auto) 8 % (0-9) Eosinophils (%) (Auto) 2 % (0-3) Basophils (%) (Auto) 1 % (0-3) Neutrophils # (Auto) 4.3 x10^3uL (1.8-7.7) Lymphocytes # (Auto) 1.6 x10^3/uL (1.0-4.8) Monocytes # (Auto) 0.6 x10^3/uL (0.0-1.1) Eosinophils # (Auto) 0.1 x10^3/uL (0.0-0.7) Basophils # (Auto) 0.1 x10^3/uL (0.0-0.2) Sodium Level 134 mmol/L (136-145) Potassium Level 3.9 mmol/L (3.5-5.1) Chloride Level 99 mmol/L (98-107) Carbon Dioxide Level 26 mmol/L (21-32) Anion Gap 9 (6-14) Blood Urea Nitrogen 24 mg/dL (7-20) Creatinine 2.6 mg/dL (0.6-1.0) Estimated GFR (Cockcroft-Gault) 18.8 BUN/Creatinine Ratio 9 (6-20) Glucose Level 271 mg/dL (70-99) Calcium Level 8.3 mg/dL (8.5-10.1) Total Bilirubin 0.3 mg/dL (0.2-1.0) Aspartate Amino Transf (AST/SGOT) 17 U/L (15-37) Alanine Aminotransferase (ALT/SGPT) 13 U/L (14-59) Alkaline Phosphatase 71 U/L (46-116) Total Protein 6.2 g/dL (6.4-8.2) Albumin 2.0 g/dL (3.4-5.0) Albumin/Globulin Ratio 0.5 (1.0-1.7) Glucose (Fingerstick) 238 mg/dL (70-99) Medications Current Medications Morphine Sulfate (Morphine Sulfate) 2 mg PRN Q15MIN PRN IV/SQ PAIN GREATER THAN 3/10 Last administered on 05/04/18at 01:16; Start 05/03/18 at 20:45; Stop at 07:30; Status DC Sodium Chloride 1,000 ml @ 1,000 mls/hr Q1H IV Last administered on 05/03/18at 21:09; Start 05/03/18 at 20:33; Stop 05/03/18 at 21:32; Status DC Ondansetron HCl (Zofran) 4 mg 1X ONCE IV Last administered on 05/03/18at 21:09 ; Start 05/03/18 at 20:45; Stop 05/03/18 at 20:46; Status DC Ondansetron HCl (Zofran) 4 mg PRN Q8HRS PRN IV NAUSEA/VOMITING; Start 05/04/18 at 00:30; Stop 05/05/18 at 00:29; Status DC Morphine Sulfate (Morphine Sulfate) 2 mg PRN Q2HR PRN IV PAIN Last administered on 05/04/18at 21:07; Start 05/04/18 at 00:30; Stop 05/05/18 at 00:29 ; Status DC Sodium Chloride 1,000 ml @ 125 mls/hr Q8H IV ; Start 05/04/18 at 00:30; Stop at 00:29; Status DC Nitroglycerin (Nitrostat) 0.4 mg PRN Q5MIN PRN SL CHEST PAIN; Start 05/04/18 at 00:30; Stop 05/05/18 at 00:29; Status DC Insulin Human Lispro (HumaLOG) 0-5 UNITS TIDWMEALS SQ Last administered on 05/04at 17:40; Start 05/04/18 at 08:00; Stop 05/04/18 at 22:34; Status DC Dextrose (Dextrose 50%-Water Syringe) 12.5 gm PRN Q15MIN PRN IV SEE COMMENTS; Start 05/04/18 at 00:30 Atorvastatin Calcium (Lipitor) 20 mg QHS PO Last administered on 05/06/18at 20: 36; Start 05/04/18 at 21:00 Aspirin ([place]ingo Aspirin) 325 mg PRN Q6HRS PRN PO PAIN; Start 05/04/18 at 16:30 Hydrochlorothiazide (Hydrodiuril) 25 mg DAILY PO ; Start 05/05/18 at 09:00 Metoprolol Tartrate (Lopressor) 25 mg BID PO Last administered on 05/07/18at 08: 47; Start 05/04/18 at 21:00 Enoxaparin Sodium (Lovenox 40mg Syringe) 40 mg Q24H SQ Last administered on at 20:37; Start 05/04/18 at 21:00 Insulin Human Lispro (HumaLOG) 0-5 UNITS TIDACHC SQ Last administered on at 12:22; Start 05/05/18 at 07:30; Stop 05/06/18 at 17:15; Status DC Insulin Human Lispro (HumaLOG) 2 units 1X ONCE SQ Last administered on at 23:47; Start 05/04/18 at 22:45; Stop 05/04/18 at 22:46; Status DC Estradiol (Estrace) 0.5 mg DAILY PO Last administered on 05/07/18at 08:47; Start 05/05/18 at 09:00 Gabapentin (Neurontin) 600 mg TID PO Last administered on 05/07/18 08:47; Start 05/04/18 at 22:45 Insulin Glargine (Lantus) 10 units QHS SQ Last administered on 05/04/18 23:48 ; Start 05/04/18 at 23:30; Stop 05/05/18 at 16:12; Status DC Morphine Sulfate (Morphine Sulfate) 2 mg PRN Q2HR PRN IV PAIN Last administered on 05/06/18 20:39; Start 05/05/18 at 03:15; Stop 05/06/18 at 23:27 ; Status DC Ondansetron HCl (Zofran) 4 mg PRN Q6HRS PRN IV NAUSEA/VOMITING Last administered on 05/06/18 20:37; Start 05/05/18 at 03:45 Regadenoson (Lexiscan) 0.4 mg 1X ONCE IV Last administered on 05/05/18 07:45 ; Start 05/05/18 at 07:45; Stop 05/05/18 at 07:46; Status DC Insulin Human Lispro (HumaLOG) 9 units 1X ONCE SQ Last administered on 12:53; Start 05/05/18 at 12:45; Stop 05/05/18 at 12:48; Status DC Insulin Human Lispro (HumaLOG) 10 units 1X ONCE SQ Last administered on 13:53; Start 05/05/18 at 14:00; Stop 05/05/18 at 14:01; Status DC Insulin Glargine (Lantus) 18 units QHS SQ Last administered on 05/06/18at 20:44 ; Start 05/05/18 at 21:00 Acetaminophen (Tylenol) 650 mg PRN Q6HRS PRN PO MILD PAIN / TEMP Last administered on 05/07/18 04:56; Start 05/05/18 at 21:00 Piperacillin Sod/ Tazobactam Sod (Zosyn Per Pharmacy) 1 each PRN DAILY PRN MC SEE COMMENTS; Start 05/05/18 at 21:00 Piperacillin Sod/ Tazobactam Sod 3.375 gm/Sodium Chloride 50 ml @ 100 mls/hr Q6HRS IV Last administered on 05/07/18at 05:32; Start 05/05/18 at 21:30 Sodium Chloride 1,000 ml @ 75 mls/hr [id number] IV Last administered on at 03:50; Start 05/06/18 at 10:00 Lactobacillus Rhamnosus (Culturelle) 1 cap BID PO Last administered on at 08:47; Start 05/06/18 at 13:00 Pantoprazole Sodium (Protonix) 40 mg DAILYAC PO Last administered on 05/07/18at 08:47; Start 05/06/18 at 14:00 Insulin Human Lispro (HumaLOG) 0-9 UNITS TIDWMEALS SQ Last administered on 05/07at 08:49; Start 05/07/18 at 08:00 Dextrose (Dextrose 50%-Water Syringe) 12.5 gm PRN Q15MIN PRN IV SEE COMMENTS; Start 05/06/18 at 17:15; Status UNV Insulin Human Lispro (HumaLOG) 12 units 1X ONCE SQ Last administered on at 17:20; Start 05/06/18 at 17:15; Stop 05/06/18 at 17:17; Status DC Lorazepam (Ativan) 2 mg PRN Q4HRS PRN IV seizures; Start 05/06/18 at 21:30 Morphine Sulfate (Morphine Sulfate) 2 mg PRN Q2HR PRN IV PAIN; Start 05/06/18 at 23:30 Active Scripts Active Reported Estradiol 0.5 Mg Tablet 1 Tab PO DAILY Humalog (Insulin Lispro) 100 Unit/1 Ml Insuln.pen Unknown Dose SQ TIDAC Levemir (Insulin Detemir) 100 Unit/1 Ml Vial 10 Units SQ HS Metoprolol Tartrate 25 Mg Tablet 25 Mg PO BID Hydrochlorothiazide Tablet (Hydrochlorothiazide) 25 Mg Tablet 1 Tab PO DAILY Aspirin 325 Mg Tablet 325 Tab PO PRN Q6HRS PRN Gabapentin 600 Mg Tablet 1 Tab PO TID Vitals/I & O Vital Sign - Last 24 Hours 05/06/18 05/06/18 05/06/18 05/06/18 11:00 15:00 19:08 19:50 Temp 97.6 97.7 98.8 97.6 97.7 98.8 Pulse 74 76 79 Resp 18 18 16 B/P (MAP) 117/56 (76) 124/58 (80) 128/77 (94) Pulse Ox 93 91 98 O2 Delivery Room Air Room Air Room Air Room Air 05/06/18 05/06/18 05/06/18 05/06/18 20:37 20:39 21:09 22:32 Temp 98.6 98.6 Pulse 79 81 Resp 16 B/P (MAP) 128/77 121/57 (78) Pulse Ox 93 O2 Delivery Room Air Nasal Cannula Nasal Cannula O2 Flow Rate 2.0 2.0 05/07/18 05/07/18 05/07/18 05/07/18 03:32 07:00 08:00 08:47 Temp 98.5 97.5 98.5 97.5 Pulse 74 71 71 Resp 16 16 B/P (MAP) 138/63 (88) 142/63 (89) 142/63 Pulse Ox 95 94 O2 Delivery Nasal Cannula Room Air Nasal Cannula O2 Flow Rate 2.0 2.0 Intake and Output 05/06/18 05/06/18 05/07/18 15:00 23:00 07:00 Intake Total 180 ml 100 ml 250 ml Output Total 400 ml Balance 180 ml 100 ml -150 ml SHARI RITCHIE III DO May 07, 2018 10:49
[2018-05-07 11:00] VITALS: BP 125/62
[2018-05-07] MEDS: INSULIN GLARGINE 300 UNITS/3 ML INSULN.PEN. SQ SCH ×2 (11:26→22:38)
--- NOTE | 2018-05-07 13:27 | PDOC ---
G I PROGRESS NOTE Reason for Follow-up Abd pain/n/v Subjective Symptoms persist Physical Exam Lungs clear CV S1 S2 ABD +BS , soft, + epi tenderness Review of Relevant I have reviewed the following items cheko (where applicable) has been applied. Labs Laboratory Tests Test 05/05/18 13:44 05/05/18 14:27 05/05/18 16:39 05/05/18 20:24 Glucose (Fingerstick) 523 mg/dL (70-99) 450 mg/dL (70-99) 269 mg/dL (70-99) 265 mg/dL (70-99) Test 05/06/18 07:20 05/06/18 07:52 05/06/18 11:37 05/06/18 17:01 White Blood Count 9.1 x10^3/uL (4.0-11.0) Red Blood Count 4.39 x10^6/uL (3.50-5.40) Hemoglobin 12.1 g/dL (12.0-15.5) Hematocrit 36.7 % (36.0-47.0) Mean Corpuscular Volume 84 fL (79-100) Mean Corpuscular Hemoglobin 28 pg (25-35) Mean Corpuscular Hemoglobin Concent 33 g/dL (31-37) Red Cell Distribution Width 12.5 % (11.5-14.5) Platelet Count 252 x10^3/uL (140-400) Neutrophils (%) (Auto) 72 % (31-73) Lymphocytes (%) (Auto) 17 % (24-48) Monocytes (%) (Auto) 9 % (0-9) Eosinophils (%) (Auto) 2 % (0-3) Basophils (%) (Auto) 1 % (0-3) Neutrophils # (Auto) 6.5 x10^3uL (1.8-7.7) Lymphocytes # (Auto) 1.6 x10^3/uL (1.0-4.8) Monocytes # (Auto) 0.8 x10^3/uL (0.0-1.1) Eosinophils # (Auto) 0.1 x10^3/uL (0.0-0.7) Basophils # (Auto) 0.1 x10^3/uL (0.0-0.2) Sodium Level 130 mmol/L (136-145) Potassium Level 4.1 mmol/L (3.5-5.1) Chloride Level 96 mmol/L (98-107) Carbon Dioxide Level 24 mmol/L (21-32) Anion Gap 10 (6-14) Blood Urea Nitrogen 18 mg/dL (7-20) Creatinine 1.5 mg/dL (0.6-1.0) Estimated GFR (Cockcroft-Gault) 35.5 Glucose Level 338 mg/dL (70-99) Calcium Level 8.2 mg/dL (8.5-10.1) Glucose (Fingerstick) 334 mg/dL (70-99) 311 mg/dL (70-99) 399 mg/dL (70-99) Test 05/06/18 20:35 05/06/18 20:54 05/07/18 04:37 05/07/18 07:57 Glucose (Fingerstick) 310 mg/dL (70-99) 327 mg/dL (70-99) 238 mg/dL (70-99) White Blood Count 6.6 x10^3/uL (4.0-11.0) Red Blood Count 3.95 x10^6/uL (3.50-5.40) Hemoglobin 11.3 g/dL (12.0-15.5) Hematocrit 32.9 % (36.0-47.0) Mean Corpuscular Volume 84 fL (79-100) Mean Corpuscular Hemoglobin 29 pg (25-35) Mean Corpuscular Hemoglobin Concent 34 g/dL (31-37) Red Cell Distribution Width 12.6 % (11.5-14.5) Platelet Count 268 x10^3/uL (140-400) Neutrophils (%) (Auto) 65 % (31-73) Lymphocytes (%) (Auto) 25 % (24-48) Monocytes (%) (Auto) 8 % (0-9) Eosinophils (%) (Auto) 2 % (0-3) Basophils (%) (Auto) 1 % (0-3) Neutrophils # (Auto) 4.3 x10^3uL (1.8-7.7) Lymphocytes # (Auto) 1.6 x10^3/uL (1.0-4.8) Monocytes # (Auto) 0.6 x10^3/uL (0.0-1.1) Eosinophils # (Auto) 0.1 x10^3/uL (0.0-0.7) Basophils # (Auto) 0.1 x10^3/uL (0.0-0.2) Sodium Level 134 mmol/L (136-145) Potassium Level 3.9 mmol/L (3.5-5.1) Chloride Level 99 mmol/L (98-107) Carbon Dioxide Level 26 mmol/L (21-32) Anion Gap 9 (6-14) Blood Urea Nitrogen 24 mg/dL (7-20) Creatinine 2.6 mg/dL (0.6-1.0) Estimated GFR (Cockcroft-Gault) 18.8 BUN/Creatinine Ratio 9 (6-20) Glucose Level 271 mg/dL (70-99) Calcium Level 8.3 mg/dL (8.5-10.1) Total Bilirubin 0.3 mg/dL (0.2-1.0) Aspartate Amino Transf (AST/SGOT) 17 U/L (15-37) Alanine Aminotransferase (ALT/SGPT) 13 U/L (14-59) Alkaline Phosphatase 71 U/L (46-116) Creatine Kinase 24 U/L (26-192) Total Protein 6.2 g/dL (6.4-8.2) Albumin 2.0 g/dL (3.4-5.0) Albumin/Globulin Ratio 0.5 (1.0-1.7) Test 05/07/18 11:23 Glucose (Fingerstick) 271 mg/dL (70-99) Laboratory Tests Test 05/06/18 17:01 05/06/18 20:35 05/06/18 20:54 05/07/18 04:37 Glucose (Fingerstick) 399 mg/dL (70-99) 310 mg/dL (70-99) 327 mg/dL (70-99) White Blood Count 6.6 x10^3/uL (4.0-11.0) Red Blood Count 3.95 x10^6/uL (3.50-5.40) Hemoglobin 11.3 g/dL (12.0-15.5) Hematocrit 32.9 % (36.0-47.0) Mean Corpuscular Volume 84 fL (79-100) Mean Corpuscular Hemoglobin 29 pg (25-35) Mean Corpuscular Hemoglobin Concent 34 g/dL (31-37) Red Cell Distribution Width 12.6 % (11.5-14.5) Platelet Count 268 x10^3/uL (140-400) Neutrophils (%) (Auto) 65 % (31-73) Lymphocytes (%) (Auto) 25 % (24-48) Monocytes (%) (Auto) 8 % (0-9) Eosinophils (%) (Auto) 2 % (0-3) Basophils (%) (Auto) 1 % (0-3) Neutrophils # (Auto) 4.3 x10^3uL (1.8-7.7) Lymphocytes # (Auto) 1.6 x10^3/uL (1.0-4.8) Monocytes # (Auto) 0.6 x10^3/uL (0.0-1.1) Eosinophils # (Auto) 0.1 x10^3/uL (0.0-0.7) Basophils # (Auto) 0.1 x10^3/uL (0.0-0.2) Sodium Level 134 mmol/L (136-145) Potassium Level 3.9 mmol/L (3.5-5.1) Chloride Level 99 mmol/L (98-107) Carbon Dioxide Level 26 mmol/L (21-32) Anion Gap 9 (6-14) Blood Urea Nitrogen 24 mg/dL (7-20) Creatinine 2.6 mg/dL (0.6-1.0) Estimated GFR (Cockcroft-Gault) 18.8 BUN/Creatinine Ratio 9 (6-20) Glucose Level 271 mg/dL (70-99) Calcium Level 8.3 mg/dL (8.5-10.1) Total Bilirubin 0.3 mg/dL (0.2-1.0) Aspartate Amino Transf (AST/SGOT) 17 U/L (15-37) Alanine Aminotransferase (ALT/SGPT) 13 U/L (14-59) Alkaline Phosphatase 71 U/L (46-116) Creatine Kinase 24 U/L (26-192) Total Protein 6.2 g/dL (6.4-8.2) Albumin 2.0 g/dL (3.4-5.0) Albumin/Globulin Ratio 0.5 (1.0-1.7) Test 05/07/18 07:57 05/07/18 11:23 Glucose (Fingerstick) 238 mg/dL (70-99) 271 mg/dL (70-99) Medications Current Medications Morphine Sulfate (Morphine Sulfate) 2 mg PRN Q15MIN PRN IV/SQ PAIN GREATER THAN 3/10 Last administered on 05/04/18at 01:16; Start 05/03/18 at 20:45; Stop at 07:30; Status DC Sodium Chloride 1,000 ml @ 1,000 mls/hr Q1H IV Last administered on 05/03/18at 21:09; Start 05/03/18 at 20:33; Stop 05/03/18 at 21:32; Status DC Ondansetron HCl (Zofran) 4 mg 1X ONCE IV Last administered on 05/03/18at 21:09 ; Start 05/03/18 at 20:45; Stop 05/03/18 at 20:46; Status DC Ondansetron HCl (Zofran) 4 mg PRN Q8HRS PRN IV NAUSEA/VOMITING; Start 05/04/18 at 00:30; Stop 05/05/18 at 00:29; Status DC Morphine Sulfate (Morphine Sulfate) 2 mg PRN Q2HR PRN IV PAIN Last administered on 05/04/18at 21:07; Start 05/04/18 at 00:30; Stop 05/05/18 at 00:29 ; Status DC Sodium Chloride 1,000 ml @ 125 mls/hr Q8H IV ; Start 05/04/18 at 00:30; Stop at 00:29; Status DC Nitroglycerin (Nitrostat) 0.4 mg PRN Q5MIN PRN SL CHEST PAIN; Start 05/04/18 at 00:30; Stop 05/05/18 at 00:29; Status DC Insulin Human Lispro (HumaLOG) 0-5 UNITS TIDWMEALS SQ Last administered on 05/04at 17:40; Start 05/04/18 at 08:00; Stop 05/04/18 at 22:34; Status DC Dextrose (Dextrose 50%-Water Syringe) 12.5 gm PRN Q15MIN PRN IV SEE COMMENTS; Start 05/04/18 at 00:30 Atorvastatin Calcium (Lipitor) 20 mg QHS PO Last administered on 05/06/18 20: 36; Start 05/04/18 at 21:00 Aspirin (Mingo Aspirin) 325 mg PRN Q6HRS PRN PO PAIN; Start 05/04/18 at 16:30 Hydrochlorothiazide (Hydrodiuril) 25 mg DAILY PO ; Start 05/05/18 at 09:00 Metoprolol Tartrate (Lopressor) 25 mg BID PO Last administered on 05/07/18 08: 47; Start 05/04/18 at 21:00 Enoxaparin Sodium (Lovenox 40mg Syringe) 40 mg Q24H SQ Last administered on 20:37; Start 05/04/18 at 21:00 Insulin Human Lispro (HumaLOG) 0-5 UNITS TIDACHC SQ Last administered on 12:22; Start 05/05/18 at 07:30; Stop 05/06/18 at 17:15; Status DC Insulin Human Lispro (HumaLOG) 2 units 1X ONCE SQ Last administered on 23:47; Start 05/04/18 at 22:45; Stop 05/04/18 at 22:46; Status DC Estradiol (Estrace) 0.5 mg DAILY PO Last administered on 05/07/18 08:47; Start 05/05/18 at 09:00 Gabapentin (Neurontin) 600 mg TID PO Last administered on 05/07/18 08:47; Start 05/04/18 at 22:45 Insulin Glargine (Lantus) 10 units QHS SQ Last administered on 05/04/18 23:48 ; Start 05/04/18 at 23:30; Stop 05/05/18 at 16:12; Status DC Morphine Sulfate (Morphine Sulfate) 2 mg PRN Q2HR PRN IV PAIN Last administered on 05/06/18 20:39; Start 05/05/18 at 03:15; Stop 05/06/18 at 23:27 ; Status DC Ondansetron HCl (Zofran) 4 mg PRN Q6HRS PRN IV NAUSEA/VOMITING Last administered on 05/06/18 20:37; Start 05/05/18 at 03:45 Regadenoson (Lexiscan) 0.4 mg 1X ONCE IV Last administered on 05/05/18 07:45 ; Start 05/05/18 at 07:45; Stop 05/05/18 at 07:46; Status DC Insulin Human Lispro (HumaLOG) 9 units 1X ONCE SQ Last administered on at 12:53; Start 05/05/18 at 12:45; Stop 05/05/18 at 12:48; Status DC Insulin Human Lispro (HumaLOG) 10 units 1X ONCE SQ Last administered on at 13:53; Start 05/05/18 at 14:00; Stop 05/05/18 at 14:01; Status DC Insulin Glargine (Lantus) 18 units QHS SQ Last administered on 05/06/18at 20:44 ; Start 05/05/18 at 21:00; Stop 05/07/18 at 10:42; Status DC Acetaminophen (Tylenol) 650 mg PRN Q6HRS PRN PO MILD PAIN / TEMP Last administered on 05/07/18at 11:24; Start 05/05/18 at 21:00 Piperacillin Sod/ Tazobactam Sod (Zosyn Per Pharmacy) 1 each PRN DAILY PRN MC SEE COMMENTS; Start 05/05/18 at 21:00 Piperacillin Sod/ Tazobactam Sod 3.375 gm/Sodium Chloride 50 ml @ 100 mls/hr Q6HRS IV Last administered on 05/07/18at 11:27; Start 05/05/18 at 21:30 Sodium Chloride 1,000 ml @ 75 mls/hr [id number] IV Last administered on at 03:50; Start 05/06/18 at 10:00 Lactobacillus Rhamnosus (Culturelle) 1 cap BID PO Last administered on at 08:47; Start 05/06/18 at 13:00 Pantoprazole Sodium (Protonix) 40 mg DAILYAC PO Last administered on 05/07/18at 08:47; Start 05/06/18 at 14:00 Insulin Human Lispro (HumaLOG) 0-9 UNITS TIDWMEALS SQ Last administered on 05/07at 11:28; Start 05/07/18 at 08:00 Dextrose (Dextrose 50%-Water Syringe) 12.5 gm PRN Q15MIN PRN IV SEE COMMENTS; Start 05/06/18 at 17:15; Status UNV Insulin Human Lispro (HumaLOG) 12 units 1X ONCE SQ Last administered on at 17:20; Start 05/06/18 at 17:15; Stop 05/06/18 at 17:17; Status DC Lorazepam (Ativan) 2 mg PRN Q4HRS PRN IV seizures; Start 05/06/18 at 21:30 Morphine Sulfate (Morphine Sulfate) 2 mg PRN Q2HR PRN IV PAIN; Start 05/06/18 at 23:30 Insulin Glargine (Lantus) 60 units Q12HR SQ Last administered on 05/07/18at 11: 26; Start 05/07/18 at 11:00 Active Scripts Active Reported Estradiol 0.5 Mg Tablet 1 Tab PO DAILY Humalog (Insulin Lispro) 100 Unit/1 Ml Insuln.pen Unknown Dose SQ TIDAC Levemir (Insulin Detemir) 100 Unit/1 Ml Vial 10 Units SQ HS Metoprolol Tartrate 25 Mg Tablet 25 Mg PO BID Hydrochlorothiazide Tablet (Hydrochlorothiazide) 25 Mg Tablet 1 Tab PO DAILY Aspirin 325 Mg Tablet 325 Tab PO PRN Q6HRS PRN Gabapentin 600 Mg Tablet 1 Tab PO TID Vitals/I & O Vital Sign - Last 24 Hours 05/06/18 05/06/18 05/06/18 05/06/18 15:00 19:08 19:50 20:37 Temp 97.7 98.8 97.7 98.8 Pulse 76 79 79 Resp 18 16 B/P (MAP) 124/58 (80) 128/77 (94) 128/77 Pulse Ox 91 98 O2 Delivery Room Air Room Air Room Air 05/06/18 05/06/18 05/06/18 05/07/18 20:39 21:09 22:32 03:32 Temp 98.6 98.5 98.6 98.5 Pulse 81 74 Resp 16 16 B/P (MAP) 121/57 (78) 138/63 (88) Pulse Ox 93 95 O2 Delivery Room Air Nasal Cannula Nasal Cannula Nasal Cannula O2 Flow Rate 2.0 2.0 2.0 05/07/18 05/07/18 05/07/18 05/07/18 07:00 08:00 08:47 11:00 Temp 97.5 97.6 97.5 97.6 Pulse 71 71 65 Resp 16 16 B/P (MAP) 142/63 (89) 142/63 125/62 (83) Pulse Ox 94 98 O2 Delivery Room Air Nasal Cannula Room Air O2 Flow Rate 2.0 Intake and Output 05/06/18 05/06/18 05/07/18 15:00 23:00 07:00 Intake Total 180 ml 100 ml 250 ml Output Total 400 ml Balance 180 ml 100 ml -150 ml Problem List Problems Medical Problems: (1) Chest pain Status: Acute (2) Uncontrolled type II diabetes mellitus Status: Acute Assessment Abd pain- with DM, differential includes GB disease, gastroparesis, and/or PUD in Gi differential. Plan Hepatobiliary imaging in RANI Mauro MD May 07, 2018 13:27
[2018-05-07 15:00] VITALS: BP 142/65
[2018-05-07] MEDS: ONDANSETRON PF 4 MG/2 ML VIAL. IV PRN (15:03)
--- NOTE | 2018-05-07 15:37 | RAD ---
Examination: RENAL COMPLETE BILATERAL History: Acute renal failure Comparison/Correlation: None Findings: Renal ultrasound exam was performed. Right kidney measures 12 cm x 5.8 cm x 5.7 cm. Left kidney measures 11.2 cm x 5.9 cm x 6.2 cm. No nephrolithiasis. Renal contours and echotexture are normal. No hydronephrosis. Right extrarenal pelvis may present. Slightly hypoechoic left measuring from its present and this is nonspecific. No nephrolithiasis. Urinary bladder is unremarkable. Impression: No hydronephrosis. Electronically signed by: Jose Guadalupe Harrison MD (05/07/2018 3:34 PM) [facility]
[2018-05-07 19:06] VITALS: BP 156/73
[2018-05-07] MEDS ORDERED: PROCHLORPERAZINE 10 MG/2 ML VIAL. IV PRN (21:45)
[2018-05-07] MEDS: ATORVASTATIN CALCIUM 20 MG TABLET PO SCH (22:20)
[2018-05-07] MEDS: ENOXAPARIN 30 MG/0.3 ML SYRINGE. SQ SCH (22:22)
--- NOTE | 2018-05-07 22:31 | CONS ---
DATE OF CONSULTATION: REFERRING PHYSICIAN: Thai Goetz M.D. REASON FOR CONSULTATION: Seizures. HISTORY OF PRESENT ILLNESS: The patient is a very pleasant 57-year-old woman admitted to [facility] because of chest pain, nausea and vomiting. She had a few spells yesterday of unusual jerking. She has been evaluated multiple times by Dr. Edmonds and has had prolonged EEG monitoring at other facilities, been diagnosed with nonepileptic seizure. The patient admits that what she had yesterday was a nonepileptic seizure. Sometimes her rapid drop in blood sugar seems to bring on more spells. She has not had any further spells today. At the time of my evaluation, she was holding an emesis basin that she was feeling quite nauseated. PAST MEDICAL HISTORY: 1. Atrial fibrillation. 2. Depression. 3. Type 2 diabetes. 4. Hypertension. 5. Myocardial infarction. 6. Nonepileptic seizures. 7. History of TIA. 8. Peripheral neuropathy. 9. Appendectomy. 10. Cholecystectomy. 11. . 12. Hysterectomy. 13. Laparoscopic bowel resection. ALLERGIES: LEVOFLOXACIN and LIDOCAINE. MEDICATIONS PRIOR TO ADMISSION: Aspirin 325 mg, estradiol 0.5 mg, gabapentin 600 mg 3 times a day, hydrochlorothiazide, insulin and metoprolol 25 mg twice per day. FAMILY HISTORY: Pertinent for coronary artery disease. SOCIAL HISTORY: She does not smoke tobacco, drink alcohol or use recreational drugs. REVIEW OF SYSTEMS: She does not have headache. There has been no change of vision or hearing. She has had no cognitive loss. She does not complain of shortness of breath. She does have intermittent chest pain just at the lower chest, right by her upper abdomen. Pressure in this region increases the pain. She does have bone and joint pain. She has not had fever or rash. She has had nausea and vomiting. No genitourinary complaint. Does have anxiety. Does not complain of bruising, bleeding or swelling. PHYSICAL EXAMINATION: VITAL SIGNS: Blood pressure 156/73, pulse 71, respirations 16 and temperature 97.9 degrees axillary. Her oximetry was 96% on 1 liter nasal cannula. Her weight was 165 pounds, height 63 inches with a calculated body mass index of 29.2. GENERAL: She was alert, awake and cooperative. Speech was fluent and clear. She had a good fund of recent and remote knowledge. Attention and concentration was intact. She appeared well groomed and well nourished. She was fully oriented. NEUROLOGICAL: Examination of the cranial nerves revealed visual domingo were full to confrontation. Extraocular movements were intact. The eyes were conjugate. Pursuit movements were smooth and saccadic eye movements were without dysmetria. Pupils were 3 mm. Facial sensation was intact. The muscles of mastication and facial expression were powerful symmetrically. Hearing was intact to finger rub. The palate arched symmetrically and the tongue was midline with full range of motion. Sternocleidomastoid and trapezius were powerful. Muscle bulk and tone was normal. There is no arm drift or abnormal movement. Power was full and symmetric in the upper and lower extremities. Reflexes were diminished throughout. Toes were downgoing. Coordination testing with [id number], [id number], fine motor and rapid alternating movements was well performed. The sensory exam was intact to pain, light touch, proprioception, graphesthesia, cold thermal and vibration. There was sensory shading distally in the feet with cold thermal and sharp, not being perceived until half way up the calf. Proprioception and vibration was still intact. There was no extinction to double simultaneous stimulation. Gait was not testable. Auscultation of the carotid arteries did not reveal a bruit. Heart rhythm was regular without a murmur. Peripheral pulses were symmetric in the hands, diminished in the feet. There was minor amount of edema in the feet or ankles. LABORATORY DATA: Review of laboratory data: CBC revealed a normal white blood cell count and platelet count. Hemoglobin was low at 11.3 and hematocrit at 32.9. Sodium was low at 134. BUN was elevated at 24 and creatinine to 2.6 with a calculated GFR of 18.8. Glucose was elevated at 271. Calcium is 8.3. ALT was 13. Creatinine kinase was 24. Total protein low at 6.2 and albumin at 2. The capillary glucose today ranged from 220-271. Urinalysis revealed greater than 1000 mg/dL of glucose and ketone, trace blood, 1-2 red blood cells, 1-4 white blood cells and a few bacteria and squamous epithelial cells and a few hyaline casts. IMPRESSION: The patient is a 57-year-old woman who has nonepileptic seizures. This has been well documented by Neurology previously and most recently on 12/29/2017. There is no need for anticonvulsant. The main treatment would be addressing the underlying stressor, which is provoking the spells. Further neurologic investigation is not indicated. She is having severe nausea and vomiting with only Zofran ordered. Zofran does not seem to work well enough and monotherapy. I will provide for her the availability of prochlorperazine 10 mg IV every 6 hours as needed. ROLA CARMONA MD DR: LANNY/bandar JOB#: [id number] / [id number] Dr. ERIN Ren FERILYN MD
[2018-05-07 22:42] VITALS: BP 139/48
[2018-05-08 03:26] VITALS: BP 138/69
[2018-05-08] MEDS: PIPERACILLIN/TAZOBACTAM 3.375 GM in IV NORMAL SALINE 50ML 50 ML IV SCH ×3 (05:48→17:29)
[2018-05-08 07:00] VITALS: BP 123/53
--- NOTE | 2018-05-08 07:46 | RAD ---
Right upper quadrant abdominal ultrasound, 05/08/2014: HISTORY: Right upper quadrant pain and nausea The gallbladder is within normal limits in size. There is no sonographic evidence of cholelithiasis. The gallbladder palmer are not thickened. The common hepatic duct measures 5 mm which is within normal limits. There is no evidence of a hepatic mass or bile duct dilatation. The hepatic echogenicity is slightly increased. The right kidney is unremarkable. The pancreas was largely obscured by overlying bowel. IMPRESSION: 1. No significant gallbladder abnormality is detected. Graft 2. Slightly increased hepatic echogenicity, most commonly due to fatty change. Electronically signed by: Tomas Nunez MD (05/08/2018 7:43 AM) [facility]
[2018-05-08] MEDS: INSULIN LISPRO 300 UNITS/3 ML INSULN.PEN. SQ SCH ×3 (08:00→17:36)
[2018-05-08] MEDS ORDERED: SINCALIDE 1.5 MCG in IV NORMAL SALINE 50ML 30 ML IV ONE (08:00)
[2018-05-08] MEDS ORDERED: methylPREDNISolone ACETATE 80 MG/ML VIAL. IM ONE (08:15)
[2018-05-08] MEDS ORDERED: NORMAL SALINE SQ ONE (09:00)
[2018-05-08] MEDS ORDERED: DIPHENHYDRAMINE SQ ONE (09:00)
[2018-05-08] MEDS ORDERED: TOTAL VOLUME SQ ONE (09:00)
--- NOTE | 2018-05-08 09:31 | PDOC ---
PULMONARY PROGRESS NOTES Subjective STILL COUGHING UP MUCUS Vitals Vital Signs Date Time Temp Pulse Resp B/P (MAP) Pulse Ox O2 Delivery O2 Flow Rate FiO2 05/08/18 08:01 Nasal Cannula 2.0 05/08/18 07:00 97.7 71 18 123/53 (76) 95 97.7 ROS: No Nausea, No Chest Pain, No Abdominal Pain, No Increase Cough General: Alert, No acute distress Lungs: Clear Cardiovascular: S1, S2 Abdomen: Soft Neuro Exam: Alert Extremities: No Edema Skin: Warm Labs Laboratory Tests Test 05/06/18 11:37 05/06/18 17:01 05/06/18 20:35 05/06/18 20:54 Glucose (Fingerstick) 311 mg/dL (70-99) 399 mg/dL (70-99) 310 mg/dL (70-99) 327 mg/dL (70-99) Test 05/07/18 04:37 05/07/18 07:57 05/07/18 11:23 05/07/18 11:32 White Blood Count 6.6 x10^3/uL (4.0-11.0) Red Blood Count 3.95 x10^6/uL (3.50-5.40) Hemoglobin 11.3 g/dL (12.0-15.5) Hematocrit 32.9 % (36.0-47.0) Mean Corpuscular Volume 84 fL (79-100) Mean Corpuscular Hemoglobin 29 pg (25-35) Mean Corpuscular Hemoglobin Concent 34 g/dL (31-37) Red Cell Distribution Width 12.6 % (11.5-14.5) Platelet Count 268 x10^3/uL (140-400) Neutrophils (%) (Auto) 65 % (31-73) Lymphocytes (%) (Auto) 25 % (24-48) Monocytes (%) (Auto) 8 % (0-9) Eosinophils (%) (Auto) 2 % (0-3) Basophils (%) (Auto) 1 % (0-3) Neutrophils # (Auto) 4.3 x10^3uL (1.8-7.7) Lymphocytes # (Auto) 1.6 x10^3/uL (1.0-4.8) Monocytes # (Auto) 0.6 x10^3/uL (0.0-1.1) Eosinophils # (Auto) 0.1 x10^3/uL (0.0-0.7) Basophils # (Auto) 0.1 x10^3/uL (0.0-0.2) Sodium Level 134 mmol/L (136-145) Potassium Level 3.9 mmol/L (3.5-5.1) Chloride Level 99 mmol/L (98-107) Carbon Dioxide Level 26 mmol/L (21-32) Anion Gap 9 (6-14) Blood Urea Nitrogen 24 mg/dL (7-20) Creatinine 2.6 mg/dL (0.6-1.0) Estimated GFR (Cockcroft-Gault) 18.8 BUN/Creatinine Ratio 9 (6-20) Glucose Level 271 mg/dL (70-99) Calcium Level 8.3 mg/dL (8.5-10.1) Total Bilirubin 0.3 mg/dL (0.2-1.0) Aspartate Amino Transf (AST/SGOT) 17 U/L (15-37) Alanine Aminotransferase (ALT/SGPT) 13 U/L (14-59) Alkaline Phosphatase 71 U/L (46-116) Creatine Kinase 24 U/L (26-192) Total Protein 6.2 g/dL (6.4-8.2) Albumin 2.0 g/dL (3.4-5.0) Albumin/Globulin Ratio 0.5 (1.0-1.7) Glucose (Fingerstick) 238 mg/dL (70-99) 271 mg/dL (70-99) Urine Random Sodium <60 mmol/L (Not Estab.) Test 05/07/18 17:07 05/07/18 21:45 05/08/18 07:03 Glucose (Fingerstick) 220 mg/dL (70-99) 195 mg/dL (70-99) 165 mg/dL (70-99) Laboratory Tests Test 05/07/18 11:23 05/07/18 11:32 05/07/18 17:07 05/07/18 21:45 Glucose (Fingerstick) 271 mg/dL (70-99) 220 mg/dL (70-99) 195 mg/dL (70-99) Urine Random Sodium <60 mmol/L (Not Estab.) Test 05/08/18 07:03 Glucose (Fingerstick) 165 mg/dL (70-99) Medications Active Scripts Medications Dose Route/Sig Max Daily Dose Days Date Category Estradiol 0.5 Mg Tablet 1 Tab PO DAILY 05/04/18 Reported Humalog (Insulin Lispro) 100 Unit/1 Ml Insuln.pen Unknown Dose SQ TIDAC 05/04/18 Reported Levemir (Insulin Detemir) 100 Unit/1 Ml Vial 10 Units SQ HS 05/04/18 Reported Metoprolol Tartrate 25 Mg Tablet 25 Mg PO BID 08/18/17 Reported Hydrochlorothiazide Tablet (Hydrochlorothiazide) 25 Mg Tablet 1 Tab PO DAILY 12/27/15 Reported Aspirin 325 Mg Tablet 325 Tab PO PRN Q6HRS PRN 12/27/15 Reported Gabapentin 600 Mg Tablet 1 Tab PO TID 11/27/14 Reported Impression . 1. Abnormal CT chest with mass-like consolidation in the left lower lobe in a patient who has a fever of 102.5. 2. Gastrointestinal symptoms with epigastric and left lower quadrant abdominal pain along with 20-pound weight loss in the last 2 months. The patient states she had polyps removed by Dr. Hall previously and was due to have another colonoscopy. Her previous mammogram was negative per the patient's history. No gastrointestinal malignancy on CT abdomen and pelvis 3. No significant history of tobacco use. 4. TORI Plan . HOME IN AM D/W DR DEMPSEY REPEAT CREAT IN AM REPEAT CT CHEST IN 6-8 WEEKS HOME ON AUGMENTIN MOY QUIROZ MD May 08, 2018 09:31
[2018-05-08] MEDS: ACETAMINOPHEN 325 MG TABLET. PO PRN (09:51)
[2018-05-08] MEDS: METOPROLOL TART IMMED RELEASE 25 MG TABLET. PO SCH ×2 (09:51→20:45)
[2018-05-08] MEDS: GABAPENTIN 300 MG CAPSULE. PO SCH ×3 (09:51→20:45)
[2018-05-08] MEDS: hydroCHLOROthiazide 25 MG TABLET PO SCH (09:51)
[2018-05-08] MEDS: ESTRADIOL 1 MG TABLET. PO SCH (09:51)
[2018-05-08] MEDS: LACTOBACILLUS RHAMNOSUS GG 1 CAPSULE. PO SCH ×2 (09:51→20:45)
[2018-05-08] MEDS: PANTOPRAZOLE 40 MG TABLET.DR. PO SCH (09:52)
[2018-05-08 10:09] LABS: BASO % 1 % (0-3); EOS # 0.1 x10^3/uL (0.0-0.7); EOS % 2 % (0-3); HEMATOCRIT 36.3 % (36.0-47.0); HEMOGLOBIN 12.4 g/dL (12.0-15.5); LYMPH # 1.7 x10^3/uL (1.0-4.8); LYMPH % 30 % (24-48); MEAN CORPUSCULAR HEMOGLOBIN 28 pg (25-35); MEAN CORPUSCULAR HGB CONC 34 g/dL (31-37); MEAN CORPUSCULAR VOLUME 83 fL (79-100); MONO # 0.6 x10^3/uL (0.0-1.1); MONO % 11 % (0-9); NEUT # 3.2 x10^3uL (1.8-7.7); NEUT % 56 % (31-73); PLATELET COUNT 261 x10^3/uL (140-400); RED BLOOD COUNT 4.36 x10^6/uL (3.50-5.40); RED CELL DISTRIBUTION WIDTH 12.9 % (11.5-14.5); WHITE BLOOD COUNT 5.6 x10^3/uL (4.0-11.0)
[2018-05-08] MEDS ORDERED: IOHEXOL 300 MG/ML 50 ML VIAL. ONE (10:17)
[2018-05-08] MEDS: INSULIN GLARGINE 300 UNITS/3 ML INSULN.PEN. SQ SCH ×2 (10:22→20:54)
[2018-05-08 10:29] LABS: ALBUMIN 2.1 g/dL (3.4-5.0); ALBUMIN/GLOBULIN RATIO 0.5 (1.0-1.7); CALCIUM 8.2 mg/dL (8.5-10.1); CREATININE 2.2 mg/dL (0.6-1.0); GFR 22.8; POTASSIUM 3.6 mmol/L (3.5-5.1); TOTAL BILIRUBIN 0.3 mg/dL (0.2-1.0); TOTAL PROTEIN 6.7 g/dL (6.4-8.2)
--- NOTE | 2018-05-08 10:32 | RAD ---
Radionuclide hepatobiliary scan with gallbladder ejection fraction, 05/08/2018: HISTORY: Abdominal pain Following IV injection of 5.5 mCi of technetium 99 M Choletec there was prompt uptake of the radionuclide from the blood stream by the liver. Activity is present in the gallbladder and bile ducts at 5 minutes and in small bowel at 10 minutes. Additional imaging was then performed following IV injection of 1.5 mcg of cholecystokinin. The gallbladder ejection fraction was calculated at 53 percent. IMPRESSION: 1. Normal radionuclide hepatobiliary scan. 2. The gallbladder ejection fraction is 53 percent. Electronically signed by: Tomas Nunez MD (05/08/2018 10:29 AM) [facility]
--- NOTE | 2018-05-08 11:06 | PDOC ---
PROGRESS NOTES Chief Complaint Chief Complaint Chest pain, atypical. with risk factors including age Abnormal CT: masslike density of the L lower lobe, CXR L basilar infiltrate likely pneumonia, less likely malignancy Hyperglycemia Elevated Creatinine, possible CKD Septic - tachycardic and Tmax of 102.5 Hyponatremia Hypertension; hyperlipidemia Diabetes, II; uncontrolled. Seizure hx H/o CVA Abdominal pain; followed by GI on an outpatient basis Neuropathy Moderately delayed gastric emptying Small calcification projecting over the insertion of the supraspinatus on the humerus. Mild or early calcific tendinitis not excluded History of Present Illness History of Present Illness Ms. Dacosta is a 57 yo female presented with chest pain, epigastric abdominal pain. She was seen and examined at bedside. Discussed case with RN. Patient has no new complaints. Patient on zosyn. GI and Pulm following. HIDA today wnl, 53% EF. Blood sugars under better control with lantus 60units BID. Vitals Vitals Vital Signs Date Time Temp Pulse Resp B/P (MAP) Pulse Ox O2 Delivery O2 Flow Rate FiO2 05/08/18 09:51 71 123/53 05/08/18 08:01 Nasal Cannula 2.0 05/08/18 07:00 97.7 18 95 97.7 Physical Exam General: Alert, Oriented X3, Cooperative, mild distress Heart: Regular rate, Normal S1, No murmurs Lungs: Clear Abdomen: Normal bowel sounds, Soft, No tenderness, No masses Extremities: No clubbing, No cyanosis, No edema Skin: No rashes, No significant lesion Labs LABS Laboratory Tests Test 05/07/18 11:23 05/07/18 11:32 05/07/18 17:07 05/07/18 21:45 Glucose (Fingerstick) 271 mg/dL (70-99) 220 mg/dL (70-99) 195 mg/dL (70-99) Urine Random Sodium <60 mmol/L (Not Estab.) Test 05/08/18 07:03 05/08/18 09:55 Glucose (Fingerstick) 165 mg/dL (70-99) White Blood Count 5.6 x10^3/uL (4.0-11.0) Red Blood Count 4.36 x10^6/uL (3.50-5.40) Hemoglobin 12.4 g/dL (12.0-15.5) Hematocrit 36.3 % (36.0-47.0) Mean Corpuscular Volume 83 fL (79-100) Mean Corpuscular Hemoglobin 28 pg (25-35) Mean Corpuscular Hemoglobin Concent 34 g/dL (31-37) Red Cell Distribution Width 12.9 % (11.5-14.5) Platelet Count 261 x10^3/uL (140-400) Neutrophils (%) (Auto) 56 % (31-73) Lymphocytes (%) (Auto) 30 % (24-48) Monocytes (%) (Auto) 11 % (0-9) Eosinophils (%) (Auto) 2 % (0-3) Basophils (%) (Auto) 1 % (0-3) Neutrophils # (Auto) 3.2 x10^3uL (1.8-7.7) Lymphocytes # (Auto) 1.7 x10^3/uL (1.0-4.8) Monocytes # (Auto) 0.6 x10^3/uL (0.0-1.1) Eosinophils # (Auto) 0.1 x10^3/uL (0.0-0.7) Basophils # (Auto) 0.0 x10^3/uL (0.0-0.2) Sodium Level 135 mmol/L (136-145) Potassium Level 3.6 mmol/L (3.5-5.1) Chloride Level 99 mmol/L (98-107) Carbon Dioxide Level 26 mmol/L (21-32) Anion Gap 10 (6-14) Blood Urea Nitrogen 18 mg/dL (7-20) Creatinine 2.2 mg/dL (0.6-1.0) Estimated GFR (Cockcroft-Gault) 22.8 BUN/Creatinine Ratio 8 (6-20) Glucose Level 143 mg/dL (70-99) Calcium Level 8.2 mg/dL (8.5-10.1) Total Bilirubin 0.3 mg/dL (0.2-1.0) Aspartate Amino Transf (AST/SGOT) 19 U/L (15-37) Alanine Aminotransferase (ALT/SGPT) 14 U/L (14-59) Alkaline Phosphatase 88 U/L (46-116) Total Protein 6.7 g/dL (6.4-8.2) Albumin 2.1 g/dL (3.4-5.0) Albumin/Globulin Ratio 0.5 (1.0-1.7) Review of Systems Review of Systems Denies nausea Denies vomiting Assessment and Plan Assessmemt and Plan Problems Medical Problems: (1) Chest pain Status: Acute (2) Uncontrolled type II diabetes mellitus Status: Acute Assessment: Chest pain, atypical. with risk factors including age Abnormal CT: masslike density of the L lower lobe, CXR L basilar infiltrate likely pneumonia, less likely malignancy Hyperglycemia Elevated Creatinine, possible CKD Septic - tachycardic and Tmax of 102.5 Hyponatremia Hypertension; hyperlipidemia Diabetes, II; uncontrolled. Seizure hx H/o CVA Abdominal pain; followed by GI on an outpatient basis Neuropathy Moderately delayed gastric emptying Small calcification projecting over the insertion of the supraspinatus on the humerus. Mild or early calcific tendinitis not excluded Plan: Discharge if okay with GI Monitor glycemic control, blood sugars more stable Awaiting GI input Continue zosyn Awaiting nephrology input, Creatinine elevated PT/OT Review labs Comment Review of Relevant I have reviewed the following items cheko (where applicable) has been applied. Labs Laboratory Tests Test 05/06/18 11:37 05/06/18 17:01 05/06/18 20:35 05/06/18 20:54 Glucose (Fingerstick) 311 mg/dL (70-99) 399 mg/dL (70-99) 310 mg/dL (70-99) 327 mg/dL (70-99) Test 05/07/18 04:37 05/07/18 07:57 05/07/18 11:23 05/07/18 11:32 White Blood Count 6.6 x10^3/uL (4.0-11.0) Red Blood Count 3.95 x10^6/uL (3.50-5.40) Hemoglobin 11.3 g/dL (12.0-15.5) Hematocrit 32.9 % (36.0-47.0) Mean Corpuscular Volume 84 fL (79-100) Mean Corpuscular Hemoglobin 29 pg (25-35) Mean Corpuscular Hemoglobin Concent 34 g/dL (31-37) Red Cell Distribution Width 12.6 % (11.5-14.5) Platelet Count 268 x10^3/uL (140-400) Neutrophils (%) (Auto) 65 % (31-73) Lymphocytes (%) (Auto) 25 % (24-48) Monocytes (%) (Auto) 8 % (0-9) Eosinophils (%) (Auto) 2 % (0-3) Basophils (%) (Auto) 1 % (0-3) Neutrophils # (Auto) 4.3 x10^3uL (1.8-7.7) Lymphocytes # (Auto) 1.6 x10^3/uL (1.0-4.8) Monocytes # (Auto) 0.6 x10^3/uL (0.0-1.1) Eosinophils # (Auto) 0.1 x10^3/uL (0.0-0.7) Basophils # (Auto) 0.1 x10^3/uL (0.0-0.2) Sodium Level 134 mmol/L (136-145) Potassium Level 3.9 mmol/L (3.5-5.1) Chloride Level 99 mmol/L (98-107) Carbon Dioxide Level 26 mmol/L (21-32) Anion Gap 9 (6-14) Blood Urea Nitrogen 24 mg/dL (7-20) Creatinine 2.6 mg/dL (0.6-1.0) Estimated GFR (Cockcroft-Gault) 18.8 BUN/Creatinine Ratio 9 (6-20) Glucose Level 271 mg/dL (70-99) Calcium Level 8.3 mg/dL (8.5-10.1) Total Bilirubin 0.3 mg/dL (0.2-1.0) Aspartate Amino Transf (AST/SGOT) 17 U/L (15-37) Alanine Aminotransferase (ALT/SGPT) 13 U/L (14-59) Alkaline Phosphatase 71 U/L (46-116) Creatine Kinase 24 U/L (26-192) Total Protein 6.2 g/dL (6.4-8.2) Albumin 2.0 g/dL (3.4-5.0) Albumin/Globulin Ratio 0.5 (1.0-1.7) Glucose (Fingerstick) 238 mg/dL (70-99) 271 mg/dL (70-99) Urine Random Sodium <60 mmol/L (Not Estab.) Test 05/07/18 17:07 05/07/18 21:45 05/08/18 07:03 05/08/18 09:55 Glucose (Fingerstick) 220 mg/dL (70-99) 195 mg/dL (70-99) 165 mg/dL (70-99) White Blood Count 5.6 x10^3/uL (4.0-11.0) Red Blood Count 4.36 x10^6/uL (3.50-5.40) Hemoglobin 12.4 g/dL (12.0-15.5) Hematocrit 36.3 % (36.0-47.0) Mean Corpuscular Volume 83 fL (79-100) Mean Corpuscular Hemoglobin 28 pg (25-35) Mean Corpuscular Hemoglobin Concent 34 g/dL (31-37) Red Cell Distribution Width 12.9 % (11.5-14.5) Platelet Count 261 x10^3/uL (140-400) Neutrophils (%) (Auto) 56 % (31-73) Lymphocytes (%) (Auto) 30 % (24-48) Monocytes (%) (Auto) 11 % (0-9) Eosinophils (%) (Auto) 2 % (0-3) Basophils (%) (Auto) 1 % (0-3) Neutrophils # (Auto) 3.2 x10^3uL (1.8-7.7) Lymphocytes # (Auto) 1.7 x10^3/uL (1.0-4.8) Monocytes # (Auto) 0.6 x10^3/uL (0.0-1.1) Eosinophils # (Auto) 0.1 x10^3/uL (0.0-0.7) Basophils # (Auto) 0.0 x10^3/uL (0.0-0.2) Sodium Level 135 mmol/L (136-145) Potassium Level 3.6 mmol/L (3.5-5.1) Chloride Level 99 mmol/L (98-107) Carbon Dioxide Level 26 mmol/L (21-32) Anion Gap 10 (6-14) Blood Urea Nitrogen 18 mg/dL (7-20) Creatinine 2.2 mg/dL (0.6-1.0) Estimated GFR (Cockcroft-Gault) 22.8 BUN/Creatinine Ratio 8 (6-20) Glucose Level 143 mg/dL (70-99) Calcium Level 8.2 mg/dL (8.5-10.1) Total Bilirubin 0.3 mg/dL (0.2-1.0) Aspartate Amino Transf (AST/SGOT) 19 U/L (15-37) Alanine Aminotransferase (ALT/SGPT) 14 U/L (14-59) Alkaline Phosphatase 88 U/L (46-116) Total Protein 6.7 g/dL (6.4-8.2) Albumin 2.1 g/dL (3.4-5.0) Albumin/Globulin Ratio 0.5 (1.0-1.7) Laboratory Tests Test 05/07/18 11:23 05/07/18 11:32 05/07/18 17:07 05/07/18 21:45 Glucose (Fingerstick) 271 mg/dL (70-99) 220 mg/dL (70-99) 195 mg/dL (70-99) Urine Random Sodium <60 mmol/L (Not Estab.) Test 05/08/18 07:03 05/08/18 09:55 Glucose (Fingerstick) 165 mg/dL (70-99) White Blood Count 5.6 x10^3/uL (4.0-11.0) Red Blood Count 4.36 x10^6/uL (3.50-5.40) Hemoglobin 12.4 g/dL (12.0-15.5) Hematocrit 36.3 % (36.0-47.0) Mean Corpuscular Volume 83 fL (79-100) Mean Corpuscular Hemoglobin 28 pg (25-35) Mean Corpuscular Hemoglobin Concent 34 g/dL (31-37) Red Cell Distribution Width 12.9 % (11.5-14.5) Platelet Count 261 x10^3/uL (140-400) Neutrophils (%) (Auto) 56 % (31-73) Lymphocytes (%) (Auto) 30 % (24-48) Monocytes (%) (Auto) 11 % (0-9) Eosinophils (%) (Auto) 2 % (0-3) Basophils (%) (Auto) 1 % (0-3) Neutrophils # (Auto) 3.2 x10^3uL (1.8-7.7) Lymphocytes # (Auto) 1.7 x10^3/uL (1.0-4.8) Monocytes # (Auto) 0.6 x10^3/uL (0.0-1.1) Eosinophils # (Auto) 0.1 x10^3/uL (0.0-0.7) Basophils # (Auto) 0.0 x10^3/uL (0.0-0.2) Sodium Level 135 mmol/L (136-145) Potassium Level 3.6 mmol/L (3.5-5.1) Chloride Level 99 mmol/L (98-107) Carbon Dioxide Level 26 mmol/L (21-32) Anion Gap 10 (6-14) Blood Urea Nitrogen 18 mg/dL (7-20) Creatinine 2.2 mg/dL (0.6-1.0) Estimated GFR (Cockcroft-Gault) 22.8 BUN/Creatinine Ratio 8 (6-20) Glucose Level 143 mg/dL (70-99) Calcium Level 8.2 mg/dL (8.5-10.1) Total Bilirubin 0.3 mg/dL (0.2-1.0) Aspartate Amino Transf (AST/SGOT) 19 U/L (15-37) Alanine Aminotransferase (ALT/SGPT) 14 U/L (14-59) Alkaline Phosphatase 88 U/L (46-116) Total Protein 6.7 g/dL (6.4-8.2) Albumin 2.1 g/dL (3.4-5.0) Albumin/Globulin Ratio 0.5 (1.0-1.7) Microbiology 05/06/18 Blood Culture - Preliminary, Resulted NO GROWTH AFTER 1 DAY Medications Current Medications Morphine Sulfate (Morphine Sulfate) 2 mg PRN Q15MIN PRN IV/SQ PAIN GREATER THAN 3/10 Last administered on 05/04/18at 01:16; Start 05/03/18 at 20:45; Stop at 07:30; Status DC Sodium Chloride 1,000 ml @ 1,000 mls/hr Q1H IV Last administered on 05/03/18at 21:09; Start 05/03/18 at 20:33; Stop 05/03/18 at 21:32; Status DC Ondansetron HCl (Zofran) 4 mg 1X ONCE IV Last administered on 05/03/18at 21:09 ; Start 05/03/18 at 20:45; Stop 05/03/18 at 20:46; Status DC Ondansetron HCl (Zofran) 4 mg PRN Q8HRS PRN IV NAUSEA/VOMITING; Start 05/04/18 at 00:30; Stop 05/05/18 at 00:29; Status DC Morphine Sulfate (Morphine Sulfate) 2 mg PRN Q2HR PRN IV PAIN Last administered on 05/04/18at 21:07; Start 05/04/18 at 00:30; Stop 05/05/18 at 00:29 ; Status DC Sodium Chloride 1,000 ml @ 125 mls/hr Q8H IV ; Start 05/04/18 at 00:30; Stop at 00:29; Status DC Nitroglycerin (Nitrostat) 0.4 mg PRN Q5MIN PRN SL CHEST PAIN; Start 05/04/18 at 00:30; Stop 05/05/18 at 00:29; Status DC Insulin Human Lispro (HumaLOG) 0-5 UNITS TIDWMEALS SQ Last administered on 05/04at 17:40; Start 05/04/18 at 08:00; Stop 05/04/18 at 22:34; Status DC Dextrose (Dextrose 50%-Water Syringe) 12.5 gm PRN Q15MIN PRN IV SEE COMMENTS; Start 05/04/18 at 00:30 Atorvastatin Calcium (Lipitor) 20 mg QHS PO Last administered on 05/07/18at 22: 20; Start 05/04/18 at 21:00 Aspirin ([place]ingo Aspirin) 325 mg PRN Q6HRS PRN PO PAIN; Start 05/04/18 at 16:30 Hydrochlorothiazide (Hydrodiuril) 25 mg DAILY PO Last administered on at 09:51; Start 05/05/18 at 09:00 Metoprolol Tartrate (Lopressor) 25 mg BID PO Last administered on 05/08/18 09: 51; Start 05/04/18 at 21:00 Enoxaparin Sodium (Lovenox 40mg Syringe) 40 mg Q24H SQ Last administered on at 20:37; Start 05/04/18 at 21:00; Stop 05/07/18 at 14:45; Status DC Insulin Human Lispro (HumaLOG) 0-5 UNITS TIDACHC SQ Last administered on at 12:22; Start 05/05/18 at 07:30; Stop 05/06/18 at 17:15; Status DC Insulin Human Lispro (HumaLOG) 2 units 1X ONCE SQ Last administered on 23:47; Start 05/04/18 at 22:45; Stop 05/04/18 at 22:46; Status DC Estradiol (Estrace) 0.5 mg DAILY PO Last administered on 05/08/18 09:51; Start 05/05/18 at 09:00 Gabapentin (Neurontin) 600 mg TID PO Last administered on 05/08/18 09:51; Start 05/04/18 at 22:45 Insulin Glargine (Lantus) 10 units QHS SQ Last administered on 05/04/18 23:48 ; Start 05/04/18 at 23:30; Stop 05/05/18 at 16:12; Status DC Morphine Sulfate (Morphine Sulfate) 2 mg PRN Q2HR PRN IV PAIN Last administered on 05/06/18 20:39; Start 05/05/18 at 03:15; Stop 05/06/18 at 23:27 ; Status DC Ondansetron HCl (Zofran) 4 mg PRN Q6HRS PRN IV NAUSEA/VOMITING Last administered on 05/07/18 15:03; Start 05/05/18 at 03:45 Regadenoson (Lexiscan) 0.4 mg 1X ONCE IV Last administered on 05/05/18 07:45 ; Start 05/05/18 at 07:45; Stop 05/05/18 at 07:46; Status DC Insulin Human Lispro (HumaLOG) 9 units 1X ONCE SQ Last administered on 12:53; Start 05/05/18 at 12:45; Stop 05/05/18 at 12:48; Status DC Insulin Human Lispro (HumaLOG) 10 units 1X ONCE SQ Last administered on 13:53; Start 05/05/18 at 14:00; Stop 05/05/18 at 14:01; Status DC Insulin Glargine (Lantus) 18 units QHS SQ Last administered on 05/06/18 20:44 ; Start 05/05/18 at 21:00; Stop 05/07/18 at 10:42; Status DC Acetaminophen (Tylenol) 650 mg PRN Q6HRS PRN PO MILD PAIN / TEMP Last administered on 05/08/18 09:51; Start 05/05/18 at 21:00 Piperacillin Sod/ Tazobactam Sod (Zosyn Per Pharmacy) 1 each PRN DAILY PRN MC SEE COMMENTS; Start 05/05/18 at 21:00 Piperacillin Sod/ Tazobactam Sod 3.375 gm/Sodium Chloride 50 ml @ 100 mls/hr Q6HRS IV Last administered on 05/08/18 05:48; Start 05/05/18 at 21:30 Sodium Chloride 1,000 ml @ 75 mls/hr [id number] IV Last administered on 22:31; Start 05/06/18 at 10:00 Lactobacillus Rhamnosus (Culturelle) 1 cap BID PO Last administered on 09:51; Start 05/06/18 at 13:00 Pantoprazole Sodium (Protonix) 40 mg DAILYAC PO Last administered on 05/08/18 09:52; Start 05/06/18 at 14:00 Insulin Human Lispro (HumaLOG) 0-9 UNITS TIDWMEALS SQ Last administered on 05/07 17:17; Start 05/07/18 at 08:00 Dextrose (Dextrose 50%-Water Syringe) 12.5 gm PRN Q15MIN PRN IV SEE COMMENTS; Start 05/06/18 at 17:15; Status UNV Insulin Human Lispro (HumaLOG) 12 units 1X ONCE SQ Last administered on 17:20; Start 05/06/18 at 17:15; Stop 05/06/18 at 17:17; Status DC Lorazepam (Ativan) 2 mg PRN Q4HRS PRN IV seizures; Start 05/06/18 at 21:30 Morphine Sulfate (Morphine Sulfate) 2 mg PRN Q2HR PRN IV PAIN; Start 05/06/18 at 23:30 Insulin Glargine (Lantus) 60 units Q12HR SQ Last administered on 05/08/18 10: 22; Start 05/07/18 at 11:00 Enoxaparin Sodium (Lovenox 30mg Syringe) 30 mg Q24H SQ Last administered on 3/ 24/19at 22:22; Start 05/07/18 at 21:00 Prochlorperazine Edisylate (Compazine) 10 mg PRN Q6HRS PRN IV NAUSEA/VOMITING Last administered on 05/07/18at 22:21; Start 05/07/18 at 21:45 Sincalide 1.5 mcg/ Sodium Chloride 30 ml @ 0 mls/hr 1X ONCE IV Last administered on 05/08/18at 08:22; Start 05/08/18 at 08:00; Stop 05/08/18 at 08:01 ; Status DC Methylprednisolone Acetate (DEPO-Medrol 80MG VIAL) 80 mg 1X ONCE IM ; Start at 08:15; Stop 05/08/18 at 08:16; Status DC Diphenhydramine HCl 100 mg/Sodium Chloride 8 ml/ Miscellaneous 10 ml @ 0 mls/hr 1X ONCE SQ ; Start 05/08/18 at 09:00; Stop 05/08/18 at 09:01; Status DC Iohexol (Omnipaque 300 Mg/ml) 50 ml STK-MED ONCE .ROUTE ; Start 05/08/18 at 10: 17; Stop 05/08/18 at 10:18; Status DC Active Scripts Active Reported Estradiol 0.5 Mg Tablet 1 Tab PO DAILY Humalog (Insulin Lispro) 100 Unit/1 Ml Insuln.pen Unknown Dose SQ TIDAC Levemir (Insulin Detemir) 100 Unit/1 Ml Vial 10 Units SQ HS Metoprolol Tartrate 25 Mg Tablet 25 Mg PO BID Hydrochlorothiazide Tablet (Hydrochlorothiazide) 25 Mg Tablet 1 Tab PO DAILY Aspirin 325 Mg Tablet 325 Tab PO PRN Q6HRS PRN Gabapentin 600 Mg Tablet 1 Tab PO TID Vitals/I & O Vital Sign - Last 24 Hours 05/07/18 05/07/18 05/07/18 05/07/18 15:00 19:06 22:22 22:42 Temp 97.4 97.9 98.4 97.4 97.9 98.4 Pulse 66 71 71 75 Resp 16 16 16 B/P (MAP) 142/65 (90) 156/73 (100) 156/73 139/48 (78) Pulse Ox 97 96 93 O2 Delivery Room Air Nasal Cannula Nasal Cannula O2 Flow Rate 1.0 1.0 3/2505/08/18 05/08/18 05/08/18 03:26 07:00 08:01 09:51 Temp 97.7 97.7 97.7 97.7 Pulse 70 71 71 Resp 16 18 B/P (MAP) 138/69 (92) 123/53 (76) 123/53 Pulse Ox 93 95 O2 Delivery Nasal Cannula Nasal Cannula Nasal Cannula O2 Flow Rate 1.0 1.0 2.0 Intake and Output 05/07/18 05/07/18 05/08/18 15:00 23:00 07:00 Intake Total 430 ml 300 ml Output Total 1000 ml 600 ml 550 ml Balance -570 ml -600 ml -250 ml SHARI RITCHIE III DO May 08, 2018 11:06
[2018-05-08 11:35] VITALS: BP 143/73
--- NOTE | 2018-05-08 11:38 | RAD ---
Fluoroscopically guided left shoulder joint injection, 05/08/2018: HISTORY: Arthritis, pain Due to the patient's history of a lidocaine allergy, a 1 percent Benadryl solution was utilized for topical and deep anesthesia. A 22-gauge spinal needle was passed into the left shoulder joint via an anterior approach. A small amount of iodinated contrast material was injected to confirm intra-articular positioning. 80 mg of Depo-Medrol was then injected into the left shoulder joint as requested. The spinal needle was removed and hemostasis obtained. One fluoroscopic spot image was recorded. 0.9 minutes of fluoroscopy time was utilized. The patient tolerated the procedure well and was returned to the floor in good condition. Electronically signed by: Tomas Nunez MD (05/08/2018 11:35 AM) [facility]
--- NOTE | 2018-05-08 11:54 | DS ---
DATE OF DISCHARGE: 05/08/2018 ADMISSION DIAGNOSES: 1. Chest pain. 2. Uncontrolled diabetes. DISCHARGE DIAGNOSES: 1. Atypical chest pain, resolving. 2. Uncontrolled diabetes. 3. Probable gastroparesis. CONSULTS: Dr. Lennox Santos, GI; Dr. Rosales, Neurology; Dr. Kingston; Dr. Ji. PROCEDURES: None. HOSPITAL COURSE: The patient is a pleasant middle-aged female who presented with chest pain and hyperglycemia. She was admitted. We did a full cardiac workup, it apparently is negative. Her troponin levels have been all 0, we checked it 3 times. Her BNP level was normal at 286. We now have her glucose under control. Her glucose this morning was down to 143. Clinically, she looks great. She does have a HIDA scan pending today, but overall she is doing so much better. Her heart tones were normal. Her lungs are clear. She looks great. We plan to discharge if the HIDA scan does not show anything serious. DISPOSITION: Home if okay with consultants. ACTIVITY: As tolerated. DIET: Diabetic. MEDICATIONS: Please see the MRAD. TOTAL TIME ON DISCHARGE: 31 minutes SHARI RITCHIE DO DR: BERTA/bandar JOB#: [id number] / [id number]
--- NOTE | 2018-05-08 12:23 | NUR ---
Ss following up with discharge planning. Home Healthcare recommended. Vaishali from [facility] met with pt and pt agreeable to home healthcare with [facility], ; fax [phone]. SS will continue to follow for discharge planning.
--- NOTE | 2018-05-08 12:41 | PDOC ---
PROGRESS NOTES Subjective Subjective She admits continued pain and stiffness,left shoulder area. Objective Objective Vital Signs Date Time Temp Pulse Resp B/P (MAP) Pulse Ox O2 Delivery O2 Flow Rate FiO2 05/08/18 11:35 97.5 70 18 143/73 (96) 97 Nasal Cannula 1.0 97.5 Intake and Output 05/08/18 07:00 Intake Total 730 ml Output Total 2150 ml Balance -1420 ml Intake Oral 730 ml Output Urine Total 2150 ml # Voids 3 Physical Exam Physical Exam She is alert,supine in bed and she continues with tenderness to palpation over left shoulder and left posterior shoulder girdle muscles woth associated weakness and painfully limited left shoulder joint ROM. Assessment Assessment Problems Medical Problems: (1) Chest pain Status: Acute (2) Uncontrolled type II diabetes mellitus Status: Acute Plan Plan of Care I have again reviewed with her in home program of physical modalities,trigger point massage and relaxed stretching exercises to left posterior shoulder girdle muscles and gentle stretching and Codman's exercises to left shoulder. Comment Review of Relevant I have reviewed the following items cheko (where applicable) has been applied. Labs Laboratory Tests Test 05/06/18 17:01 05/06/18 20:35 05/06/18 20:54 05/07/18 04:37 Glucose (Fingerstick) 399 mg/dL (70-99) 310 mg/dL (70-99) 327 mg/dL (70-99) White Blood Count 6.6 x10^3/uL (4.0-11.0) Red Blood Count 3.95 x10^6/uL (3.50-5.40) Hemoglobin 11.3 g/dL (12.0-15.5) Hematocrit 32.9 % (36.0-47.0) Mean Corpuscular Volume 84 fL (79-100) Mean Corpuscular Hemoglobin 29 pg (25-35) Mean Corpuscular Hemoglobin Concent 34 g/dL (31-37) Red Cell Distribution Width 12.6 % (11.5-14.5) Platelet Count 268 x10^3/uL (140-400) Neutrophils (%) (Auto) 65 % (31-73) Lymphocytes (%) (Auto) 25 % (24-48) Monocytes (%) (Auto) 8 % (0-9) Eosinophils (%) (Auto) 2 % (0-3) Basophils (%) (Auto) 1 % (0-3) Neutrophils # (Auto) 4.3 x10^3uL (1.8-7.7) Lymphocytes # (Auto) 1.6 x10^3/uL (1.0-4.8) Monocytes # (Auto) 0.6 x10^3/uL (0.0-1.1) Eosinophils # (Auto) 0.1 x10^3/uL (0.0-0.7) Basophils # (Auto) 0.1 x10^3/uL (0.0-0.2) Sodium Level 134 mmol/L (136-145) Potassium Level 3.9 mmol/L (3.5-5.1) Chloride Level 99 mmol/L (98-107) Carbon Dioxide Level 26 mmol/L (21-32) Anion Gap 9 (6-14) Blood Urea Nitrogen 24 mg/dL (7-20) Creatinine 2.6 mg/dL (0.6-1.0) Estimated GFR (Cockcroft-Gault) 18.8 BUN/Creatinine Ratio 9 (6-20) Glucose Level 271 mg/dL (70-99) Calcium Level 8.3 mg/dL (8.5-10.1) Total Bilirubin 0.3 mg/dL (0.2-1.0) Aspartate Amino Transf (AST/SGOT) 17 U/L (15-37) Alanine Aminotransferase (ALT/SGPT) 13 U/L (14-59) Alkaline Phosphatase 71 U/L (46-116) Creatine Kinase 24 U/L (26-192) Total Protein 6.2 g/dL (6.4-8.2) Albumin 2.0 g/dL (3.4-5.0) Albumin/Globulin Ratio 0.5 (1.0-1.7) Test 05/07/18 07:57 05/07/18 11:23 05/07/18 11:32 05/07/18 17:07 Glucose (Fingerstick) 238 mg/dL (70-99) 271 mg/dL (70-99) 220 mg/dL (70-99) Urine Random Sodium <60 mmol/L (Not Estab.) Test 05/07/18 21:45 05/08/18 07:03 05/08/18 09:55 05/08/18 11:29 Glucose (Fingerstick) 195 mg/dL (70-99) 165 mg/dL (70-99) 146 mg/dL (70-99) White Blood Count 5.6 x10^3/uL (4.0-11.0) Red Blood Count 4.36 x10^6/uL (3.50-5.40) Hemoglobin 12.4 g/dL (12.0-15.5) Hematocrit 36.3 % (36.0-47.0) Mean Corpuscular Volume 83 fL (79-100) Mean Corpuscular Hemoglobin 28 pg (25-35) Mean Corpuscular Hemoglobin Concent 34 g/dL (31-37) Red Cell Distribution Width 12.9 % (11.5-14.5) Platelet Count 261 x10^3/uL (140-400) Neutrophils (%) (Auto) 56 % (31-73) Lymphocytes (%) (Auto) 30 % (24-48) Monocytes (%) (Auto) 11 % (0-9) Eosinophils (%) (Auto) 2 % (0-3) Basophils (%) (Auto) 1 % (0-3) Neutrophils # (Auto) 3.2 x10^3uL (1.8-7.7) Lymphocytes # (Auto) 1.7 x10^3/uL (1.0-4.8) Monocytes # (Auto) 0.6 x10^3/uL (0.0-1.1) Eosinophils # (Auto) 0.1 x10^3/uL (0.0-0.7) Basophils # (Auto) 0.0 x10^3/uL (0.0-0.2) Sodium Level 135 mmol/L (136-145) Potassium Level 3.6 mmol/L (3.5-5.1) Chloride Level 99 mmol/L (98-107) Carbon Dioxide Level 26 mmol/L (21-32) Anion Gap 10 (6-14) Blood Urea Nitrogen 18 mg/dL (7-20) Creatinine 2.2 mg/dL (0.6-1.0) Estimated GFR (Cockcroft-Gault) 22.8 BUN/Creatinine Ratio 8 (6-20) Glucose Level 143 mg/dL (70-99) Calcium Level 8.2 mg/dL (8.5-10.1) Total Bilirubin 0.3 mg/dL (0.2-1.0) Aspartate Amino Transf (AST/SGOT) 19 U/L (15-37) Alanine Aminotransferase (ALT/SGPT) 14 U/L (14-59) Alkaline Phosphatase 88 U/L (46-116) Total Protein 6.7 g/dL (6.4-8.2) Albumin 2.1 g/dL (3.4-5.0) Albumin/Globulin Ratio 0.5 (1.0-1.7) Laboratory Tests Test 05/07/18 17:07 05/07/18 21:45 05/08/18 07:03 05/08/18 09:55 Glucose (Fingerstick) 220 mg/dL (70-99) 195 mg/dL (70-99) 165 mg/dL (70-99) White Blood Count 5.6 x10^3/uL (4.0-11.0) Red Blood Count 4.36 x10^6/uL (3.50-5.40) Hemoglobin 12.4 g/dL (12.0-15.5) Hematocrit 36.3 % (36.0-47.0) Mean Corpuscular Volume 83 fL (79-100) Mean Corpuscular Hemoglobin 28 pg (25-35) Mean Corpuscular Hemoglobin Concent 34 g/dL (31-37) Red Cell Distribution Width 12.9 % (11.5-14.5) Platelet Count 261 x10^3/uL (140-400) Neutrophils (%) (Auto) 56 % (31-73) Lymphocytes (%) (Auto) 30 % (24-48) Monocytes (%) (Auto) 11 % (0-9) Eosinophils (%) (Auto) 2 % (0-3) Basophils (%) (Auto) 1 % (0-3) Neutrophils # (Auto) 3.2 x10^3uL (1.8-7.7) Lymphocytes # (Auto) 1.7 x10^3/uL (1.0-4.8) Monocytes # (Auto) 0.6 x10^3/uL (0.0-1.1) Eosinophils # (Auto) 0.1 x10^3/uL (0.0-0.7) Basophils # (Auto) 0.0 x10^3/uL (0.0-0.2) Sodium Level 135 mmol/L (136-145) Potassium Level 3.6 mmol/L (3.5-5.1) Chloride Level 99 mmol/L (98-107) Carbon Dioxide Level 26 mmol/L (21-32) Anion Gap 10 (6-14) Blood Urea Nitrogen 18 mg/dL (7-20) Creatinine 2.2 mg/dL (0.6-1.0) Estimated GFR (Cockcroft-Gault) 22.8 BUN/Creatinine Ratio 8 (6-20) Glucose Level 143 mg/dL (70-99) Calcium Level 8.2 mg/dL (8.5-10.1) Total Bilirubin 0.3 mg/dL (0.2-1.0) Aspartate Amino Transf (AST/SGOT) 19 U/L (15-37) Alanine Aminotransferase (ALT/SGPT) 14 U/L (14-59) Alkaline Phosphatase 88 U/L (46-116) Total Protein 6.7 g/dL (6.4-8.2) Albumin 2.1 g/dL (3.4-5.0) Albumin/Globulin Ratio 0.5 (1.0-1.7) Test 05/08/18 11:29 Glucose (Fingerstick) 146 mg/dL (70-99) Microbiology 05/06/18 Blood Culture - Preliminary, Resulted NO GROWTH AFTER 1 DAY Medications Current Medications Morphine Sulfate (Morphine Sulfate) 2 mg PRN Q15MIN PRN IV/SQ PAIN GREATER THAN 3/10 Last administered on 05/04/18at 01:16; Start 05/03/18 at 20:45; Stop at 07:30; Status DC Sodium Chloride 1,000 ml @ 1,000 mls/hr Q1H IV Last administered on 05/03/18at 21:09; Start 05/03/18 at 20:33; Stop 05/03/18 at 21:32; Status DC Ondansetron HCl (Zofran) 4 mg 1X ONCE IV Last administered on 05/03/18at 21:09 ; Start 05/03/18 at 20:45; Stop 05/03/18 at 20:46; Status DC Ondansetron HCl (Zofran) 4 mg PRN Q8HRS PRN IV NAUSEA/VOMITING; Start 05/04/18 at 00:30; Stop 05/05/18 at 00:29; Status DC Morphine Sulfate (Morphine Sulfate) 2 mg PRN Q2HR PRN IV PAIN Last administered on 05/04/18at 21:07; Start 05/04/18 at 00:30; Stop 05/05/18 at 00:29 ; Status DC Sodium Chloride 1,000 ml @ 125 mls/hr Q8H IV ; Start 05/04/18 at 00:30; Stop at 00:29; Status DC Nitroglycerin (Nitrostat) 0.4 mg PRN Q5MIN PRN SL CHEST PAIN; Start 05/04/18 at 00:30; Stop 05/05/18 at 00:29; Status DC Insulin Human Lispro (HumaLOG) 0-5 UNITS TIDWMEALS SQ Last administered on 05/04at 17:40; Start 05/04/18 at 08:00; Stop 05/04/18 at 22:34; Status DC Dextrose (Dextrose 50%-Water Syringe) 12.5 gm PRN Q15MIN PRN IV SEE COMMENTS; Start 05/04/18 at 00:30 Atorvastatin Calcium (Lipitor) 20 mg QHS PO Last administered on 05/07/18at 22: 20; Start 05/04/18 at 21:00 Aspirin ([place]ingo Aspirin) 325 mg PRN Q6HRS PRN PO PAIN; Start 05/04/18 at 16:30 Hydrochlorothiazide (Hydrodiuril) 25 mg DAILY PO Last administered on at 09:51; Start 05/05/18 at 09:00 Metoprolol Tartrate (Lopressor) 25 mg BID PO Last administered on 05/08/18 09: 51; Start 05/04/18 at 21:00 Enoxaparin Sodium (Lovenox 40mg Syringe) 40 mg Q24H SQ Last administered on at 20:37; Start 05/04/18 at 21:00; Stop 05/07/18 at 14:45; Status DC Insulin Human Lispro (HumaLOG) 0-5 UNITS TIDACHC SQ Last administered on at 12:22; Start 05/05/18 at 07:30; Stop 05/06/18 at 17:15; Status DC Insulin Human Lispro (HumaLOG) 2 units 1X ONCE SQ Last administered on 23:47; Start 05/04/18 at 22:45; Stop 05/04/18 at 22:46; Status DC Estradiol (Estrace) 0.5 mg DAILY PO Last administered on 05/08/18 09:51; Start 05/05/18 at 09:00 Gabapentin (Neurontin) 600 mg TID PO Last administered on 05/08/18 09:51; Start 05/04/18 at 22:45 Insulin Glargine (Lantus) 10 units QHS SQ Last administered on 05/04/18 23:48 ; Start 05/04/18 at 23:30; Stop 05/05/18 at 16:12; Status DC Morphine Sulfate (Morphine Sulfate) 2 mg PRN Q2HR PRN IV PAIN Last administered on 05/06/18 20:39; Start 05/05/18 at 03:15; Stop 05/06/18 at 23:27 ; Status DC Ondansetron HCl (Zofran) 4 mg PRN Q6HRS PRN IV NAUSEA/VOMITING Last administered on 05/07/18 15:03; Start 05/05/18 at 03:45 Regadenoson (Lexiscan) 0.4 mg 1X ONCE IV Last administered on 05/05/18 07:45 ; Start 05/05/18 at 07:45; Stop 05/05/18 at 07:46; Status DC Insulin Human Lispro (HumaLOG) 9 units 1X ONCE SQ Last administered on 12:53; Start 05/05/18 at 12:45; Stop 05/05/18 at 12:48; Status DC Insulin Human Lispro (HumaLOG) 10 units 1X ONCE SQ Last administered on 13:53; Start 05/05/18 at 14:00; Stop 05/05/18 at 14:01; Status DC Insulin Glargine (Lantus) 18 units QHS SQ Last administered on 05/06/18 20:44 ; Start 05/05/18 at 21:00; Stop 05/07/18 at 10:42; Status DC Acetaminophen (Tylenol) 650 mg PRN Q6HRS PRN PO MILD PAIN / TEMP Last administered on 05/08/18 09:51; Start 05/05/18 at 21:00 Piperacillin Sod/ Tazobactam Sod (Zosyn Per Pharmacy) 1 each PRN DAILY PRN MC SEE COMMENTS; Start 05/05/18 at 21:00 Piperacillin Sod/ Tazobactam Sod 3.375 gm/Sodium Chloride 50 ml @ 100 mls/hr Q6HRS IV Last administered on 05/08/18 05:48; Start 05/05/18 at 21:30 Sodium Chloride 1,000 ml @ 75 mls/hr [id number] IV Last administered on 22:31; Start 05/06/18 at 10:00 Lactobacillus Rhamnosus (Culturelle) 1 cap BID PO Last administered on 09:51; Start 05/06/18 at 13:00 Pantoprazole Sodium (Protonix) 40 mg DAILYAC PO Last administered on 05/08/18 09:52; Start 05/06/18 at 14:00 Insulin Human Lispro (HumaLOG) 0-9 UNITS TIDWMEALS SQ Last administered on 05/07at 17:17; Start 05/07/18 at 08:00 Dextrose (Dextrose 50%-Water Syringe) 12.5 gm PRN Q15MIN PRN IV SEE COMMENTS; Start 05/06/18 at 17:15; Status UNV Insulin Human Lispro (HumaLOG) 12 units 1X ONCE SQ Last administered on at 17:20; Start 05/06/18 at 17:15; Stop 05/06/18 at 17:17; Status DC Lorazepam (Ativan) 2 mg PRN Q4HRS PRN IV seizures; Start 05/06/18 at 21:30 Morphine Sulfate (Morphine Sulfate) 2 mg PRN Q2HR PRN IV PAIN; Start 05/06/18 at 23:30 Insulin Glargine (Lantus) 60 units Q12HR SQ Last administered on 05/08/18at 10: 22; Start 05/07/18 at 11:00 Enoxaparin Sodium (Lovenox 30mg Syringe) 30 mg Q24H SQ Last administered on at 22:22; Start 05/07/18 at 21:00 Prochlorperazine Edisylate (Compazine) 10 mg PRN Q6HRS PRN IV NAUSEA/VOMITING Last administered on 05/07/18at 22:21; Start 05/07/18 at 21:45 Sincalide 1.5 mcg/ Sodium Chloride 30 ml @ 0 mls/hr 1X ONCE IV Last administered on 05/08/18at 08:22; Start 05/08/18 at 08:00; Stop 05/08/18 at 08:01 ; Status DC Methylprednisolone Acetate (DEPO-Medrol 80MG VIAL) 80 mg 1X ONCE IM Last administered on 05/08/18at 08:15; Start 05/08/18 at 08:15; Stop 05/08/18 at 08:16 ; Status DC Diphenhydramine HCl 100 mg/Sodium Chloride 8 ml/ Miscellaneous 10 ml @ 0 mls/hr 1X ONCE SQ Last administered on 05/08/18at 08:50; Start 05/08/18 at 09:00; Stop 05/08/18 at 09:01; Status DC Iohexol (Omnipaque 300 Mg/ml) 50 ml STK-MED ONCE .ROUTE ; Start 05/08/18 at 10: 17; Stop 05/08/18 at 10:18; Status DC Active Scripts Active Reported Estradiol 0.5 Mg Tablet 1 Tab PO DAILY Humalog (Insulin Lispro) 100 Unit/1 Ml Insuln.pen Unknown Dose SQ TIDAC Levemir (Insulin Detemir) 100 Unit/1 Ml Vial 10 Units SQ HS Metoprolol Tartrate 25 Mg Tablet 25 Mg PO BID Hydrochlorothiazide Tablet (Hydrochlorothiazide) 25 Mg Tablet 1 Tab PO DAILY Aspirin 325 Mg Tablet 325 Tab PO PRN Q6HRS PRN Gabapentin 600 Mg Tablet 1 Tab PO TID Vitals/I & O Vital Sign - Last 24 Hours 05/07/18 05/07/18 05/07/18 05/07/18 15:00 19:06 22:22 22:42 Temp 97.4 97.9 98.4 97.4 97.9 98.4 Pulse 66 71 71 75 Resp 16 16 16 B/P (MAP) 142/65 (90) 156/73 (100) 156/73 139/48 (78) Pulse Ox 97 96 93 O2 Delivery Room Air Nasal Cannula Nasal Cannula O2 Flow Rate 1.0 1.0 3/05/08/18 05/08/18 05/08/18 03:26 07:00 08:01 09:51 Temp 97.7 97.7 97.7 97.7 Pulse 70 71 71 Resp 16 18 B/P (MAP) 138/69 (92) 123/53 (76) 123/53 Pulse Ox 93 95 O2 Delivery Nasal Cannula Nasal Cannula Nasal Cannula O2 Flow Rate 1.0 1.0 2.0 05/08/18 11:35 Temp 97.5 97.5 Pulse 70 Resp 18 B/P (MAP) 143/73 (96) Pulse Ox 97 O2 Delivery Nasal Cannula O2 Flow Rate 1.0 Intake and Output 05/07/18 05/07/18 05/08/18 15:00 23:00 07:00 Intake Total 430 ml 300 ml Output Total 1000 ml 600 ml 550 ml Balance -570 ml -600 ml -250 ml VANNA HIGGINBOTHAM MD May 08, 2018 12:41
--- NOTE | 2018-05-08 13:00 | PDOC2 ---
CONSULT Date of Consult Date of Consult DATE: 05/08/18 TIME: 12:49 Reason for Consult Reason for Consult: TORI Referring Physician Referring Physician: ERMA Identification/Chief Complaint Chief Complaint N/V Source Source: Chart review, Patient History of Present Illness Reason for Visit: THIS IS A 57 YR OLD WITH ABD PAIN AND N/V. SHE HAS HAD SOME OP GI EVAL DONE FOR THIS. CURRENTLY ALSO CONCERNED ABOUT HAVING SEIZURES. GI AND NEURO EVAL ONGOING. CR PEAK OF 2.6 WITH NO HX OF ANY CKD. IMAGING DONE FOR OTHER PURPOSES NOTED AND SHE HAS NORMAL RENAL MORPHOLOGY. SHE HAS NOT BEEN EATING WELL. SHE IS ALSO NOTED TO HAVE FEVERS AND POSSIBLE INFILTRATE SUGGESTIVE OF PNEUMONIA AND IS ON ANTIBIOTICS AT THIS TIME. NO NEPHROTOXINS NOTED AND HEMODYNAMICALLY STABLE Past Medical History Cardiovascular: CAD, CHF, HTN Pulmonary: Asthma, Pneumonia CENTRAL NERVOUS SYSTEM: CVA, Periperal neuropathy, Seizure, Other GI: Constipation, Diverticulosis, Other Heme/Onc: No pertinent hx Hepatobiliary: No pertinent hx Psych: Anxiety, Depression Musculoskeletal: low back pain, Osteoarthritis Rheumatologic: No pertinent hx Infectious disease: No pertinent hx Renal/: Chronic renal insuff Endocrine: Diabetes Past Surgical History Past Surgical History: Appendectomy, Cataract Removal, , Hysterectomy , Other Family History Family History: Coronary Artery Disease, Heart Disease Social History No ALCOHOL: none Drugs: None Lives: with Family Current Problem List Problem List Problems Medical Problems: (1) Chest pain Status: Acute (2) Uncontrolled type II diabetes mellitus Status: Acute Current Medications Current Medications Current Medications Morphine Sulfate (Morphine Sulfate) 2 mg PRN Q15MIN PRN IV/SQ PAIN GREATER THAN 3/10 Last administered on 05/04/18at 01:16; Start 05/03/18 at 20:45; Stop at 07:30; Status DC Sodium Chloride 1,000 ml @ 1,000 mls/hr Q1H IV Last administered on 05/03/18at 21:09; Start 05/03/18 at 20:33; Stop 05/03/18 at 21:32; Status DC Ondansetron HCl (Zofran) 4 mg 1X ONCE IV Last administered on 05/03/18at 21:09 ; Start 05/03/18 at 20:45; Stop 05/03/18 at 20:46; Status DC Ondansetron HCl (Zofran) 4 mg PRN Q8HRS PRN IV NAUSEA/VOMITING; Start 05/04/18 at 00:30; Stop 05/05/18 at 00:29; Status DC Morphine Sulfate (Morphine Sulfate) 2 mg PRN Q2HR PRN IV PAIN Last administered on 05/04/18at 21:07; Start 05/04/18 at 00:30; Stop 05/05/18 at 00:29 ; Status DC Sodium Chloride 1,000 ml @ 125 mls/hr Q8H IV ; Start 05/04/18 at 00:30; Stop at 00:29; Status DC Nitroglycerin (Nitrostat) 0.4 mg PRN Q5MIN PRN SL CHEST PAIN; Start 05/04/18 at 00:30; Stop 05/05/18 at 00:29; Status DC Insulin Human Lispro (HumaLOG) 0-5 UNITS TIDWMEALS SQ Last administered on 05/04at 17:40; Start 05/04/18 at 08:00; Stop 05/04/18 at 22:34; Status DC Dextrose (Dextrose 50%-Water Syringe) 12.5 gm PRN Q15MIN PRN IV SEE COMMENTS; Start 05/04/18 at 00:30 Atorvastatin Calcium (Lipitor) 20 mg QHS PO Last administered on 05/07/18at 22: 20; Start 05/04/18 at 21:00 Aspirin ([place]ingo Aspirin) 325 mg PRN Q6HRS PRN PO PAIN; Start 05/04/18 at 16:30 Hydrochlorothiazide (Hydrodiuril) 25 mg DAILY PO Last administered on at 09:51; Start 05/05/18 at 09:00 Metoprolol Tartrate (Lopressor) 25 mg BID PO Last administered on 05/08/18 09: 51; Start 05/04/18 at 21:00 Enoxaparin Sodium (Lovenox 40mg Syringe) 40 mg Q24H SQ Last administered on at 20:37; Start 05/04/18 at 21:00; Stop 05/07/18 at 14:45; Status DC Insulin Human Lispro (HumaLOG) 0-5 UNITS TIDACHC SQ Last administered on at 12:22; Start 05/05/18 at 07:30; Stop 05/06/18 at 17:15; Status DC Insulin Human Lispro (HumaLOG) 2 units 1X ONCE SQ Last administered on 23:47; Start 05/04/18 at 22:45; Stop 05/04/18 at 22:46; Status DC Estradiol (Estrace) 0.5 mg DAILY PO Last administered on 05/08/18 09:51; Start 05/05/18 at 09:00 Gabapentin (Neurontin) 600 mg TID PO Last administered on 05/08/18 09:51; Start 05/04/18 at 22:45 Insulin Glargine (Lantus) 10 units QHS SQ Last administered on 05/04/18 23:48 ; Start 05/04/18 at 23:30; Stop 05/05/18 at 16:12; Status DC Morphine Sulfate (Morphine Sulfate) 2 mg PRN Q2HR PRN IV PAIN Last administered on 05/06/18at 20:39; Start 05/05/18 at 03:15; Stop 05/06/18 at 23:27 ; Status DC Ondansetron HCl (Zofran) 4 mg PRN Q6HRS PRN IV NAUSEA/VOMITING Last administered on 05/07/18 15:03; Start 05/05/18 at 03:45 Regadenoson (Lexiscan) 0.4 mg 1X ONCE IV Last administered on 05/05/18at 07:45 ; Start 05/05/18 at 07:45; Stop 05/05/18 at 07:46; Status DC Insulin Human Lispro (HumaLOG) 9 units 1X ONCE SQ Last administered on at 12:53; Start 05/05/18 at 12:45; Stop 05/05/18 at 12:48; Status DC Insulin Human Lispro (HumaLOG) 10 units 1X ONCE SQ Last administered on at 13:53; Start 05/05/18 at 14:00; Stop 05/05/18 at 14:01; Status DC Insulin Glargine (Lantus) 18 units QHS SQ Last administered on 05/06/18at 20:44 ; Start 05/05/18 at 21:00; Stop 05/07/18 at 10:42; Status DC Acetaminophen (Tylenol) 650 mg PRN Q6HRS PRN PO MILD PAIN / TEMP Last administered on 05/08/18 09:51; Start 05/05/18 at 21:00 Piperacillin Sod/ Tazobactam Sod (Zosyn Per Pharmacy) 1 each PRN DAILY PRN MC SEE COMMENTS; Start 05/05/18 at 21:00 Piperacillin Sod/ Tazobactam Sod 3.375 gm/Sodium Chloride 50 ml @ 100 mls/hr Q6HRS IV Last administered on 05/08/18at 05:48; Start 05/05/18 at 21:30 Sodium Chloride 1,000 ml @ 75 mls/hr [id number] IV Last administered on 22:31; Start 05/06/18 at 10:00 Lactobacillus Rhamnosus (Culturelle) 1 cap BID PO Last administered on 09:51; Start 05/06/18 at 13:00 Pantoprazole Sodium (Protonix) 40 mg DAILYAC PO Last administered on 05/08/18 09:52; Start 05/06/18 at 14:00 Insulin Human Lispro (HumaLOG) 0-9 UNITS TIDWMEALS SQ Last administered on 05/07 17:17; Start 05/07/18 at 08:00 Dextrose (Dextrose 50%-Water Syringe) 12.5 gm PRN Q15MIN PRN IV SEE COMMENTS; Start 05/06/18 at 17:15; Status UNV Insulin Human Lispro (HumaLOG) 12 units 1X ONCE SQ Last administered on at 17:20; Start 05/06/18 at 17:15; Stop 05/06/18 at 17:17; Status DC Lorazepam (Ativan) 2 mg PRN Q4HRS PRN IV seizures; Start 05/06/18 at 21:30 Morphine Sulfate (Morphine Sulfate) 2 mg PRN Q2HR PRN IV PAIN; Start 05/06/18 at 23:30 Insulin Glargine (Lantus) 60 units Q12HR SQ Last administered on 05/08/18at 10: 22; Start 05/07/18 at 11:00 Enoxaparin Sodium (Lovenox 30mg Syringe) 30 mg Q24H SQ Last administered on at 22:22; Start 05/07/18 at 21:00 Prochlorperazine Edisylate (Compazine) 10 mg PRN Q6HRS PRN IV NAUSEA/VOMITING Last administered on 05/07/18at 22:21; Start 05/07/18 at 21:45 Sincalide 1.5 mcg/ Sodium Chloride 30 ml @ 0 mls/hr 1X ONCE IV Last administered on 05/08/18at 08:22; Start 05/08/18 at 08:00; Stop 05/08/18 at 08:01 ; Status DC Methylprednisolone Acetate (DEPO-Medrol 80MG VIAL) 80 mg 1X ONCE IM Last administered on 05/08/18at 08:15; Start 05/08/18 at 08:15; Stop 05/08/18 at 08:16 ; Status DC Diphenhydramine HCl 100 mg/Sodium Chloride 8 ml/ Miscellaneous 10 ml @ 0 mls/hr 1X ONCE SQ Last administered on 05/08/18at 08:50; Start 05/08/18 at 09:00; Stop 05/08/18 at 09:01; Status DC Iohexol (Omnipaque 300 Mg/ml) 50 ml STK-MED ONCE .ROUTE ; Start 05/08/18 at 10: 17; Stop 05/08/18 at 10:18; Status DC Active Scripts Active Reported Estradiol 0.5 Mg Tablet 1 Tab PO DAILY Humalog (Insulin Lispro) 100 Unit/1 Ml Insuln.pen Unknown Dose SQ TIDAC Levemir (Insulin Detemir) 100 Unit/1 Ml Vial 10 Units SQ HS Metoprolol Tartrate 25 Mg Tablet 25 Mg PO BID Hydrochlorothiazide Tablet (Hydrochlorothiazide) 25 Mg Tablet 1 Tab PO DAILY Aspirin 325 Mg Tablet 325 Tab PO PRN Q6HRS PRN Gabapentin 600 Mg Tablet 1 Tab PO TID Allergies Allergies: Coded Allergies: levofloxacin (Verified Allergy, Severe, SEIZURES, 12/30/17) lidocaine (Verified Allergy, Severe, Swelling, 12/30/17) ROS Review of System WT LOSS OF 20 LBS General: YES: Fatigue, Appetite PSYCHOLOGICAL ROS: YES: Anxiety, Depression Eyes: Yes Decreased vision HEENT: YES: [place] ALLERGY AND IMMUNOLOGY: YES: Other Respiratory: YES: Cough, Shortness of breath Gastrointestinal: Yes Nausea, Yes Vomiting, Yes Abdominal Pain, Yes Constipation Genitourinary: YES Other (NOCTURIA) Musculoskeletal: Yes Muscular Weakness Neurological: Yes Seizures, Yes Weakness Skin: Yes Dry Skin Physical Exam General: Alert, Oriented X3, Cooperative, No acute distress HEENT: PERRLA, EOMI, Mucous membr. moist/pink Lungs: Clear to auscultation, Normal air movement Heart: Regular rate, Normal S1, Normal S2 Abdomen: Normal bowel sounds, Soft, No hepatosplenomegaly Extremities: No clubbing, No cyanosis, No edema, Normal pulses Skin: No rashes, No breakdown Neuro: Normal speech, Sensation intact Psych/Mental Status: Mental status NL, Mood NL MUSCULOSKELETAL: No joint tenderness, No deformity, No swelling Vitals VITALS Vital Signs Date Time Temp Pulse Resp B/P (MAP) Pulse Ox O2 Delivery O2 Flow Rate FiO2 05/08/18 11:35 97.5 70 18 143/73 (96) 97 Nasal Cannula 1.0 97.5 Labs Labs Laboratory Tests Test 05/06/18 17:01 05/06/18 20:35 05/06/18 20:54 05/07/18 04:37 Glucose (Fingerstick) 399 mg/dL (70-99) 310 mg/dL (70-99) 327 mg/dL (70-99) White Blood Count 6.6 x10^3/uL (4.0-11.0) Red Blood Count 3.95 x10^6/uL (3.50-5.40) Hemoglobin 11.3 g/dL (12.0-15.5) Hematocrit 32.9 % (36.0-47.0) Mean Corpuscular Volume 84 fL (79-100) Mean Corpuscular Hemoglobin 29 pg (25-35) Mean Corpuscular Hemoglobin Concent 34 g/dL (31-37) Red Cell Distribution Width 12.6 % (11.5-14.5) Platelet Count 268 x10^3/uL (140-400) Neutrophils (%) (Auto) 65 % (31-73) Lymphocytes (%) (Auto) 25 % (24-48) Monocytes (%) (Auto) 8 % (0-9) Eosinophils (%) (Auto) 2 % (0-3) Basophils (%) (Auto) 1 % (0-3) Neutrophils # (Auto) 4.3 x10^3uL (1.8-7.7) Lymphocytes # (Auto) 1.6 x10^3/uL (1.0-4.8) Monocytes # (Auto) 0.6 x10^3/uL (0.0-1.1) Eosinophils # (Auto) 0.1 x10^3/uL (0.0-0.7) Basophils # (Auto) 0.1 x10^3/uL (0.0-0.2) Sodium Level 134 mmol/L (136-145) Potassium Level 3.9 mmol/L (3.5-5.1) Chloride Level 99 mmol/L (98-107) Carbon Dioxide Level 26 mmol/L (21-32) Anion Gap 9 (6-14) Blood Urea Nitrogen 24 mg/dL (7-20) Creatinine 2.6 mg/dL (0.6-1.0) Estimated GFR (Cockcroft-Gault) 18.8 BUN/Creatinine Ratio 9 (6-20) Glucose Level 271 mg/dL (70-99) Calcium Level 8.3 mg/dL (8.5-10.1) Total Bilirubin 0.3 mg/dL (0.2-1.0) Aspartate Amino Transf (AST/SGOT) 17 U/L (15-37) Alanine Aminotransferase (ALT/SGPT) 13 U/L (14-59) Alkaline Phosphatase 71 U/L (46-116) Creatine Kinase 24 U/L (26-192) Total Protein 6.2 g/dL (6.4-8.2) Albumin 2.0 g/dL (3.4-5.0) Albumin/Globulin Ratio 0.5 (1.0-1.7) Test 05/07/18 07:57 05/07/18 11:23 05/07/18 11:32 05/07/18 17:07 Glucose (Fingerstick) 238 mg/dL (70-99) 271 mg/dL (70-99) 220 mg/dL (70-99) Urine Random Sodium <60 mmol/L (Not Estab.) Test 05/07/18 21:45 05/08/18 07:03 05/08/18 09:55 05/08/18 11:29 Glucose (Fingerstick) 195 mg/dL (70-99) 165 mg/dL (70-99) 146 mg/dL (70-99) White Blood Count 5.6 x10^3/uL (4.0-11.0) Red Blood Count 4.36 x10^6/uL (3.50-5.40) Hemoglobin 12.4 g/dL (12.0-15.5) Hematocrit 36.3 % (36.0-47.0) Mean Corpuscular Volume 83 fL (79-100) Mean Corpuscular Hemoglobin 28 pg (25-35) Mean Corpuscular Hemoglobin Concent 34 g/dL (31-37) Red Cell Distribution Width 12.9 % (11.5-14.5) Platelet Count 261 x10^3/uL (140-400) Neutrophils (%) (Auto) 56 % (31-73) Lymphocytes (%) (Auto) 30 % (24-48) Monocytes (%) (Auto) 11 % (0-9) Eosinophils (%) (Auto) 2 % (0-3) Basophils (%) (Auto) 1 % (0-3) Neutrophils # (Auto) 3.2 x10^3uL (1.8-7.7) Lymphocytes # (Auto) 1.7 x10^3/uL (1.0-4.8) Monocytes # (Auto) 0.6 x10^3/uL (0.0-1.1) Eosinophils # (Auto) 0.1 x10^3/uL (0.0-0.7) Basophils # (Auto) 0.0 x10^3/uL (0.0-0.2) Sodium Level 135 mmol/L (136-145) Potassium Level 3.6 mmol/L (3.5-5.1) Chloride Level 99 mmol/L (98-107) Carbon Dioxide Level 26 mmol/L (21-32) Anion Gap 10 (6-14) Blood Urea Nitrogen 18 mg/dL (7-20) Creatinine 2.2 mg/dL (0.6-1.0) Estimated GFR (Cockcroft-Gault) 22.8 BUN/Creatinine Ratio 8 (6-20) Glucose Level 143 mg/dL (70-99) Calcium Level 8.2 mg/dL (8.5-10.1) Total Bilirubin 0.3 mg/dL (0.2-1.0) Aspartate Amino Transf (AST/SGOT) 19 U/L (15-37) Alanine Aminotransferase (ALT/SGPT) 14 U/L (14-59) Alkaline Phosphatase 88 U/L (46-116) Total Protein 6.7 g/dL (6.4-8.2) Albumin 2.1 g/dL (3.4-5.0) Albumin/Globulin Ratio 0.5 (1.0-1.7) Laboratory Tests Test 05/07/18 17:07 05/07/18 21:45 05/08/18 07:03 05/08/18 09:55 Glucose (Fingerstick) 220 mg/dL (70-99) 195 mg/dL (70-99) 165 mg/dL (70-99) White Blood Count 5.6 x10^3/uL (4.0-11.0) Red Blood Count 4.36 x10^6/uL (3.50-5.40) Hemoglobin 12.4 g/dL (12.0-15.5) Hematocrit 36.3 % (36.0-47.0) Mean Corpuscular Volume 83 fL (79-100) Mean Corpuscular Hemoglobin 28 pg (25-35) Mean Corpuscular Hemoglobin Concent 34 g/dL (31-37) Red Cell Distribution Width 12.9 % (11.5-14.5) Platelet Count 261 x10^3/uL (140-400) Neutrophils (%) (Auto) 56 % (31-73) Lymphocytes (%) (Auto) 30 % (24-48) Monocytes (%) (Auto) 11 % (0-9) Eosinophils (%) (Auto) 2 % (0-3) Basophils (%) (Auto) 1 % (0-3) Neutrophils # (Auto) 3.2 x10^3uL (1.8-7.7) Lymphocytes # (Auto) 1.7 x10^3/uL (1.0-4.8) Monocytes # (Auto) 0.6 x10^3/uL (0.0-1.1) Eosinophils # (Auto) 0.1 x10^3/uL (0.0-0.7) Basophils # (Auto) 0.0 x10^3/uL (0.0-0.2) Sodium Level 135 mmol/L (136-145) Potassium Level 3.6 mmol/L (3.5-5.1) Chloride Level 99 mmol/L (98-107) Carbon Dioxide Level 26 mmol/L (21-32) Anion Gap 10 (6-14) Blood Urea Nitrogen 18 mg/dL (7-20) Creatinine 2.2 mg/dL (0.6-1.0) Estimated GFR (Cockcroft-Gault) 22.8 BUN/Creatinine Ratio 8 (6-20) Glucose Level 143 mg/dL (70-99) Calcium Level 8.2 mg/dL (8.5-10.1) Total Bilirubin 0.3 mg/dL (0.2-1.0) Aspartate Amino Transf (AST/SGOT) 19 U/L (15-37) Alanine Aminotransferase (ALT/SGPT) 14 U/L (14-59) Alkaline Phosphatase 88 U/L (46-116) Total Protein 6.7 g/dL (6.4-8.2) Albumin 2.1 g/dL (3.4-5.0) Albumin/Globulin Ratio 0.5 (1.0-1.7) Test 05/08/18 11:29 Glucose (Fingerstick) 146 mg/dL (70-99) Images Images CT Abdomen and Pelvis without contrast History: Abdominal pain, weight loss Technique: Noncontrast CT imaging was performed of the abdomen and pelvis. Multiplanar images are reviewed. Exposure: One or more of the following individualized dose reduction techniques were utilized for this examination: 1. Automated exposure control 2. Adjustment of the mA and/or kV according to patient size 3. Use of iterative reconstruction technique. Comparison: CT pelvis August 01, 2016 Findings: There is abnormal prominent left lower lobe density as seen on recent chest CTA. Evaluation of abdominal visceral organs is limited without intravenous contrast, no obvious focal abnormality of the liver, spleen, pancreas. There is hepatic steatosis. Gallbladder is present without obvious intraluminal abnormality by CT. There is no adrenal nodularity. There is no renal or ureteral calculus or hydronephrosis. Evaluation of bowel is limited without oral contrast, no bowel dilatation, free air, free fluid. There apparently has been appendectomy. There is retained stool variably in the colon. No significantly enlarged nodes are identified. There is no significant inflammatory type change localized about the bowel. Impression: 1. There is no significant localized inflammatory change. There is retained stool variably in the colon. 2. As seen recent chest CT, there is large focus of abnormal density of the left lower lobe of the lung. 3. There is hepatic steatosis. Assessment/Plan Assessment/Plan IMP TORI WITH IMPROVEMENT OF CR DOWN TO 2.0 AND NO HX OF CKD SUSPECT PNEUMONIA ? LLL LUNG MASS DEHYDRATION ABD PAIN WITH N/V SEIZURES WT LOSS OF 20 LBS PLAN PULMONARY FOLLOWING CONT HYDRATION SUPPLEMENTAL O2 GI EVALUATION STOP HER HCTZ LABS IN ALLY MIRELES MD May 08, 2018 13:00
--- NOTE | 2018-05-08 14:24 | PDOC ---
PROGRESS NOTES Assessment Assessment Seizure or seizure like episodes, provoked by hypoglycemia. Non epileptic seizures, metabolic and psychiatric etiology. DM. Diabetic neuropathy in LE. Over weight. RECOMMENDATIONS/PLAN: Continue Neurontin home regimen. Control hypoglycemia and hyperglycemia. Treat medical diseases. EEG as outpatient base. OT/PT. Repeated EEG on 08/29/17: Normal. No epileptiform discharged or electrographic seizures. Past Medical History Cardiovascular: CAD, HTN, DE, Hyperlipidemia, Other (cardiac arrhythmia) Pulmonary: Asthma, Pneumonia CENTRAL NERVOUS SYSTEM: Periperal neuropathy, Seizure, TIA, Other (Modi's palsy ) GI: Constipation, Diverticulosis, Other (colonic polyps, constipation) Psych: Depression Musculoskeletal: low back pain, Osteoarthritis Rheumatologic: Other (ill-defined autoimmune disease) Infectious disease: Herpes zoster, Other ([place] fever) ENT: Other (glaucoma, retinopathy) Endocrine: Diabetes Past Surgical History Appendectomy, Cataract Removal, , Hysterectomy, Other (removal of cyst from rectum, bladder sling) Family History CVA Social History Quit smoking, no alcohol ALLERGY: Reviewed. MEDICATIONS: Refer to MAR REVIEW OF SYSTEMS: Constitutional: Over weight. Head: No traumatic brain or head injury. Skin: No edema, or rash. Ear: No infection. Eyes: No vision loss, or diplopia. Nose: No bleeding or purulent discharges. Hearing: No hearing decrease. Hearing loss. Neck: No injury. Breast: No history of cancer, masses, or discharges. Cardiac: No DE, arrhythmia Pulmonary: No COPD. GI: No GI Ulcer, GI bleeding Urinary/genital: UTI. Endocrine: Diabetes Mellitus,. Skeletomuscular: No muscular atrophy. Neurological: see HP. Psychiatric: Denies drug use/abuse. Otherwise, not [id number] review of systems. PHYSICAL EXAMINATION: General appearance in no acute distress. HEENT: Normocephalic and nontraumatic. Eyes, nose, ears, and throat are unremarkable. Neck is supple. No lymphadenopathy. No bruits are heard over the carotid artery. No Crepitus. Cardiovascular: S1, S2, regular rate and rhythm. Pulmonary: Clear to auscultation bilaterally. Abdomen: Bowel sounds are positive. Abdomen is soft, nontender, and nondistended. Extremities: No rash, lesions, or edema. No restriction of range of motion NEUROLOGICAL EXAMINATION: Alert. Oriented to time, place and person. PERRL. EOMI. CN: no focal findings. Muscle tone: within normal. Muscle strength: 5- DTR: 2 UE, 1- at knee. Plantar reflex: Flexor response bilaterally Gait:Not examined in bed Sensory exam: no abnormal findings. No cerebellar signs elicited. F-T-N test accurate. Objective Objective Vital Signs Date Time Temp Pulse Resp B/P (MAP) Pulse Ox O2 Delivery O2 Flow Rate FiO2 05/08/18 11:35 97.5 70 18 143/73 (96) 97 Nasal Cannula 1.0 97.5 Intake and Output 05/08/18 06:59 Intake Total 730 ml Output Total 2150 ml Balance -1420 ml Intake Oral 730 ml Output Urine Total 2150 ml # Voids 3 Vitals Signs Vitals VS - Last 72 Hours, by Label Date Time Temp Pulse Resp B/P (MAP) Pulse Ox O2 Delivery O2 Flow Rate FiO2 05/08/18 11:35 97.5 70 18 143/73 (96) 97 Nasal Cannula 1.0 97.5 05/08/18 09:51 71 123/53 05/08/18 08:01 Nasal Cannula 2.0 05/08/18 07:00 97.7 71 18 123/53 (76) 95 Nasal Cannula 1.0 97.7 05/08/18 03:26 97.7 70 16 138/69 (92) 93 Nasal Cannula 1.0 97.7 05/07/18 22:42 98.4 75 16 139/48 (78) 93 Nasal Cannula 1.0 98.4 05/07/18 22:22 71 156/73 05/07/18 19:06 97.9 71 16 156/73 (100) 96 Nasal Cannula 1.0 97.9 05/07/18 15:00 97.4 66 16 142/65 (90) 97 Room Air 97.4 05/07/18 11:00 97.6 65 16 125/62 (83) 98 Room Air 97.6 05/07/18 08:47 71 142/63 05/07/18 08:00 Nasal Cannula 2.0 05/07/18 07:00 97.5 71 16 142/63 (89) 94 Room Air 97.5 Laboratory Laboratory Laboratory Tests Test 05/07/18 17:07 05/07/18 21:45 05/08/18 07:03 05/08/18 09:55 Glucose (Fingerstick) 220 mg/dL (70-99) 195 mg/dL (70-99) 165 mg/dL (70-99) White Blood Count 5.6 x10^3/uL (4.0-11.0) Red Blood Count 4.36 x10^6/uL (3.50-5.40) Hemoglobin 12.4 g/dL (12.0-15.5) Hematocrit 36.3 % (36.0-47.0) Mean Corpuscular Volume 83 fL (79-100) Mean Corpuscular Hemoglobin 28 pg (25-35) Mean Corpuscular Hemoglobin Concent 34 g/dL (31-37) Red Cell Distribution Width 12.9 % (11.5-14.5) Platelet Count 261 x10^3/uL (140-400) Neutrophils (%) (Auto) 56 % (31-73) Lymphocytes (%) (Auto) 30 % (24-48) Monocytes (%) (Auto) 11 % (0-9) Eosinophils (%) (Auto) 2 % (0-3) Basophils (%) (Auto) 1 % (0-3) Neutrophils # (Auto) 3.2 x10^3uL (1.8-7.7) Lymphocytes # (Auto) 1.7 x10^3/uL (1.0-4.8) Monocytes # (Auto) 0.6 x10^3/uL (0.0-1.1) Eosinophils # (Auto) 0.1 x10^3/uL (0.0-0.7) Basophils # (Auto) 0.0 x10^3/uL (0.0-0.2) Sodium Level 135 mmol/L (136-145) Potassium Level 3.6 mmol/L (3.5-5.1) Chloride Level 99 mmol/L (98-107) Carbon Dioxide Level 26 mmol/L (21-32) Anion Gap 10 (6-14) Blood Urea Nitrogen 18 mg/dL (7-20) Creatinine 2.2 mg/dL (0.6-1.0) Estimated GFR (Cockcroft-Gault) 22.8 BUN/Creatinine Ratio 8 (6-20) Glucose Level 143 mg/dL (70-99) Calcium Level 8.2 mg/dL (8.5-10.1) Total Bilirubin 0.3 mg/dL (0.2-1.0) Aspartate Amino Transf (AST/SGOT) 19 U/L (15-37) Alanine Aminotransferase (ALT/SGPT) 14 U/L (14-59) Alkaline Phosphatase 88 U/L (46-116) Total Protein 6.7 g/dL (6.4-8.2) Albumin 2.1 g/dL (3.4-5.0) Albumin/Globulin Ratio 0.5 (1.0-1.7) Test 05/08/18 11:29 Glucose (Fingerstick) 146 mg/dL (70-99) Microbiology 05/06/18 Blood Culture - Preliminary, Resulted NO GROWTH AFTER 2 DAYS Medication Medications Current Medications Diphenhydramine HCl 100 mg/Sodium Chloride 8 ml/ Miscellaneous 10 ml @ 0 mls/hr 1X ONCE SQ Last administered on 05/08/18at 08:50; Start 05/08/18 at 09:00; Stop 05/08/18 at 09:01; Status DC Enoxaparin Sodium (Lovenox 30mg Syringe) 30 mg Q24H SQ Last administered on at 22:22; Start 05/07/18 at 21:00 Iohexol (Omnipaque 300 Mg/ml) 50 ml STK-MED ONCE .ROUTE ; Start 05/08/18 at 10: 17; Stop 05/08/18 at 10:18; Status DC Methylprednisolone Acetate (DEPO-Medrol 80MG VIAL) 80 mg 1X ONCE IM Last administered on 05/08/18at 08:15; Start 05/08/18 at 08:15; Stop 05/08/18 at 08:16 ; Status DC Prochlorperazine Edisylate (Compazine) 10 mg PRN Q6HRS PRN IV NAUSEA/VOMITING Last administered on 05/07/18at 22:21; Start 05/07/18 at 21:45 Sincalide 1.5 mcg/ Sodium Chloride 30 ml @ 0 mls/hr 1X ONCE IV Last administered on 05/08/18at 08:22; Start 05/08/18 at 08:00; Stop 05/08/18 at 08:01 ; Status DC Comment Review of Relevant I have reviewed the following items cheko (where applicable) has been applied. KAMRAN KHAN MD May 08, 2018 14:24
[2018-05-08 15:00] VITALS: BP 177/80
--- NOTE | 2018-05-08 15:07 | PDOC ---
Subjective: Subjective: Better. Was not taking any acid-candy dipper hand at home. Objective: Vital Signs: Vital Signs Date Time Temp Pulse Resp B/P (MAP) Pulse Ox O2 Delivery O2 Flow Rate FiO2 05/08/18 15:00 97.2 73 18 177/80 (112) 97 Nasal Cannula 1.0 97.2 Labs: Laboratory Tests Test 05/07/18 17:07 05/07/18 21:45 05/08/18 07:03 05/08/18 09:55 Glucose (Fingerstick) 220 mg/dL 195 mg/dL 165 mg/dL White Blood Count 5.6 x10^3/uL Red Blood Count 4.36 x10^6/uL Hemoglobin 12.4 g/dL Hematocrit 36.3 % Mean Corpuscular Volume 83 fL Mean Corpuscular Hemoglobin 28 pg Mean Corpuscular Hemoglobin Concent 34 g/dL Red Cell Distribution Width 12.9 % Platelet Count 261 x10^3/uL Neutrophils (%) (Auto) 56 % Lymphocytes (%) (Auto) 30 % Monocytes (%) (Auto) 11 % Eosinophils (%) (Auto) 2 % Basophils (%) (Auto) 1 % Neutrophils # (Auto) 3.2 x10^3uL Lymphocytes # (Auto) 1.7 x10^3/uL Monocytes # (Auto) 0.6 x10^3/uL Eosinophils # (Auto) 0.1 x10^3/uL Basophils # (Auto) 0.0 x10^3/uL Sodium Level 135 mmol/L Potassium Level 3.6 mmol/L Chloride Level 99 mmol/L Carbon Dioxide Level 26 mmol/L Anion Gap 10 Blood Urea Nitrogen 18 mg/dL Creatinine 2.2 mg/dL Estimated GFR (Cockcroft-Gault) 22.8 BUN/Creatinine Ratio 8 Glucose Level 143 mg/dL Calcium Level 8.2 mg/dL Total Bilirubin 0.3 mg/dL Aspartate Amino Transf (AST/SGOT) 19 U/L Alanine Aminotransferase (ALT/SGPT) 14 U/L Alkaline Phosphatase 88 U/L Total Protein 6.7 g/dL Albumin 2.1 g/dL Albumin/Globulin Ratio 0.5 Test 05/08/18 11:29 Glucose (Fingerstick) 146 mg/dL Imaging: HIDA IMPRESSION: 1. Normal radionuclide hepatobiliary scan. 2. The gallbladder ejection fraction is 53 percent. US IMPRESSION: 1. No significant gallbladder abnormality is detected. Graft 2. Slightly increased hepatic echogenicity, most commonly due to fatty change. CT A/P Impression: 1. There is no significant localized inflammatory change. There is retained stool variably in the colon. 2. As seen recent chest CT, there is large focus of abnormal density of the left lower lobe of the lung. 3. There is hepatic steatosis. PE: GEN: NAD LUNGS: CTAB HEART: RRR ABD: NABS, S/ND, not particularly tender NEURO/PSYCH: A & O 3 A/P: Abd pain, nausea H/o low-grade esophagitis and moderately delayed gastric emptying CRC screen - 2015 w/ polyps (no path available) and diverticulosis -- Continue PPI here and when discharged. Follow-up in the office. TONY SHAH May 08, 2018 15:07
[2018-05-08] MEDS: IV NORMAL SALINE 1000ML BAG 1,000 ML IV SCH (15:20)
[2018-05-08] MEDS ORDERED: HYDROcodone/APAP 5/325MG 1 TAB TABLET PO PRN (17:30)
[2018-05-08 19:00] VITALS: BP 166/90
[2018-05-08] MEDS ORDERED: guaiFENesin DM 200MG/20MG 10 ML SYRUP PO PRN (19:15)
[2018-05-08] MEDS: ATORVASTATIN CALCIUM 20 MG TABLET PO SCH (20:46)
[2018-05-08] MEDS: ENOXAPARIN 30 MG/0.3 ML SYRINGE. SQ SCH (20:49)
[2018-05-08 23:00] VITALS: BP 119/56
[2018-05-09] MEDS: PIPERACILLIN/TAZOBACTAM 3.375 GM in IV NORMAL SALINE 50ML 50 ML IV SCH ×2 (00:16→05:38)
[2018-05-09 03:00] VITALS: BP 163/80
[2018-05-09] MEDS: IV NORMAL SALINE 1000ML BAG 1,000 ML IV SCH (03:38)
[2018-05-09 07:00] VITALS: BP 204/81
[2018-05-09 07:03] LABS: BASO % 0 % (0-3); EOS % 0 % (0-3); HEMATOCRIT 33.5 % (36.0-47.0); HEMOGLOBIN 11.6 g/dL (12.0-15.5); LYMPH # 0.8 x10^3/uL (1.0-4.8); LYMPH % 13 % (24-48); MEAN CORPUSCULAR HEMOGLOBIN 28 pg (25-35); MEAN CORPUSCULAR HGB CONC 35 g/dL (31-37); MEAN CORPUSCULAR VOLUME 82 fL (79-100); MONO # 0.1 x10^3/uL (0.0-1.1); MONO % 2 % (0-9); NEUT # 5.1 x10^3uL (1.8-7.7); NEUT % 85 % (31-73); PLATELET COUNT 276 x10^3/uL (140-400); RED CELL DISTRIBUTION WIDTH 12.9 % (11.5-14.5)
[2018-05-09 07:28] LABS: ALBUMIN/GLOBULIN RATIO 0.4 (1.0-1.7); CALCIUM 8.4 mg/dL (8.5-10.1); CREATININE 1.8 mg/dL (0.6-1.0); GFR 28.8; POTASSIUM 4.5 mmol/L (3.5-5.1); TOTAL BILIRUBIN 0.3 mg/dL (0.2-1.0); TOTAL PROTEIN 6.8 g/dL (6.4-8.2)
[2018-05-09] MEDS: PANTOPRAZOLE 40 MG TABLET.DR. PO SCH (08:20)
[2018-05-09] MEDS: ESTRADIOL 1 MG TABLET. PO SCH (08:22)
[2018-05-09] MEDS: METOPROLOL TART IMMED RELEASE 25 MG TABLET. PO SCH (08:23)
[2018-05-09] MEDS: GABAPENTIN 300 MG CAPSULE. PO SCH (08:24)
[2018-05-09] MEDS: LACTOBACILLUS RHAMNOSUS GG 1 CAPSULE. PO SCH (08:26)
[2018-05-09] MEDS: INSULIN LISPRO 300 UNITS/3 ML INSULN.PEN. SQ SCH (08:32)
[2018-05-09] MEDS: INSULIN GLARGINE 300 UNITS/3 ML INSULN.PEN. SQ SCH (08:33)
--- NOTE | 2018-05-09 09:19 | PDOC ---
PROGRESS NOTES Subjective Subjective She feels better with her left shoulder after injection done yesterday. Objective Objective Vital Signs Date Time Temp Pulse Resp B/P (MAP) Pulse Ox O2 Delivery O2 Flow Rate FiO2 05/09/18 08:23 69 163/80 05/09/18 03:00 97.3 20 96 Room Air 97.3 05/08/18 18:39 1.0 Intake and Output 05/09/18 07:00 Intake Total 1430 ml Output Total 4025 ml Balance -2595 ml Intake Oral 1280 ml IV Total 150 ml Output Urine Total 4025 ml # Voids 1 # Bowel Movements 1 Physical Exam Physical Exam She is alert and no change with her left shoulder girdle muscle strain pain and weakness of left shoulder girdle muscles.She is independent with her mobility and self care. Assessment Assessment Problems Medical Problems: (1) Chest pain Status: Acute (2) Uncontrolled type II diabetes mellitus Status: Acute Plan [facility] when medically stable with out patient follow up. Comment Review of Relevant I have reviewed the following items cheko (where applicable) has been applied. Labs Laboratory Tests Test 05/07/18 11:23 05/07/18 11:32 05/07/18 17:07 05/07/18 21:45 Glucose (Fingerstick) 271 mg/dL (70-99) 220 mg/dL (70-99) 195 mg/dL (70-99) Urine Random Sodium <60 mmol/L (Not Estab.) Test 05/08/18 07:03 05/08/18 09:55 05/08/18 11:29 05/08/18 16:56 Glucose (Fingerstick) 165 mg/dL (70-99) 146 mg/dL (70-99) 280 mg/dL (70-99) White Blood Count 5.6 x10^3/uL (4.0-11.0) Red Blood Count 4.36 x10^6/uL (3.50-5.40) Hemoglobin 12.4 g/dL (12.0-15.5) Hematocrit 36.3 % (36.0-47.0) Mean Corpuscular Volume 83 fL (79-100) Mean Corpuscular Hemoglobin 28 pg (25-35) Mean Corpuscular Hemoglobin Concent 34 g/dL (31-37) Red Cell Distribution Width 12.9 % (11.5-14.5) Platelet Count 261 x10^3/uL (140-400) Neutrophils (%) (Auto) 56 % (31-73) Lymphocytes (%) (Auto) 30 % (24-48) Monocytes (%) (Auto) 11 % (0-9) Eosinophils (%) (Auto) 2 % (0-3) Basophils (%) (Auto) 1 % (0-3) Neutrophils # (Auto) 3.2 x10^3uL (1.8-7.7) Lymphocytes # (Auto) 1.7 x10^3/uL (1.0-4.8) Monocytes # (Auto) 0.6 x10^3/uL (0.0-1.1) Eosinophils # (Auto) 0.1 x10^3/uL (0.0-0.7) Basophils # (Auto) 0.0 x10^3/uL (0.0-0.2) Sodium Level 135 mmol/L (136-145) Potassium Level 3.6 mmol/L (3.5-5.1) Chloride Level 99 mmol/L (98-107) Carbon Dioxide Level 26 mmol/L (21-32) Anion Gap 10 (6-14) Blood Urea Nitrogen 18 mg/dL (7-20) Creatinine 2.2 mg/dL (0.6-1.0) Estimated GFR (Cockcroft-Gault) 22.8 BUN/Creatinine Ratio 8 (6-20) Glucose Level 143 mg/dL (70-99) Calcium Level 8.2 mg/dL (8.5-10.1) Total Bilirubin 0.3 mg/dL (0.2-1.0) Aspartate Amino Transf (AST/SGOT) 19 U/L (15-37) Alanine Aminotransferase (ALT/SGPT) 14 U/L (14-59) Alkaline Phosphatase 88 U/L (46-116) Total Protein 6.7 g/dL (6.4-8.2) Albumin 2.1 g/dL (3.4-5.0) Albumin/Globulin Ratio 0.5 (1.0-1.7) Test 05/08/18 20:44 05/09/18 06:25 05/09/18 08:08 Glucose (Fingerstick) 384 mg/dL (70-99) 347 mg/dL (70-99) White Blood Count 6.0 x10^3/uL (4.0-11.0) Red Blood Count 4.10 x10^6/uL (3.50-5.40) Hemoglobin 11.6 g/dL (12.0-15.5) Hematocrit 33.5 % (36.0-47.0) Mean Corpuscular Volume 82 fL (79-100) Mean Corpuscular Hemoglobin 28 pg (25-35) Mean Corpuscular Hemoglobin Concent 35 g/dL (31-37) Red Cell Distribution Width 12.9 % (11.5-14.5) Platelet Count 276 x10^3/uL (140-400) Neutrophils (%) (Auto) 85 % (31-73) Lymphocytes (%) (Auto) 13 % (24-48) Monocytes (%) (Auto) 2 % (0-9) Eosinophils (%) (Auto) 0 % (0-3) Basophils (%) (Auto) 0 % (0-3) Neutrophils # (Auto) 5.1 x10^3uL (1.8-7.7) Lymphocytes # (Auto) 0.8 x10^3/uL (1.0-4.8) Monocytes # (Auto) 0.1 x10^3/uL (0.0-1.1) Eosinophils # (Auto) 0.0 x10^3/uL (0.0-0.7) Basophils # (Auto) 0.0 x10^3/uL (0.0-0.2) Sodium Level 135 mmol/L (136-145) Potassium Level 4.5 mmol/L (3.5-5.1) Chloride Level 98 mmol/L (98-107) Carbon Dioxide Level 26 mmol/L (21-32) Anion Gap 11 (6-14) Blood Urea Nitrogen 20 mg/dL (7-20) Creatinine 1.8 mg/dL (0.6-1.0) Estimated GFR (Cockcroft-Gault) 28.8 BUN/Creatinine Ratio 11 (6-20) Glucose Level 387 mg/dL (70-99) Calcium Level 8.4 mg/dL (8.5-10.1) Total Bilirubin 0.3 mg/dL (0.2-1.0) Aspartate Amino Transf (AST/SGOT) 18 U/L (15-37) Alanine Aminotransferase (ALT/SGPT) 13 U/L (14-59) Alkaline Phosphatase 92 U/L (46-116) Total Protein 6.8 g/dL (6.4-8.2) Albumin 2.0 g/dL (3.4-5.0) Albumin/Globulin Ratio 0.4 (1.0-1.7) Laboratory Tests Test 05/08/18 09:55 05/08/18 11:29 05/08/18 16:56 05/08/18 20:44 White Blood Count 5.6 x10^3/uL (4.0-11.0) Red Blood Count 4.36 x10^6/uL (3.50-5.40) Hemoglobin 12.4 g/dL (12.0-15.5) Hematocrit 36.3 % (36.0-47.0) Mean Corpuscular Volume 83 fL (79-100) Mean Corpuscular Hemoglobin 28 pg (25-35) Mean Corpuscular Hemoglobin Concent 34 g/dL (31-37) Red Cell Distribution Width 12.9 % (11.5-14.5) Platelet Count 261 x10^3/uL (140-400) Neutrophils (%) (Auto) 56 % (31-73) Lymphocytes (%) (Auto) 30 % (24-48) Monocytes (%) (Auto) 11 % (0-9) Eosinophils (%) (Auto) 2 % (0-3) Basophils (%) (Auto) 1 % (0-3) Neutrophils # (Auto) 3.2 x10^3uL (1.8-7.7) Lymphocytes # (Auto) 1.7 x10^3/uL (1.0-4.8) Monocytes # (Auto) 0.6 x10^3/uL (0.0-1.1) Eosinophils # (Auto) 0.1 x10^3/uL (0.0-0.7) Basophils # (Auto) 0.0 x10^3/uL (0.0-0.2) Sodium Level 135 mmol/L (136-145) Potassium Level 3.6 mmol/L (3.5-5.1) Chloride Level 99 mmol/L (98-107) Carbon Dioxide Level 26 mmol/L (21-32) Anion Gap 10 (6-14) Blood Urea Nitrogen 18 mg/dL (7-20) Creatinine 2.2 mg/dL (0.6-1.0) Estimated GFR (Cockcroft-Gault) 22.8 BUN/Creatinine Ratio 8 (6-20) Glucose Level 143 mg/dL (70-99) Calcium Level 8.2 mg/dL (8.5-10.1) Total Bilirubin 0.3 mg/dL (0.2-1.0) Aspartate Amino Transf (AST/SGOT) 19 U/L (15-37) Alanine Aminotransferase (ALT/SGPT) 14 U/L (14-59) Alkaline Phosphatase 88 U/L (46-116) Total Protein 6.7 g/dL (6.4-8.2) Albumin 2.1 g/dL (3.4-5.0) Albumin/Globulin Ratio 0.5 (1.0-1.7) Glucose (Fingerstick) 146 mg/dL (70-99) 280 mg/dL (70-99) 384 mg/dL (70-99) Test 05/09/18 06:25 05/09/18 08:08 White Blood Count 6.0 x10^3/uL (4.0-11.0) Red Blood Count 4.10 x10^6/uL (3.50-5.40) Hemoglobin 11.6 g/dL (12.0-15.5) Hematocrit 33.5 % (36.0-47.0) Mean Corpuscular Volume 82 fL (79-100) Mean Corpuscular Hemoglobin 28 pg (25-35) Mean Corpuscular Hemoglobin Concent 35 g/dL (31-37) Red Cell Distribution Width 12.9 % (11.5-14.5) Platelet Count 276 x10^3/uL (140-400) Neutrophils (%) (Auto) 85 % (31-73) Lymphocytes (%) (Auto) 13 % (24-48) Monocytes (%) (Auto) 2 % (0-9) Eosinophils (%) (Auto) 0 % (0-3) Basophils (%) (Auto) 0 % (0-3) Neutrophils # (Auto) 5.1 x10^3uL (1.8-7.7) Lymphocytes # (Auto) 0.8 x10^3/uL (1.0-4.8) Monocytes # (Auto) 0.1 x10^3/uL (0.0-1.1) Eosinophils # (Auto) 0.0 x10^3/uL (0.0-0.7) Basophils # (Auto) 0.0 x10^3/uL (0.0-0.2) Sodium Level 135 mmol/L (136-145) Potassium Level 4.5 mmol/L (3.5-5.1) Chloride Level 98 mmol/L (98-107) Carbon Dioxide Level 26 mmol/L (21-32) Anion Gap 11 (6-14) Blood Urea Nitrogen 20 mg/dL (7-20) Creatinine 1.8 mg/dL (0.6-1.0) Estimated GFR (Cockcroft-Gault) 28.8 BUN/Creatinine Ratio 11 (6-20) Glucose Level 387 mg/dL (70-99) Calcium Level 8.4 mg/dL (8.5-10.1) Total Bilirubin 0.3 mg/dL (0.2-1.0) Aspartate Amino Transf (AST/SGOT) 18 U/L (15-37) Alanine Aminotransferase (ALT/SGPT) 13 U/L (14-59) Alkaline Phosphatase 92 U/L (46-116) Total Protein 6.8 g/dL (6.4-8.2) Albumin 2.0 g/dL (3.4-5.0) Albumin/Globulin Ratio 0.4 (1.0-1.7) Glucose (Fingerstick) 347 mg/dL (70-99) Microbiology 05/06/18 Blood Culture - Preliminary, Resulted NO GROWTH AFTER 2 DAYS Medications Current Medications Morphine Sulfate (Morphine Sulfate) 2 mg PRN Q15MIN PRN IV/SQ PAIN GREATER THAN 3/10 Last administered on 05/04/18at 01:16; Start 05/03/18 at 20:45; Stop at 07:30; Status DC Sodium Chloride 1,000 ml @ 1,000 mls/hr Q1H IV Last administered on 05/03/18at 21:09; Start 05/03/18 at 20:33; Stop 05/03/18 at 21:32; Status DC Ondansetron HCl (Zofran) 4 mg 1X ONCE IV Last administered on 05/03/18at 21:09 ; Start 05/03/18 at 20:45; Stop 05/03/18 at 20:46; Status DC Ondansetron HCl (Zofran) 4 mg PRN Q8HRS PRN IV NAUSEA/VOMITING; Start 05/04/18 at 00:30; Stop 05/05/18 at 00:29; Status DC Morphine Sulfate (Morphine Sulfate) 2 mg PRN Q2HR PRN IV PAIN Last administered on 05/04/18at 21:07; Start 05/04/18 at 00:30; Stop 05/05/18 at 00:29 ; Status DC Sodium Chloride 1,000 ml @ 125 mls/hr Q8H IV ; Start 05/04/18 at 00:30; Stop at 00:29; Status DC Nitroglycerin (Nitrostat) 0.4 mg PRN Q5MIN PRN SL CHEST PAIN; Start 05/04/18 at 00:30; Stop 05/05/18 at 00:29; Status DC Insulin Human Lispro (HumaLOG) 0-5 UNITS TIDWMEALS SQ Last administered on 05/04at 17:40; Start 05/04/18 at 08:00; Stop 05/04/18 at 22:34; Status DC Dextrose (Dextrose 50%-Water Syringe) 12.5 gm PRN Q15MIN PRN IV SEE COMMENTS; Start 05/04/18 at 00:30 Atorvastatin Calcium (Lipitor) 20 mg QHS PO Last administered on 05/08/18at 20: 46; Start 05/04/18 at 21:00 Aspirin ([place]ingo Aspirin) 325 mg PRN Q6HRS PRN PO PAIN; Start 05/04/18 at 16:30 Hydrochlorothiazide (Hydrodiuril) 25 mg DAILY PO Last administered on at 09:51; Start 05/05/18 at 09:00; Stop 05/08/18 at 13:01; Status DC Metoprolol Tartrate (Lopressor) 25 mg BID PO Last administered on 05/09/18at 08: 23; Start 05/04/18 at 21:00 Enoxaparin Sodium (Lovenox 40mg Syringe) 40 mg Q24H SQ Last administered on at 20:37; Start 05/04/18 at 21:00; Stop 05/07/18 at 14:45; Status DC Insulin Human Lispro (HumaLOG) 0-5 UNITS TIDACHC SQ Last administered on 12:22; Start 05/05/18 at 07:30; Stop 05/06/18 at 17:15; Status DC Insulin Human Lispro (HumaLOG) 2 units 1X ONCE SQ Last administered on at 23:47; Start 05/04/18 at 22:45; Stop 05/04/18 at 22:46; Status DC Estradiol (Estrace) 0.5 mg DAILY PO Last administered on 05/09/18 08:22; Start 05/05/18 at 09:00 Gabapentin (Neurontin) 600 mg TID PO Last administered on 05/09/18 08:24; Start 05/04/18 at 22:45 Insulin Glargine (Lantus) 10 units QHS SQ Last administered on 05/04/18at 23:48 ; Start 05/04/18 at 23:30; Stop 05/05/18 at 16:12; Status DC Morphine Sulfate (Morphine Sulfate) 2 mg PRN Q2HR PRN IV PAIN Last administered on 05/06/18 20:39; Start 05/05/18 at 03:15; Stop 05/06/18 at 23:27 ; Status DC Ondansetron HCl (Zofran) 4 mg PRN Q6HRS PRN IV NAUSEA/VOMITING Last administered on 05/07/18 15:03; Start 05/05/18 at 03:45 Regadenoson (Lexiscan) 0.4 mg 1X ONCE IV Last administered on 05/05/18 07:45 ; Start 05/05/18 at 07:45; Stop 05/05/18 at 07:46; Status DC Insulin Human Lispro (HumaLOG) 9 units 1X ONCE SQ Last administered on at 12:53; Start 05/05/18 at 12:45; Stop 05/05/18 at 12:48; Status DC Insulin Human Lispro (HumaLOG) 10 units 1X ONCE SQ Last administered on at 13:53; Start 05/05/18 at 14:00; Stop 05/05/18 at 14:01; Status DC Insulin Glargine (Lantus) 18 units QHS SQ Last administered on 05/06/18 20:44 ; Start 05/05/18 at 21:00; Stop 05/07/18 at 10:42; Status DC Acetaminophen (Tylenol) 650 mg PRN Q6HRS PRN PO MILD PAIN / TEMP Last administered on 05/08/18 09:51; Start 05/05/18 at 21:00 Piperacillin Sod/ Tazobactam Sod (Zosyn Per Pharmacy) 1 each PRN DAILY PRN MC SEE COMMENTS; Start 05/05/18 at 21:00 Piperacillin Sod/ Tazobactam Sod 3.375 gm/Sodium Chloride 50 ml @ 100 mls/hr Q6HRS IV Last administered on 05/09/18 05:38; Start 05/05/18 at 21:30 Sodium Chloride 1,000 ml @ 75 mls/hr [id number] IV Last administered on 22:31; Start 05/06/18 at 10:00 Lactobacillus Rhamnosus (Culturelle) 1 cap BID PO Last administered on 08:26; Start 05/06/18 at 13:00 Pantoprazole Sodium (Protonix) 40 mg DAILYAC PO Last administered on 05/09/18 08:20; Start 05/06/18 at 14:00 Insulin Human Lispro (HumaLOG) 0-9 UNITS TIDWMEALS SQ Last administered on 05/09 08:32; Start 05/07/18 at 08:00 Dextrose (Dextrose 50%-Water Syringe) 12.5 gm PRN Q15MIN PRN IV SEE COMMENTS; Start 05/06/18 at 17:15; Status UNV Insulin Human Lispro (HumaLOG) 12 units 1X ONCE SQ Last administered on at 17:20; Start 05/06/18 at 17:15; Stop 05/06/18 at 17:17; Status DC Lorazepam (Ativan) 2 mg PRN Q4HRS PRN IV seizures; Start 05/06/18 at 21:30 Morphine Sulfate (Morphine Sulfate) 2 mg PRN Q2HR PRN IV PAIN; Start 05/06/18 at 23:30 Insulin Glargine (Lantus) 60 units Q12HR SQ Last administered on 05/09/18at 08: 33; Start 05/07/18 at 11:00 Enoxaparin Sodium (Lovenox 30mg Syringe) 30 mg Q24H SQ Last administered on 20:49; Start 05/07/18 at 21:00 Prochlorperazine Edisylate (Compazine) 10 mg PRN Q6HRS PRN IV NAUSEA/VOMITING Last administered on 05/07/18 22:21; Start 05/07/18 at 21:45 Sincalide 1.5 mcg/ Sodium Chloride 30 ml @ 0 mls/hr 1X ONCE IV Last administered on 05/08/18 08:22; Start 05/08/18 at 08:00; Stop 05/08/18 at 08:01 ; Status DC Methylprednisolone Acetate (DEPO-Medrol 80MG VIAL) 80 mg 1X ONCE IM Last administered on 05/08/18 08:15; Start 05/08/18 at 08:15; Stop 05/08/18 at 08:16 ; Status DC Diphenhydramine HCl 100 mg/Sodium Chloride 8 ml/ Miscellaneous 10 ml @ 0 mls/hr 1X ONCE SQ Last administered on 05/08/18 08:50; Start 05/08/18 at 09:00; Stop 05/08/18 at 09:01; Status DC Iohexol (Omnipaque 300 Mg/ml) 50 ml STK-MED ONCE .ROUTE ; Start 05/08/18 at 10: 17; Stop 05/08/18 at 10:18; Status DC Acetaminophen/ Hydrocodone Bitart (Lortab 5/325) 1 tab PRN Q4HRS PRN PO MODERATE-SEVERE PAIN Last administered on 05/08/18 17:39; Start 05/08/18 at 17: 30 Guaifenesin (Mucinex) 600 mg BID PO Last administered on 05/09/18 08:24; Start 05/08/18 at 21:00 Guaifenesin (Robitussin Dm) 10 ml PRN Q6HRS PRN PO COUGH Last administered on 20:46; Start 05/08/18 at 19:15 Active Scripts Active Reported Estradiol 0.5 Mg Tablet 1 Tab PO DAILY Humalog (Insulin Lispro) 100 Unit/1 Ml Insuln.pen Unknown Dose SQ TIDAC Levemir (Insulin Detemir) 100 Unit/1 Ml Vial 10 Units SQ HS Metoprolol Tartrate 25 Mg Tablet 25 Mg PO BID Hydrochlorothiazide Tablet (Hydrochlorothiazide) 25 Mg Tablet 1 Tab PO DAILY Aspirin 325 Mg Tablet 325 Tab PO PRN Q6HRS PRN Gabapentin 600 Mg Tablet 1 Tab PO TID Vitals/I & O Vital Sign - Last 24 Hours 05/08/18 05/08/18 05/08/18 05/08/18 09:51 11:35 15:00 17:39 Temp 97.5 97.2 97.5 97.2 Pulse 71 70 73 Resp 18 18 B/P (MAP) 123/53 143/73 (96) 177/80 (112) Pulse Ox 97 97 O2 Delivery Nasal Cannula Nasal Cannula Nasal Cannula O2 Flow Rate 1.0 1.0 1.0 05/08/18 05/08/18 05/08/18 05/08/18 18:39 19:00 20:00 20:45 Temp 97.3 97.3 Pulse 75 73 Resp 18 B/P (MAP) 166/90 (115) 177/80 Pulse Ox 97 98 O2 Delivery Nasal Cannula Room Air Room Air O2 Flow Rate 1.0 05/08/18 05/09/18 05/09/18 23:00 03:00 08:23 Temp 98.1 97.3 98.1 97.3 Pulse 90 69 69 Resp 18 20 B/P (MAP) 119/56 (77) 163/80 (107) 163/80 Pulse Ox 95 96 O2 Delivery Room Air Room Air Intake and Output 05/08/18 05/08/18 05/09/18 15:00 23:00 07:00 Intake Total 50 ml 880 ml 500 ml Output Total 725 ml 2500 ml 800 ml Balance -675 ml -1620 ml -300 ml VANNA HIGGINBOTHAM MD May 09, 2018 09:19
--- NOTE | 2018-05-09 09:25 | PDOC ---
PULMONARY PROGRESS NOTES Subjective BETTER TODAY LESS SOA Vitals Vital Signs Date Time Temp Pulse Resp B/P (MAP) Pulse Ox O2 Delivery O2 Flow Rate FiO2 05/09/18 08:23 69 163/80 05/09/18 03:00 97.3 20 96 Room Air 97.3 05/08/18 18:39 1.0 ROS: No Nausea, No Chest Pain, No Abdominal Pain, No Increase Cough General: Alert, No acute distress Lungs: Clear Cardiovascular: S1, S2 Abdomen: Soft Neuro Exam: Alert Extremities: No Edema Skin: Warm Labs Laboratory Tests Test 05/07/18 11:23 05/07/18 11:32 05/07/18 17:07 05/07/18 21:45 Glucose (Fingerstick) 271 mg/dL (70-99) 220 mg/dL (70-99) 195 mg/dL (70-99) Urine Random Sodium <60 mmol/L (Not Estab.) Test 05/08/18 07:03 05/08/18 09:55 05/08/18 11:29 05/08/18 16:56 Glucose (Fingerstick) 165 mg/dL (70-99) 146 mg/dL (70-99) 280 mg/dL (70-99) White Blood Count 5.6 x10^3/uL (4.0-11.0) Red Blood Count 4.36 x10^6/uL (3.50-5.40) Hemoglobin 12.4 g/dL (12.0-15.5) Hematocrit 36.3 % (36.0-47.0) Mean Corpuscular Volume 83 fL (79-100) Mean Corpuscular Hemoglobin 28 pg (25-35) Mean Corpuscular Hemoglobin Concent 34 g/dL (31-37) Red Cell Distribution Width 12.9 % (11.5-14.5) Platelet Count 261 x10^3/uL (140-400) Neutrophils (%) (Auto) 56 % (31-73) Lymphocytes (%) (Auto) 30 % (24-48) Monocytes (%) (Auto) 11 % (0-9) Eosinophils (%) (Auto) 2 % (0-3) Basophils (%) (Auto) 1 % (0-3) Neutrophils # (Auto) 3.2 x10^3uL (1.8-7.7) Lymphocytes # (Auto) 1.7 x10^3/uL (1.0-4.8) Monocytes # (Auto) 0.6 x10^3/uL (0.0-1.1) Eosinophils # (Auto) 0.1 x10^3/uL (0.0-0.7) Basophils # (Auto) 0.0 x10^3/uL (0.0-0.2) Sodium Level 135 mmol/L (136-145) Potassium Level 3.6 mmol/L (3.5-5.1) Chloride Level 99 mmol/L (98-107) Carbon Dioxide Level 26 mmol/L (21-32) Anion Gap 10 (6-14) Blood Urea Nitrogen 18 mg/dL (7-20) Creatinine 2.2 mg/dL (0.6-1.0) Estimated GFR (Cockcroft-Gault) 22.8 BUN/Creatinine Ratio 8 (6-20) Glucose Level 143 mg/dL (70-99) Calcium Level 8.2 mg/dL (8.5-10.1) Total Bilirubin 0.3 mg/dL (0.2-1.0) Aspartate Amino Transf (AST/SGOT) 19 U/L (15-37) Alanine Aminotransferase (ALT/SGPT) 14 U/L (14-59) Alkaline Phosphatase 88 U/L (46-116) Total Protein 6.7 g/dL (6.4-8.2) Albumin 2.1 g/dL (3.4-5.0) Albumin/Globulin Ratio 0.5 (1.0-1.7) Test 05/08/18 20:44 05/09/18 06:25 05/09/18 08:08 Glucose (Fingerstick) 384 mg/dL (70-99) 347 mg/dL (70-99) White Blood Count 6.0 x10^3/uL (4.0-11.0) Red Blood Count 4.10 x10^6/uL (3.50-5.40) Hemoglobin 11.6 g/dL (12.0-15.5) Hematocrit 33.5 % (36.0-47.0) Mean Corpuscular Volume 82 fL (79-100) Mean Corpuscular Hemoglobin 28 pg (25-35) Mean Corpuscular Hemoglobin Concent 35 g/dL (31-37) Red Cell Distribution Width 12.9 % (11.5-14.5) Platelet Count 276 x10^3/uL (140-400) Neutrophils (%) (Auto) 85 % (31-73) Lymphocytes (%) (Auto) 13 % (24-48) Monocytes (%) (Auto) 2 % (0-9) Eosinophils (%) (Auto) 0 % (0-3) Basophils (%) (Auto) 0 % (0-3) Neutrophils # (Auto) 5.1 x10^3uL (1.8-7.7) Lymphocytes # (Auto) 0.8 x10^3/uL (1.0-4.8) Monocytes # (Auto) 0.1 x10^3/uL (0.0-1.1) Eosinophils # (Auto) 0.0 x10^3/uL (0.0-0.7) Basophils # (Auto) 0.0 x10^3/uL (0.0-0.2) Sodium Level 135 mmol/L (136-145) Potassium Level 4.5 mmol/L (3.5-5.1) Chloride Level 98 mmol/L (98-107) Carbon Dioxide Level 26 mmol/L (21-32) Anion Gap 11 (6-14) Blood Urea Nitrogen 20 mg/dL (7-20) Creatinine 1.8 mg/dL (0.6-1.0) Estimated GFR (Cockcroft-Gault) 28.8 BUN/Creatinine Ratio 11 (6-20) Glucose Level 387 mg/dL (70-99) Calcium Level 8.4 mg/dL (8.5-10.1) Total Bilirubin 0.3 mg/dL (0.2-1.0) Aspartate Amino Transf (AST/SGOT) 18 U/L (15-37) Alanine Aminotransferase (ALT/SGPT) 13 U/L (14-59) Alkaline Phosphatase 92 U/L (46-116) Total Protein 6.8 g/dL (6.4-8.2) Albumin 2.0 g/dL (3.4-5.0) Albumin/Globulin Ratio 0.4 (1.0-1.7) Laboratory Tests Test 05/08/18 09:55 05/08/18 11:29 05/08/18 16:56 05/08/18 20:44 White Blood Count 5.6 x10^3/uL (4.0-11.0) Red Blood Count 4.36 x10^6/uL (3.50-5.40) Hemoglobin 12.4 g/dL (12.0-15.5) Hematocrit 36.3 % (36.0-47.0) Mean Corpuscular Volume 83 fL (79-100) Mean Corpuscular Hemoglobin 28 pg (25-35) Mean Corpuscular Hemoglobin Concent 34 g/dL (31-37) Red Cell Distribution Width 12.9 % (11.5-14.5) Platelet Count 261 x10^3/uL (140-400) Neutrophils (%) (Auto) 56 % (31-73) Lymphocytes (%) (Auto) 30 % (24-48) Monocytes (%) (Auto) 11 % (0-9) Eosinophils (%) (Auto) 2 % (0-3) Basophils (%) (Auto) 1 % (0-3) Neutrophils # (Auto) 3.2 x10^3uL (1.8-7.7) Lymphocytes # (Auto) 1.7 x10^3/uL (1.0-4.8) Monocytes # (Auto) 0.6 x10^3/uL (0.0-1.1) Eosinophils # (Auto) 0.1 x10^3/uL (0.0-0.7) Basophils # (Auto) 0.0 x10^3/uL (0.0-0.2) Sodium Level 135 mmol/L (136-145) Potassium Level 3.6 mmol/L (3.5-5.1) Chloride Level 99 mmol/L (98-107) Carbon Dioxide Level 26 mmol/L (21-32) Anion Gap 10 (6-14) Blood Urea Nitrogen 18 mg/dL (7-20) Creatinine 2.2 mg/dL (0.6-1.0) Estimated GFR (Cockcroft-Gault) 22.8 BUN/Creatinine Ratio 8 (6-20) Glucose Level 143 mg/dL (70-99) Calcium Level 8.2 mg/dL (8.5-10.1) Total Bilirubin 0.3 mg/dL (0.2-1.0) Aspartate Amino Transf (AST/SGOT) 19 U/L (15-37) Alanine Aminotransferase (ALT/SGPT) 14 U/L (14-59) Alkaline Phosphatase 88 U/L (46-116) Total Protein 6.7 g/dL (6.4-8.2) Albumin 2.1 g/dL (3.4-5.0) Albumin/Globulin Ratio 0.5 (1.0-1.7) Glucose (Fingerstick) 146 mg/dL (70-99) 280 mg/dL (70-99) 384 mg/dL (70-99) Test 05/09/18 06:25 05/09/18 08:08 White Blood Count 6.0 x10^3/uL (4.0-11.0) Red Blood Count 4.10 x10^6/uL (3.50-5.40) Hemoglobin 11.6 g/dL (12.0-15.5) Hematocrit 33.5 % (36.0-47.0) Mean Corpuscular Volume 82 fL (79-100) Mean Corpuscular Hemoglobin 28 pg (25-35) Mean Corpuscular Hemoglobin Concent 35 g/dL (31-37) Red Cell Distribution Width 12.9 % (11.5-14.5) Platelet Count 276 x10^3/uL (140-400) Neutrophils (%) (Auto) 85 % (31-73) Lymphocytes (%) (Auto) 13 % (24-48) Monocytes (%) (Auto) 2 % (0-9) Eosinophils (%) (Auto) 0 % (0-3) Basophils (%) (Auto) 0 % (0-3) Neutrophils # (Auto) 5.1 x10^3uL (1.8-7.7) Lymphocytes # (Auto) 0.8 x10^3/uL (1.0-4.8) Monocytes # (Auto) 0.1 x10^3/uL (0.0-1.1) Eosinophils # (Auto) 0.0 x10^3/uL (0.0-0.7) Basophils # (Auto) 0.0 x10^3/uL (0.0-0.2) Sodium Level 135 mmol/L (136-145) Potassium Level 4.5 mmol/L (3.5-5.1) Chloride Level 98 mmol/L (98-107) Carbon Dioxide Level 26 mmol/L (21-32) Anion Gap 11 (6-14) Blood Urea Nitrogen 20 mg/dL (7-20) Creatinine 1.8 mg/dL (0.6-1.0) Estimated GFR (Cockcroft-Gault) 28.8 BUN/Creatinine Ratio 11 (6-20) Glucose Level 387 mg/dL (70-99) Calcium Level 8.4 mg/dL (8.5-10.1) Total Bilirubin 0.3 mg/dL (0.2-1.0) Aspartate Amino Transf (AST/SGOT) 18 U/L (15-37) Alanine Aminotransferase (ALT/SGPT) 13 U/L (14-59) Alkaline Phosphatase 92 U/L (46-116) Total Protein 6.8 g/dL (6.4-8.2) Albumin 2.0 g/dL (3.4-5.0) Albumin/Globulin Ratio 0.4 (1.0-1.7) Glucose (Fingerstick) 347 mg/dL (70-99) Medications Active Scripts Medications Dose Route/Sig Max Daily Dose Days Date Category Estradiol 0.5 Mg Tablet 1 Tab PO DAILY 05/04/18 Reported Humalog (Insulin Lispro) 100 Unit/1 Ml Insuln.pen Unknown Dose SQ TIDAC 05/04/18 Reported Levemir (Insulin Detemir) 100 Unit/1 Ml Vial 10 Units SQ HS 05/04/18 Reported Metoprolol Tartrate 25 Mg Tablet 25 Mg PO BID 08/18/17 Reported Hydrochlorothiazide Tablet (Hydrochlorothiazide) 25 Mg Tablet 1 Tab PO DAILY 12/27/15 Reported Aspirin 325 Mg Tablet 325 Tab PO PRN Q6HRS PRN 12/27/15 Reported Gabapentin 600 Mg Tablet 1 Tab PO TID 11/27/14 Reported Impression . 1. Abnormal CT chest with mass-like consolidation in the left lower lobe in a patient who has a fever of 102.5. 2. Gastrointestinal symptoms with epigastric and left lower quadrant abdominal pain along with 20-pound weight loss in the last 2 months. The patient states she had polyps removed by Dr. Hall previously and was due to have another colonoscopy. Her previous mammogram was negative per the patient's history. No gastrointestinal malignancy on CT abdomen and pelvis 3. No significant history of tobacco use. 4. TORI Plan . HOME TODAY D/W DR DEMPSEY REPEAT CREAT BETTER REPEAT CT CHEST IN 6-8 WEEKS HOME ON AUGMENTIN RX WRITTEN MOY QUIROZ MD May 09, 2018 09:25
[2018-05-09 11:00] VITALS: BP 173/73
--- NOTE | 2018-05-09 11:16 | PDOC ---
PROGRESS NOTES Chief Complaint Chief Complaint Chest pain, atypical. with risk factors including age Abnormal CT: masslike density of the L lower lobe, CXR L basilar infiltrate likely pneumonia, less likely malignancy Hyperglycemia Elevated Creatinine, possible CKD Septic - tachycardic and Tmax of 102.5 Hyponatremia Hypertension; hyperlipidemia Diabetes, II; uncontrolled. Seizure hx H/o CVA Abdominal pain; followed by GI on an outpatient basis Neuropathy Moderately delayed gastric emptying Small calcification projecting over the insertion of the supraspinatus on the humerus. Mild or early calcific tendinitis not excluded History of Present Illness History of Present Illness Ms. Dacosta is a 57 yo female presented with chest pain, epigastric abdominal pain. She was seen and examined at bedside. Discussed case with RN. Patient has no new complaints and is okay for discharge. Patient on zosyn. GI and Pulm following. Blood sugars elevated in 300s this am. Vitals Vitals Vital Signs Date Time Temp Pulse Resp B/P (MAP) Pulse Ox O2 Delivery O2 Flow Rate FiO2 05/09/18 11:00 97.5 73 18 173/73 (106) 94 Nasal Cannula 97.5 05/08/18 18:39 1.0 Physical Exam General: Alert, Oriented X3, Cooperative, No acute distress Heart: Regular rate, Normal S1, Normal S2 Lungs: Clear Abdomen: Normal bowel sounds, Soft, No hepatosplenomegaly Extremities: No clubbing, No cyanosis, No edema, Normal pulses Skin: No rashes, No significant lesion Labs LABS Laboratory Tests Test 05/08/18 11:29 05/08/18 16:56 05/08/18 20:44 05/09/18 06:25 Glucose (Fingerstick) 146 mg/dL (70-99) 280 mg/dL (70-99) 384 mg/dL (70-99) White Blood Count 6.0 x10^3/uL (4.0-11.0) Red Blood Count 4.10 x10^6/uL (3.50-5.40) Hemoglobin 11.6 g/dL (12.0-15.5) Hematocrit 33.5 % (36.0-47.0) Mean Corpuscular Volume 82 fL (79-100) Mean Corpuscular Hemoglobin 28 pg (25-35) Mean Corpuscular Hemoglobin Concent 35 g/dL (31-37) Red Cell Distribution Width 12.9 % (11.5-14.5) Platelet Count 276 x10^3/uL (140-400) Neutrophils (%) (Auto) 85 % (31-73) Lymphocytes (%) (Auto) 13 % (24-48) Monocytes (%) (Auto) 2 % (0-9) Eosinophils (%) (Auto) 0 % (0-3) Basophils (%) (Auto) 0 % (0-3) Neutrophils # (Auto) 5.1 x10^3uL (1.8-7.7) Lymphocytes # (Auto) 0.8 x10^3/uL (1.0-4.8) Monocytes # (Auto) 0.1 x10^3/uL (0.0-1.1) Eosinophils # (Auto) 0.0 x10^3/uL (0.0-0.7) Basophils # (Auto) 0.0 x10^3/uL (0.0-0.2) Sodium Level 135 mmol/L (136-145) Potassium Level 4.5 mmol/L (3.5-5.1) Chloride Level 98 mmol/L (98-107) Carbon Dioxide Level 26 mmol/L (21-32) Anion Gap 11 (6-14) Blood Urea Nitrogen 20 mg/dL (7-20) Creatinine 1.8 mg/dL (0.6-1.0) Estimated GFR (Cockcroft-Gault) 28.8 BUN/Creatinine Ratio 11 (6-20) Glucose Level 387 mg/dL (70-99) Calcium Level 8.4 mg/dL (8.5-10.1) Total Bilirubin 0.3 mg/dL (0.2-1.0) Aspartate Amino Transf (AST/SGOT) 18 U/L (15-37) Alanine Aminotransferase (ALT/SGPT) 13 U/L (14-59) Alkaline Phosphatase 92 U/L (46-116) Total Protein 6.8 g/dL (6.4-8.2) Albumin 2.0 g/dL (3.4-5.0) Albumin/Globulin Ratio 0.4 (1.0-1.7) Test 05/09/18 08:08 Glucose (Fingerstick) 347 mg/dL (70-99) Review of Systems Review of Systems Denies nausea, vomiting Denies fever/chills Denies chest pain Assessment and Plan Assessmemt and Plan Problems Medical Problems: (1) Chest pain Status: Acute (2) Uncontrolled type II diabetes mellitus Status: Acute Assessment: Chest pain, atypical. with risk factors including age Abnormal CT: masslike density of the L lower lobe, CXR L basilar infiltrate likely pneumonia, less likely malignancy Hyperglycemia Elevated Creatinine, possible CKD Septic - tachycardic and Tmax of 102.5 Hyponatremia Hypertension; hyperlipidemia Diabetes, II; uncontrolled. Seizure hx H/o CVA Abdominal pain; followed by GI on an outpatient basis Neuropathy Moderately delayed gastric emptying Small calcification projecting over the insertion of the supraspinatus on the humerus. Mild or early calcific tendinitis not excluded Plan: Appreciate subspecialty input Okay to discharge when okay with subspecialties Continue insulin Monitor glycemic control Monitor Creatinine Prescribe augmentin outpatient MRI oupatient, appreciate Dr. Kingston input PT/OT Comment Review of Relevant I have reviewed the following items cheko (where applicable) has been applied. Labs Laboratory Tests Test 05/07/18 11:23 05/07/18 11:32 05/07/18 17:07 05/07/18 21:45 Glucose (Fingerstick) 271 mg/dL (70-99) 220 mg/dL (70-99) 195 mg/dL (70-99) Urine Random Sodium <60 mmol/L (Not Estab.) Test 05/08/18 07:03 05/08/18 09:55 05/08/18 11:29 05/08/18 16:56 Glucose (Fingerstick) 165 mg/dL (70-99) 146 mg/dL (70-99) 280 mg/dL (70-99) White Blood Count 5.6 x10^3/uL (4.0-11.0) Red Blood Count 4.36 x10^6/uL (3.50-5.40) Hemoglobin 12.4 g/dL (12.0-15.5) Hematocrit 36.3 % (36.0-47.0) Mean Corpuscular Volume 83 fL (79-100) Mean Corpuscular Hemoglobin 28 pg (25-35) Mean Corpuscular Hemoglobin Concent 34 g/dL (31-37) Red Cell Distribution Width 12.9 % (11.5-14.5) Platelet Count 261 x10^3/uL (140-400) Neutrophils (%) (Auto) 56 % (31-73) Lymphocytes (%) (Auto) 30 % (24-48) Monocytes (%) (Auto) 11 % (0-9) Eosinophils (%) (Auto) 2 % (0-3) Basophils (%) (Auto) 1 % (0-3) Neutrophils # (Auto) 3.2 x10^3uL (1.8-7.7) Lymphocytes # (Auto) 1.7 x10^3/uL (1.0-4.8) Monocytes # (Auto) 0.6 x10^3/uL (0.0-1.1) Eosinophils # (Auto) 0.1 x10^3/uL (0.0-0.7) Basophils # (Auto) 0.0 x10^3/uL (0.0-0.2) Sodium Level 135 mmol/L (136-145) Potassium Level 3.6 mmol/L (3.5-5.1) Chloride Level 99 mmol/L (98-107) Carbon Dioxide Level 26 mmol/L (21-32) Anion Gap 10 (6-14) Blood Urea Nitrogen 18 mg/dL (7-20) Creatinine 2.2 mg/dL (0.6-1.0) Estimated GFR (Cockcroft-Gault) 22.8 BUN/Creatinine Ratio 8 (6-20) Glucose Level 143 mg/dL (70-99) Calcium Level 8.2 mg/dL (8.5-10.1) Total Bilirubin 0.3 mg/dL (0.2-1.0) Aspartate Amino Transf (AST/SGOT) 19 U/L (15-37) Alanine Aminotransferase (ALT/SGPT) 14 U/L (14-59) Alkaline Phosphatase 88 U/L (46-116) Total Protein 6.7 g/dL (6.4-8.2) Albumin 2.1 g/dL (3.4-5.0) Albumin/Globulin Ratio 0.5 (1.0-1.7) Test 05/08/18 20:44 05/09/18 06:25 05/09/18 08:08 Glucose (Fingerstick) 384 mg/dL (70-99) 347 mg/dL (70-99) White Blood Count 6.0 x10^3/uL (4.0-11.0) Red Blood Count 4.10 x10^6/uL (3.50-5.40) Hemoglobin 11.6 g/dL (12.0-15.5) Hematocrit 33.5 % (36.0-47.0) Mean Corpuscular Volume 82 fL (79-100) Mean Corpuscular Hemoglobin 28 pg (25-35) Mean Corpuscular Hemoglobin Concent 35 g/dL (31-37) Red Cell Distribution Width 12.9 % (11.5-14.5) Platelet Count 276 x10^3/uL (140-400) Neutrophils (%) (Auto) 85 % (31-73) Lymphocytes (%) (Auto) 13 % (24-48) Monocytes (%) (Auto) 2 % (0-9) Eosinophils (%) (Auto) 0 % (0-3) Basophils (%) (Auto) 0 % (0-3) Neutrophils # (Auto) 5.1 x10^3uL (1.8-7.7) Lymphocytes # (Auto) 0.8 x10^3/uL (1.0-4.8) Monocytes # (Auto) 0.1 x10^3/uL (0.0-1.1) Eosinophils # (Auto) 0.0 x10^3/uL (0.0-0.7) Basophils # (Auto) 0.0 x10^3/uL (0.0-0.2) Sodium Level 135 mmol/L (136-145) Potassium Level 4.5 mmol/L (3.5-5.1) Chloride Level 98 mmol/L (98-107) Carbon Dioxide Level 26 mmol/L (21-32) Anion Gap 11 (6-14) Blood Urea Nitrogen 20 mg/dL (7-20) Creatinine 1.8 mg/dL (0.6-1.0) Estimated GFR (Cockcroft-Gault) 28.8 BUN/Creatinine Ratio 11 (6-20) Glucose Level 387 mg/dL (70-99) Calcium Level 8.4 mg/dL (8.5-10.1) Total Bilirubin 0.3 mg/dL (0.2-1.0) Aspartate Amino Transf (AST/SGOT) 18 U/L (15-37) Alanine Aminotransferase (ALT/SGPT) 13 U/L (14-59) Alkaline Phosphatase 92 U/L (46-116) Total Protein 6.8 g/dL (6.4-8.2) Albumin 2.0 g/dL (3.4-5.0) Albumin/Globulin Ratio 0.4 (1.0-1.7) Laboratory Tests Test 05/08/18 11:29 05/08/18 16:56 05/08/18 20:44 05/09/18 06:25 Glucose (Fingerstick) 146 mg/dL (70-99) 280 mg/dL (70-99) 384 mg/dL (70-99) White Blood Count 6.0 x10^3/uL (4.0-11.0) Red Blood Count 4.10 x10^6/uL (3.50-5.40) Hemoglobin 11.6 g/dL (12.0-15.5) Hematocrit 33.5 % (36.0-47.0) Mean Corpuscular Volume 82 fL (79-100) Mean Corpuscular Hemoglobin 28 pg (25-35) Mean Corpuscular Hemoglobin Concent 35 g/dL (31-37) Red Cell Distribution Width 12.9 % (11.5-14.5) Platelet Count 276 x10^3/uL (140-400) Neutrophils (%) (Auto) 85 % (31-73) Lymphocytes (%) (Auto) 13 % (24-48) Monocytes (%) (Auto) 2 % (0-9) Eosinophils (%) (Auto) 0 % (0-3) Basophils (%) (Auto) 0 % (0-3) Neutrophils # (Auto) 5.1 x10^3uL (1.8-7.7) Lymphocytes # (Auto) 0.8 x10^3/uL (1.0-4.8) Monocytes # (Auto) 0.1 x10^3/uL (0.0-1.1) Eosinophils # (Auto) 0.0 x10^3/uL (0.0-0.7) Basophils # (Auto) 0.0 x10^3/uL (0.0-0.2) Sodium Level 135 mmol/L (136-145) Potassium Level 4.5 mmol/L (3.5-5.1) Chloride Level 98 mmol/L (98-107) Carbon Dioxide Level 26 mmol/L (21-32) Anion Gap 11 (6-14) Blood Urea Nitrogen 20 mg/dL (7-20) Creatinine 1.8 mg/dL (0.6-1.0) Estimated GFR (Cockcroft-Gault) 28.8 BUN/Creatinine Ratio 11 (6-20) Glucose Level 387 mg/dL (70-99) Calcium Level 8.4 mg/dL (8.5-10.1) Total Bilirubin 0.3 mg/dL (0.2-1.0) Aspartate Amino Transf (AST/SGOT) 18 U/L (15-37) Alanine Aminotransferase (ALT/SGPT) 13 U/L (14-59) Alkaline Phosphatase 92 U/L (46-116) Total Protein 6.8 g/dL (6.4-8.2) Albumin 2.0 g/dL (3.4-5.0) Albumin/Globulin Ratio 0.4 (1.0-1.7) Test 05/09/18 08:08 Glucose (Fingerstick) 347 mg/dL (70-99) Microbiology 05/06/18 Blood Culture - Preliminary, Resulted NO GROWTH AFTER 2 DAYS Medications Current Medications Morphine Sulfate (Morphine Sulfate) 2 mg PRN Q15MIN PRN IV/SQ PAIN GREATER THAN 3/10 Last administered on 05/04/18at 01:16; Start 05/03/18 at 20:45; Stop at 07:30; Status DC Sodium Chloride 1,000 ml @ 1,000 mls/hr Q1H IV Last administered on 05/03/18at 21:09; Start 05/03/18 at 20:33; Stop 05/03/18 at 21:32; Status DC Ondansetron HCl (Zofran) 4 mg 1X ONCE IV Last administered on 05/03/18at 21:09 ; Start 05/03/18 at 20:45; Stop 05/03/18 at 20:46; Status DC Ondansetron HCl (Zofran) 4 mg PRN Q8HRS PRN IV NAUSEA/VOMITING; Start 05/04/18 at 00:30; Stop 05/05/18 at 00:29; Status DC Morphine Sulfate (Morphine Sulfate) 2 mg PRN Q2HR PRN IV PAIN Last administered on 05/04/18at 21:07; Start 05/04/18 at 00:30; Stop 05/05/18 at 00:29 ; Status DC Sodium Chloride 1,000 ml @ 125 mls/hr Q8H IV ; Start 05/04/18 at 00:30; Stop at 00:29; Status DC Nitroglycerin (Nitrostat) 0.4 mg PRN Q5MIN PRN SL CHEST PAIN; Start 05/04/18 at 00:30; Stop 05/05/18 at 00:29; Status DC Insulin Human Lispro (HumaLOG) 0-5 UNITS TIDWMEALS SQ Last administered on 05/04at 17:40; Start 05/04/18 at 08:00; Stop 05/04/18 at 22:34; Status DC Dextrose (Dextrose 50%-Water Syringe) 12.5 gm PRN Q15MIN PRN IV SEE COMMENTS; Start 05/04/18 at 00:30 Atorvastatin Calcium (Lipitor) 20 mg QHS PO Last administered on 05/08/18at 20: 46; Start 05/04/18 at 21:00 Aspirin (Mingo Aspirin) 325 mg PRN Q6HRS PRN PO PAIN; Start 05/04/18 at 16:30 Hydrochlorothiazide (Hydrodiuril) 25 mg DAILY PO Last administered on at 09:51; Start 05/05/18 at 09:00; Stop 05/08/18 at 13:01; Status DC Metoprolol Tartrate (Lopressor) 25 mg BID PO Last administered on 05/09/18at 08: 23; Start 05/04/18 at 21:00 Enoxaparin Sodium (Lovenox 40mg Syringe) 40 mg Q24H SQ Last administered on at 20:37; Start 05/04/18 at 21:00; Stop 05/07/18 at 14:45; Status DC Insulin Human Lispro (HumaLOG) 0-5 UNITS TIDACHC SQ Last administered on at 12:22; Start 05/05/18 at 07:30; Stop 05/06/18 at 17:15; Status DC Insulin Human Lispro (HumaLOG) 2 units 1X ONCE SQ Last administered on at 23:47; Start 05/04/18 at 22:45; Stop 05/04/18 at 22:46; Status DC Estradiol (Estrace) 0.5 mg DAILY PO Last administered on 05/09/18 08:22; Start 05/05/18 at 09:00 Gabapentin (Neurontin) 600 mg TID PO Last administered on 05/09/18 08:24; Start 05/04/18 at 22:45 Insulin Glargine (Lantus) 10 units QHS SQ Last administered on 05/04/18 23:48 ; Start 05/04/18 at 23:30; Stop 05/05/18 at 16:12; Status DC Morphine Sulfate (Morphine Sulfate) 2 mg PRN Q2HR PRN IV PAIN Last administered on 05/06/18 20:39; Start 05/05/18 at 03:15; Stop 05/06/18 at 23:27 ; Status DC Ondansetron HCl (Zofran) 4 mg PRN Q6HRS PRN IV NAUSEA/VOMITING Last administered on 05/07/18 15:03; Start 05/05/18 at 03:45 Regadenoson (Lexiscan) 0.4 mg 1X ONCE IV Last administered on 05/05/18 07:45 ; Start 05/05/18 at 07:45; Stop 05/05/18 at 07:46; Status DC Insulin Human Lispro (HumaLOG) 9 units 1X ONCE SQ Last administered on 12:53; Start 05/05/18 at 12:45; Stop 05/05/18 at 12:48; Status DC Insulin Human Lispro (HumaLOG) 10 units 1X ONCE SQ Last administered on 13:53; Start 05/05/18 at 14:00; Stop 05/05/18 at 14:01; Status DC Insulin Glargine (Lantus) 18 units QHS SQ Last administered on 05/06/18 20:44 ; Start 05/05/18 at 21:00; Stop 05/07/18 at 10:42; Status DC Acetaminophen (Tylenol) 650 mg PRN Q6HRS PRN PO MILD PAIN / TEMP Last administered on 05/08/18 09:51; Start 05/05/18 at 21:00 Piperacillin Sod/ Tazobactam Sod (Zosyn Per Pharmacy) 1 each PRN DAILY PRN MC SEE COMMENTS; Start 05/05/18 at 21:00 Piperacillin Sod/ Tazobactam Sod 3.375 gm/Sodium Chloride 50 ml @ 100 mls/hr Q6HRS IV Last administered on 05/09/18 05:38; Start 05/05/18 at 21:30 Sodium Chloride 1,000 ml @ 75 mls/hr [id number] IV Last administered on at 22:31; Start 05/06/18 at 10:00 Lactobacillus Rhamnosus (Culturelle) 1 cap BID PO Last administered on 08:26; Start 05/06/18 at 13:00 Pantoprazole Sodium (Protonix) 40 mg DAILYAC PO Last administered on 05/09/18 08:20; Start 05/06/18 at 14:00 Insulin Human Lispro (HumaLOG) 0-9 UNITS TIDWMEALS SQ Last administered on 05/09at 08:32; Start 05/07/18 at 08:00 Dextrose (Dextrose 50%-Water Syringe) 12.5 gm PRN Q15MIN PRN IV SEE COMMENTS; Start 05/06/18 at 17:15; Status UNV Insulin Human Lispro (HumaLOG) 12 units 1X ONCE SQ Last administered on at 17:20; Start 05/06/18 at 17:15; Stop 05/06/18 at 17:17; Status DC Lorazepam (Ativan) 2 mg PRN Q4HRS PRN IV seizures; Start 05/06/18 at 21:30 Morphine Sulfate (Morphine Sulfate) 2 mg PRN Q2HR PRN IV PAIN; Start 05/06/18 at 23:30 Insulin Glargine (Lantus) 60 units Q12HR SQ Last administered on 05/09/18 08: 33; Start 05/07/18 at 11:00 Enoxaparin Sodium (Lovenox 30mg Syringe) 30 mg Q24H SQ Last administered on at 20:49; Start 05/07/18 at 21:00 Prochlorperazine Edisylate (Compazine) 10 mg PRN Q6HRS PRN IV NAUSEA/VOMITING Last administered on 05/07/18at 22:21; Start 05/07/18 at 21:45 Sincalide 1.5 mcg/ Sodium Chloride 30 ml @ 0 mls/hr 1X ONCE IV Last administered on 05/08/18at 08:22; Start 05/08/18 at 08:00; Stop 05/08/18 at 08:01 ; Status DC Methylprednisolone Acetate (DEPO-Medrol 80MG VIAL) 80 mg 1X ONCE IM Last administered on 05/08/18at 08:15; Start 05/08/18 at 08:15; Stop 05/08/18 at 08:16 ; Status DC Diphenhydramine HCl 100 mg/Sodium Chloride 8 ml/ Miscellaneous 10 ml @ 0 mls/hr 1X ONCE SQ Last administered on 05/08/18at 08:50; Start 05/08/18 at 09:00; Stop 05/08/18 at 09:01; Status DC Iohexol (Omnipaque 300 Mg/ml) 50 ml STK-MED ONCE .ROUTE ; Start 05/08/18 at 10: 17; Stop 05/08/18 at 10:18; Status DC Acetaminophen/ Hydrocodone Bitart (Lortab 5/325) 1 tab PRN Q4HRS PRN PO MODERATE-SEVERE PAIN Last administered on 05/08/18at 17:39; Start 05/08/18 at 17: 30 Guaifenesin (Mucinex) 600 mg BID PO Last administered on 05/09/18at 08:24; Start 05/08/18 at 21:00 Guaifenesin (Robitussin Dm) 10 ml PRN Q6HRS PRN PO COUGH Last administered on at 20:46; Start 05/08/18 at 19:15 Active Scripts Active Reported Estradiol 0.5 Mg Tablet 1 Tab PO DAILY Humalog (Insulin Lispro) 100 Unit/1 Ml Insuln.pen Unknown Dose SQ TIDAC Levemir (Insulin Detemir) 100 Unit/1 Ml Vial 10 Units SQ HS Metoprolol Tartrate 25 Mg Tablet 25 Mg PO BID Hydrochlorothiazide Tablet (Hydrochlorothiazide) 25 Mg Tablet 1 Tab PO DAILY Aspirin 325 Mg Tablet 325 Tab PO PRN Q6HRS PRN Gabapentin 600 Mg Tablet 1 Tab PO TID Vitals/I & O Vital Sign - Last 24 Hours 05/08/18 05/08/18 05/08/18 05/08/18 11:35 15:00 17:39 18:39 Temp 97.5 97.2 97.5 97.2 Pulse 70 73 Resp 18 18 B/P (MAP) 143/73 (96) 177/80 (112) Pulse Ox 97 97 97 O2 Delivery Nasal Cannula Nasal Cannula Nasal Cannula Nasal Cannula O2 Flow Rate 1.0 1.0 1.0 1.0 05/08/18 05/08/18 05/08/18 05/08/18 19:00 20:00 20:45 23:00 Temp 97.3 98.1 97.3 98.1 Pulse 75 73 90 Resp 18 18 B/P (MAP) 166/90 (115) 177/80 119/56 (77) Pulse Ox 98 95 O2 Delivery Room Air Room Air Room Air 05/09/18 05/09/18 05/09/18 05/09/18 03:00 07:00 08:00 08:23 Temp 97.3 97.3 97.3 97.3 Pulse 69 74 69 Resp 20 18 B/P (MAP) 163/80 (107) 204/81 (122) 163/80 Pulse Ox 96 96 O2 Delivery Room Air Room Air Room Air 05/09/18 11:00 Temp 97.5 97.5 Pulse 73 Resp 18 B/P (MAP) 173/73 (106) Pulse Ox 94 O2 Delivery Nasal Cannula Intake and Output 05/08/18 05/08/18 05/09/18 15:00 23:00 07:00 Intake Total 50 ml 880 ml 500 ml Output Total 725 ml 2500 ml 800 ml Balance -675 ml -1620 ml -300 ml SHARI RITCHIE III DO May 09, 2018 11:16
--- NOTE | 2018-05-09 11:19 | SNU/HH DC ---
DISCHARGE WITH HOME HEALTH DISCHARGE INFORMATION: Final Diagnosis: Problems Medical Problems: (1) Chest pain Status: Acute (2) Uncontrolled type II diabetes mellitus Status: Acute Condition on Discharge: Stable CODE STATUS: Code Status: Full HOME HEALTH: Face to Face: I certify this patient is under my care and that I, or a nurse practitioner or physician's medical staff assistant working with me, had a face to face encounter that meets the physician face to face encounter requirements with this patient on []. Medical Complications: DM Physical Therapy For: Evalulation/Treatment Occupational Therapy For: Evaluation/Treatment Home Health Aide For: Self-care SHOULDER PAD MOLDER For: Community Resources POST DISCHARGE ORDERS: Activity Instructions for Disc: Activity as tolerated Weight Bearing Status after Di: As tolerated DIET AFTER DISCHARGE: ADA Wound/Incision Care: No wound care needed CHECKS AFTER DISCHARGE: Checks after discharge: Check blood press - daily, Check blood sugar, ac/hs TREATMENT/EQUIPMENT ORDERS: Adaptive Equipment Issued: None, Front wheeled walker CERTIFICATION STATEMENT: Certification Statement: Certification Statement: Based on the above finding, I certify that this patient is confined to the home and needs intermittent shelter care, physical therapy and/or speech therapy, or continues to need occupational therapy.~ This patient is under my care, and I have initiated the establishment of the plan of care.~ This patient will be followed by myself or a community physician who will periodically review the plan of care. Home Meds Reported Medications Estradiol (ESTRADIOL) 0.5 Mg Tablet, 1 TAB PO DAILY for hormone replac, #30 TAB 11 Refills 05/04/18 Insulin Lispro (HUMALOG) 100 Unit/1 Ml Insuln.pen, SQ TIDAC for , SYR 05/04/18 Insulin Detemir (LEVEMIR) 100 Unit/1 Ml Vial, 10 UNITS SQ HS for , VIAL 05/04/18 Metoprolol Tartrate (METOPROLOL TARTRATE) 25 Mg Tablet, 25 MG PO BID for FOR HYPERTENSION, #60 TAB 0 Refills 08/18/17 Hydrochlorothiazide (HYDROCHLOROTHIAZIDE TABLET ) 25 Mg Tablet, 1 TAB PO DAILY for , #30 TAB 5 Refills 12/27/15 Aspirin (ASPIRIN) 325 Mg Tablet, 325 TAB PO PRN Q6HRS PRN for PAIN, #30 TAB 5 Refills 12/27/15 Gabapentin (GABAPENTIN) 600 Mg Tablet, 1 TAB PO TID for , #90 TAB 3 Refills 11/27/14 Discontinued Reported Medications Insulin Aspart (NOVOLOG FLEXPEN) 100 Unit/1 Ml Insuln.pen, 1 UNIT SQ, SYR 12/27/17 Clonazepam (CLONAZEPAM) 1 Mg Tablet, 1 TAB PO QHS, #30 TAB 11/27/14 Clonidine Hcl (CLONIDINE HCL) 0.1 Mg Tablet, 0.1 MG PO BID, TAB 11/27/14 SHARI RITCHIE III DO May 09, 2018 11:19
--- NOTE | 2018-05-09 12:00 | NUR ---
SS following up with discharge planning. Discharge orders received for home healthcare. SS phoned and faxed discharge orders and referral to [facility], ; fax [phone]. Pt's RN notified.
--- NOTE | 2018-05-09 12:15 | PDOC ---
Subjective: Subjective: Feels better - going home today she thinks. Wants to transition care to Dr. Santos - asks if he can do her colonoscopy because Dr. Hall said it was time. Objective: Objective: Per RN - has reported some "burning" chest pain. Vital Signs: Vital Signs Date Time Temp Pulse Resp B/P (MAP) Pulse Ox O2 Delivery O2 Flow Rate FiO2 05/09/18 11:00 97.5 73 18 173/73 (106) 94 Nasal Cannula 97.5 05/08/18 18:39 1.0 Labs: Laboratory Tests Test 05/08/18 16:56 05/08/18 20:44 05/09/18 08:08 05/09/18 11:53 Glucose (Fingerstick) 280 mg/dL (70-99) 384 mg/dL (70-99) 347 mg/dL (70-99) 335 mg/dL (70-99) PE: GEN: NAD LUNGS: CTAB HEART: RRR ABD: S/ND/NT NEURO/PSYCH: A & O 3 A/P: Abd pain, nausea - better H/o low-grade esophagitis and moderately delayed gastric emptying CRC screen - 2014 w/ polyps (no path available) and diverticulosis -- DC per primary - I left pantoprazole Rx w/ RN. Follow-up in the office - we can contact to schedule. TONY SHAH May 09, 2018 12:15
[2018-05-09] MEDS ORDERED: PANT20TA2 PO (12:25)
[2018-05-09] MEDS ORDERED: AMLO10TA4 PO (12:28)
--- NOTE | 2018-05-09 12:30 | PDOC ---
Renal-Progress Notes Subjective Notes Notes FEELS WELL History of Present Illness Hx of present illness BETTER Vitals Vitals Vital Signs Date Time Temp Pulse Resp B/P (MAP) Pulse Ox O2 Delivery O2 Flow Rate FiO2 05/09/18 11:00 97.5 73 18 173/73 (106) 94 Nasal Cannula 97.5 05/08/18 18:39 1.0 Weight Weight [ ] I.O. Intake and Output Intake and Output 05/09/18 06:59 Intake Total 1430 ml Output Total 4025 ml Balance -2595 ml Intake Oral 1280 ml IV Total 150 ml Output Urine Total 4025 ml # Voids 1 # Bowel Movements 1 Labs Labs Laboratory Tests Test 05/08/18 16:56 05/08/18 20:44 05/09/18 06:25 05/09/18 08:08 Glucose (Fingerstick) 280 mg/dL (70-99) 384 mg/dL (70-99) 347 mg/dL (70-99) White Blood Count 6.0 x10^3/uL (4.0-11.0) Red Blood Count 4.10 x10^6/uL (3.50-5.40) Hemoglobin 11.6 g/dL (12.0-15.5) Hematocrit 33.5 % (36.0-47.0) Mean Corpuscular Volume 82 fL (79-100) Mean Corpuscular Hemoglobin 28 pg (25-35) Mean Corpuscular Hemoglobin Concent 35 g/dL (31-37) Red Cell Distribution Width 12.9 % (11.5-14.5) Platelet Count 276 x10^3/uL (140-400) Neutrophils (%) (Auto) 85 % (31-73) Lymphocytes (%) (Auto) 13 % (24-48) Monocytes (%) (Auto) 2 % (0-9) Eosinophils (%) (Auto) 0 % (0-3) Basophils (%) (Auto) 0 % (0-3) Neutrophils # (Auto) 5.1 x10^3uL (1.8-7.7) Lymphocytes # (Auto) 0.8 x10^3/uL (1.0-4.8) Monocytes # (Auto) 0.1 x10^3/uL (0.0-1.1) Eosinophils # (Auto) 0.0 x10^3/uL (0.0-0.7) Basophils # (Auto) 0.0 x10^3/uL (0.0-0.2) Sodium Level 135 mmol/L (136-145) Potassium Level 4.5 mmol/L (3.5-5.1) Chloride Level 98 mmol/L (98-107) Carbon Dioxide Level 26 mmol/L (21-32) Anion Gap 11 (6-14) Blood Urea Nitrogen 20 mg/dL (7-20) Creatinine 1.8 mg/dL (0.6-1.0) Estimated GFR (Cockcroft-Gault) 28.8 BUN/Creatinine Ratio 11 (6-20) Glucose Level 387 mg/dL (70-99) Calcium Level 8.4 mg/dL (8.5-10.1) Total Bilirubin 0.3 mg/dL (0.2-1.0) Aspartate Amino Transf (AST/SGOT) 18 U/L (15-37) Alanine Aminotransferase (ALT/SGPT) 13 U/L (14-59) Alkaline Phosphatase 92 U/L (46-116) Total Protein 6.8 g/dL (6.4-8.2) Albumin 2.0 g/dL (3.4-5.0) Albumin/Globulin Ratio 0.4 (1.0-1.7) Test 05/09/18 11:53 Glucose (Fingerstick) 335 mg/dL (70-99) Micro Micro Microbiology 05/06/18 Blood Culture - Preliminary, Resulted NO GROWTH AFTER 2 DAYS Review of Systems Constitutional: yes: alert, oriented Ears/Nose/Throat: Yes: no symptom reported Eyes: Yes: no symptom reported Pulmonary: Yes dyspnea Cardiovascular: Yes no symptom reported Gastrointestional: Yes: no symptom reported Genitourinary: Yes: no symptom reported Musculoskeletal: Yes: no symptom reported Skin: Yes no symptom reported Psychiatric/Neurological: Yes: no symptom reported Endocrine: Yes: no symptom reported Hematologic/Lymphatic: Yes: no symptom reported Physical Exam General Appearance: no apparent distress Skin: warm Respiratory: bilateral CTA Heart: S1S2, RRR Abdomen: soft, bowel sounds present Extremities: pulses present Neurology: alert, follow commands Assessment Assessment MP TORI WITH IMPROVEMENT OF CR DOWN TO 1.8 AND NO HX OF CKD SUSPECT PNEUMONIA ? LLL LUNG MASS DEHYDRATION ABD PAIN WITH N/V SEIZURES WT LOSS OF 20 LBS PLAN PULMONARY FOLLOWING OP ENC PO LIQUIDS OK TO D/C PT TO F/U IN OFFICE ALLY DEMPSEY MD May 09, 2018 12:30
--- NOTE | 2018-05-09 13:15 | NUR ---
Discharging patient to home. Discharge instructions given. PIV and monitor off. Escorted patient to front entrance into a private vehicle
--- NOTE | 2018-05-09 19:17 | DS ---
DATE OF DISCHARGE: 05/09/2018 ADMISSION DIAGNOSIS: Chest pain. DISCHARGE DIAGNOSES: Atypical chest pain, diabetes, chronic renal insufficiency. CONSULTS: Nephrology and Pulmonary. HOSPITAL COURSE: The patient is a pleasant 57-year-old female who presented with chest pain. She was admitted. We did serial enzymes, serial EKGs, cardiac monitoring, consulted Nephrology, Cardiology and Pulmonary. We gave her some empiric IV antibiotics. Over the past few days, she has returned to her baseline. We plan to discharge to home with close outpatient followup. The patient was seen and examined this morning. Her heart tones were normal. Her lungs were clear. Her abdomen was soft. Extremities with trace edema. DISPOSITION: Home. ACTIVITY: As tolerated. DIET: Low sodium. MEDICATIONS: Please see the MRAD. TOTAL TIME: 33 minutes. SHARI RITCHIE DO DR: BERTA/bandar JOB#: [id number] / [id number]
== END 2018-05-09 13:24 | disposition home health service (06) | DRG 871 ==
LOC: ER 19:48 → 2 SOUTH 05-04 00:26
PROVIDERS: ADMIT Internal Medicine; ATTEND Internal Medicine
PROC: 3E0U33Z Introduction of Anti-inflammatory into Joints, Percutaneous Approach (ICD-10-PCS; principal; 2018-05-08)
PROC: 3E0U3BZ Introduction of Anesthetic Agent into Joints, Percutaneous Approach (ICD-10-PCS; 2018-05-08)
DX: A41.9 Sepsis, unspecified organism (principal); N17.1 Acute kidney failure with acute cortical necrosis; J18.9 Pneumonia, unspecified organism; E87.1 Hypo-osmolality and hyponatremia; E11.65 Type 2 diabetes mellitus with hyperglycemia; M77.9 Enthesopathy, unspecified; M75.02 Adhesive capsulitis of left shoulder; E11.42 Type 2 diabetes mellitus with diabetic polyneuropathy; I50.9 Heart failure, unspecified; E11.22 Type 2 diabetes mellitus with diabetic chronic kidney disease; E86.0 Dehydration; E11.319 Type 2 diabetes mellitus with unspecified diabetic retinopathy without macular edema; I48.91 Unspecified atrial fibrillation; F32.9 Major depressive disorder, single episode, unspecified; I25.2 Old myocardial infarction; I25.10 Atherosclerotic heart disease of native coronary artery without angina pectoris; J45.909 Unspecified asthma, uncomplicated; R07.89 Other chest pain; K57.90 Diverticulosis of intestine, part unspecified, without perforation or abscess without bleeding; F41.9 Anxiety disorder, unspecified; M19.90 Unspecified osteoarthritis, unspecified site; N18.9 Chronic kidney disease, unspecified; E78.5 Hyperlipidemia, unspecified; K30 Functional dyspepsia; E78.1 Pure hyperglyceridemia; G40.909 Epilepsy, unspecified, not intractable, without status epilepticus; K59.09 Other constipation; H40.9 Unspecified glaucoma; Z86.73 Personal history of transient ischemic attack (TIA), and cerebral infarction without residual deficits; Z90.49 Acquired absence of other specified parts of digestive tract; Z90.710 Acquired absence of both cervix and uterus; Z88.4 Allergy status to anesthetic agent; Z88.1 Allergy status to other antibiotic agents; Z82.49 Family history of ischemic heart disease and other diseases of the circulatory system; Z79.82 Long term (current) use of aspirin; Z86.010 Personal history of colon polyps; Z82.3 Family history of stroke; I11.0 Hypertensive heart disease with heart failure
CPT/HCPCS: 20610; 36415; 71045; 71250; 73030; 74176; 76705; 76770; 77002; 78227; 78452; 80048; 80053; 80061; 81001; 82550; 82962; 83036; 83690; 83735; 83880; 84300; 84484; 85025; 87040; 93005; 93017; 96361; 96374; 96375; 96376; A9500; A9537; J0780; J1040; J1200; J1650; J1815; J2270; J2405; J2543; J2785; J2805; J7030; 97116; 97535; 99285-25

== ENCOUNTER → 2018-05-19 | Outpatient (CLI) | payer OTHER ==
[2018-05-09 11:00] VITALS: BP 173/73
[~2018-05-19] MED LIST changes: +AMLO10TA4 PO; +ESTR0.5T PO; +INSU100I11 SQ; +PANT20TA2 PO
--- NOTE | 2018-05-22 19:31 | EEG ---
DATE OF SERVICE: 05/19/2018 EEG NUMBER: [id number]. OBJECTIVE: This is a 57-year-old female patient with history of seizure-like episodes. EEG was requested to help rule out seizure. METHODS: Twenty electrodes were applied according to the international 10-20 electrode placement system. EKG monitoring, hyperventilation, intermittent photic stimulation, monopolar and bipolar montages are routinely utilized. The record was obtained on a digital system with video monitoring. FINDINGS: 1. Background: The patient was recorded in the awake, drowsy, and sleep states. The overall background amplitude is 10-30 microvolts. A posterior dominant rhythm of 8-9 Hz is observed. 2. Abnormalities: No specific epileptiform discharge or electrographic seizure is seen. No focal or diffuse slowing. 3. Activation: Hyperventilation was performed with fair efforts and normal response. Intermittent photic stimulation was performed with photic driving. No specific epileptiform discharge or electrographic seizure induced by hyperventilation or intermittent photic stimulation. IMPRESSION: This EEG is a normal study for the awake, drowsy, and sleep states. No focal, lateralizing, specific epileptiform discharge or electrographic seizure is seen. KAMRAN KHAN MD DR: NÉSTOR/bandar JOB#: [id number] / [id number] EMILY
== END | disposition home or self-care (01) ==
LOC: RT 10:51
PROVIDERS: ATTEND Psychiatry & Neurology Neurology
DX: R56.9 Unspecified convulsions (principal); Z86.73 Personal history of transient ischemic attack (TIA), and cerebral infarction without residual deficits
CPT/HCPCS: 95816

== ENCOUNTER → 2018-06-22 | Outpatient (CLI) | payer OTHER ==
--- NOTE | 2018-06-22 18:40 | RAD ---
CT of the chest without contrast, 06/22/2018: HISTORY: Follow-up lung nodule Noncontrast scans were obtained as requested and compared to a study from 05/05/2018. Dense consolidation in the lateral aspect of the left lower lobe has markedly regressed. There is now only minimal residual streaky increased density in that region suggesting scarring. No nodularity or masslike process is seen. No new pulmonary abnormality is detected. There is no evidence of pleural fluid. There is calcific plaquing of the thoracic aorta without evidence of aneurysm. Several small mediastinal lymph nodes are seen without evidence of pathologic enlargement. The heart size is normal. Moderate hypertrophic degenerative changes are present in the spine. IMPRESSION: 1. Interval clearing of much of the left lower lobe consolidation since 05/05/2018 with only mild residual streaky parenchymal opacities suggesting scarring. 2. No new chest abnormality is detected. PQRS Compliance Statement: One or more of the following individualized dose reduction techniques were utilized for this examination: 1. Automated exposure control 2. Adjustment of the mA and/or kV according to patient size 3. Use of iterative reconstruction technique Electronically signed by: Tomas Nunez MD (06/22/2018 6:38 PM) [facility]
== END | disposition home or self-care (01) ==
LOC: CT 12:09
PROVIDERS: ATTEND Internal Medicine Critical Care Medicine
DX: J98.59 Other diseases of mediastinum, not elsewhere classified (principal); I70.0 Atherosclerosis of aorta; M89.38 Hypertrophy of bone, other site; M47.819 Spondylosis without myelopathy or radiculopathy, site unspecified
CPT/HCPCS: 71250

== ENCOUNTER → 2018-07-06 | Outpatient (CLI) | payer OTHER ==
--- NOTE | 2018-07-06 14:03 | RAD ---
DATE: 07/06/2018 EXAM: DIGITAL DIAGNOSTIC BILATERAL HISTORY: Left breast pain COMPARISON: 2014 This study was interpreted with the benefit of Computerized Aided Detection (CAD). Breast Density: FATTY The breast parenchyma is primarily fatty replaced. Breast parenchyma level density A. FINDINGS: 2-D and 3-D tomosynthesis imaging was performed in CC and MLO projections. No new or enlarging breast densities are seen. Minimal benign type calcification is present. No suspicious microcalcifications have developed. IMPRESSION: Stable mammograms without evidence of malignancy. BI-RADS CATEGORY: 1 NEGATIVE RECOMMENDED FOLLOW-UP: 12M 12 MONTH FOLLOW-UP PQRS compliance statement: Patient information was entered into a reminder system with a target due date for the next mammogram. Mammography is a sensitive method for finding small breast cancers, but it does not detect them all and is not a substitute for careful clinical examination. A negative mammogram does not negate a clinically suspicious finding and should not result in delay in biopsying a clinically suspicious abnormality. "Our facility is accredited by the [employer] Mammography Program."
== END | disposition home or self-care (01) ==
LOC: MAMMO 13:11
DX: R92.8 Other abnormal and inconclusive findings on diagnostic imaging of breast (principal); N64.4 Mastodynia
CPT/HCPCS: 77066

== ENCOUNTER 2018-12-27 14:47 | Emergency (ER) | payer OTHER ==
[~2018-12-27] VITALS: Ht 157.5 cm; Wt 74.8 kg
[~2018-12-27 14:47] MED LIST changes: -CLON1TAB11 PO; +CLONAZEPAM1 MG PO; -LINE600T PO; +LINE600T12 PO
[2018-12-27] MEDS ORDERED: MORPHINE SULFATE 4 MG/ML VIAL. IV/SQ PRN (17:15)
[2018-12-27] MEDS ORDERED: LABETALOL 20 MG/4 ML DISP.SYRIN. IVP ONE (17:15)
--- NOTE | 2018-12-27 17:31 | RAD ---
CT HEAD INDICATION: Headache, hypertension COMPARISON: 12/27/2017 Exposure: One or more of the following individualized dose reduction techniques were utilized for this examination: 1. Automated exposure control 2. Adjustment of the mA and/or kV according to patient size 3. Use of iterative reconstruction technique TECHNIQUE: 5 mm contiguous axial images were obtained from the skull base to the vertex in both bone and soft tissue algorithm. FINDINGS: No abnormal attenuation within the brain parenchyma. No evidence of acute intracranial hemorrhage. No extra-axial fluid collections. No mass effect or midline shift. Ventricular size is appropriate. Basal cisterns are patent. No fractures identified.Carl-white differentiation is preserved.Globes and orbits are within normal limits. Paranasal sinuses and mastoid air cells are clear. IMPRESSION: No acute intracranial findings. Electronically signed by: Mark Castellanos MD (12/27/2018 5:28 PM) [facility]
[2018-12-27 17:59] LABS: BASO # 0.1 x10^3/uL (0.0-0.2); BASO % 1 % (0-3); EOS # 0.2 x10^3/uL (0.0-0.7); EOS % 2 % (0-3); HEMATOCRIT 41.6 % (36.0-47.0); HEMOGLOBIN 14.3 g/dL (12.0-15.5); LYMPH # 2.8 x10^3/uL (1.0-4.8); LYMPH % 34 % (24-48); MEAN CORPUSCULAR HEMOGLOBIN 29 pg (25-35); MEAN CORPUSCULAR HGB CONC 34 g/dL (31-37); MEAN CORPUSCULAR VOLUME 83 fL (79-100); MONO # 0.4 x10^3/uL (0.0-1.1); MONO % 5 % (0-9); NEUT # 4.8 x10^3/uL (1.8-7.7); NEUT % 58 % (31-73); PLATELET COUNT 274 x10^3/uL (140-400); RED BLOOD COUNT 5.03 x10^6/uL (3.50-5.40); RED CELL DISTRIBUTION WIDTH 13.5 % (11.5-14.5); WHITE BLOOD COUNT 8.2 x10^3/uL (4.0-11.0)
[2018-12-27 18:05] LABS: CALCIUM 9.6 mg/dL (8.5-10.1); GFR 56.6; POTASSIUM 3.8 mmol/L (3.5-5.1)
[2018-12-27 18:11] LABS: ALBUMIN 3.9 g/dL (3.4-5.0); ALBUMIN/GLOBULIN RATIO 0.8 (1.0-1.7); TOTAL BILIRUBIN 0.5 mg/dL (0.2-1.0); TOTAL PROTEIN 8.5 g/dL (6.4-8.2)
--- NOTE | 2018-12-27 18:25 | PHYS DOC ---
Past Medical History Past Medical History: A-Fib, Depression, Diabetes-Type II, High Cholesterol, Hypertension, [place], Renal Disease, Seizure, TIA, Other Additional Past Medical Histor: BODY SPASMS,IRREG HEARTBEAT,NEUROPATHY, Measles,CARDIAC ARREST Past Surgical History: Appendectomy, Cholecystectomy, , Hysterectomy, Other Additional Past Surgical Histo: ABD SURG,LAPAROSCOPY,BOWEL SURG Alcohol Use: None Drug Use: None Adult General Chief Complaint Chief Complaint: HYPERTENSION HPI HPI Patient is a 58 year old female with history of diabetes type 2, hypertension, high cholesterol, A. fib, kidney disease, who presents to the ED today complaining of high blood pressure. Patient states she went to see an oral surgeon and was told her blood pressure was too high and sent to the emergency room. Patient reports her blood pressures run high and she takes metoprolol. She believes the blood pressure is high today due to pain. She states they did not give her anything for pain at the dentist office. She rates her dental pain is 10 out of 10, describes the pain as sharp and constant on the left lower gum. She states the pain is worse on touching her left lower gum. Patient denies any chest pain or shortness of breath. Denies any headache. Review of Systems Review of Systems Constitutional: Denies fever or chills [] Eyes: Denies change in visual acuity, redness, or eye pain [] HENT: Reports dental pain and left lower gum. Denies nasal congestion or sore throat [] Respiratory: Denies cough or shortness of breath [] Cardiovascular: Reports high blood pressure. No additional information not addressed in HPI [] GI: Denies abdominal pain, nausea, vomiting, bloody stools or diarrhea [] : Denies dysuria or hematuria [] Musculoskeletal: Denies back pain or joint pain [] Integument: Denies rash or skin lesions [] Neurologic: Denies headache, focal weakness or sensory changes [] All other systems were reviewed and found to be within normal limits, except as documented in this note. Current Medications Current Medications Current Medications Medications (Trade) Dose Ordered Sig/Monica Start Time Stop Time Status Last Admin Dose Admin Labetalol HCl (Normodyne Iv Push) 20 mg 1X ONCE 12/27/18 17:15 12/27/18 17:16 DC 12/27/18 17:40 20 MG Morphine Sulfate (Morphine Sulfate) 4 mg PRN Q15MIN PRN 12/27/18 17:15 12/28/18 17:14 12/27/18 17:40 4 MG Allergies Allergies Allergies Coded Allergies Type Severity Reaction Last Updated Verified levofloxacin Allergy Severe SEIZURES 12/30/17 Yes lidocaine Allergy Severe Swelling 12/30/17 Yes Physical Exam Physical Exam Constitutional: Well developed, well nourished, no acute distress, non-toxic appearance. [] HENT: Normocephalic, atraumatic, bilateral external ears normal, oropharynx moist, no oral exudates, nose normal. [] Left lower cheek with swelling. Missing molars on the left lower gum. Slight gum erythema. Eyes: PERRLA, EOMI, conjunctiva normal, no discharge. [] Neck: Normal range of motion, no tenderness, supple, no stridor. [] Cardiovascular:Heart rate regular rhythm, no murmur [] Lungs & Thorax: Bilateral breath sounds clear to auscultation [] Abdomen: Bowel sounds normal, soft, no tenderness, no masses, no pulsatile masses. [] Skin: Warm, dry, no erythema, no rash. [] Back: No tenderness, no CVA tenderness. [] Extremities: No tenderness, no cyanosis, no clubbing, ROM intact, no edema. [] Neurologic: Alert and oriented X 3, normal motor function, normal sensory function, no focal deficits noted. Cranial nerves II through XII intact Psychologic: Affect normal, judgement normal, mood normal. [] Current Patient Data Vital Signs Vital Signs Date Time Temp Pulse Resp B/P (MAP) Pulse Ox O2 Delivery O2 Flow Rate FiO2 12/27/18 17:40 75 207/84 12/27/18 17:40 18 99 Room Air 12/27/18 17:00 98.1 98.1 Lab Values Laboratory Tests Test 12/27/18 17:35 White Blood Count 8.2 x10^3/uL (4.0-11.0) Red Blood Count 5.03 x10^6/uL (3.50-5.40) Hemoglobin 14.3 g/dL (12.0-15.5) Hematocrit 41.6 % (36.0-47.0) Mean Corpuscular Volume 83 fL (79-100) Mean Corpuscular Hemoglobin 29 pg (25-35) Mean Corpuscular Hemoglobin Concent 34 g/dL (31-37) Red Cell Distribution Width 13.5 % (11.5-14.5) Platelet Count 274 x10^3/uL (140-400) Neutrophils (%) (Auto) 58 % (31-73) Lymphocytes (%) (Auto) 34 % (24-48) Monocytes (%) (Auto) 5 % (0-9) Eosinophils (%) (Auto) 2 % (0-3) Basophils (%) (Auto) 1 % (0-3) Neutrophils # (Auto) 4.8 x10^3/uL (1.8-7.7) Lymphocytes # (Auto) 2.8 x10^3/uL (1.0-4.8) Monocytes # (Auto) 0.4 x10^3/uL (0.0-1.1) Eosinophils # (Auto) 0.2 x10^3/uL (0.0-0.7) Basophils # (Auto) 0.1 x10^3/uL (0.0-0.2) Sodium Level 136 mmol/L (136-145) Potassium Level 3.8 mmol/L (3.5-5.1) Chloride Level 100 mmol/L (98-107) Carbon Dioxide Level 26 mmol/L (21-32) Anion Gap 10 (6-14) Blood Urea Nitrogen 25 mg/dL (7-20) H Creatinine 1.0 mg/dL (0.6-1.0) Estimated GFR (Cockcroft-Gault) 56.6 BUN/Creatinine Ratio 25 (6-20) H Glucose Level 236 mg/dL (70-99) H Calcium Level 9.6 mg/dL (8.5-10.1) Magnesium Level 2.0 mg/dL (1.8-2.4) Total Bilirubin 0.5 mg/dL (0.2-1.0) Aspartate Amino Transferase (AST) 30 U/L (15-37) Alanine Aminotransferase (ALT) 20 U/L (14-59) Alkaline Phosphatase 61 U/L (46-116) Creatine Kinase 172 U/L (26-192) Creatine Kinase MB (Mass) 2.2 ng/mL (0.0-3.6) Creatine Kinase MB Relative Index 1.3 % (0-4) Troponin I Quantitative < 0.017 ng/mL (0.000-0.055) KH-Uke-Q-Type Natriuretic Peptide 278 pg/mL (0-124) H Total Protein 8.5 g/dL (6.4-8.2) H Albumin 3.9 g/dL (3.4-5.0) Albumin/Globulin Ratio 0.8 (1.0-1.7) L Laboratory Tests 12/27/18 17:35 Laboratory Tests 12/27/18 17:35 EKG EKG [address] Linares sinus rhythm HR 77 no STEMI[] Radiology/Procedures Radiology/Procedures []PROCEDURE: CT HEAD WO CONTRAST CT HEAD INDICATION: Headache, hypertension COMPARISON: 12/27/2017 Exposure: One or more of the following individualized dose reduction techniques were utilized for this examination: 1. Automated exposure control 2. Adjustment of the mA and/or kV according to patient size 3. Use of iterative reconstruction technique TECHNIQUE: 5 mm contiguous axial images were obtained from the skull base to the vertex in both bone and soft tissue algorithm. FINDINGS: No abnormal attenuation within the brain parenchyma. No evidence of acute intracranial hemorrhage. No extra-axial fluid collections. No mass effect or midline shift. Ventricular size is appropriate. Basal cisterns are patent. No fractures identified.Carl-white differentiation is preserved.Globes and orbits are within normal limits. Paranasal sinuses and mastoid air cells are clear. IMPRESSION: No acute intracranial findings. Electronically signed by: Mark Castellanos MD (12/27/2018 5:28 PM) [facility] DICTATED and SIGNED BY: MARK CASTELLANOS MD DATE: 12/27/181727 Course & Med Decision Making Course & Med Decision Making Pertinent Labs and Imaging studies reviewed. (See chart for details) This is a 58-year-old female patient with history of hypertension presenting to the ED today stating she was seen at the dentist office and her blood pressure was high, she was sent to the ED to be evaluated. Patient reports her blood pressure is high because of the dental pain. She has no neurological cardiac symptoms. Blood pressure on arrival to the ED was 236/101 with a heart rate of 80. She was given labetalol 10 mg IV. Patient was also given Rocephin IV and pain medicine. Chest x-ray is negative, EKG was negative, CT of the head is negative, CBC with no acute findings, troponin with no acute findings, CMP with glucose of 236, anion gap is normal, patient has known history of diabetes type 2. Compliance di scussed with diabetes medicine Pain is well controlled. Blood pressure right now is 93/54. D/c to home on antibiotics, and norco. F/u with PCP and dentist this week Moises Disclaimer Moises Disclaimer This electronic medical record was generated, in whole or in part, using a voice recognition dictation system. Departure Departure Impression: Primary Impression: Hypertension Additional Impressions: Hyperglycemia Abscess, dental Disposition: HOME, SELF-CARE Condition: STABLE Referrals: DINA NUÑEZ MD (PCP) follow up in the course of this week Patient Instructions: Dental Pain, [id number], Hypertension Additional Instructions: You were evaluated in the emergency room for dental pain and high blood pressure. Please continue following up with your primary care doctor and taking your diabetes and high blood pressure medications. Take the prescribed antibiotics until completed. Follow-up with your dentist as soon as you can Scripts Amoxicillin (AMOXICILLIN) 875 Mg Tablet 1 TAB PO BID, #20 TAB Prov: BENTON IBARRA APRN 12/27/18 Hydrocodone/Apap 5-325 (NORCO 5-325 TABLET) 1 Each Tablet 1 TAB PO Q6HRS PRN for PAIN, #20 TAB Prov: BENTON IBARRA APRN 12/27/18 Problem Qualifiers Primary Impression: Hypertension Hypertension type: unspecified Qualified Codes: I10 - Essential (primary) hypertension BENTON IBARRA APRN Dec 27, 2018 18:25
[2018-12-27] MEDS ORDERED: HYDR-3164 PO (18:35)
[2018-12-27] MEDS ORDERED: AMOX875T PO (18:35)
--- NOTE | 2018-12-27 18:39 | RAD ---
Exam: Chest one view INDICATION: Hypertension TECHNIQUE: Frontal view of the chest Comparisons: 05/03/2018 FINDINGS: The cardiomediastinal silhouette and pulmonary vessels are within normal limits. The lung and pleural spaces are clear. IMPRESSION: No acute cardiopulmonary process. Electronically signed by: Marina Iglesias MD (12/27/2018 6:36 PM) [facility]
[2018-12-27 18:55] VITALS: BP 97/48
[2018-12-27] MEDS ORDERED: KETOROLAC 30 MG/ML VIAL. IVP ONE (19:00)
[2018-12-27] MEDS ORDERED: cefTRIAXone IV Push 1 GM VIAL. IVP ONE (19:00)
--- NOTE | 2018-12-28 07:04 | EKG ---
[facility] [address] [place] [id number] Test Date: 2018-12-27 Test Time: 17:16:21 Pat Name: ROSA MARIA INIGUEZ Department: Room: Gender: F Imaging Scheduler: : 1960 Requested By: BENTON IBARRA Order Number: [id number] Reading MD: Measurements Intervals [place] Rate: 77 P: 22 NV: 172 QRS: -14 QRSD: 86 T: 42 QT: 380 QTc: 431 Interpretive Statements SINUS RHYTHM LEFT ATRIAL ABNORMALITY LEFTWARD AXIS QRS(T) CONTOUR ABNORMALITY CANNOT RULE OUT INFERIOR MYOCARDIAL DAMAGE ABNORMAL ECG No previous ECG available for comparison
== END 2018-12-27 19:10 | disposition home or self-care (01) ==
LOC: ER 14:47
DX: I10 Essential (primary) hypertension (principal); K04.7 Periapical abscess without sinus; E11.65 Type 2 diabetes mellitus with hyperglycemia; I48.91 Unspecified atrial fibrillation; E78.00 Pure hypercholesterolemia, unspecified; I25.2 Old myocardial infarction; N28.9 Disorder of kidney and ureter, unspecified; E11.40 Type 2 diabetes mellitus with diabetic neuropathy, unspecified; Z86.73 Personal history of transient ischemic attack (TIA), and cerebral infarction without residual deficits; Z88.4 Allergy status to anesthetic agent; Z88.1 Allergy status to other antibiotic agents; Z79.899 Other long term (current) drug therapy
CPT/HCPCS: 36415; 70450; 71045; 80053; 82553; 83735; 83880; 84484; 85025; 93005; 96374; 96375; 99285; J0696; J1885; J2270; J3490